=== PATIENT | female | born 1955 | race Caucasian/White ===

== ENCOUNTER → 2018-04-11 14:28 | Outpatient (CLI) | payer BC, SELFPAY ==
--- NOTE | 2018-04-11 14:35 | XR_ITS ---
XR KUB HISTORY: ITS.REASON: KIDNEY STONES ORDERING PHYSICIAN: Ish Palma MD PATIENT AGE: 63 years COMPARISON: 10/11/2017 FINDINGS: There is a 3 mm stone overlying the mid aspect of the left kidney. Multiple abdominal wall tacks in the lower abdomen. Surgical clips right upper quadrant. Degenerative change lumbar spine. IMPRESSION: Left nephrolithiasis
== END ==
PROVIDERS: PCP Family Medicine; Visit Provider Urology
DX: N20.0 Calculus of kidney (principal)
CPT/HCPCS: 74018

== ENCOUNTER → 2018-10-10 14:30 | Outpatient (CLI) | payer BC, SELFPAY ==
--- NOTE | 2018-10-10 14:32 | XR_ITS ---
XR KUB HISTORY: ITS.REASON: KIDNEY STONES ORDERING PHYSICIAN: Ish Palma MD PATIENT AGE: 63 years COMPARISON: 04/11/2018 FINDINGS: Surgical clips are present in the right upper quadrant. There are bilateral tubal ligation clips and there are multiple abdominal wall tacks present in the mid to lower abdomen. Mild lumbar scoliosis convex right. No obvious renal or ureteral calculi. There are multiple pelvic phleboliths. No abnormal calcifications are evident. No obvious renal or ureteral calculi.. No acute bony anomalies evident. IMPRESSION: Negative KUB, no acute finding
== END ==
PROVIDERS: PCP Family Medicine; Visit Provider Urology
DX: N20.0 Calculus of kidney (principal)
CPT/HCPCS: 74018

== ENCOUNTER → 2019-04-10 14:25 | Outpatient (CLI) | payer MEDICARE, SELFPAY ==
--- NOTE | 2019-04-10 14:31 | XR_ITS ---
XR KUB HISTORY: ITS.REASON: calculus of kidney ORDERING PHYSICIAN: Ish Palma MD PATIENT AGE: 64 years COMPARISON: 10/10/2018 FINDINGS: Surgical clips are present in the right upper quadrant. There are bilateral tubal ligation clips and there are multiple abdominal wall tacks present in the mid to lower abdomen. Mild lumbar scoliosis convex right. No obvious renal or ureteral calculi. There are multiple pelvic phleboliths. No abnormal calcifications are evident. No obvious renal or ureteral calculi.. No acute bony anomalies evident. Rule out vascular calcification IMPRESSION: Negative KUB, no acute finding
== END ==
PROVIDERS: PCP Family Medicine; Visit Provider Urology
DX: N20.9 Urinary calculus, unspecified (principal)
CPT/HCPCS: 74018

== ENCOUNTER → 2020-07-05 09:51 | Outpatient (CLI) | payer MEDICARE, SELFPAY ==
[2020-07-05 13:03] LABS: Coronavirus 19 IgG Antibody Negative (Negative); Coronavirus 19 IgM Antibody Negative (Negative)
== END ==
PROVIDERS: Visit Provider Internal Medicine Gastroenterology
DX: Z01.818 Encounter for other preprocedural examination (principal); Z12.11 Encounter for screening for malignant neoplasm of colon
CPT/HCPCS: 36415; 86328

== ENCOUNTER 2020-07-07 09:29 | Day surgery (SDC) | payer MEDICARE, SELFPAY ==
[2020-07-01 10:28] VITALS: BMI 29.7
[2020-07-07 09:50] VITALS: BP 154/67; PULSE 67; RESP 18; TEMP 36.5; O2SAT 98
[2020-07-07 10:03] LABS: POC Glucose,Bedside 247 (70-110)
[2020-07-07 11:00] VITALS: O2SAT 97
--- NOTE | 2020-07-07 11:07 | P.PN_ITS ---
[facility] Anesthesia Checklist - Patient Identification Patient Identification: Arm Band, Verbal (Name & ) - Structural Data Admitted From: Home Planned Operative Procedure/s: Colonoscopy Consent for Planned Operative Procedure(s) Verified: Yes Verified Documents: Surgical Consent, History and Physical - NPO Status Verified Time NPO: 00:00 - Chart Verification Results Verified: None - Additional verifications Fingerstick Blood Glucose: 247 Anesthesia Reactions: No - Airway Assessment C-Spine Mobility Assessed: Yes TMJ Mobility Assessed: Yes Dentition: Good Dentition - Neurological Assessment Level of Consciousness: Awake, Alert, Appropriate, Follows Commands Hx Seizures: No Numbness or tingling in extremities: No - Anesthesia Plan Anesthesia Risk discussed: Yes Anesthesia Plan: Verified ASA Class: III Anesthesia Type: MAC [facility] History I have reviewed the patient's past medical history: Yes Medical History: Reports:: Diabetes Mellitus Type 2, Gastroesophageal Reflux Disease(GERD), Hyperlipidemia, Hypertension, Kidney Stones Denies:: Cancer, Diabetes Mellitus Type 1, Internal Pacemaker, MRSA, Seizures *Have you ever received a pneumonia vaccine?: Yes *Have you received a flu vaccine this season?: Yes Other Medical History: Reports: Anemia Comment:: Gout, obesity Anesthesia experience/problems:: No prior complications Laterality Cases: Right: Carpal Tunnel Release, Bilateral: Arthroscopy Shoulder, Tonsillectomy Other Surgeries: Yes: Colonoscopy, , Tubal Ligation, Other. No: Pacemaker Amputation: No Fractures: No - *Social History Last grade of school completed: Some college Smoking Status: Never smoker Alcohol Intake: never Alcohol Intake Frequency:: holidays/special occasions only Substance Use Type: denies use *Occupational Status:: employed Housing: house Household Members: significant other *Travel in the last 8 weeks: None Family Hx:: Cancer, Hyperlipidemia, Hypertension
--- NOTE | 2020-07-07 11:35 | HMH.PROC ---
[facility] Procedure Note Procedure Note:: Colonoscopy Procedure Report: Colonoscopy with cold snare polypectomy Endoscopist: Anthony Herman II, MD Referring physician: Keven Cash MD Date of Procedure: July 07, 2020 Equipment: Olympus 180 variable stiffness pediatric colonoscope Sedation: MAC sedation Indication: Mrs. Edwards is a 65-year-old female who is here for follow-up screening/surveillance colonoscopy. The patient reports some intermittent lower abdominal discomfort that precedes diarrhea a couple of times monthly. Her mother had uterine cancer. The patient reports no abdominal pain, weight loss, change in her bowel habits or rectal bleeding. She reports no family history of colon cancer. The patient's last colonoscopy was normal (over 5 years ago). She has never had colon polyps. Procedure: Prior to the procedure, a history and physical exam was performed, and patient's medications and allergies were reviewed. The risks, benefits and alternatives of the sedation and procedure were discussed with the patient. All questions were answered and informed consent was obtained. The patient was brought to the procedure room. Patient identification and proposed procedure were verified by the physician and the nurse. The patient was placed in a left lateral decubitus position and the scope was passed under direct vision. Throughout the procedure, the patient's blood pressure, pulse, and oxygen saturations were monitored continuously. The colonoscopy was accomplished without difficulty. The patient tolerated the procedure well. Findings: On digital rectal examination there was normal rectal tone. There were no external hemorrhoids. The colonoscope was introduced through the anal canal to the rectum and advanced to the cecum. The ileocecal valve and appendiceal orifice were identified. The scope was advanced a short distance into the ileum which appeared grossly normal. The scope was then withdrawn into the colon. The cecum, ascending and transverse colon and mucosa were grossly normal. There was a diminutive 2 to 3 mm polyp in the descending colon removed via cold snare polypectomy. The polyp was removed but not retrieved. There were scattered diverticuli throughout the descending and sigmoid colon (LEFT colon). The rectum itself was normal. Upon retroflexion within the rectum there were grade 1-2 internal hemorrhoids. The preparation was excellent throughout with Eastham Preparation Score of 9. The cecal time was 12 minutes. Impression: 1. Diminutive descending colon polyp 2. Left-sided diverticulosis 3. Grade 1-2 internal hemorrhoids Plan: I will recommend repeat colonoscopy again in 10 years based upon hyperplastic polyp. I would encourage fiber supplementation on a long-term daily maintenance basis.
[2020-07-07 11:40] VITALS: BP 85/51; PULSE 61; RESP 12; TEMP 36.6; O2SAT 94
[2020-07-07 11:50] VITALS: BP 111/60; PULSE 62; RESP 16; O2SAT 97
[2020-07-07 12:00] VITALS: BP 132/74; PULSE 62; RESP 16; O2SAT 97
[2020-07-07 12:10] VITALS: BP 156/71; PULSE 65; RESP 16; TEMP 36.6; O2SAT 99
== END 2020-07-07 12:10 | disposition home or self-care (01) ==
LOC: OUTP 09:30
PROVIDERS: PCP Family Medicine; Visit Provider Internal Medicine Gastroenterology
PROC: 0DJD8ZZ Inspection of Lower Intestinal Tract, Via Natural or Artificial Opening Endoscopic (ICD-10-PCS; CPT 45378; principal; 2020-07-07 11:00)
DX: Z12.11 Encounter for screening for malignant neoplasm of colon (principal); K63.5 Polyp of colon; K57.30 Diverticulosis of large intestine without perforation or abscess without bleeding; K64.0 First degree hemorrhoids; Z80.49 Family history of malignant neoplasm of other genital organs; E11.9 Type 2 diabetes mellitus without complications; K21.9 Gastro-esophageal reflux disease without esophagitis; E78.5 Hyperlipidemia, unspecified; I10 Essential (primary) hypertension; Z87.442 Personal history of urinary calculi; D64.9 Anemia, unspecified; Z90.89 Acquired absence of other organs
CPT/HCPCS: 45385; 82962

== ENCOUNTER 2020-08-26 14:21 | Emergency (ER) | payer MEDICARE, SELFPAY ==
[2020-08-26] VITALS (7 sets, daily range): BP systolic 135–147; BP diastolic 60–70; PULSE 66–84; RESP 18–118; TEMP 37–37.1; O2SAT 96–99; BMI 29.9
--- NOTE | 2020-08-26 14:33 | CT_ITS ---
PROCEDURE: CT HEAD/BRAIN WO CON CLINICAL INDICATION: weakness New onset weakness with vomiting COMPARISON: No exams were available for comparison TECHNIQUE: Axial images obtained. All CT scans at the facility use one or more dose reduction, viz: automated exposure control, ma/kV adjustment per patient size (including targeted exams where dose is matched to indication, i.e. head), or iterative reconstruction technique. FINDINGS: No midline shift, mass effect, intracranial hemorrhage, hydrocephalus, or extra-axial fluid collection is evident. There is generalized atrophy with hypoattenuation of the periventricular white matter consistent with microangiopathic changes. The calvarium has an unremarkable appearance. No mastoid effusion. No sinus air-fluid level. IMPRESSION: No acute intracranial finding Dictated by: Brian Serrano MD 08/26/2020 15:35 Brian Serrano MD in [facility] 08/26/2020 15:35
--- NOTE | 2020-08-26 14:33 | ECG_ITS ---
APPROVED REPORT Exam: Resting ECG HR:88 bpm ECG Measurements Heart Rate 88 AXES NM 174 P 54 QRSd 90 QRS 0 QT 392 T 36 QTc 474 Conclusion Normal sinus rhythm Nonspecific ST abnormality, essentially unchanged from 2017 Abnormal ECG Electronically signed by : Lio Rodney, 08/29/2020 13:55:53
--- NOTE | 2020-08-26 14:33 | XR_ITS ---
PROCEDURE: XR CHEST PORTABLE CLINICAL HISTORY: cough COMPARISON: CR CXR1 CHEST-PORTABLE from 02/26/2013 FINDINGS: The cardiomediastinal silhouette and pulmonary vascularity are within normal limits. The lungs are clear without infiltrates, suspicious nodules, or pleural effusions. Lucency is noted in the right humeral head possibly due to subchondral cystic changes. IMPRESSION: No acute findings. Dictated by: Brian Serrano MD 08/26/2020 15:31 Brian Serrano MD in [facility] 08/26/2020 15:31
[2020-08-26 14:57] LABS: Basophils # 0.1 K/mm3 (0-0.2); Basophils % 0.7 % (0.1-2.0); Eosinophils # 0.4 K/mm3 (0.0-0.4); Eosinophils % 3.1 % (0.1-12.0); Hemoglobin 11.4 g/dL (12.2-16.2); Lymphocytes # 3.6 K/mm3 (0.7-4.5); Lymphocytes % 28.6 % (10-50); Mean Corpuscular HGB Conc 31.6 g/dL (31.8-35.4); Mean Corpuscular Hemoglobin 30.4 pg (27.0-31.2); Mean Corpuscular Volume 96.2 fl (81-99); Mean Platelet Volume 10.8 fl (7.4-10.4); Monocytes # 0.5 K/mm3 (0.1-1.0); Monocytes % 3.6 % (1.7-9.3); Neutrophils # 8.1 K/mm3 (1.8-7.8); Platelet Count 250 K/mm3 (142-424); Red Blood Count 3.74 M/mm3 (4.20-5.40); Red Cell Distribution Width 13.7 % (11.5-17.5); White Blood Count 12.6 K/mm3 (4.8-10.8)
[2020-08-26 15:01] LABS: Microscopic, Urine URINE MICROSCOPIC (MICROSCOPIC)
[2020-08-26 15:02] LABS: Appearance,Urine CLEAR (Clear); Bilirubin,Urine Negative (Negative); Blood, Urine Negative (Negative); Color,Urine YELLOW (Yellow); Glucose,Urine (UA) 2+ (Negative); Ketones,Urine Negative (Negative); Leukocyte Esterase,Urine Negative (Negative); Nitrate,Urine Negative (Negative); PH,Urine 6.5 (5.0-8.5); Protein,Urine Negative (Negative); Urobilinogen,Urine 0.2 EU/dl (0.2)
[2020-08-26 15:03] LABS: Alanine Aminotransferase 22 U/L (12-78); Albumin Level 3.6 g/dl (3.5-5.0); Albumin/Globulin Ratio 1.2 (1.1-1.8); Alkaline Phosphatase 106 U/L (38-126); Anion Gap 13.6 mEq/L (5-15); Aspartate Amino Transferase 27 U/L (14-36); Bilirubin,Total 0.4 mg/dl (0.2-1.3); Blood Urea Nitrogen 14 mg/dl (7-17); Carbon Dioxide 22 mmol/L (22.0-30.0); Chloride 106 mmol/L (98-107); Creatinine Clearance Estimated 61 mL/min (50-200); Estimated Glomerular Filt Rate 45 ml/min (>60); GFR (African American) 54 ML/MIN (>60); Globulin 3.1 g/dL (1.3-3.2); Glucose 251 mg/dl (74-100); Lipase 46 U/L (23-300); Potassium 3.6 mmoL/L (3.5-5.1); Sodium 138 mmol/L (136-145); Total Protein,Serum 6.7 g/dl (6.3-8.2)
--- NOTE | 2020-08-26 15:07 | PC.NURSE ---
pt gone to ct
[2020-08-26 15:13] LABS: RBC,Urine Occasional #/hpf (0-3)
[2020-08-26 15:14] LABS: Amphetamine/Metha Screen,Urine Negative ng/ml (<1000); Barbiturates Screen,Urine Negative ng/ml (<200)
[2020-08-26 15:15] LABS: Benzodiazepines Screen,Urine Negative ng/ml (<200)
--- NOTE | 2020-08-26 15:15 | HMH.EDWEAK ---
ED Disposition Clinical Impression: Near syncope Disposition: Home, Self-Care Condition on Discharge: Good Instructions: DI for Syncope in Adults (Fainting) Referrals: Provider,Referral, [Referring] - - Critical Care Critical Care Time: No Attestation: On 08/26/20, the high probability of a clinically significant, sudden or life threatening deterioration of the following system(s) required my full and direct attention, intervention and personal management. The time I documented below is in addition to time spent performing reported procedures but includes the following listed in this critical care notation. Medical Decision Making - Medical Records Medical records reviewed: Yes: I reviewed the patient's medical records. - Nemesio Inquiry Pt receiving controlled substance: No Vital Signs: 08/26/20 14:21 08/26/20 14:47 08/26/20 15:01 Temperature 98.6 F 98.7 F Temperature Source Oral Rectal Pulse Rate [Left Radial] 82 76 Respiratory Rate 19 118 H 18 Blood Pressure [Right Arm] 141/67 H 141/67 H 141/70 H Blood Pressure Mean [Right Arm] 91 91 93 Blood Pressure Source [Right Arm] Automatic Cuff Automatic Cuff Blood Pressure Position [Right Arm] Sitting Supine 02 Sat by Pulse Oximetry 96 96 Oxygen Delivery Method Room Air Room Air 08/26/20 15:31 08/26/20 16:05 Temperature Temperature Source Pulse Rate [Left Radial] 84 66 Respiratory Rate 18 18 Blood Pressure [Right Arm] 135/60 143/67 H Blood Pressure Mean [Right Arm] 85 92 Blood Pressure Source [Right Arm] Automatic Cuff Automatic Cuff Blood Pressure Position [Right Arm] Sitting Sitting 02 Sat by Pulse Oximetry 97 99 Oxygen Delivery Method Room Air Room Air - Lab Data Lab Results 08/26/20 14:35: WBC 12.6 H, RBC 3.74 L, Hgb 11.4 L, Hct 36.0 L, MCV 96.2, MCH 30.4, MCHC 31.6 L, RDW 13.7, Plt Count 250, MPV 10.8 H, Neut % (Auto) 64.0, Lymph % (Auto) 28.6, [place] % (Auto) 3.6, Eos % (Auto) 3.1, Baso % (Auto) 0.7, Neut # (Auto) 8.1 H, Lymph # (Auto) 3.6, [place] # (Auto) 0.5, Eos # (Auto) 0.4, Baso # (Auto) 0.1 08/26/20 14:35: Sodium 138, Potassium 3.6, Chloride 106, Carbon Dioxide 22, Anion Gap 13.6, BUN 14, Creatinine 1.20 H, Estimated Creat Clear 61, Estimated GFR 45 L, Est GFR ( Amer) 54 L, Glucose 251 H, Calcium 9.0, Total Bilirubin 0.4, AST 27, ALT 22, Alkaline Phosphatase 106, Troponin I < 0.01, Total Protein 6.7, Albumin 3.6, Globulin 3.1, Albumin/Globulin Ratio 1.2, TSH 0.50 08/26/20 14:35: Lipase 46 08/26/20 14:35: SARS-CoV-2 IgG Ab (Rapid) Negative, SARS-CoV-2 IgM Ab (Rapid) Negative 08/26/20 14:57: Urine Opiates Screen Negative, Urine Methadone Screen Negative, Ur Barbituates Screen Negative, Ur Phencyclidine Scrn Negative, Ur Amphetamines Screen Negative, U Benzodiazepines Scrn Negative, Urine Cocaine Screen Negative, U Marijuana (THC) Screen Positive H 08/26/20 14:57: Urine Color Yellow, Urine Appearance Clear, Urine pH 6.5, Ur Specific [place] 1.010, Urine Protein Negative, Urine Glucose (UA) 2+, Urine Ketones Negative, Urine Blood Negative, Urine Nitrate Negative, Urine Bilirubin Negative, Urine Urobilinogen 0.2, Ur Leukocyte Esterase Negative, Urine RBC Occasional, Urine WBC 3-5, Ur Squamous Epith Cells 3-5 Result diagrams: 08/26/20 14:35 08/26/20 14:35 Orders (Tests/Meds): ED MEDICATIONS Discontinued Medications Generic Name Dose Route Start Last Admin Trade Name Freq PRN Reason Stop Dose Admin Ondansetron HCl 4 mg 08/26/20 14:49 08/26/20 14:51 Ondansetron 4mg/2ml Vial IV 08/26/20 14:50 4 mg ONCE ONE Administration ORDERS Category Date Time Status Troponin I Q3H Lab 08/26/20 17:45 Ordered Troponin I Q3H Lab 08/26/20 20:45 Ordered - ECG Data Tracing #1 Normal ventricular rate 88 bpm, normal OH and QTc intervals. Sinus rhythm with no specific ST changes ECG initial impression date: 08/26/20 ECG initial impression time: 14:22 - Reevaluation(s) Time: 16:49 Reevaluation #1: On re
[2020-08-26 15:16] LABS: Cannabinoid Screen,Urine Positive ng/ml (<50); Cocaine Screen,Urine Negative ng/ml (<300)
[2020-08-26 15:17] LABS: Methadone Screen,Urine Negative ng/ml (<300); Opiate Screen,Urine Negative ng/ml (<300)
[2020-08-26 15:17] LABS: Troponin I < 0.01 ng/ml (0.00-0.034)
[2020-08-26 15:18] LABS: Phencyclidine Screen,Urine Negative ng/ml (<25)
[2020-08-26 15:28] LABS: Coronavirus 19 IgG Antibody Negative (Negative); Coronavirus 19 IgM Antibody Negative (Negative)
[2020-08-28 19:21] LABS: POC Glucose,Bedside 235 (70-110)
== END 2020-08-26 17:29 | disposition home or self-care (01) ==
PROVIDERS: Emergency Provider Emergency Medicine; PCP Family Medicine
DX: R55 Syncope and collapse (principal); E11.9 Type 2 diabetes mellitus without complications; Z79.84 Long term (current) use of oral hypoglycemic drugs; K21.9 Gastro-esophageal reflux disease without esophagitis; I10 Essential (primary) hypertension; E78.5 Hyperlipidemia, unspecified; Z87.442 Personal history of urinary calculi; Z79.899 Other long term (current) drug therapy
CPT/HCPCS: 70450; 71045; 80053; 80305; 81001; 82962; 83690; 84443; 84484; 85025; 86328; 93005; 96374; 99284; J2405

== ENCOUNTER → 2020-09-09 12:32 | Outpatient (CLI) | payer MEDICARE, SELFPAY ==
--- NOTE | 2020-09-09 | CA_ITS ---
APPROVED REPORT Sign Maker: CT Laterality: Bilateral Study Quality: Poor, Due to body habitus. Indications: syncope, Risk Factors Hypertension: Hyperlipidemia Diabetes Doppler Spectral Velocity Analysis ECA (R) 156.10/18.20 cm/s ECA (L) 96.50/19.50 cm/s dICA (R) 93.40/17.30 cm/s dICA (L) 80.80/25.40 cm/s Jonathan (R) 107.90/33.70 cm/s Jonathan (L) 74.80/21.00 cm/s pICA (R) 98.00/19.50 cm/s pICA (L) 82.30/7.50 cm/s dCCA (R) 60.40/12.20 cm/s dCCA (L) 78.80/13.70 cm/s pCCA (R) 81.50/13.50 cm/s pCCA (L) 141.40/18.00 cm/s Vert (R) 55.20/12.80 cm/s Vert (L) 36.80/10.80 cm/s ICA/CCA 1.80 ICA/CCA 1.00 Findings Duplex evaluation demonstrates stenosis of the right proximal internal carotid artery in the range of 20-49%. Duplex evaluation demonstrates stenosis of the left proximal internal carotid artery in the range of 20-49%. Duplex evaluation demonstrates antegrade flow of the bilateral Vertebral Arteries. Tortuous vessels noted, further testing suggested due to difficult exam. Conclusion plex evaluation demonstrates stenosis of the right proximal internal carotid artery in the range of 20-49%. Duplex evaluation demonstrates stenosis of the left proximal internal carotid artery in the range of 20-49%. Duplex evaluation demonstrates antegrade flow of the bilateral Vertebral Arteries. Tortuous vessels noted, further testing suggested due to difficult exam. Electronically signed by : Brian Serrano MD 09/09/2020 15:40:15
--- NOTE | 2020-09-09 13:58 | XR_ITS ---
PROCEDURE: XR DEXA AXIAL SKELETON CLINICAL HISTORY: POST-MENOPAUSAL COMPARISON: No exams were available for comparison FINDINGS: The right hip BMD is 0.718 with a T-score of -1.2. The left hip BMD is 0.733 with a T-score of -1.7. The lumbar spine BMD is 0.938 with a T-score of -1.0. IMPRESSION: This patient is considered osteopenic according to the World Health Organization criteria. Bone density is between 10 and 25 percent below young normal. Fracture risk is moderate. Treatment is advised. Based on these results a follow-up exam is recommended in 2 year. Dictated by: Brian Serrano MD 09/10/2020 05:56 Brian Serrano MD in [facility] 09/10/2020 05:56
== END ==
PROVIDERS: PCP Family Medicine; Visit Provider Family Medicine
DX: R55 Syncope and collapse (principal); Z78.0 Asymptomatic menopausal state
CPT/HCPCS: 77080; 93880

== ENCOUNTER → 2020-09-23 09:00 | Outpatient (CLI) | payer MEDICARE, SELFPAY ==
--- NOTE | 2020-09-23 09:14 | CT_ITS ---
Procedure: CT ANGIO NECK CLINICAL HISTORY: ABN CAROTID ULTRASOUND Hypertension, diabetes, hyperlipidemia, abnormal duplex of the carotid arteries COMPARISON: No exams were available for comparison TECHNIQUE: IV Contrast: 100ml Isovue 370 Axial images obtained with sagittal and coronal reformats. All CT scans at the facility use one or more dose reduction, viz: automated exposure control, ma/kV adjustment per patient size (including targeted exams where dose is matched to indication, i.e. head), or iterative reconstruction technique. FINDINGS: The aortic arch shows some mild calcific plaque. There is approximately 30 percent stenosis of the ostium the left subclavian artery. In addition, there is a mild amount calcific plaque at the ostium of the right subclavian artery causing approximately 30 percent stenosis. There is moderate to severe stenosis involving the distal aspect of the right common carotid artery at the bifurcation region. There is calcific plaque at this area causing some 50 percent stenosis of the distal right common carotid and 60 percent ostial stenosis of the right ICA. Cephalad to this is a eccentric calcific plaque causing 20 percent stenosis. Calcific plaque is present within the cavernous and clinoid portion of the right ICA with less than 50 percent stenosis Calcific plaque is present in the left carotid bifurcation with 50 percent diameter stenosis of the proximal left ICA secondary to calcific plaque. Calcific plaque is present in the cavernous portion of the left ICA with less than 50 percent stenosis. There is approximately 30 percent stenosis of the ostium of the left vertebral artery secondary to calcific plaque. The right vertebral has an unremarkable appearance. Left vertebral is dominant. Small amount of calcific plaque is also present in the distal aspect of the left vertebral just proximal to the basilar artery with approximately 30 percent stenosis. There are small nodules of the thyroid gland less than 1 cm and scattered small nodes in the neck. IMPRESSION: Abnormal CT of the carotid arteries as described above with moderate to severe stenosis of the distal right common carotid of 50 percent and 60 percent ostial stenosis of the right ICA along with 50 percent stenosis of the left carotid bifurcation and proximal ICA. Calcific plaque is also present in the cavernous portion of the carotids with less than 50 percent stenosis. 30 percent stenosis of the ostium of the left vertebral and both subclavian arteries. Dictated by: Brian Serrano MD 09/24/2020 11:00 Brian Serrano MD in [facility] 09/24/2020 11:00
[2020-09-23 09:35] LABS: Blood Urea Nitrogen 23 mg/dl (7-17); Estimated Glomerular Filt Rate 38 ml/min (>60); GFR (African American) 46 ML/MIN (>60)
== END ==
PROVIDERS: PCP Family Medicine; Visit Provider Family Medicine
DX: R93.89 Abnormal findings on diagnostic imaging of other specified body structures (principal); R55 Syncope and collapse
CPT/HCPCS: 36415; 70498; 82565; 84520; Q9967

== ENCOUNTER → 2022-02-24 13:15 | Outpatient (CLI) | payer MEDICARE, SELFPAY ==
--- NOTE | 2022-02-24 13:20 | CT_ITS ---
FINAL REPORT CLINICAL HISTORY: CALCULUS OF KIDNEY COMPARISON: July 11, 2018 FINDINGS: Axial CT images of the abdomen and pelvis were obtained without intravenous contrast. Coronal reformatted images were also obtained.This study was performed with techniques to keep radiation doses as low as reasonably achievable (ALARA). Individualized dose reduction techniques using automated exposure control or adjustment of mA and/or kV according to the patient's size were employed. Abdomen: The lung bases are clear. There are less than 3 mm bilateral nonobstructing renal stones. There are postoperative changes from cholecystectomy. There is fatty infiltration of the liver. The spleen and pancreas have an unremarkable, unenhanced appearance. No mass or adenopathy is seen. No inflammatory process is identified. Pelvis: Images of the pelvis reveal no evidence of ureteral dilation or ureteral stone. There are multiple colonic diverticula without evidence of diverticulitis. No mass or abnormal fluid collection is identified. There are postoperative changes along the anterior abdominal and pelvic wall. IMPRESSION: Less than 3 mm bilateral nonobstructing renal stones. No mass or inflammatory process. Reviewed, Interpreted and Dictated by Eris Caldera III, MD Transcribed by Eri Nazario Authenticated by Eris Caldera III, MD on 02/24/2022 03:28:[address] [facility]
== END ==
PROVIDERS: PCP Family Medicine; Visit Provider Urology
DX: N20.0 Calculus of kidney (principal)
CPT/HCPCS: 74176

== ENCOUNTER 2022-03-17 15:45 | Observation (INO) | payer MEDICARE, SELFPAY ==
--- NOTE | 2022-03-17 16:52 | PC.NURSE ---
Assessed pt at this time. Pt nauseated and not feeling well. Advised her as soon as a room became available we would get her back.
--- NOTE | 2022-03-17 17:18 | PC.NURSE ---
Warm blankets provided. Advised pt still waiting on room to become available.
--- NOTE | 2022-03-17 17:43 | PC.NURSE ---
went in and assessed patient who was laying on the floor. V/S were 122/89, 89HR, 98%. and FSBS was 296. I offered patient multiple different things and advised we would get her into a room SHERI. PT thankful and agreeable at this time. Had no new needs.
--- NOTE | 2022-03-17 17:51 | HMH.EDGENADL ---
ED Disposition Condition on Discharge: Fair - Critical Care Critical Care Time: No <Arron Mayo - Last Filed: 03/17/22 20:38> <Jonathan Soto Michael - Last Filed: 03/17/22 22:31> Clinical Impression: Bilateral flank pain, Postoperative pain, Lactic acidosis, Shakiness Vomiting Qualifiers: Vomiting type: unspecified Nausea presence: with nausea Qualified Code(s): R11.2 - Nausea with vomiting, unspecified Disposition: Admitted as Observation Referrals: Ermias Cash MD [Primary Care Provider] - Attestation: On 03/17/22, the high probability of a clinically significant, sudden or life threatening deterioration of the following system(s) required my full and direct attention, intervention and personal management. The time I documented below is in addition to time spent performing reported procedures but includes the following listed in this critical care notation. Medical Decision Making - Nemesio Inquiry Pt receiving controlled substance: Yes Nemesio was queried for this patient: Yes Risks and benefits of using a controlled substance: were discussed with pt by me - Lab Data Result diagrams: 03/17/22 19:18 - CT Data CT Scan: Abdomen, Pelvis Time Received: 19:[address] Reviewed: Yes: I have viewed the radiologist's interpretation <Arron Mayo - Last Filed: 03/17/22 20:38> - Lab Data Lab results reviewed: Yes: I reviewed the patient's lab results. Result diagrams: 03/17/22 19:18 - Physician Consults Physician Consulted: diana Reason -: Admission <Jonathan Soto Michael - Last Filed: 03/17/22 22:31> Vital Signs: 03/17/22 18:36 Temperature 98.9 F Temperature Source Oral Pulse Rate [Left Radial] 84 Respiratory Rate 17 Blood Pressure [Right Arm] 158/58 H Blood Pressure Mean [Right Arm] 91 02 Sat by Pulse Oximetry 99 Oxygen Delivery Method Room Air - Lab Data Lab Results 03/17/22 17:39: POC Glucose 297 H 03/17/22 19:18: Sodium 138, Potassium 4.0, Chloride 98, Carbon Dioxide 22, Anion Gap 22.0 H, BUN 32 H, Creatinine 1.80 H, Estimated Creat Clear 40, Estimated GFR 28 L, Est GFR ( Amer) 34 L, Glucose 361 H, Calcium 9.4, Total Bilirubin 0.6, AST 51 H, ALT 56, Alkaline Phosphatase 136 H, Total Protein 7.9, Albumin 4.5, Globulin 3.4 H, Albumin/Globulin Ratio 1.3 03/17/22 19:18: Lactate 6.4 H 03/17/22 20:53: Urine Color Brown, Urine Appearance Cloudy, Urine pH 6.0, Ur Specific [place] 1.020, Urine Protein 2+, Urine Glucose (UA) 2+, Urine Ketones Trace, Urine Blood 3+, Urine Nitrate Negative, Urine Bilirubin Negative, Urine Urobilinogen 0.2, Ur Leukocyte Esterase Negative, Urine RBC Tntc, Urine WBC 3-5, Ur Squamous Epith Cells Occasional, Urine Bacteria Trace Orders (Tests/Meds): ED MEDICATIONS Generic Name Dose Route Start Last Admin Trade Name Freq PRN Reason Stop Dose Admin Lactated Ringer's 1,000 mls @ 999 mls/hr 03/17/22 18:00 03/17/22 19:13 Lactated Ringer's 1000 Ml Bag IV 03/17/22 19:00 999 mls/hr .Q1H1M YOLIS Administration Lactated Ringer's 1,000 mls @ 999 mls/hr 03/17/22 21:30 03/17/22 21:26 Lactated Ringer's 1000 Ml Bag IV 03/17/22 22:30 999 mls/hr .Q1H1M YOLIS Administration Discontinued Medications Generic Name Dose Route Start Last Admin Trade Name Freq PRN Reason Stop Dose Admin Hydromorphone HCl 1 mg 03/17/22 17:58 03/17/22 19:12 Hydromorphone 2mg/Ml Syringe IV 03/17/22 17:59 1 mg ONCE ONE Administration Hydromorphone HCl 1 mg 03/17/22 20:39 03/17/22 20:55 Hydromorphone 2mg/Ml Syringe IV 03/17/22 20:40 1 mg ONCE ONE Administration Ondansetron HCl 4 mg 03/17/22 17:58 03/17/22 19:12 Ondansetron 4mg/2ml Vial IV 03/17/22 17:59 4 mg ONCE ONE Administration Promethazine HCl 25 mg 03/17/22 21:23 03/17/22 21:26 Promethazine Hcl 25mg/Ml 1ml Vial IV 04/27/22 21:24 25 mg ONCE ONE Administration Sodium Chloride 25 ml 03/17/22 21:23 Sodium Chloride 0.9% 25ml Bag IV 03/17/22 21:24 ONCE ONE
--- NOTE | 2022-03-17 17:59 | CT_ITS ---
PROCEDURE INFORMATION: Exam: CT Abdomen And Pelvis Without Contrast Exam date and time: 03/17/22 06:12 PM Age: 67 years old Clinical indication: Abdominal pain; Generalized; Additional info: Bilat flank pain, bilat laser eswl today TECHNIQUE: Imaging protocol: Computed tomography of the abdomen and pelvis without contrast. Radiation optimization: All CT scans at this facility use at least one of these dose optimization techniques: automated exposure control; mA and/or kV adjustment per patient size (includes targeted exams where dose is matched to clinical indication); or iterative reconstruction. COMPARISON: CT ABDOMEN PELVIS WO CON 02/24/22 01:34 PM FINDINGS: Tubes, catheters and devices: None noted. Lungs: Lung bases appear clear. Heart: Moderate coronary calcifications. No cardiomegaly. No significant pericardial effusion. Liver: Fatty liver. No mass. Gallbladder and bile ducts: Cholecystectomy. No ductal dilation. Pancreas: Normal. No ductal dilation. Spleen: Calcified granulomata. No splenomegaly. Adrenal glands: Normal. No mass. Kidneys and ureters: Contrast and air in both renal collecting systems. Punctate calcification remains in the left collecting system. UPJ configuration bilaterally. No hydronephrosis. Stomach and bowel: Colonic diverticulosis without diverticulitis. No obstruction. No mucosal thickening. Appendix: Retrocecal appendix is well visualized. No evidence of appendicitis. Intraperitoneal space: Unremarkable. No free air. No significant fluid collection. Retroperitoneal space: No significant retroperitoneal inflammatory changes are noted. Arteries: Unremarkable. No abdominal aortic aneurysm. Lymph nodes: Unremarkable. No enlarged lymph nodes. Urinary bladder: Unremarkable as visualized. Reproductive: Bilateral tubal ligation. Bones/joints: Vacuum discs L1-L2 and L2-L3. No acute fracture. Soft tissues: Anterior abdominal wall mesh. IMPRESSION: 1. Contrast and air in the renal collecting systems bilaterally. 2. Punctate calcification remains in the left collecting system. 3. Moderate coronary calcifications. 4. Fatty liver. 5. Cholecystectomy. 6. Colonic diverticulosis without diverticulitis.
[2022-03-17 18:27] VITALS: BMI 30.2
[2022-03-17 18:36] VITALS: BP 158/58; PULSE 84; RESP 17; TEMP 37.2; O2SAT 99; BMI 30.2
[2022-03-17 19:17] LABS: POC Glucose,Bedside 297 (70-110)
[2022-03-17 19:32] LABS: Chloride 98 mmol/L (98-107)
[2022-03-17 19:33] LABS: Sodium 138 mmol/L (136-145)
[2022-03-17 19:35] LABS: Alanine Aminotransferase 56 U/L (12-78); Aspartate Amino Transferase 51 U/L (14-36); Blood Urea Nitrogen 32 mg/dl (7-17); Creatinine Clearance Estimated 40 mL/min (50-200); Estimated Glomerular Filt Rate 28 ml/min (>60); GFR (African American) 34 ML/MIN (>60)
[2022-03-17 19:36] LABS: Albumin Level 4.5 g/dl (3.5-5.0); Albumin/Globulin Ratio 1.3 (1.1-1.8); Alkaline Phosphatase 136 U/L (38-126); Bilirubin,Total 0.6 mg/dl (0.2-1.3); Calcium 9.4 mg/dl (8.4-10.2); Carbon Dioxide 22 mmol/L (22.0-30.0); Globulin 3.4 g/dL (1.3-3.2); Glucose 361 mg/dl (74-100); Total Protein,Serum 7.9 g/dl (6.3-8.2)
[2022-03-17 19:40] LABS: Lactic Acid 6.4 mmol/L (0.7-2.1)
[2022-03-17 21:03] LABS: Microscopic, Urine URINE MICROSCOPIC (MICROSCOPIC)
[2022-03-17 21:08] LABS: Appearance,Urine CLOUDY (Clear); Bilirubin,Urine Negative (Negative); Blood, Urine 3+ (Negative); Color,Urine BROWN (Yellow); Glucose,Urine (UA) 2+ (Negative); Ketones,Urine TRACE (Negative); Leukocyte Esterase,Urine Negative (Negative); Nitrate,Urine Negative (Negative); Protein,Urine 2+ (Negative); Urobilinogen,Urine 0.2 EU/dl (0.2)
[2022-03-17 21:31] LABS: Bacteria,Urine Trace /lpf; RBC,Urine TNTC #/hpf (0-3); Squamous Epithelial Cell,Urine Occasional #/hpf (0-5)
[2022-03-17 22:42] VITALS: BMI 31.8
[2022-03-17 23:14] VITALS: BP 142/75; PULSE 82; RESP 16; TEMP 37.2; O2SAT 99
[2022-03-17 23:21] LABS: Coronavirus 19, PCR Not Detected (NotDetected); Influenza A, PCR Not Detected (NotDetected); Influenza B, PCR Not Detected (NotDetected)
[2022-03-17 23:25] LABS: Reflex Lactic Add Lactic Reflex
[2022-03-18] VITALS: BP 155/61; PULSE 84; RESP 18; TEMP 36.7; O2SAT 99
[2022-03-18 01:45] LABS: Reflex Lactic (2 hrs) Add Lactic Reflex
[2022-03-18 02:45] LABS: Lactic Acid Follow up (RFLX 2) 1.9 mmol/L (0.7-2.1)
[2022-03-18 03:41] LABS: Basophils % 0.1 % (0.1-2.0); Hematocrit 39.7 % (37.0-47.0); Hemoglobin 12.6 g/dL (12.2-16.2); Lymphocytes % 4.4 % (10-50); Mean Corpuscular HGB Conc 31.7 g/dL (31.8-35.4); Mean Corpuscular Hemoglobin 30.2 pg (27.0-31.2); Mean Corpuscular Volume 95.2 fl (81-99); Mean Platelet Volume 13.8 fl (7.4-10.4); Monocytes % 1.2 % (1.7-9.3); Neutrophils # 14.6 K/mm3 (1.8-7.8); Neutrophils % 93.7 % (37.0-80.0); Platelet Count 221 K/mm3 (142-424); Red Blood Count 4.17 M/mm3 (4.20-5.40)
[2022-03-18 03:42] LABS: Lymphocytes # 0.7 K/mm3 (0.7-4.5); MANUAL DIFFERENTIAL MANUAL DIFFERENTIAL (MANUAL DIFF); Monocytes # 0.2 K/mm3 (0.1-1.0); White Blood Count 15.6 K/mm3 (4.8-10.8)
[2022-03-18 04:00] VITALS: BP 130/64; PULSE 85; RESP 18; TEMP 36.8; O2SAT 97
[2022-03-18 06:43] LABS: Chloride 103 mmol/L (98-107); Sodium 136 mmol/L (136-145)
[2022-03-18 06:44] LABS: Potassium 4.2 mmoL/L (3.5-5.1)
[2022-03-18 06:47] LABS: Anion Gap 13.2 mEq/L (5-15); Blood Urea Nitrogen 32 mg/dl (7-17); Calcium 8.3 mg/dl (8.4-10.2); Carbon Dioxide 24 mmol/L (22.0-30.0); Creatinine Clearance Estimated 38 mL/min (50-200); Estimated Glomerular Filt Rate 25 ml/min (>60); GFR (African American) 30 ML/MIN (>60); Glucose 203 mg/dl (74-100)
--- NOTE | 2022-03-18 07:11 | HMH.PHAVTE ---
[facility] Pharmacy VTE Monitoring - Patient Demographics Admission date: 03/18/22 Report Date: 03/18/22 Time: 07:11 Allergies/Adverse Reactions: Patient Allergies No Known Drug Allergies [NKDA] Allergy (Unknown, Verified 10/09/19 13:23) Height: 1.68 m Weight: 89.721 kg Patient Problems: Current Active Problems Bilateral flank pain (Acute) Postoperative pain (Acute) Lactic acidosis (Acute) Shakiness (Acute) Vomiting (Acute) - VTE Risk Labs: VTE Related Lab Results Hgb 12.6 g/dL (12.2-16.2) 03/17/22 19:18 Hct 39.7 % (37.0-47.0) 03/17/22 19:18 Plt Count 221 K/mm3 (142-424) 03/17/22 19:18 BUN 32 mg/dl (7-17) H 03/18/22 05:36 Creatinine 2.00 mg/dl (0.52-1.04) H 03/18/22 05:36 Estimated Creat Clear 38 mL/min (50-200) 03/18/22 05:36 Clinical Trial Participant: No - Prophylaxis VTE Prophylaxis Ordered?: Yes Types of VTE Prophylaxis: TEDS Knee High
[2022-03-18 08:00] VITALS: BP 145/57; PULSE 86; RESP 16; TEMP 37.3; O2SAT 97
[2022-03-18 08:04] LABS: POC Glucose,Bedside 177 (70-110)
--- NOTE | 2022-03-18 08:09 | HMH.PHAINT ---
Home medication list has been verified using patient's P[employer] claim history and information provided by the patient.
[2022-03-18 11:35] LABS: Red Blood Count 3.33 M/mm3 (4.20-5.40)
[2022-03-18 11:36] LABS: Hematocrit 31.4 % (37.0-47.0); Hemoglobin 10.2 g/dL (12.2-16.2); Lymphocytes % 9.7 % (10-50); Mean Corpuscular HGB Conc 32.5 g/dL (31.8-35.4); Mean Corpuscular Hemoglobin 30.6 pg (27.0-31.2); Mean Corpuscular Volume 94.3 fl (81-99); Mean Platelet Volume 13.6 fl (7.4-10.4); Monocytes % 4.9 % (1.7-9.3); Neutrophils % 84.9 % (37.0-80.0); Platelet Count 167 K/mm3 (142-424); Red Cell Distribution Width 13.1 % (11.5-17.5)
[2022-03-18 11:37] LABS: Basophils % 0.2 % (0.1-2.0); Lymphocytes # 1.2 K/mm3 (0.7-4.5); Monocytes # 0.6 K/mm3 (0.1-1.0); Neutrophils # 10.7 K/mm3 (1.8-7.8); White Blood Count 12.6 K/mm3 (4.8-10.8)
[2022-03-18 11:49] LABS: POC Glucose,Bedside 170 (70-110)
[2022-03-18 12:55] VITALS: TEMP 36.6
--- NOTE | 2022-03-18 14:39 | HMH.CONS ---
*Admission Date: 03/18/22 *Reason for consult:: Emphysematous pyelitis, history of stones *History of present illness: Patient is a 67-year-old white female with history of nephrolithiasis status post bilateral ureteroscopy and stone extraction yesterday by dr. arcos in [place]. she presented to the emergency room last evening around 6:00 with bilateral flank pain and lactic acidosis. she was noted to be shaking on admission. her white count was 12.4 with a lactate of 6.4. creatinine was 1.8. a ct scan was performed that showed small stone in the left renal pelvis but no evidence of hydronephrosis or stones in the course of ureter. there was contrast and air in the renal collecting systems bilaterally. She is currently in the intensive care unit and her discomfort and shaking chills chills have resolved. [facility] History Medical History: Reports:: Diabetes Mellitus Type 2, Gastroesophageal Reflux Disease(GERD), Hyperlipidemia, Hypertension, Kidney Stones Denies:: Cancer, Diabetes Mellitus Type 1, Internal Pacemaker, MRSA, Seizures *Have you ever received a pneumonia vaccine?: Yes *Have you received a flu vaccine this season?: Yes Other Medical History: Reports: Anemia, Cataracts (BOTH) Laterality Cases: Right: Carpal Tunnel Release, Bilateral: Arthroscopy Shoulder, Cataract, Tonsillectomy Other Surgeries: Yes: Cardiac Catheterization, Colonoscopy, , Hernia Repair, Tubal Ligation, Other. No: Pacemaker Amputation: No Fractures: No - *Social History Last grade of school completed: Advanced degree Smoking Status: Never smoker Alcohol Intake: never Alcohol Intake Frequency:: holidays/special occasions only Substance Use Type: denies use *Occupational Status:: unemployed Housing: house Household Members: significant other *Travel in the last 8 weeks: None Family Hx:: Cancer, Hyperlipidemia, Hypertension Review of Systems - Review of Systems Review of systems:: pertinent systems reviewed and negative unless documented below Meds Home Medications Medication Instructions Recorded Confirmed Type clonidine HCl 0.1 mg tablet 0.1 mg PO BID 01/31/18 03/18/22 History omeprazole 20 mg capsule,delayed 20 mg PO DAILY 01/31/18 03/18/22 History release allopurinol 100 mg tablet 100 mg PO DAILY 04/11/18 03/18/22 History atorvastatin 40 mg tablet 40 mg PO QPM 04/10/19 03/18/22 History torsemide 10 mg tablet 10 mg PO DAILY 04/10/19 03/18/22 History Potassium Chloride [Klor-Con M20] 20 meq PO DAILY 08/26/20 03/18/22 History Amlodipine Besylate [Norvasc 5mg 5 mg PO DAILY 03/18/22 03/18/22 History tablet] Ascorbic Acid 500 mg PO DAILY 03/18/22 03/18/22 History Cholecalciferol (Vitamin D3) 2,000 unit PO BID 03/18/22 03/18/22 History [Vitamin D3] Diclofenac Sodium [Voltaren 1 applic TOPICAL QID 03/18/22 03/18/22 History Arthritis Pain] Estradiol/Norethindrone Acet 1 tab PO DAILY 03/18/22 03/18/22 History [Estradiol-Noreth 0.5-0.1 mg Tb] Glimepiride [Amaryl 2mg tablet] 2 mg PO DAILY 03/18/22 03/18/22 History Losartan/Hydrochlorothiazide 1 tab PO DAILY 03/18/22 03/18/22 History [Losartan-Hctz 100-25 mg Tab] Metformin HCl 850 mg PO BID 03/18/22 03/18/22 History Metoprolol Succinate [Metoprolol 50 mg PO HS 03/18/22 03/18/22 History Succinate 50mg Tablet*] Sulfamethoxazole/Trimethoprim 1 tab PO BID 03/18/22 03/18/22 History [Sulfamethoxazole-Tmp Ds Tablet] Tramadol HCl [Tramadol 50mg 50 mg PO TIDP PRN 03/18/22 03/18/22 History Tab] Zolpidem Tartrate [Ambien 10mg 10 mg PO HS 03/18/22 03/18/22 History tablet] Allergies Allergy/AdvReac Type Severity Reaction Status Date / Time No Known Drug Allergies Allergy Unknown Verified 10/09/19 13:23 [NKDA] Exam Vital signs and Labs for Last 24 Hours: Temp Pulse Resp BP Pulse Ox 97.9 F 86 16 145/57 H 97 03/18/22 12:55 03/18/22 08:00 03/18/22 08:00 03/18/22 08:00 03/18/22 08:00 Laboratory Results - last 24 hr 03/17/22 17
[2022-03-18 15:25] VITALS: BMI 31.8
--- NOTE | 2022-03-18 15:27 | HMH.HP ---
*Admission Date: 03/18/22 <Lyssa Terry 03/18/22 15:34> *Chief complaint: back pain <Lyssa Terry 03/18/22 15:34> *History of present illness: Patient is a 67-year-old white female with history of nephrolithiasis status post bilateral ureteroscopy and stone extraction yesterday by dr. arcos in [place]. she presented to the emergency room last evening around 6:00 with bilateral flank pain and lactic acidosis. she was noted to be shaking on admission. her white count was 12.4 with a lactate of 6.4. creatinine was 1.8. a ct scan was performed that showed small stone in the left renal pelvis but no evidence of hydronephrosis or stones in the course of ureter. there was contrast and air in the renal collecting systems bilaterally. She is currently in the intensive care unit and her discomfort and shaking chills chills have resolved. (above as per Dr. Hartman) <Lyssa Terry 03/18/22 15:34> [facility] History I have reviewed the patient's past medical history: Yes <Lyssa Terry 03/18/22 15:34> Medical History: Reports:: Diabetes Mellitus Type 2, Gastroesophageal Reflux Disease(GERD), Hyperlipidemia, Hypertension, Kidney Stones Denies:: Cancer, Diabetes Mellitus Type 1, Internal Pacemaker, MRSA, Seizures <Lyssa Terry 03/18/22 15:34> *Have you ever received a pneumonia vaccine?: Yes <Lyssa Terry 03/18/22 15:34> *Have you received a flu vaccine this season?: Yes <Lyssa Terry 03/18/22 15:34> Other Medical History: Reports: Anemia, Cataracts (BOTH), Glaucoma <Lyssa Terry 03/18/22 15:34> Laterality Cases: Right: Carpal Tunnel Release, Bilateral: Arthroscopy Shoulder, Cataract, Tonsillectomy <Lyssa Terry 03/18/22 15:34> Other Surgeries: Yes: Cardiac Catheterization, Colonoscopy, , Hernia Repair, Tubal Ligation, Other (kidney stone removal ). No: Pacemaker <Lyssa Terry 03/18/22 15:34> Amputation: No <Lyssa Terry 03/18/22 15:34> Fractures: No <TanchristieLyssa 03/18/22 15:34> - *Social History Last grade of school completed: Advanced degree <MaraLyssa 03/18/22 15:34> Smoking Status: Never smoker <Santos Terrya 03/18/22 15:34> Alcohol Intake: never <aMraLyssa 03/18/22 15:34> Alcohol Intake Frequency:: holidays/special occasions only <Santos Terrya 03/18/22 15:34> Substance Use Type: denies use <TanchristieLyssa 03/18/22 15:34> *Occupational Status:: unemployed <MaraLyssa - 03/18/22 15:34> Housing: house <TanchristieLyssa 03/18/22 15:34> Household Members: significant other <MaraLyssa 03/18/22 15:34> *Travel in the last 8 weeks: None <MaraLyssa 03/18/22 15:34> Family Hx:: Cancer, Hyperlipidemia, Hypertension <MaraLyssa 03/18/22 15:34> Review of Systems - Constitutional Reports chills, Denies fever(s) <MaraLyssa 03/18/22 15:34> - Eyes Denies blurry vision, Denies double vision <MaraLyssa 03/18/22 15:34> - ENT Denies nasal congestion, Denies sore throat [facility] 15:34[facility] - *Cardiovascular Denies chest pain, Denies shortness of breath <Santos Terrya 03/18/22 15:34> - *Respiratory Denies chest congestion, Denies cough [facility] 03/18/22 15:34> - *Gastrointestinal Reports nausea, Reports vomiting, Denies abdominal pain, Denies loose stools <MaraLyssa 03/18/22 15:34> - *Genitourinary Denies difficulty urinating, Denies painful urination <Santos Terrya 03/18/22 15:34> - *Musculoskeletal Reports back pain <Santos Terrya 03/18/22 15:34> - *Neurologic Denies headache(s), Denies dizziness, Denies weakness <Lyssa Terry - 03/18/22 15:34> Meds Home Medications Medication Instructions Recorded Confirmed Type clonidine HCl 0.1 mg tablet 0.1 mg PO BID 01/31/18 03/18/22 History omeprazole 20 mg capsule,delayed 20 mg PO DAILY 01/31/18 03/18/22 History release allopurinol 100 mg tablet 100 mg PO DAILY 04/11/18 03/18/22 History atorvastatin 40 mg tablet 40 mg PO QPM 04/10/19
[2022-03-18 16:00] VITALS: BP 147/91; PULSE 82; RESP 20; TEMP 36.8; O2SAT 96
[2022-03-18 16:26] LABS: POC Glucose,Bedside 141 (70-110)
[2022-03-18 19:51] VITALS: BP 162/78; PULSE 85; RESP 21; TEMP 37; O2SAT 96
[2022-03-19 04:40] VITALS: BP 189/70; PULSE 81; RESP 18; TEMP 36.5; O2SAT 95
--- NOTE | 2022-03-19 04:43 | PC.NURSE ---
Patient had one episode of pain throughout shift thus far. Stating the pain is sudden and sharp in her back, medicated per mar. Patient states pain medication is effective and was able to rest after.
[2022-03-19 07:45] VITALS: BP 145/78; PULSE 84; RESP 18; TEMP 36.7; O2SAT 94
[2022-03-19 08:00] VITALS: O2SAT 94
--- NOTE | 2022-03-19 08:25 | HMH.ACPN2 ---
Internal Medicine - PN: Subj *Date: 03/19/22 *Time: 08:25 Interval history: This patient was stable through the night. I reviewed the H&P (the patient was seen by Dr. Cash and examined yesterday. The H&P has not yet been signed ). I reviewed Dr. Maddox's note. The patient is alert oriented in no distress this morning. Lab work is pending. Exam Vital signs and Labs for Last 24 Hours: Temp Pulse Resp BP Pulse Ox 98.1 F 84 18 145/78 H 94 L 03/19/22 07:45 03/19/22 07:45 03/19/22 07:45 03/19/22 07:45 03/19/22 07:45 Laboratory Results - last 24 hr 03/18/22 05:36: WBC 12.6 H, RBC 3.33 L, Hgb 10.2 L D, Hct 31.4 L, MCV 94.3, MCH 30.6, MCHC 32.5, RDW 13.1, Plt Count 167, MPV 13.6 H, Neut % (Auto) 84.9 H, Lymph % (Auto) 9.7 L, Clinch % (Auto) 4.9, Eos % (Auto) 0.0 L, Baso % (Auto) 0.2, Neut # (Auto) 10.7 H, Lymph # (Auto) 1.2, Clinch # (Auto) 0.6, Eos # (Auto) 0.0, Baso # (Auto) 0.0 03/18/22 11:39: POC Glucose 170 H 03/18/22 16:16: POC Glucose 141 H I & O for Last 24 hours: Intake & Output 03/16/22 03/17/22 03/18/22 03/19/22 11:59 11:59 11:59 11:59 Intake Total 720 / 720 1160 / 1160 Balance 720 / 720 1160 / 1160 Weight 197 lb 12.8 oz 197 lb 12.815 oz - Constitutional no acute distress - *Routine HEENT Exam Head: Present: normocephalic Eye: Present: EOMI, PERRL ENT: Present: mucous membranes moist - *Routine Neck Exam Present: supple. Absent: lymphadenopathy - Routine Chest/Breast/Axilla Exam Chest wall: Absent: tenderness (No CVA tenderness) - *Routine Respiratory Exam Present: CTA bilaterally - *Routine Cardiovascular Exam Present: RRR - *Routine Abdominal Exam Present: soft, normoactive bowel sounds. Absent: tenderness - *Routine Extremities Exam Absent: cyanosis, clubbing, edema - Routine Back/Spine/Pelvis Exam Back/Spine: Absent: CVA tenderness - *Routine Skin Exam Present: warm. Absent: rash - *Routine Neurological Exam Present: alert, oriented X3 Assessment and Plan (1) Emphysematous pyelitis Status: Acute Category: Medical Code(s): N12 - Tubulo-interstitial nephritis, not specified as acute or chronic (2) Vomiting Status: Acute Qualifiers: Vomiting type: unspecified Nausea presence: with nausea Qualified Code(s): R11.2 - Nausea with vomiting, unspecified Category: Medical Code(s): R11.10 - Vomiting, unspecified (3) Lactic acidosis Status: Acute Category: Medical Code(s): E87.2 - Acidosis (4) History of kidney stones Status: Chronic Category: Medical Code(s): Z87.442 - Personal history of urinary calculi (5) Bilateral flank pain Status: Acute Category: Medical Code(s): R10.9 - Unspecified abdominal pain (6) Postoperative pain Status: Acute Category: Medical Code(s): G89.18 - Other acute postprocedural pain (7) Hypertension Status: Chronic Category: Medical Code(s): I10 - Essential (primary) hypertension (8) Hyperlipemia Status: Chronic Category: Medical Code(s): E78.5 - Hyperlipidemia, unspecified (9) Type 2 diabetes mellitus Status: Chronic Category: Medical Code(s): E11.9 - Type 2 diabetes mellitus without complications (10) Shakiness Status: Acute Category: Medical Code(s): R25.1 - Tremor, unspecified - Assessment and plan all Dx Assessment and Plan for all problems:: If Dr. Hartman approves discharge today and will be accomplished. She will go home on antibiotics p.o.
[2022-03-19 09:02] LABS: Basophils # 0.2 K/mm3 (0-0.2); Basophils % 1.2 % (0.1-2.0); Eosinophils # 0.2 K/mm3 (0.0-0.4); Eosinophils % 1.3 % (0.1-12.0); Hematocrit 33.1 % (37.0-47.0); Hemoglobin 10.7 g/dL (12.2-16.2); Lymphocytes # 2.7 K/mm3 (0.7-4.5); Lymphocytes % 22.3 % (10-50); Mean Corpuscular HGB Conc 32.4 g/dL (31.8-35.4); Mean Corpuscular Hemoglobin 30.8 pg (27.0-31.2); Mean Corpuscular Volume 95.2 fl (81-99); Monocytes # 0.5 K/mm3 (0.1-1.0); Monocytes % 4.4 % (1.7-9.3); Neutrophils # 8.6 K/mm3 (1.8-7.8); Neutrophils % 70.8 % (37.0-80.0); Platelet Count 169 K/mm3 (142-424); Red Blood Count 3.48 M/mm3 (4.20-5.40); Red Cell Distribution Width 14.3 % (11.5-17.5); White Blood Count 12.1 K/mm3 (4.8-10.8)
[2022-03-19 09:20] LABS: Chloride 104 mmol/L (98-107); Sodium 137 mmol/L (136-145)
[2022-03-19 09:21] LABS: Potassium 3.7 mmoL/L (3.5-5.1)
[2022-03-19 09:23] LABS: Blood Urea Nitrogen 27 mg/dl (7-17)
[2022-03-19 09:24] LABS: Anion Gap 8.7 mEq/L (5-15); Calcium 8.3 mg/dl (8.4-10.2); Carbon Dioxide 28 mmol/L (22.0-30.0); Creatinine Clearance Estimated 45 mL/min (50-200); Estimated Glomerular Filt Rate 30 ml/min (>60); GFR (African American) 36 ML/MIN (>60); Glucose 188 mg/dl (74-100)
--- NOTE | 2022-03-19 11:50 | HMH.CONFU ---
Internal Medicine - PN: Subj *Date: 03/19/22 *Time: 11:50 Interval history: Patient is feeling much better today however still having little bit of back pain which is chronic for her. Signs are stable afebrile. Her white count and creatinine are trending down. Exam Vital signs and Labs for Last 24 Hours: Temp Pulse Resp BP Pulse Ox 98.1 F 84 18 145/78 H 94 L 03/19/22 07:45 03/19/22 07:45 03/19/22 07:45 03/19/22 07:45 03/19/22 07:45 Laboratory Results - last 24 hr 03/18/22 16:16: POC Glucose 141 H 03/19/22 08:40: WBC 12.1 H, RBC 3.48 L, Hgb 10.7 L, Hct 33.1 L, MCV 95.2, MCH 30.8, MCHC 32.4, RDW 14.3, Plt Count 169, MPV 11.0 H, Neut % (Auto) 70.8, Lymph % (Auto) 22.3, [place] % (Auto) 4.4, Eos % (Auto) 1.3, Baso % (Auto) 1.2, Neut # (Auto) 8.6 H, Lymph # (Auto) 2.7, [place] # (Auto) 0.5, Eos # (Auto) 0.2, Baso # (Auto) 0.2 03/19/22 08:40: Sodium 137, Potassium 3.7, Chloride 104, Carbon Dioxide 28, Anion Gap 8.7, BUN 27 H, Creatinine 1.70 H, Estimated Creat Clear 45, Estimated GFR 30 L, Est GFR ( Amer) 36 L, Glucose 188 H, Calcium 8.3 L I & O for Last 24 hours: Intake & Output 03/16/22 03/17/22 03/18/22 03/19/22 23:59 23:59 23:59 23:59 Intake Total 1879 / 1880 480 / 480 Balance 1880 / 1880 480 / 480 Weight 89.721 kg 89.721 kg - Constitutional no acute distress - *Routine HEENT Exam Head: Present: normocephalic Eye: Present: EOMI, PERRL ENT: Present: mucous membranes moist - *Routine Neck Exam Present: supple. Absent: lymphadenopathy - *Routine Respiratory Exam Absent: accessory muscle use - *Routine Cardiovascular Exam Absent: JVD - *Routine Abdominal Exam Present: soft. Absent: tenderness - *Routine Extremities Exam Absent: cyanosis, clubbing, edema - *Routine Skin Exam Present: warm. Absent: rash - *Routine Neurological Exam Present: alert, oriented X3 Assessment and Plan (1) Emphysematous pyelitis Status: Acute Category: Medical Code(s): N12 - Tubulo-interstitial nephritis, not specified as acute or chronic Patient feeling much better today after recent bilateral ureteroscopy. Her labs are trending down. No intervention is necessary from a urologic standpoint. We discussed that instrumentation of the ureters can certainly cause some inflammation and spasm and discomfort. Fortunately she has improved since admission. Follow-up with Dr. Willis as scheduled (2) Vomiting Status: Acute Qualifiers: Vomiting type: unspecified Nausea presence: with nausea Qualified Code(s): R11.2 - Nausea with vomiting, unspecified Category: Medical Code(s): R11.10 - Vomiting, unspecified (3) Lactic acidosis Status: Acute Category: Medical Code(s): E87.2 - Acidosis (4) History of kidney stones Status: Chronic Category: Medical Code(s): Z87.442 - Personal history of urinary calculi (5) Bilateral flank pain Status: Acute Category: Medical Code(s): R10.9 - Unspecified abdominal pain (6) Postoperative pain Status: Acute Category: Medical Code(s): G89.18 - Other acute postprocedural pain (7) Hypertension Status: Chronic Category: Medical Code(s): I10 - Essential (primary) hypertension (8) Hyperlipemia Status: Chronic Category: Medical Code(s): E78.5 - Hyperlipidemia, unspecified (9) Type 2 diabetes mellitus Status: Chronic Category: Medical Code(s): E11.9 - Type 2 diabetes mellitus without complications (10) Shakiness Status: Acute Category: Medical Code(s): R25.1 - Tremor, unspecified
[2022-03-19 22:46] LABS: POC Glucose,Bedside 151 (70-110)
--- NOTE | 2022-03-21 22:04 | HMH.DCSUM ---
General - General Admission date:: 03/18/22 Discharge date: 03/19/22 HPI HPI: Patient is a 67-year-old white female with history of nephrolithiasis status post bilateral ureteroscopy and stone extraction yesterday by dr. palma in [place]. she presented to the emergency room last evening around 6:00 with bilateral flank pain and lactic acidosis. she was noted to be shaking on admission. her white count was 12.4 with a lactate of 6.4. creatinine was 1.8. a ct scan was performed that showed small stone in the left renal pelvis but no evidence of hydronephrosis or stones in the course of ureter. there was contrast and air in the renal collecting systems bilaterally. She is currently in the intensive care unit and her discomfort and shaking chills chills have resolved. (above as per Dr. Hartman) Hospital Course Hospital Course: The patient was admitted and started on pain control. An abdominal pelvic CT showed contrast and air in the renal collecting systems and a punctate calcification remaining in the left collecting system. Dr. Hartman was consulted and felt she should be kept overnight for continued IV hydration, antibiotics, and pain control. By 03/19/2022, the patient was feeling much better. She had been able to rest and her pain had improved. Her white blood cell count and creatinine were trending down and it was felt she was stable to be discharged home. She will follow-up with Dr. Palma as scheduled. Objective Vital signs: Temp Pulse Resp BP Pulse Ox 98.1 F 84 18 145/78 H 94 L 03/19/22 07:45 03/19/22 07:45 03/19/22 07:45 03/19/22 07:45 03/19/22 08:00 Narrative: - Constitutional no acute distress - *Routine HEENT Exam Head: Present: normocephalic Eye: Present: EOMI, PERRL ENT: Present: mucous membranes moist - *Routine Neck Exam Present: supple. Absent: lymphadenopathy - *Routine Respiratory Exam Absent: accessory muscle use - *Routine Cardiovascular Exam Absent: JVD - *Routine Abdominal Exam Present: soft. Absent: tenderness - *Routine Extremities Exam Absent: cyanosis, clubbing, edema - *Routine Skin Exam Present: warm. Absent: rash - *Routine Neurological Exam Present: alert, oriented X3 Results Labs on day of discharge: Preliminary micro results at discharge 03/17/22 19:14 Blood Culture - Preliminary Blood NO GROWTH AFTER 48 HOURS 03/17/22 19:14 Blood Culture - Preliminary Blood NO GROWTH AFTER 48 HOURS DS: Diagnosis - Discharge Diagnosis (1) Emphysematous pyelitis Status: Acute (2) Vomiting Status: Acute (3) Lactic acidosis Status: Acute (4) History of kidney stones Status: Chronic (5) Bilateral flank pain Status: Acute (6) Postoperative pain Status: Acute (7) Hypertension Status: Chronic (8) Hyperlipemia Status: Chronic (9) Type 2 diabetes mellitus Status: Chronic (10) Shakiness Status: Acute Discharge Plan - Patient Discharge Instructions ACTIVITY: Limited activity DIET: advance to your usual diet Patient Instructions: Acute Cystitis, DI for Acute Pain -- Adult, DI for Flank Pain - Follow up Plan Follow up with: Ermias Cash MD [Primary Care Provider] - 03/25/22 (Call the office tomorrow morning for appointment time.) Disposition: Home, Self-Care Condition at discharge:: Improved Home Medications: Home Medications Medication Instructions Recorded Confirmed Type clonidine HCl 0.1 mg tablet 0.1 mg PO BID 01/31/18 03/18/22 History omeprazole 20 mg capsule,delayed 20 mg PO DAILY 01/31/18 03/18/22 History release allopurinol 100 mg tablet 100 mg PO DAILY 04/11/18 03/18/22 History atorvastatin 40 mg tablet 40 mg PO QPM 04/10/19 03/18/22 History torsemide 10 mg tablet 10 mg PO DAILY 04/10/19 03/18/22 History Potassium Chloride [Klor-Con M20] 20 meq PO DAILY 08/26/20 03/18/22 History Amlodipine Besylate [Norvasc 5mg 5 mg PO DAILY 03/18/22 03/18/22
--- NOTE | 2022-03-22 15:36 | CARE MANAGER ---
Spoke with patient in post-discharge interview and patient states that she has an outpatient appointment with Dr. Cash in the am. She states that she is having some back pain but is utilizing a heating pad and has some pain meds she is taking. No further issues noted.
== END 2022-03-19 17:33 | disposition home or self-care (01) ==
LOC: ER 22:31 → ICU 03-18 00:09 → 2ND 03-18 17:52
PROVIDERS: Emergency Medicine; Admitting Provider Family Medicine; Emergency Provider Emergency Medicine; PCP Family Medicine; Visit Provider Family Medicine
DX: E87.2 Acidosis (principal); N12 Tubulo-interstitial nephritis, not specified as acute or chronic; E11.9 Type 2 diabetes mellitus without complications; Z79.4 Long term (current) use of insulin; I10 Essential (primary) hypertension; E78.5 Hyperlipidemia, unspecified; Z79.899 Other long term (current) drug therapy; N30.80 Other cystitis without hematuria; Z20.822 Contact with and (suspected) exposure to COVID-19
CPT/HCPCS: G0378; 36415; 74176; 80048; 80053; 81001; 82962; 83605; 85007; 85025; 87040; 96375; 96376; 99285; C9803; J1335; J2405; U0003; U0005

== ENCOUNTER → 2022-03-30 16:53 | Outpatient (CLI) | payer MEDICARE, SELFPAY ==
--- NOTE | 2022-03-30 16:57 | MR_ITS ---
PROCEDURE INFORMATION: Exam: MR Lumbar Spine Without Contrast Exam date and time: 03/30/2022 5:04 PM Age: 67 years old Clinical indication: Low back pain; Prior surgery; Surgery date: <1 month; Patient HX: Lower back dias x 6 weeks. Pain started on left now going stright across back. PT had 5 kidney stones removed from both kidneys on March 17; Additional info: Mechanical low back pain TECHNIQUE: Imaging protocol: Multiplanar magnetic resonance images of the lumbar spine without intravenous contrast. COMPARISON: CT ABDOMEN PELVIS WO CON 03/17/2022 6:12 PM FINDINGS: Vertebrae: No acute compression fracture is seen. Mild dextroconvex curvature of the lumbar spine is present. There is minor retrolisthesis of L1 on L2 and L2 on L3. Bone marrow signal is within normal limits. Spinal cord: The conus medullaris terminates at the L1 level. There is no evidence of arachnoiditis or cauda equina compression. L1-L2: There is moderate diffuse circumferential disc bulging. This is causing minimal left foraminal stenosis. There is no significant spinal canal or right foraminal stenosis. L2-L3: There is moderate diffuse circumferential disc bulging, moderate facet arthropathy, and thickening of the ligamentum flavum. This is causing minimal spinal canal stenosis and mild left foraminal stenosis. There is no significant right foraminal stenosis. L3-L4: There is mild facet arthropathy. No spinal canal or neural foraminal stenosis is present. L4-L5: Moderate facet arthropathy is present. This is causing minimal bilateral foraminal stenosis. There is no spinal canal stenosis. L5-S1: Moderate facet arthropathy is present. There is no spinal canal or neural foraminal stenosis. Soft tissues: Mild subcutaneous edema is present in the lower back. IMPRESSION: Degenerative changes of the lumbar spine as discussed above
== END ==
PROVIDERS: PCP Family Medicine; Visit Provider Family Medicine
DX: M54.59 Other low back pain (principal)
CPT/HCPCS: 72148; 76376

== ENCOUNTER → 2022-04-26 09:49 | Outpatient (POV) | payer MEDICARE, SELFPAY ==
[2022-04-26 10:36] VITALS: BP 154/63; PULSE 61; RESP 18; TEMP 36.9; O2SAT 98; BMI 31.1
--- NOTE | 2022-04-26 11:09 | HMH.PMCON ---
Assessment and Plan (1) Degenerative disc disease, lumbar Status: Acute Category: Medical Code(s): M51.36 - Other intervertebral disc degeneration, lumbar region (2) Sacroiliitis Status: Acute Category: Medical Code(s): M46.1 - Sacroiliitis, not elsewhere classified (3) Facet arthropathy Status: Acute Category: Medical Code(s): M47.819 - Spondylosis without myelopathy or radiculopathy, site unspecified (4) Lumbar spondylosis Status: Acute Category: Medical Code(s): M47.816 - Spondylosis without myelopathy or radiculopathy, lumbar region - Assessment and plan all Dx Assessment and Plan for all problems:: Imaging: PROCEDURE INFORMATION: Exam: MR Lumbar Spine Without Contrast Exam date and time: 03/30/2022 5:04 PM Age: 67 years old Clinical indication: Low back pain; Prior surgery; Surgery date: <1 month; Patient HX: Lower back dias x 6 weeks. Pain started on left now going stright across back. PT had 5 kidney stones removed from both kidneys on March 17; Additional info: Mechanical low back pain TECHNIQUE: Imaging protocol: Multiplanar magnetic resonance images of the lumbar spine without intravenous contrast. COMPARISON: CT ABDOMEN PELVIS WO CON 03/17/2022 6:12 PM FINDINGS: Vertebrae: No acute compression fracture is seen. Mild dextroconvex curvature of the lumbar spine is present. There is minor retrolisthesis of L1 on L2 and L2 on L3. Bone marrow signal is within normal limits. Spinal cord: The conus medullaris terminates at the L1 level. There is no evidence of arachnoiditis or cauda equina compression. L1-L2: There is moderate diffuse circumferential disc bulging. This is causing minimal left foraminal stenosis. There is no significant spinal canal or right foraminal stenosis. L2-L3: There is moderate diffuse circumferential disc bulging, moderate facet arthropathy, and thickening of the ligamentum flavum. This is causing minimal spinal canal stenosis and mild left foraminal stenosis. There is no significant right foraminal stenosis. L3-L4: There is mild facet arthropathy. No spinal canal or neural foraminal stenosis is present. L4-L5: Moderate facet arthropathy is present. This is causing minimal bilateral foraminal stenosis. There is no spinal canal stenosis. L5-S1: Moderate facet arthropathy is present. There is no spinal canal or neural foraminal stenosis. Soft tissues: Mild subcutaneous edema is present in the lower back. IMPRESSION: Degenerative changes of the lumbar spine as discussed above Plan: Patient presents today as a new patient with a chief complaint of bilateral hip pain, left is worse than the right. She has an extreme point of tenderness around the bilateral SI joints. She cannot tolerate any full activity such as sitting, standing, and walking. Patient has a positive SI exam. We will schedule the patient for bilateral SI injection. Risk and benefits have been discussed with the patient. Patient will like to proceed with this procedure. Patient also has moderate facet arthropathies at L4-L5 and L5-S1 per her MRI. If the SI injections does not provide any long-term relief, will consider scheduling the patient for diagnostic medial branch block injections in this area. Patient has been instructed to contact the clinic with any concerns before the next appointment. Dr. Merino has reviewed this note and agrees with this plan of care. This note was dictated using voice recognition software and make contain errors or omissions. HPI - Data of Consult Patient: new to practice Consult date: 04/26/22 Requesting Physician: RAÚL Motta - Consult Narrative Reason for consult: Bilateral hip pain History of present illness: Ms. Edwards is a 67 year old female who presents today as a new patient. Patient is referred by Dr. Cash. Thank you for the referral. Patient presents today with worsening bilateral hip pain,
== END ==
PROVIDERS: Visit Provider Student in an Organized Health Care Education/Training Program
DX: M51.36 Other intervertebral disc degeneration, lumbar region (principal); M47.816 Spondylosis without myelopathy or radiculopathy, lumbar region; M46.1 Sacroiliitis, not elsewhere classified
CPT/HCPCS: 99202; G0463

== ENCOUNTER 2022-04-30 09:39 | Day surgery (SDC) | payer MEDICARE, SELFPAY ==
[2022-04-30 09:43] VITALS: BP 155/55; PULSE 60; RESP 20; TEMP 36.6; O2SAT 98; BMI 31.1
[2022-04-30 09:54] VITALS: BP 132/52; PULSE 59; RESP 18; O2SAT 99
--- NOTE | 2022-04-30 09:54 | P.PCN_ITS ---
- Procedure Date: 04/30/22 Time: 09:54 Anesthesiologist:: Kevin Dawson CRNA Complications:: None Pre-procedure Diagnosis:: Bilateral sacroiliitis Post-procedure Diagnosis:: Same Indications for Procedure:: This patient is a very pleasant 67-year-old female that presents our clinic today for bilateral SI joint injections. Patient has had these injections in the past. Patient describes the pain as constant, dull, aching. She has extreme point tenderness over the bilateral SI joints. Patient states the pain started about 6 months ago. This is gradually become more intense. Difficulty walking any length. Difficulty sitting for any length of time. Procedure Details:: Procedure: Bilateral sacroiliac joint injections under fluoroscopy Informed consent was obtained and the risks and benefits of the procedure were explained to the patient.~ The patient was taken to the procedure room and noninvasive monitors were placed including a noninvasive blood pressure cuff and pulse oximeter.~ The patient was placed prone on the procedure table. Both hips were cleansed using Betadine as a cleansing solution. C-arm fluoroscopy was used to view the right sacroiliac joint.~ The skin and subcutaneous tissues were anesthetized using lidocaine 1.5% and a 25-gauge needle.~ After this, a 22-gauge spinal needle was inserted under fluoroscopic guidance into the inferior aspect of the right sacroiliac joint.~ Omnipaque dye was injected and good spread was seen throughout the joint.~ After this, approximately 5 mL of bupivacaine, 0.25% and Depo-Medrol, 40 mg was incrementally injected into the right sacroiliac joint. We then moved to the left sacroiliac joint.~ The skin and subcutaneous tissues were anesthetized using lidocaine 1.5% and a 25-gauge needle.~ After this, a 22- gauge spinal needle was inserted under fluoroscopic guidance into the inferior aspect of the left sacroiliac joint.~ Omnipaque dye was injected and good spread was seen throughout the joint. After this, approximately 5 mL of bupivacaine, 0.25% and Depo-Medrol, 40 mg was incrementally injected into the left sacroiliac joint.~ The patient tolerated the procedure well with no complications. The patient was observed in the Pain Clinic and then was discharged home neurologically intact. Plan and Disposition:: Patient was discharged without incident.
[2022-04-30 09:55] VITALS: BP 127/57; PULSE 61; RESP 18; O2SAT 99
[2022-04-30 10:08] VITALS: BP 152/57; PULSE 59; RESP 20; O2SAT 97
== END 2022-04-30 10:08 | disposition home or self-care (01) ==
LOC: SC.PAINP 09:40
PROVIDERS: PCP Family Medicine; Visit Provider Nurse Anesthetist, Certified Registered
DX: M46.1 Sacroiliitis, not elsewhere classified (principal)
CPT/HCPCS: 27096; G0260; J1040

== ENCOUNTER → 2022-05-17 10:33 | Outpatient (POV) | payer MEDICARE, SELFPAY ==
[2022-05-17 11:24] VITALS: BP 158/67; PULSE 67; RESP 18; TEMP 36.6; O2SAT 99; BMI 30.4
--- NOTE | 2022-05-17 11:47 | HMH.PAINSOAP ---
[facility] Pain Management SOAP Note Subjective:: Patient is a very pleasant 67-year-old white female who presents to our clinic today for follow-up from bilateral SI joint injections. Patient is currently being treated for bilateral sacroiliitis. Patient states that she has continued 100% relief on her right side, however, patient says her left side was about 75% relief but only lasted for 1 week. She states that she has increased activity over the last month with improvement. Patient states her pain is a 3 out of 10 today on her left upper buttocks. She describes her pain as a throbbing that is worse with activities like laundry and doing the dishes. She states she has been dealing with this pain for about 6 months. Patient denies any recent falls or trauma. She has been taking gabapentin 300 mg 3 times a day prescribed by Dr. Cash. She is also using Voltaren gel which gives minimal relief. Patient states she has physical therapy tomorrow and of this week. Her Nemesio is [id number]. It has been reviewed and is appropriate. Review of Systems: General: No recent weight changes, no fever, no sleep disturbances Respiratory: No cough, no shortness of air, no recurring pulmonary infections Cardiovascular/peripheral vascular: No chest pain, no palpitations, no edema, no shortness of breath Gastrointestinal: No new onset incontinence, normal bowel movements reported Genitourinary: No new onset incontinence Musculoskeletal: Left low back pain Psychiatric: [Normal mood/affect] Neurological: [Denies weakness in extremities], [denies balance issues] Objective:: Physical Exam: General: Alert and oriented x3, no acute distress, pleasant and cooperative Lungs: Respirations even and unlabored, symmetrical chest expansion Eyes: PERRL Musculoskeletal: Flexion and extension of left lumbar [spine] somewhat guarded secondary to pain, [antalgic gait noted] Neurological: Speech clear, no gross sensory deficit Assessment:: Bilateral sacroiliitis Plan:: Patient has had 100% relief on her right SI. Patient states her left was a 75% relief however it only lasted 1 week, therefore, we schedule her for a repeat left SI injection. Patient did have point of tenderness on the left SI. She states her pain on the left side is back to baseline. Risk and benefits of the procedure have been explained to the patient, and the patient would like to proceed with injection. She is not taking any blood thinners at this time. We will also order the compounding cream for the patient. Patient has been instructed to contact the clinic with any concerns before the next appointment. Dr. Merino has reviewed this note and agrees with this plan of care. This note was dictated using voice recognition software and make contain errors or omissions. [facility] History I have reviewed the patient's past medical history: Yes Medical History: Reports:: Diabetes Mellitus Type 2, Gastroesophageal Reflux Disease(GERD), Hyperlipidemia, Hypertension, Kidney Stones Denies:: Cancer, Diabetes Mellitus Type 1, Internal Pacemaker, MRSA, Seizures *Have you ever received a pneumonia vaccine?: Yes *Have you received a flu vaccine this season?: Yes Other Medical History: Reports: Anemia, Arthritis, Cataracts (BOTH), Glaucoma Laterality Cases: Right: Carpal Tunnel Release, Bilateral: Arthroscopy Shoulder, Tonsillectomy Other Surgeries: Yes: Cardiac Catheterization, Colonoscopy, , Hernia Repair, Tubal Ligation, Other (kidney stone removal ). No: Pacemaker Amputation: No Fractures: No - *Social History Smoking Status: Never smoker Alcohol Intake: never Alcohol Intake Frequency:: holidays/special occasions only Substance Use Type: denies use *Occupational Status:: other Housing: house Household Members: significant other *Travel in the last 8 weeks: Inside the [place] Family Hx:: Cancer, Hyperlipidemia, Hypertension
== END ==
PROVIDERS: Visit Provider Student in an Organized Health Care Education/Training Program
DX: M46.1 Sacroiliitis, not elsewhere classified (principal)
CPT/HCPCS: 99212; G0463

== ENCOUNTER 2022-05-28 10:11 | Day surgery (SDC) | payer MEDICARE, SELFPAY ==
[2022-05-28 10:22] VITALS: BP 150/53; PULSE 52; RESP 18; TEMP 36.7; O2SAT 98; BMI 30.7
[2022-05-28 10:56] VITALS: RESP 20
--- NOTE | 2022-05-28 10:59 | HMH.PMPROC ---
- Procedure Date: 05/28/22 Time: 10:59 Anesthesiologist:: Kevin Dawson CRNA Complications:: None Pre-procedure Diagnosis:: Left sacroiliitis. Post-procedure Diagnosis:: Same Indications for Procedure:: Very pleasant 67-year-old female that comes to our clinic today for left SI joint injection. She has had injection in the past with significant improvement terms of her left posterior hip pain. We will repeat the injection today left SI joint. Procedure Details:: Procedure: Left sacroiliac injection under fluoroscopy Informed consent was obtained and the risk and benefits of the procedure were explained to the patient.~ The patient was taken to the procedure room and noninvasive monitors were placed including noninvasive blood pressure cuff and pulse oximeter.~ The patient was placed prone on the procedure table.~ The~ left hip was cleansed using Betadine as a cleansing solution.~ C-arm fluorosocpy was used to view the left SI joint.~ The skin and subcutaneous tissues were anesthetized using Lidocaine 1.5% and a 25-gauge needle.~ After this, a 22-gauge spinal needle was inserted under fluoroscopic guidance into the inferior aspect of the left SI joint.~ Omnipaque dye was injected and a good spread was seen throughout the joint.~ After this, approximately 5 mL of bupivacaine 0.25% and Depo-Medrol 40 mg was incrementally injected into the sacroiliac joint.~ The patient tolerated the procedure well with no complications.~ The patient was observed in the Pain Clinic for a period of 30-45 minutes, then discharged home neurologically intact.~ Plan and Disposition:: Patient was discharged without incident.
[2022-05-28 11:09] VITALS: BP 136/58; PULSE 62; RESP 20; O2SAT 98
== END 2022-05-28 11:10 | disposition home or self-care (01) ==
LOC: SC.PAINP 10:12
PROVIDERS: PCP Family Medicine; Visit Provider Nurse Anesthetist, Certified Registered
DX: M53.3 Sacrococcygeal disorders, not elsewhere classified (principal); M46.1 Sacroiliitis, not elsewhere classified
CPT/HCPCS: 27096; G0260; J1040

== ENCOUNTER → 2022-06-17 10:20 | Outpatient (POV) | payer MEDICARE, SELFPAY ==
[2022-06-17 10:48] VITALS: BP 139/59; PULSE 64; RESP 18; TEMP 36.7; O2SAT 99; BMI 30.7
--- NOTE | 2022-06-17 11:21 | HMH.PAINSOAP ---
[facility] Pain Management SOAP Note Subjective:: Patient is a pleasant 67-year-old female who presents today for follow-up. She is currently being treated for bilateral sacroiliitis. Today she rates her pain a 8 out of 10. She states the pain is just in her low back region more so on the left side. She states that she has had significant relief from her last left sacroiliac injection that was on 05/28/2022. She states that this injection is still somewhat helping and is given her about 50% improvement. previously we have done a bilateral SI injection that she stated also gave moderate relief but it only lasted for 1 week. She is interested in having a repeat injection. Patient states that she does use the compounding cream at home that has given significant improvement. She also has been seen physical therapy twice a week and doing home exercises that give minimal relief. Patient has been managing her pain with gabapentin [address] Cash. She states she did feel like she was in a fog with this medication so she has decreased to taking it only at bedtime. She states this does help manage her pain well. She denies any side effects with this medication. She denies any new change in the location or type of pain that she experiences. Her Nemesio is [id number]. It has been reviewed and appropriate. Review of Systems: General: No recent weight changes, no fever, no sleep disturbances Respiratory: No cough, no shortness of air, no recurring pulmonary infections Cardiovascular/peripheral vascular: No chest pain, no palpitations, no edema, no shortness of breath Gastrointestinal: No new onset incontinence, normal bowel movements reported Genitourinary: No new onset incontinence Musculoskeletal: Low back pain Psychiatric: [Normal mood/affect] Neurological: [Denies weakness in extremities], [denies balance issues] Objective:: Physical Exam: General: Alert and oriented x3, no acute distress, pleasant and cooperative Lungs: Respirations even and unlabored, symmetrical chest expansion Eyes: PERRL Musculoskeletal: Flexion and extension of lumbar [spine] somewhat guarded secondary to pain, [antalgic gait noted] Neurological: Speech clear, no gross sensory deficit Assessment:: Bilateral sacroiliitis Plan:: Patient has had significant improvement with her SI injections in the past. I have discussed with her about repeat SI injections. I have also discussed with the patient regarding a more permanent lotion such as the SI stabilization procedures. Educational handouts were given on both the omnia and the corner lock. At this time the patient would like to proceed forward with a repeat left SI injection. Risk and benefits were discussed with the patient. We will proceed forward with this injection. We will schedule the patient for a left sacroiliac injection. Patient has been instructed to contact the clinic with any concerns before the next appointment. Dr. Merino has reviewed this note and agrees with this plan of care. This note was dictated using voice recognition software and make contain errors or omissions. [facility] History I have reviewed the patient's past medical history: Yes Medical History: Reports:: Gastroesophageal Reflux Disease(GERD), Hyperlipidemia, Hypertension, Kidney Stones Denies:: Cancer, Diabetes Mellitus Type 1, Diabetes Mellitus Type 2, Internal Pacemaker, MRSA, Seizures *Have you ever received a pneumonia vaccine?: Yes *Have you received a flu vaccine this season?: Yes Other Medical History: Reports: Anemia, Arthritis, Cataracts (BOTH), Glaucoma Laterality Cases: Right: Carpal Tunnel Release, Bilateral: Arthroscopy Shoulder, Tonsillectomy Other Surgeries: Yes: Cardiac Catheterization, Colonoscopy, , Hernia Repair, Tubal Ligation, Other (kidney stone removal ). No: Pacemaker Amputation: No Fractures: No - *Social History Smoking Status: Never smoker Alcohol Intake: never Alcohol Intake Frequency:: holidays/s
== END ==
PROVIDERS: Visit Provider Student in an Organized Health Care Education/Training Program
DX: M46.1 Sacroiliitis, not elsewhere classified (principal); M19.90 Unspecified osteoarthritis, unspecified site
CPT/HCPCS: 99212; G0463

== ENCOUNTER 2022-07-09 08:36 | Day surgery (SDC) | payer MEDICARE, SELFPAY ==
[2022-07-09 09:09] VITALS: BP 142/64; PULSE 64; TEMP 36.6; O2SAT 98; BMI 30.9
[2022-07-09 09:25] VITALS: BP 136/64; PULSE 58; RESP 20; O2SAT 98
--- NOTE | 2022-07-09 10:05 | HMH.PMPROC ---
- Procedure Date: 07/09/22 Time: 09:00 Anesthesiologist:: Kevin Dawson CRNA Complications:: None Pre-procedure Diagnosis:: Left sacroiliitis Post-procedure Diagnosis:: Same Indications for Procedure:: Very pleasant 67-year-old female who comes our clinic today for left SI joint injection. Patient rates her left SI joint pain 8/10. Patient has extreme point tenderness over the left SI joint area. Patient complains of left posterior hip pain with walking, sitting, standing. Procedure Details:: Procedure: Left sacroiliac injection under fluoroscopy Informed consent was obtained and the risk and benefits of the procedure were explained to the patient.~ The patient was taken to the procedure room and noninvasive monitors were placed including noninvasive blood pressure cuff and pulse oximeter.~ The patient was placed prone on the procedure table.~ The~ left hip was cleansed using Betadine as a cleansing solution.~ C-arm fluorosocpy was used to view the left SI joint.~ The skin and subcutaneous tissues were anesthetized using Lidocaine 1.5% and a 25-gauge needle.~ After this, a 22-gauge spinal needle was inserted under fluoroscopic guidance into the inferior aspect of the left SI joint.~ Omnipaque dye was injected and a good spread was seen throughout the joint.~ After this, approximately 5 mL of bupivacaine 0.25% and Depo-Medrol 40 mg was incrementally injected into the sacroiliac joint.~ The patient tolerated the procedure well with no complications.~ The patient was observed in the Pain Clinic for a period of 30-45 minutes, then discharged home neurologically intact.~ Plan and Disposition:: Patient was discharged without incident.
== END 2022-07-09 09:26 | disposition home or self-care (01) ==
LOC: SC.PAINP 08:37
PROVIDERS: PCP Family Medicine; Visit Provider Nurse Anesthetist, Certified Registered
DX: M46.1 Sacroiliitis, not elsewhere classified (principal)
CPT/HCPCS: 27096; G0260; J1040

== ENCOUNTER → 2022-07-21 10:35 | Outpatient (POV) | payer MEDICARE, SELFPAY ==
[2022-07-21 10:53] VITALS: BP 167/83; PULSE 82; RESP 18; TEMP 36.4; O2SAT 98; BMI 30.7
--- NOTE | 2022-07-21 15:46 | EXP.PAIN.SOA ---
[facility] Pain Management SOAP Note Subjective:: Patient is a pleasant 67-year-old female who presents today for follow-up of left SI injection on 07/09/2022. We are currently treating the patient for bilateral sacroiliitis. Patient states that she has had 80 to 90% of improvement following this injection. She states it is still working. Today she rates her pain a 2 out of 10. She states her pain is still in her left SI. Patient has been using her compounding cream and states it has given significant improvements. She is also seen physical therapy twice a week and doing home exercises however this continues to only give minimal relief. She is currently managed with gabapentin 300 mg 3 times a day by Dr. Cash. Patient denies any side effects from this medication. She states this medication does adequately help manage her pain. Her Nemesio is [id number]. Its been reviewed and appropriate. Review of Systems: General: No recent weight changes, no fever, no sleep disturbances Respiratory: No cough, no shortness of air, no recurring pulmonary infections Cardiovascular/peripheral vascular: No chest pain, no palpitations, no edema, no shortness of breath Gastrointestinal: No new onset incontinence, normal bowel movements reported Genitourinary: No new onset incontinence Musculoskeletal: Low back pain, left SI pain Psychiatric: [Normal mood/affect] Neurological: [Denies weakness in extremities], [denies balance issues] Objective:: Physical Exam: General: Alert and oriented x3, no acute distress, pleasant and cooperative Lungs: Respirations even and unlabored, symmetrical chest expansion Eyes: PERRL Musculoskeletal: Flexion and extension of lumbar [spine] somewhat guarded secondary to pain, [antalgic gait noted] Neurological: Speech clear, no gross sensory deficit Assessment:: Bilateral sacroiliitis Plan:: Patient has had significant improvement of her pain symptoms following this last injection. Currently the patient does not require additional injective therapy. Patient will follow-up in 1 month. Patient will return to clinic in 1 month for follow-up and reevaluation of symptoms. Patient has been instructed to contact the clinic with any concerns before the next appointment. Dr. Merino has reviewed this note and agrees with this plan of care. This note was dictated using voice recognition software and make contain errors or omissions. [facility] Social History Smoking Status: Never smoker second hand exposure: No alcohol intake: never substance use type: denies use current occupational status: retired household members: significant other housing: house current occupation: [employer] current occupational exposures/hazards: No caffeine: Yes
== END ==
PROVIDERS: PCP Family Medicine; Visit Provider Nurse Practitioner Family
DX: M46.1 Sacroiliitis, not elsewhere classified (principal)
CPT/HCPCS: 99212; G0463

== ENCOUNTER → 2022-11-02 10:01 | Outpatient (POV) | payer MEDICARE, SELFPAY ==
[2022-11-02 10:09] VITALS: BP 123/45; PULSE 55; RESP 20; BMI 30.7
--- NOTE | 2022-11-02 10:28 | EXP.PAIN.SOA ---
[facility] Pain Management SOAP Note Subjective:: Patient is a pleasant 67-year-old female who presents today for follow-up. We are currently treating the patient for bilateral sacroiliitis. Today she rates her pain a 5 out of 10. Patient denies any new trauma or injury. Patient denies any change location or type of pain she experiences. Patient does state this pain is all in her low back along the left side that radiates into her left leg. Patient does do states this is a aching, throbbing sensation that is worse with increased activity. Patient states she is unable to tolerate prolonged sitting, standing, walking due to the pain. Patient does have difficulty performing activities of daily living such as cooking and cleaning due to the pain. Patient is currently managed with gabapentin 300 mg 3 times a day from Dr. Cash's office. Patient denies any side effects from this medication. She states this medication does help her pain symptoms. Patient is also prescribed compounding cream that she uses daily to provide additional relief. Patient does states she is scheduled for a stress test and echocardiogram on the just for a regular follow-up. Patient states her sister has a cardiac history and states they do think it is hereditary so she is just having it checked out as a precaution. Her Nemesio is [id number]. It is been reviewed and appropriate. Review of Systems: General: No recent weight changes, no fever, no sleep disturbances Respiratory: No cough, no shortness of air, no recurring pulmonary infections Cardiovascular/peripheral vascular: No chest pain, no palpitations, no edema, no shortness of breath Gastrointestinal: No new onset incontinence, normal bowel movements reported Genitourinary: No new onset incontinence Musculoskeletal: Low back pain, left leg pain Psychiatric: [Normal mood/affect] Neurological: [Denies weakness in extremities], [denies balance issues] Objective:: Physical Exam: General: Alert and oriented x3, no acute distress, pleasant and cooperative Lungs: Respirations even and unlabored, symmetrical chest expansion Eyes: PERRL Musculoskeletal: Flexion and extension of lumbar [spine] somewhat guarded secondary to pain, [antalgic gait noted] extreme point tenderness along left SI and positive left Johana's, Juan Diego's, Gaenslen's, compression and distraction exam Neurological: Speech clear, no gross sensory deficit Assessment:: Bilateral sacroiliitis, low back pain Plan:: Patient is experiencing significant pain in her low back that radiates into her left leg. Patient had limited range of motion of her lumbar spine and extreme point tenderness along her left SI as well as positive left Johana's, Juan Diego's, Gaenslen's, compression and distraction exam. Patient has had SI injections in the past that provided 80 to 90% relief with her last injection lasting almost 4 months. I have recommended that the patient would benefit from repeat left SI injection. Risk and benefits were discussed with the patient. She would like to proceed forward with this plan of care. We will schedule her for a left SI injection. Patient has been instructed to contact the clinic with any concerns before the next appointment. Dr. Merino has reviewed this note and agrees with this plan of care. This note was dictated using voice recognition software and make contain errors or omissions. [facility] Disclaimer: The information contained in this section may have been updated after the patient was seen, as this information can be updated by other users. Social History (Updated 07/21/22 @ 15:50 by Yvette Blackwood APRN) Smoking Status: Never smoker second hand exposure: No alcohol intake: never substance use type: denies use current occupational status: other Travel in the last 8 weeks: None household members: significant other housing: house current occupation: [employer] current occupational exposures/hazards: No caffeine: Yes
== END ==
PROVIDERS: PCP Family Medicine; Visit Provider Nurse Practitioner Family
DX: M46.1 Sacroiliitis, not elsewhere classified (principal); M54.50 Low back pain, unspecified
CPT/HCPCS: 99212; G0463

== ENCOUNTER 2022-11-09 07:56 | Day surgery (SDC) | payer MEDICARE, SELFPAY ==
[2022-11-09 08:17] VITALS: BP 142/40; PULSE 54; RESP 18; TEMP 36.6; O2SAT 99; BMI 30.7
[2022-11-09 08:37] VITALS: BP 139/67; PULSE 62; RESP 18; O2SAT 97
[2022-11-09 08:38] VITALS: BP 139/67; PULSE 62; RESP 18; O2SAT 97
[2022-11-09 08:41] VITALS: BP 146/44; PULSE 51; RESP 18; O2SAT 99
--- NOTE | 2022-11-09 08:57 | EXP.PAIN.PRO ---
Procedure Date: 11/09/22 Time: 08:30 Anesthesiologist:: Kevin Dawson CRNA Complications:: None Pre-procedure Diagnosis:: Left sacroiliitis Post-procedure Diagnosis:: Same Indications for Procedure:: Very pleasant 67-year-old female that comes for left sacroiliac joint injection today. She has extreme point tenderness over the left sacroiliac joint. She rates her pain 7/10. Procedure Details:: Procedure: Left sacroiliac injection under fluoroscopy Informed consent was obtained and the risk and benefits of the procedure were explained to the patient.~ The patient was taken to the procedure room and noninvasive monitors were placed including noninvasive blood pressure cuff and pulse oximeter.~ The patient was placed prone on the procedure table.~ The~ left hip was cleansed using Betadine as a cleansing solution.~ C-arm fluorosocpy was used to view the left SI joint.~ The skin and subcutaneous tissues were anesthetized using Lidocaine 1.5% and a 25-gauge needle.~ After this, a 22-gauge spinal needle was inserted under fluoroscopic guidance into the inferior aspect of the left SI joint.~ Omnipaque dye was injected and a good spread was seen throughout the joint.~ After this, approximately 5 mL of bupivacaine 0.25% and Depo-Medrol 40 mg was incrementally injected into the sacroiliac joint.~ The patient tolerated the procedure well with no complications.~ The patient was observed in the Pain Clinic for a period of 30-45 minutes, then discharged home neurologically intact.~ Plan and Disposition:: Patient was discharged without incident
== END 2022-11-09 08:41 | disposition home or self-care (01) ==
PROVIDERS: PCP Family Medicine; Visit Provider Nurse Anesthetist, Certified Registered
DX: M46.1 Sacroiliitis, not elsewhere classified (principal)
CPT/HCPCS: 27096; G0260; J1040

== ENCOUNTER → 2022-11-24 13:26 | Outpatient (POV) | payer MEDICARE, SELFPAY ==
[2022-11-24 15:22] VITALS: BP 104/37; PULSE 54; RESP 18; O2SAT 96; BMI 29.8
--- NOTE | 2022-11-24 16:17 | A.OFFVIS_ITS ---
[facility] Pain Management SOAP Note Subjective:: Patient is a pleasant 67-year-old female who presents today for follow-up of left SI injection on 11/09/2022. We are currently treating the patient for bilateral sacroiliitis. Today she states that she has had approximately 98% relief and feels like it is still continuing to help. Patient states she has been able to increase her activity with decreased pain. Patient states she has even been able to do some light cooking and cleaning. Patient rates her pain a 3 out of 10 during her visit and states she has continue to use ice as needed. Patient is currently managed with gabapentin 300 mg 3 times a day from her primary care doctor's office. Patient denies any side effects from this medication. She states this medication does help her pain symptoms. She is also prescribed compounding cream that does provide additional improvement. Her Nemesio is [id number]. Its been reviewed and appropriate. Review of Systems: General: No recent weight changes, no fever, no sleep disturbances Respiratory: No cough, no shortness of air, no recurring pulmonary infections Cardiovascular/peripheral vascular: No chest pain, no palpitations, no edema, no shortness of breath Gastrointestinal: No new onset incontinence, normal bowel movements reported Genitourinary: No new onset incontinence Musculoskeletal: Low back pain Psychiatric: [Normal mood/affect] Neurological: [Denies weakness in extremities], [denies balance issues] Objective:: Physical Exam: General: Alert and oriented x3, no acute distress, pleasant and cooperative Lungs: Respirations even and unlabored, symmetrical chest expansion Eyes: PERRL Musculoskeletal: Flexion and extension of lumbar [spine] somewhat guarded secondary to pain, [antalgic gait noted] Neurological: Speech clear, no gross sensory deficit Assessment:: Chronic bilateral sacroiliitis Plan:: Patient has had significant improvement of her pain symptoms following her last SI injection and does not require any additional injective therapy at this time. We will schedule a 1 month follow-up for reevaluation of symptoms. Patient has been instructed to contact the clinic with any concerns before the next appointment. Dr. Merino has reviewed this note and agrees with this plan of care. This note was dictated using voice recognition software and make contain errors or omissions. [facility] Disclaimer: The information contained in this section may have been updated after the patient was seen, as this information can be updated by other users. Social History Smoking Status: Never smoker second hand exposure: No alcohol intake: never substance use type: denies use current occupational status: retired Travel in the last 8 weeks: None household members: significant other housing: house current occupation: [employer] current occupational exposures/hazards: No caffeine: Yes
== END ==
PROVIDERS: PCP Family Medicine; Visit Provider Nurse Practitioner Family
DX: M46.1 Sacroiliitis, not elsewhere classified (principal); Z79.899 Other long term (current) drug therapy
CPT/HCPCS: 99212; G0463

== ENCOUNTER → 2022-11-24 14:25 | Outpatient (CLI) | payer MEDICARE, SELFPAY ==
[2022-11-24 17:03] LABS: Barbiturates Screen,Urine Negative ng/ml (<200)
[2022-11-24 17:04] LABS: Amphetamine/Metha Screen,Urine Negative ng/ml (<1000)
[2022-11-24 17:05] LABS: Benzodiazepines Screen,Urine Negative ng/ml (<200); Cannabinoid Screen,Urine Negative ng/ml (<50)
[2022-11-24 17:06] LABS: Cocaine Screen,Urine Negative ng/ml (<300)
[2022-11-24 17:07] LABS: Methadone Screen,Urine Negative ng/ml (<300); Opiate Screen,Urine Negative ng/ml (<300)
[2022-11-24 17:08] LABS: Phencyclidine Screen,Urine Negative ng/ml (<25)
[2022-11-29 15:05] LABS: Opiates Negative (Cutoff=100)
== END ==
PROVIDERS: PCP Family Medicine; Visit Provider Nurse Practitioner Family
DX: Z79.891 Long term (current) use of opiate analgesic (principal)
CPT/HCPCS: 80305; 80361; 80365; 99212; G0463; G0480

== ENCOUNTER → 2023-02-02 10:11 | Outpatient (CLI) | payer MEDICARE, SELFPAY ==
[2023-02-02 10:36] LABS: Microscopic, Urine URINE MICROSCOPIC (MICROSCOPIC)
[2023-02-02 11:20] LABS: Appearance,Urine CLEAR (Clear); Bilirubin,Urine Negative (Negative); Blood, Urine Negative (Negative); Color,Urine YELLOW (Yellow); Glucose,Urine (UA) 3+ (Negative); Ketones,Urine Negative (Negative); Leukocyte Esterase,Urine TRACE (Negative); Nitrate,Urine Negative (Negative); PH,Urine 6.5 (5.0-8.5); Protein,Urine Negative (Negative); Urobilinogen,Urine 0.2 EU/dl (0.2)
[2023-02-02 11:27] LABS: Creatinine,Urine Random 18 mg/dL (Not Estab.)
[2023-02-02 11:30] LABS: Bacteria,Urine Trace /lpf; RBC,Urine Occasional #/hpf (0-3)
[2023-02-02 11:55] LABS: Alanine Aminotransferase 25 U/L (12-78); Albumin Level 4.1 g/dl (3.5-5.0); Albumin/Globulin Ratio 1.5 (1.1-1.8); Alkaline Phosphatase 167 U/L (38-126); Anion Gap 13.1 mEq/L (5-15); Aspartate Amino Transferase 29 U/L (14-36); Bilirubin,Total 0.7 mg/dl (0.2-1.3); Blood Urea Nitrogen 21 mg/dl (7-17); Calcium 9.3 mg/dl (8.4-10.2); Carbon Dioxide 27 mmol/L (22.0-30.0); Chloride 104 mmol/L (98-107); Estimated Glomerular Filt Rate 37 ml/min (>60); GFR (African American) 45 ML/MIN (>60); Globulin 2.8 g/dL (1.3-3.2); Glucose 204 mg/dl (74-100); Potassium 5.1 mmoL/L (3.5-5.1); Sodium 139 mmol/L (136-145); Total Protein,Serum 6.9 g/dl (6.3-8.2)
[2023-02-02 12:07] LABS: Intact Parathyroid Hormone 140.9 pg/mL (7.5-53.5)
[2023-02-02 12:11] LABS: 25-OH Vitamin D, Total 50.7 ng/mL (30-100)
[2023-02-02 12:23] LABS: Hemoglobin A1C 8.2 % (4.0-6.0)
[2023-02-02 12:48] LABS: Hematocrit 44.7 % (37.0-47.0); Hemoglobin 13.6 g/dL (12.2-16.2); Mean Corpuscular HGB Conc 30.5 g/dL (31.8-35.4); Mean Corpuscular Hemoglobin 28.4 pg (27.0-31.2); Mean Corpuscular Volume 93.2 fl (81-99); Platelet Count 278 K/mm3 (142-424); Red Cell Distribution Width 14.1 % (11.5-17.5)
== END ==
PROVIDERS: PCP Family Medicine; Visit Provider Internal Medicine Nephrology
DX: N18.30 Chronic kidney disease, stage 3 unspecified (principal); N17.0 Acute kidney failure with tubular necrosis; N20.0 Calculus of kidney; I10 Essential (primary) hypertension; E78.5 Hyperlipidemia, unspecified; Z79.899 Other long term (current) drug therapy
CPT/HCPCS: 36415; 80053; 81001; 82306; 82570; 83036; 83970; 84155; 84550; 85014; 85018; 85048; 85049

== ENCOUNTER → 2023-04-13 09:58 | Outpatient (POV) | payer MEDICARE, SELFPAY ==
--- NOTE | 2023-04-13 10:38 | EXP.PAIN.SOA ---
[facility] Pain Management SOAP Note Subjective:: Patient is a pleasant 68-year-old female who presents today for follow-up. We are currently treating the patient for bilateral sacroiliitis. Today she rates her pain a 5 out of 10. Patient denies any new trauma or injury. Patient denies any change location or type of pain she experiences. She states her pain is all along her low back on the left side with radiating symptoms into her left hip. Patient does describe this as an aching, throbbing sensation that is worse with increased activity. Patient states it does interfere with her ability to perform activities of daily living such as cooking and cleaning. Patient has had injections in the past that have provided upwards of 90 to 100% relief for several months. Patient is interested in scheduling an injection at today's visit. She is scheduled for an upcoming trip [place] go [place] on [place] with a couple of friends on April 27. Patient was previously prescribed gabapentin 300 mg 3 times a day from her primary care doctor however she states that she has stopped taking this medicine completely due to feeling groggy and hung over. Her Nemeiso is [id number]. Its been reviewed and appropriate. Review of Systems: General: No recent weight changes, no fever, no sleep disturbances Respiratory: No cough, no shortness of air, no recurring pulmonary infections Cardiovascular/peripheral vascular: No chest pain, no palpitations, no edema, no shortness of breath Gastrointestinal: No new onset incontinence, normal bowel movements reported Genitourinary: No new onset incontinence Musculoskeletal: Low back pain, left hip pain Psychiatric: [Normal mood/affect] Neurological: [Denies weakness in extremities], [denies balance issues] Objective:: Physical Exam: General: Alert and oriented x3, no acute distress, pleasant and cooperative Lungs: Respirations even and unlabored, symmetrical chest expansion Eyes: PERRL Musculoskeletal: Flexion and extension of lumbar [spine] somewhat guarded secondary to pain, [antalgic gait noted] extreme point tenderness along left SI with positive left Johana's, Juan Diego's, Gaenslen's, compression and distraction exam Neurological: Speech clear, no gross sensory deficit Assessment:: Low back pain, chronic sacroiliitis Plan:: Patient is experiencing worsening pain in her low back along the left side with radiating symptoms to her left hip. I have discussed with the patient that she may benefit from a left SI injection. Risk and benefits were discussed with the patient and she would like to proceed forward with this plan of care. Patient did have extreme point tenderness along the left SI with positive left Johana's, Juan Diego's, Gaenslen's, compression and distraction exam. Patient has also had multiple SI injections in the past that did provide upwards of 90 to 100% relief lasting several months. I will also send in a prescription for methocarbamol 500 mg 3 times daily and pregabalin 150 mg at bedtime and provide a 1 month supply of these medications. I will also send in a 7-day dose of Zofran 4 mg. Patient will be scheduled for a left SI injection. Patient has been instructed to contact the clinic with any concerns before the next appointment. Dr. Merino has reviewed this note and agrees with this plan of care. This note was dictated using voice recognition software and make contain errors or omissions. [facility] Disclaimer: The information contained in this section may have been updated after the patient was seen, as this information can be updated by other users. Social History Smoking Status: Never smoker second hand exposure: No alcohol intake: never substance use type: denies use current occupational status: retired Travel in the last 8 weeks: None household members: significant other housing: house current occupation: [employer] current occupational exposures/hazards: No
[2023-04-13 11:10] VITALS: BP 144/54; PULSE 53; RESP 18; O2SAT 97; BMI 29.0
== END | disposition home or self-care (01) ==
PROVIDERS: PCP Family Medicine; Visit Provider Nurse Practitioner Family
DX: M46.1 Sacroiliitis, not elsewhere classified (principal); M54.50 Low back pain, unspecified
CPT/HCPCS: 99212; G0463

== ENCOUNTER 2023-04-26 08:37 | Day surgery (SDC) | payer MEDICARE, SELFPAY ==
[2023-04-26 09:35] VITALS: BP 137/63; PULSE 56; RESP 18; TEMP 36.6; O2SAT 97; BMI 29.5
[2023-04-26 09:40] VITALS: BP 152/63; PULSE 51; RESP 18; O2SAT 97
--- NOTE | 2023-04-26 09:41 | P.PCN_ITS ---
Procedure Date: 04/26/23 Time: 09:35 Anesthesiologist:: Kevin Dawson CRNA Complications:: None Pre-procedure Diagnosis:: Left sacroiliitis Post-procedure Diagnosis:: Same Indications for Procedure:: Very pleasant 68-year-old female comes our clinic today for left sacroiliac joint injection. Patient has difficulty transitioning from sitting to standing. Difficulty ambulating for any distance due to left posterior hip pain. Patient describes the pain as constant, dull, aching. She rates pain 7/10. Procedure Details:: Procedure: Left sacroiliac injection under fluoroscopy Informed consent was obtained and the risk and benefits of the procedure were explained to the patient.~ The patient was taken to the procedure room and noninvasive monitors were placed including noninvasive blood pressure cuff and pulse oximeter.~ The patient was placed prone on the procedure table.~ The~ left hip was cleansed using Betadine as a cleansing solution.~ C-arm fluorosocpy was used to view the left SI joint.~ The skin and subcutaneous tissues were anesthetized using Lidocaine 1.5% and a 25-gauge needle.~ After this, a 22-gauge spinal needle was inserted under fluoroscopic guidance into the inferior aspect of the left SI joint.~ Omnipaque dye was injected and a good spread was seen throughout the joint.~ After this, approximately 5 mL of bupivacaine 0.25% and Depo-Medrol 40 mg was incrementally injected into the sacroiliac joint.~ The p atient tolerated the procedure well with no complications.~ The patient was observed in the Pain Clinic for a period of 30-45 minutes, then discharged home neurologically intact.~ Plan and Disposition:: Patient was discharged without incident.
[2023-04-26 09:45] VITALS: BP 132/53; PULSE 49; RESP 18; O2SAT 97
[2023-04-26 09:46] VITALS: BP 152/63; PULSE 51; RESP 18; O2SAT 97
== END 2023-04-26 09:45 | disposition home or self-care (01) ==
PROVIDERS: PCP Family Medicine; Visit Provider Nurse Anesthetist, Certified Registered
DX: M46.1 Sacroiliitis, not elsewhere classified (principal); M25.552 Pain in left hip
CPT/HCPCS: 27096; G0260; J1040

== ENCOUNTER → 2023-05-11 10:01 | Outpatient (POV) | payer MEDICARE, SELFPAY ==
--- NOTE | 2023-05-11 10:23 | A.OFFVIS_ITS ---
[facility] Pain Management SOAP Note Subjective:: Patient is a pleasant 68-year-old female who presents today for follow-up of left SI injection on 04/26/2023. We are currently treating the patient for bilateral sacroiliitis. Today she rates her pain a 0 out of 10. She has had 100% improvement following her injection as well as the combination of muscle relaxer that we prescribed at our last visit. Patient states that the methocarbamol 500 mg 3 times daily did even improve her shoulder symptoms. Today she states she has been able to increase her activity with decreased pain symptoms. She was also prescribed pregabalin 150 mg at bedtime at our last visit however she states she did not notice any additional relief with this and has discontinued the medication. Patient was previously tried on gabapentin 300 mg 3 times a day from her primary care doctor however she states that it made her feel groggy and hung over and she discontinued it. Her Nemesio is [id number]. Its been reviewed and appropriate. Review of Systems: General: No recent weight changes, no fever, no sleep disturbances Respiratory: No cough, no shortness of air, no recurring pulmonary infections Cardiovascular/peripheral vascular: No chest pain, no palpitations, no edema, no shortness of breath Gastrointestinal: No new onset incontinence, normal bowel movements reported Genitourinary: No new onset incontinence Musculoskeletal: Low back pain left-sided Psychiatric: [Normal mood/affect] Neurological: [Denies weakness in extremities], [denies balance issues] Objective:: Physical Exam: General: Alert and oriented x3, no acute distress, pleasant and cooperative Lungs: Respirations even and unlabored, symmetrical chest expansion Eyes: PERRL Musculoskeletal: Flexion and extension of lumbar [spine] somewhat guarded secondary to pain Neurological: Speech clear, no gross sensory deficit Assessment:: Bilateral sacroiliitis, low back pain Plan:: Patient has had 100% improvement following the addition of the left SI injection and methocarbamol and she does not require any additional injective therapy at this time. I will send in refills of her methocarbamol 500 mg 3 times daily and provide a 1 month supply of this medication. Patient will return to clinic in 1 month for reevaluation of symptoms and medication refill. Patient has been instructed to contact the clinic with any concerns before the next appointment. Dr. Merino has reviewed this note and agrees with this plan of care. This note was dictated using voice recognition software and make contain errors or omissions. [facility] Disclaimer: The information contained in this section may have been updated after the patient was seen, as this information can be updated by other users. Social History Smoking Status: Never smoker second hand exposure: No alcohol intake: never substance use type: denies use current occupational status: retired Travel in the last 8 weeks: None household members: significant other housing: house current occupation: [employer] current occupational exposures/hazards: No caffeine: Yes
[2023-05-11 12:36] VITALS: BP 172/64; PULSE 44; RESP 17; O2SAT 96; BMI 29.7
== END | disposition home or self-care (01) ==
PROVIDERS: PCP Family Medicine; Visit Provider Nurse Practitioner Family
DX: M46.1 Sacroiliitis, not elsewhere classified (principal)
CPT/HCPCS: 99212; G0463

== ENCOUNTER → 2023-06-08 09:16 | Outpatient (POV) | payer MEDICARE, SELFPAY ==
--- NOTE | 2023-06-08 09:34 | A.OFFVIS_ITS ---
[facility] Pain Management SOAP Note Subjective:: Patient is a pleasant 68-year-old female who presents today for 1 month follow- up. We are currently treating the patient for bilateral sacroiliitis. Today she rates her pain a 3 out of 10. Patient denies any new trauma or injury. Patient denies any change to location or type of pain she experiences. Patient previously had a left SI injection back at the beginning of April and feels like it is still continuing to provide additional relief. She does also state that the muscle relaxer methocarbamol 500 mg 3 times a day has provided additional relief. Previously she was prescribed pregabalin 150 mg at night however she did not notice any additional improvement so we discontinued this medication. She is requesting that we start this medication back due to noticing over time that it was helping her have a more restful night sleep. Her Nemesio is [id number]. Its been reviewed and appropriate. Review of Systems: General: No recent weight changes, no fever, no sleep disturbances Respiratory: No cough, no shortness of air, no recurring pulmonary infections Cardiovascular/peripheral vascular: No chest pain, no palpitations, no edema, no shortness of breath Gastrointestinal: No new onset incontinence, normal bowel movements reported Genitourinary: No new onset incontinence Musculoskeletal: Low back pain Psychiatric: [Normal mood/affect] Neurological: [Denies weakness in extremities], [denies balance issues] Objective:: Physical Exam: General: Alert and oriented x3, no acute distress, pleasant and cooperative Lungs: Respirations even and unlabored, symmetrical chest expansion Eyes: PERRL Musculoskeletal: Flexion and extension of lumbar [spine] somewhat guarded secondary to pain, [antalgic gait noted] Neurological: Speech clear, no gross sensory deficit Assessment:: Low back pain, bilateral sacroiliitis Plan:: I will refill the patient's methocarbamol 500 mg 3 times daily and pregabalin 150 mg at bedtime and provide a 2-month supply of this medication. Patient will return to clinic in 2 months for reevaluation of symptoms and medication refill. Patient has been instructed to contact the clinic with any concerns before the next appointment. Dr. Merino has reviewed this note and agrees with this plan of care. This note was dictated using voice recognition software and make contain errors or omissions. [facility] Disclaimer: The information contained in this section may have been updated after the patient was seen, as this information can be updated by other users. Social History Smoking Status: Never smoker second hand exposure: No alcohol intake: never substance use type: denies use current occupational status: retired Travel in the last 8 weeks: None household members: significant other housing: house current occupation: [employer] current occupational exposures/hazards: No caffeine: Yes
[2023-06-08 09:39] VITALS: BP 156/60; PULSE 56; RESP 18; O2SAT 97; BMI 29.5
== END | disposition home or self-care (01) ==
PROVIDERS: PCP Family Medicine; Visit Provider Nurse Practitioner Family
DX: M46.1 Sacroiliitis, not elsewhere classified (principal); M54.50 Low back pain, unspecified
CPT/HCPCS: 99212; G0463

== ENCOUNTER → 2023-06-24 08:58 | Outpatient (CLI) | payer MEDICARE, SELFPAY ==
--- NOTE | 2023-06-24 09:02 | XR_ITS ---
FINAL REPORT CLINICAL HISTORY: . post menopausal screening COMPARISON: None FINDINGS: Using L1-4, the bone mineral density of the spine is 0.915 g/cm2, corresponding to T-score of -1.2, consistent with low bone density. Using the left hip, the bone mineral density of the femoral neck is 0.633 g/cm2, corresponding to a T-score of -1.9, consistent with low bone density. Using the right hip, the bone mineral density of the femoral neck is 0.624 g/cm2, corresponding to a T-score of 9.0, consistent with low bone density. FRAX 10 year fracture risk is 4.7% for a hip fracture and 21% for a major osteoporotic fracture. NOTE: T-score: Standard deviation compared with peak bone mass of young adult mean. *Following the recommendations of the International Society of Bone densitometry, classification of hip BMD is based on the lower of two T-scores; total hip or femoral neck. IMPRESSION: Diminished bone mineral density consistent with low bone density. Reviewed, Interpreted and Dictated by Eris Caldera III, MD Transcribed by Kelli Parish Authenticated and [facility]
== END ==
PROVIDERS: PCP Family Medicine; Visit Provider Family Medicine
DX: Z78.0 Asymptomatic menopausal state (principal)
CPT/HCPCS: 77080

== ENCOUNTER → 2023-06-27 09:23 | Outpatient (CLI) | payer MEDICARE, SELFPAY ==
--- NOTE | 2023-06-27 09:29 | US_ITS ---
FINAL REPORT CLINICAL HISTORY: ELEVATED LFTS COMPARISON: None FINDINGS: Sonographic images of the right upper quadrant were obtained. The pancreas is partially obscured. There is fatty infiltration of the liver. The gallbladder is surgically absent. There is no evidence of biliary ductal dilatation.The common duct measures 3 mm. Limited images of the right kidney are unremarkable and measures 10.6 cm in length.. IMPRESSION: Prior cholecystectomy. Pancreas partially obscured. Reviewed, Interpreted and Dictated by Eris Caldera III, MD Transcribed by Lis Lowery Authenticated and [facility]
== END ==
PROVIDERS: PCP Family Medicine; Visit Provider Family Medicine
DX: R94.5 Abnormal results of liver function studies (principal); R78.89 Finding of other specified substances, not normally found in blood
CPT/HCPCS: 76705

== ENCOUNTER → 2023-08-08 08:22 | Outpatient (POV) | payer MEDICARE, SELFPAY ==
[2023-08-08 08:32] VITALS: BP 133/57; PULSE 52; RESP 18; O2SAT 100; BMI 29.7
--- NOTE | 2023-08-08 08:37 | EXP.PAIN.SOA ---
[facility] Pain Management SOAP Note Subjective:: Patient is a pleasant 68-year-old female who presents today for medication refill and follow-up. We are currently treating the patient for bilateral sacroiliitis. Today she rates her pain a 4 out of 10. Patient denies any new trauma or injury. Patient denies any change location or type of pain she experiences. Patient does state that she has started to experience more pain along her low back and into her bilateral hips. Patient does describe the pain as an aching, throbbing sensation that is worse with increased activity. Patient states that she notices it more with prolonged standing or walking as well as prolonged sitting. Patient does state the pain interferes with her ability perform activities of daily living such as cooking and cleaning. Patient is currently managed with methocarbamol 500 mg 3 times a day and pregabalin 150 mg at bedtime. Patient denies any side effects from this medication. Her Nemesio is [id number]. Its been reviewed and appropriate. Review of Systems: General: No recent weight changes, no fever, no sleep disturbances Respiratory: No cough, no shortness of air, no recurring pulmonary infections Cardiovascular/peripheral vascular: No chest pain, no palpitations, no edema, no shortness of breath Gastrointestinal: No new onset incontinence, normal bowel movements reported Genitourinary: No new onset incontinence Musculoskeletal: Low back pain, bilateral hip pain Psychiatric: [Normal mood/affect] Neurological: [Denies weakness in extremities], [denies balance issues] Objective:: Physical Exam: General: Alert and oriented x3, no acute distress, pleasant and cooperative Lungs: Respirations even and unlabored, symmetrical chest expansion Eyes: PERRL Musculoskeletal: Flexion and extension of lumbar [spine] somewhat guarded secondary to pain, [antalgic gait noted] point tenderness along bilateral SIs with positive bilateral Johana's, Juan Diego's, Gaenslen's, compression and distraction exam Neurological: Speech clear, no gross sensory deficit Assessment:: Low back pain, hip pain, bilateral sacroiliitis Plan:: Patient is experiencing worsening pain in her low back across her bilateral hips. Patient had limited range of motion of her lumbar spine along with point tenderness at her bilateral SIs with positive bilateral Johana's, Juan Diego's, Gaenslen's, compression and distraction exam. I have discussed with the patient that she may benefit from repeat bilateral SI injections. Patient previously had a left SI injection back in April that did provide at least 80% improvement and lasted up until the last couple of weeks. Risk and benefits of this injection were explained to the patient and she would like to proceed forward with this plan of care. Patient will be scheduled for bilateral SI injections. I will refill the patient's methocarbamol 500 mg 3 times a day and pregabalin 150 mg at bedtime and provide a 3-month supply of these medications. Patient has been instructed to contact the clinic with any concerns before the next appointment. Dr. Merino has reviewed this note and agrees with this plan of care. This note was dictated using voice recognition software and make contain errors or omissions. [facility] Disclaimer: The information contained in this section may have been updated after the patient was seen, as this information can be updated by other users. Social History Smoking Status: Never smoker second hand exposure: No alcohol intake: never substance use type: denies use current occupational status: retired Travel in the last 8 weeks: None household members: significant other housing: house current occupation: [employer] current occupational exposures/hazards: No caffeine: Yes
== END | disposition home or self-care (01) ==
PROVIDERS: PCP Family Medicine; Visit Provider Nurse Practitioner Family
DX: M54.50 Low back pain, unspecified (principal); M25.551 Pain in right hip; M25.552 Pain in left hip; M46.1 Sacroiliitis, not elsewhere classified
CPT/HCPCS: 99212; G0463

== ENCOUNTER → 2023-08-10 08:36 | Outpatient (CLI) | payer MEDICARE, SELFPAY ==
[2023-08-10 09:11] LABS: Microscopic, Urine URINE MICROSCOPIC (MICROSCOPIC)
[2023-08-10 10:00] LABS: Hematocrit 41.4 % (37.0-47.0); Hemoglobin 12.7 g/dL (12.2-16.2); Mean Corpuscular HGB Conc 30.7 g/dL (31.8-35.4); Mean Corpuscular Volume 87.8 fl (81-99); Platelet Count 237 K/mm3 (142-424); Red Blood Count 4.71 M/mm3 (4.20-5.40); White Blood Count 7.6 K/mm3 (4.8-10.8)
[2023-08-10 10:20] LABS: Appearance,Urine CLEAR (Clear); Bilirubin,Urine Negative (Negative); Blood, Urine Negative (Negative); Color,Urine YELLOW (Yellow); Glucose,Urine (UA) 3+ (Negative); Ketones,Urine Negative (Negative); Leukocyte Esterase,Urine TRACE (Negative); Nitrate,Urine Negative (Negative); Protein,Urine Negative (Negative); Urobilinogen,Urine 0.2 EU/dl (0.2)
[2023-08-10 10:26] LABS: Creatinine,Urine Random 10 mg/dL (Not Estab.)
[2023-08-10 10:42] LABS: Bacteria,Urine Trace /lpf; RBC,Urine Occasional #/hpf (0-3)
[2023-08-10 10:44] LABS: Hemoglobin A1C 8.1 % (4.0-6.0)
[2023-08-10 11:16] LABS: Alanine Aminotransferase 22 U/L (12-78); Albumin Level 3.9 g/dl (3.5-5.0); Albumin/Globulin Ratio 1.3 (1.1-1.8); Alkaline Phosphatase 204 U/L (38-126); Anion Gap 14.4 mEq/L (5-15); Aspartate Amino Transferase 22 U/L (14-36); Bilirubin,Total 0.4 mg/dl (0.2-1.3); Blood Urea Nitrogen 24 mg/dl (7-17); Calcium 9.4 mg/dl (8.4-10.2); Carbon Dioxide 27 mmol/L (22.0-30.0); Chloride 106 mmol/L (98-107); Estimated Glomerular Filt Rate 37 ml/min (>60); GFR (African American) 45 ML/MIN (>60); Globulin 3.1 g/dL (1.3-3.2); Glucose 170 mg/dl (74-100); Potassium 4.4 mmoL/L (3.5-5.1); Sodium 143 mmol/L (136-145); Uric Acid 4.9 mg/dl (2.5-6.2)
[2023-08-10 11:27] LABS: Intact Parathyroid Hormone 50.3 pg/mL (7.5-53.5)
[2023-08-10 11:30] LABS: 25-OH Vitamin D, Total 35.2 ng/mL (30-100)
== END ==
PROVIDERS: PCP Family Medicine; Visit Provider Internal Medicine Nephrology
DX: E78.5 Hyperlipidemia, unspecified (principal); R73.9 Hyperglycemia, unspecified; N18.30 Chronic kidney disease, stage 3 unspecified; N17.0 Acute kidney failure with tubular necrosis; N20.0 Calculus of kidney; E87.5 Hyperkalemia; I10 Essential (primary) hypertension
CPT/HCPCS: 36415; 80053; 81001; 82306; 82570; 83036; 83970; 84155; 84550; 85014; 85018; 85048; 85049

== ENCOUNTER 2023-09-09 13:26 | Day surgery (SDC) | payer MEDICARE, SELFPAY ==
[2023-09-09 13:48] VITALS: BP 133/63; PULSE 67; RESP 20; TEMP 36.3; O2SAT 100; BMI 30.7
[2023-09-09 15:12] VITALS: BP 129/38; PULSE 68; RESP 18; O2SAT 97
[2023-09-09 15:15] VITALS: BP 129/38; PULSE 68; RESP 18; O2SAT 98
[2023-09-09 15:20] VITALS: BP 143/54; PULSE 63; RESP 20
--- NOTE | 2023-09-09 16:49 | EXP.PAIN.PRO ---
Procedure Date: 09/09/23 Time: 16:49 Anesthesiologist:: Neo Merino MD Complications:: None Pre-procedure Diagnosis:: Sacroiliitis Post-procedure Diagnosis:: Same Indications for Procedure:: The patient is a pleasant 68-year-old white female who we are treating for bilateral sacroiliitis. She is tender over both SI joints. She has positive Johana's test bilaterally. She has positive Zac's bilaterally. Positive SI joint compression test bilaterally. We will plan on bilateral SI joint injections under fluoroscopy today. Procedure Details:: Informed consent was obtained risk and benefits of the procedure were explained to the patient. Patient was taken to the procedure room placed prone on the procedure table. She was prepped and draped in sterile fashion. C-arm fluoroscopy was used to view the left SI joint. The skin and subcutaneous tissues were anesthetized using lidocaine. A 22-gauge spinal needle was inserted into the inferior aspect of the joint. Needle placement was confirmed with dye. We injected 5 mL bupivacaine 0.25% and Depo-Medrol 40 mg into the left SI joint. We did the same for the right SI joint. The patient tolerated the procedure well with no complications. Plan and Disposition:: We will plan on following up with this patient in 2 weeks. Will reevaluate symptoms at that time.
== END 2023-09-09 15:20 | disposition home or self-care (01) ==
PROVIDERS: PCP Family Medicine; Visit Provider Anesthesiology
DX: M46.1 Sacroiliitis, not elsewhere classified (principal)
CPT/HCPCS: 27096; G0260; J1030

== ENCOUNTER → 2023-09-23 12:51 | Outpatient (POV) | payer MEDICARE, SELFPAY ==
[2023-09-23 13:00] VITALS: BP 148/91; PULSE 45; RESP 18; O2SAT 99; BMI 30.7
--- NOTE | 2023-09-23 13:23 | A.OFFVIS_ITS ---
[facility] Pain Management SOAP Note Subjective:: Patient is a pleasant 68-year-old female who presents today for follow-up of bilateral SI injections on 09/09/2023. We are currently treating the patient for bilateral sacroiliitis. Today she rates her pain a 2 out of 10. Patient denies any new trauma or injury or any change to location or type of pain she experiences. Patient states that she has had at least 90% improvement following this injection and feels like it is still continuing to provide additional relief. Patient has been able to increase her activity with decreased pain symptoms. She is currently managed with methocarbamol 500 mg 3 times a day and pregabalin 150 mg at bedtime. She denies any side effects from this medication. She states that she does not need any refills on her Robaxin however may need on her Lyrica. Her Nemesio has been reviewed and is appropriate. Review of Systems: General: No recent weight changes, no fever, no sleep disturbances Respiratory: No cough, no shortness of air, no recurring pulmonary infections Cardiovascular/peripheral vascular: No chest pain, no palpitations, no edema, no shortness of breath Gastrointestinal: No new onset incontinence, normal bowel movements reported Genitourinary: No new onset incontinence Musculoskeletal: Low back pain Psychiatric: [Normal mood/affect] Neurological: [Denies weakness in extremities], [denies balance issues] Objective:: Physical Exam: General: Alert and oriented x3, no acute distress, pleasant and cooperative Lungs: Respirations even and unlabored, symmetrical chest expansion Eyes: PERRL Musculoskeletal: Flexion and extension of lumbar [spine] somewhat guarded secondary to pain, [antalgic gait noted] Neurological: Speech clear, no gross sensory deficit Assessment:: Bilateral sacroiliitis Plan:: Patient has had significant improvement following her bilateral SI injections and does not require any additional injective therapy. I will send in a 1 month supply of the pregabalin 150 mg at bedtime. Patient will return to clinic in 1 month for reevaluation of symptoms and plan of care. Patient has been instructed to contact the clinic with any concerns before the next appointment. Dr. Merino has reviewed this note and agrees with this plan of care. This note was dictated using voice recognition software and make contain errors or omissions. [facility] Disclaimer: The information contained in this section may have been updated after the patient was seen, as this information can be updated by other users. Family History (Updated 09/09/23 @ 13:51 by Jenna Duron RN) Other No significant family history Social History (Updated 09/09/23 @ 13:51 by Jenna Duron RN) Smoking Status: Never smoker second hand exposure: No alcohol intake: never substance use type: denies use current occupational status: retired Travel in the last 8 weeks: None household members: significant other housing: house current occupation: [employer] current occupational exposures/hazards: No caffeine: Yes
== END ==
PROVIDERS: PCP Family Medicine; Visit Provider Nurse Practitioner Family
DX: M46.1 Sacroiliitis, not elsewhere classified (principal)
CPT/HCPCS: 99212; G0463

== ENCOUNTER → 2023-09-27 14:43 | Outpatient (CLI) | payer MEDICARE, SELFPAY | PROVIDERS: PCP Family Medicine; Visit Provider Internal Medicine | DX: R55 Syncope and collapse (principal); I10 Essential (primary) hypertension; E78.5 Hyperlipidemia, unspecified; E11.9 Type 2 diabetes mellitus without complications; R00.2 Palpitations; R06.00 Dyspnea, unspecified; Z79.84 Long term (current) use of oral hypoglycemic drugs; Z79.85 Long-term (current) use of injectable non-insulin antidiabetic drugs | CPT/HCPCS: 93225 ==

== ENCOUNTER → 2023-10-07 13:30 | Outpatient (CLI) | payer MEDICARE, SELFPAY ==
--- NOTE | 2023-10-07 13:33 | CA_ITS ---
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79 cm AoV Peak Ab. 179.00 (50-130 cm/s) AO Peak GR. 12.80 mmHg AO Mean GR. 6.30 (<5 mmHg) AO VTI 44.65 (18-25 cm) SYLVIA (VTI) 2.29 (2.5-4.5 cm2) Mitral Valve MV A Velocity 115.00 (40-130 cm/s) E/A Ratio 1.35 MV Decel. Time 283.00 (160-240 ms) MV Mean Gr. 3.00 (<2mmHg) Tricuspid Valve TR P. Velocity 244.00 cm/s RAP Estimate 10.00 mmHg RVSP 33.80 mmHg Left Ventricle The left ventricle is normal size. The left ventricular systolic function is normal. The left ventricular ejection fraction is within the normal range. There is increased LV wall thickness. There is normal LV segmental wall motion. Diastolic function is indeterminate. LVEF is 55%. Right Ventricle The right ventricle is normal size. The right ventricular systolic function is normal. Atria The left atrium is mildly dilated. The right atrium size is normal. There is no Doppler evidence of interatrial shunt. Aortic Valve Aortic valve leaflets are mildly thickened. There is no aortic valvular stenosis. No aortic regurgitation is present. Mitral Valve Moderate mitral annular calcification. The mitral valve leaflets are mildly thickened. No evidence of mitral valve stenosis. Mean MV gradient is 4 mmHg (HR 72 bpm). Trace mitral regurgitation. Tricuspid Valve The tricuspid valve leaflets are thin and pliable. Trace tricuspid regurgitation. RVSP is 20-25 mmHg. Pulmonic Valve The pulmonary valve is normal in structure. Trace pulmonic regurgitation. Great Vessels The aortic root is normal in size. The ascending aorta is normal in size. IVC is normal in size and collapses >50% with inspiration. Pericardium There is no pericardial effusion. Other Information Study Quality: Fair Conclusion Normal biventricular systolic function. Mild LA dilation. Moderate MAC. No evidence of mitral stenosis (in the setting of known history of rheumatic fever). Electronically signed by : Deborah Adames MD 10/18/2023 22:01:19
== END ==
PROVIDERS: PCP Family Medicine; Visit Provider Internal Medicine
DX: E11.9 Type 2 diabetes mellitus without complications (principal); E78.5 Hyperlipidemia, unspecified; I10 Essential (primary) hypertension; R00.2 Palpitations; R06.00 Dyspnea, unspecified; R55 Syncope and collapse; Z79.84 Long term (current) use of oral hypoglycemic drugs
CPT/HCPCS: 93306

== ENCOUNTER → 2023-10-19 09:41 | Outpatient (POV) | payer MEDICARE, SELFPAY ==
--- NOTE | 2023-10-19 10:30 | EXP.PAIN.SOA ---
[facility] Pain Management SOAP Note Subjective:: Patient is a pleasant 68-year-old female who presents today for follow-up and medication refill. We are currently treating the patient for bilateral sacroiliitis, low back pain. Today she rates her pain a 9 out of 10. Patient states she had a recent fall on Tuesday where she ended up landing on both her knees. 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 Patient does state her pain is an aching, throbbing sensation that is worse in the left compared to the right however both knees are bothering her. Patient does state the pain interferes with her ability perform activities of daily living such as cooking and cleaning. She does present today with a cane for help with ambulation. Patient denies going for evaluation following this fall and has just been applying ice to decrease the swelling. Patient does state that she has a appointment with orthopedic Dr. Gutiérrez at [facility] coming up tomorrow. Patient is currently managed with methocarbamol 500 mg 3 times a day and pregabalin 150 mg at bedtime. She denies any side effects from this medication. Her Nemesio has been reviewed and is appropriate. Review of Systems: General: No recent weight changes, no fever, no sleep disturbances Respiratory: No cough, no shortness of air, no recurring pulmonary infections Cardiovascular/peripheral vascular: No chest pain, no palpitations, no edema, no shortness of breath Gastrointestinal: No new onset incontinence, normal bowel movements reported Genitourinary: No new onset incontinence Musculoskeletal: Bilateral knee pain Psychiatric: [Normal mood/affect] Neurological: [Denies weakness in extremities], [denies balance issues] Objective:: Physical Exam: General: Alert and oriented x3, no acute distress, pleasant and cooperative Lungs: Respirations even and unlabored, symmetrical chest expansion Eyes: PERRL Musculoskeletal: Flexion and extension of bilateral knees somewhat guarded secondary to pain, [antalgic gait noted] Neurological: Speech clear, no gross sensory deficit Assessment:: Low back pain, sacroiliitis, bilateral knee pain Plan:: Patient is experiencing worsening pain in her bilateral knees related to a recent fall. I will order bilateral x-rays of her knees and put in a 5-day dose of prednisone 20 mg twice daily. I have counseled the patient that she may benefit from intra-articular knee injections. Risk and benefits were discussed with the patient and she would like to proceed forward with this plan of care. I have counseled the patient that she can call and reschedule or cancel this appointment if needed based off of the orthopedic doctors recommendations tomorrow. I will refill the patient's methocarbamol 500 mg 3 times a day and pregabalin 150 mg at bedtime and provide a 1 month supply of these medications. Patient will be scheduled for bilateral intra-articular knee injections. Patient has been instructed to contact the clinic with any concerns before the next appointment. Dr. Merino has reviewed this note and agrees with this plan of care. This note was dictated using voice recognition software and make contain errors or omissions. [facility] Disclaimer: The information contained in this section may have been updated after the patient was seen, as this information can be updated by other users. Medical History (Updated 09/27/23 @ 14:36 by vL Chavez RN) Dyspnea History of left heart catheterization Palpitations Surgical History (Updated 09/27/23 @ 14:07 by Olena Hernández) H/O hernia repair Family History Other No significant family history Social History Smoking Status: Never smoker second hand exposure: No alcohol intake: never substance use type: denies use current occupational status: retired Travel in the last 8 weeks:
[2023-10-19 10:48] VITALS: BP 135/46; PULSE 66; RESP 18; O2SAT 94; BMI 31.1
== END | disposition home or self-care (01) ==
PROVIDERS: PCP Family Medicine; Visit Provider Nurse Practitioner Family
DX: M54.50 Low back pain, unspecified (principal); M46.1 Sacroiliitis, not elsewhere classified; M25.561 Pain in right knee; M25.562 Pain in left knee; W10.9XXA Fall (on) (from) unspecified stairs and steps, initial encounter
CPT/HCPCS: 99212; G0463

== ENCOUNTER → 2023-10-19 10:44 | Outpatient (CLI) | payer MEDICARE, SELFPAY ==
--- NOTE | 2023-10-19 | XR_ITS ---
FINAL REPORT CLINICAL HISTORY: recent fall, bilat knee pain COMPARISON: None FINDINGS: LEFT KNEE 3 views of the left knee were obtained. There is no acute fracture or dislocation. There is mild indentation along the articular surface of the lateral femoral condyle that may represent an osteochondral lesion. There is hypertrophic change of the patellofemoral joint with a small joint effusion and joint space narrowing. Soft tissues are unremarkable. IMPRESSION: No acute bony abnormality, with degenerative change as described above.. Reviewed, Interpreted and Dictated by Garry Hendrickson MD Transcribed by Lis Lowery Authenticated and [facility]
--- NOTE | 2023-10-19 | XR_ITS ---
FINAL REPORT CLINICAL HISTORY: recent fall, bilat knee pain COMPARISON: None FINDINGS: RIGHT KNEE: There is no acute fracture or dislocation. There is hypertrophic change of the posterior patella with joint space narrowing of the patellofemoral joint. A small effusion is present. There is no soft tissue abnormality. IMPRESSION: No acute bony abnormality identified. Degenerative changes as described above. Reviewed, Interpreted and Dictated by Garry Hendrickson MD Transcribed by Lis Lowery Authenticated and [facility]
== END ==
PROVIDERS: PCP Family Medicine; Visit Provider Anesthesiology
DX: M25.562 Pain in left knee (principal); M25.561 Pain in right knee; W19.XXXA Unspecified fall, initial encounter
CPT/HCPCS: 73562; 99212; G0463

== ENCOUNTER → 2023-10-27 10:57 | Outpatient (CLI) | payer MEDICARE, SELFPAY ==
[2023-10-27 11:59] LABS: Chloride 104 mmol/L (98-107); Sodium 136 mmol/L (136-145)
[2023-10-27 12:00] LABS: Potassium 4.7 mmoL/L (3.5-5.1)
[2023-10-27 12:03] LABS: Anion Gap 11.7 mEq/L (5-15); Blood Urea Nitrogen 20 mg/dl (7-17); Calcium 8.6 mg/dl (8.4-10.2); Carbon Dioxide 25 mmol/L (22.0-30.0); Estimated Glomerular Filt Rate 49 ml/min (>60); GFR (African American) 60 ML/MIN (>60); Glucose 260 mg/dl (74-100)
== END ==
PROVIDERS: PCP Family Medicine; Visit Provider Internal Medicine
DX: E11.9 Type 2 diabetes mellitus without complications (principal); E78.5 Hyperlipidemia, unspecified; I10 Essential (primary) hypertension; R00.2 Palpitations; R06.00 Dyspnea, unspecified; E66.9 Obesity, unspecified; Z79.84 Long term (current) use of oral hypoglycemic drugs; Z68.32 Body mass index [BMI] 32.0-32.9, adult
CPT/HCPCS: 36415; 80048

== ENCOUNTER 2024-02-23 09:29 | Outpatient (CLI) | payer MEDICARE, SELFPAY ==
[2024-02-23 09:37] LABS: Microscopic, Urine URINE MICROSCOPIC (MICROSCOPIC)
[2024-02-23 09:53] LABS: Basophils # 0.1 K/mm3 (0-0.2); Basophils % 0.7 % (0.1-2.0); Eosinophils # 0.7 K/mm3 (0.0-0.4); Eosinophils % 7.7 % (0.1-12.0); Hematocrit 39.1 % (37.0-47.0); Hemoglobin 12.1 g/dL (12.2-16.2); Lymphocytes # 2.2 K/mm3 (0.7-4.5); Lymphocytes % 24.7 % (10-50); Mean Corpuscular HGB Conc 30.9 g/dL (31.8-35.4); Mean Corpuscular Hemoglobin 29.4 pg (27.0-31.2); Mean Platelet Volume 9.9 fl (7.4-10.4); Monocytes # 0.3 K/mm3 (0.1-1.0); Monocytes % 3.6 % (1.7-9.3); Neutrophils # 5.7 K/mm3 (1.8-7.8); Neutrophils % 63.4 % (37.0-80.0); Platelet Count 217 K/mm3 (142-424); Red Blood Count 4.12 M/mm3 (4.20-5.40); Red Cell Distribution Width 15.3 % (11.5-17.5); White Blood Count 8.9 K/mm3 (4.8-10.8)
[2024-02-23 10:14] LABS: Hemoglobin A1C 7.6 % (4.0-6.0)
[2024-02-23 10:22] LABS: 25-OH Vitamin D, Total 38.6 ng/mL (30-100)
[2024-02-23 10:53] LABS: Appearance,Urine CLEAR (Clear); Bilirubin,Urine Negative (Negative); Blood, Urine Negative (Negative); Color,Urine YELLOW (Yellow); Glucose,Urine (UA) 3+ (Negative); Ketones,Urine Negative (Negative); Leukocyte Esterase,Urine TRACE (Negative); Nitrate,Urine Negative (Negative); Protein,Urine Negative (Negative); Specific Gravity, Urine 1.015 (1.005-1.030); Urobilinogen,Urine 0.2 EU/dl (0.2)
[2024-02-23 10:59] LABS: Alanine Aminotransferase 22 U/L (12-78); Albumin Level 3.6 g/dl (3.5-5.0); Albumin/Globulin Ratio 1.4 (1.1-1.8); Alkaline Phosphatase 151 U/L (38-126); Anion Gap 10.1 mEq/L (5-15); Aspartate Amino Transferase 23 U/L (14-36); Bilirubin,Total 0.6 mg/dl (0.2-1.3); Blood Urea Nitrogen 14 mg/dl (7-17); Calcium 9.2 mg/dl (8.4-10.2); Carbon Dioxide 28 mmol/L (22.0-30.0); Chloride 108 mmol/L (98-107); Estimated Glomerular Filt Rate 49 ml/min (>60); GFR (African American) 59 ML/MIN (>60); Globulin 2.6 g/dL (1.3-3.2); Glucose 160 mg/dl (74-100); Potassium 4.1 mmoL/L (3.5-5.1); Sodium 142 mmol/L (136-145); Total Protein,Serum 6.2 g/dl (6.3-8.2); Uric Acid 4.4 mg/dl (2.5-6.2)
[2024-02-23 11:09] LABS: Intact Parathyroid Hormone 52.9 pg/mL (7.5-53.5)
[2024-02-23 11:55] LABS: Creatinine,Urine Random 140 mg/dL (Not Estab.)
[2024-02-23 12:24] LABS: Bacteria,Urine Trace /lpf; Squamous Epithelial Cell,Urine Occasional #/hpf (0-5)
== END 2024-02-23 23:59 ==
LOC: LAB 09:30
PROVIDERS: PCP Family Medicine; Visit Provider Internal Medicine Nephrology
DX: N18.30 Chronic kidney disease, stage 3 unspecified (principal); N17.0 Acute kidney failure with tubular necrosis; N20.0 Calculus of kidney; E78.5 Hyperlipidemia, unspecified; E87.5 Hyperkalemia; I10 Essential (primary) hypertension; E11.9 Type 2 diabetes mellitus without complications; Z79.84 Long term (current) use of oral hypoglycemic drugs
CPT/HCPCS: 36415; 80053; 81001; 82306; 82570; 83036; 83970; 84156; 84550; 85025

== ENCOUNTER 2024-03-21 11:15 | Outpatient (POV) | payer MEDICARE, SELFPAY ==
[2024-03-21 11:31] VITALS: BP 107/60; PULSE 58; RESP 16; O2SAT 96; BMI 31.6
--- NOTE | 2024-03-21 12:05 | EXP.PAIN.SOA ---
[facility] Pain Management SOAP Note Subjective:: Patient is a pleasant 69-year-old female who presents today for medication refill and follow-up. We are currently treating the patient for bilateral sacroiliitis. Today she rates her pain a 6 out of 10. Patient denies any new trauma or injury. She states she is starting to experience more pain back in her low back and hips. Patient did last have her bilateral SI injections back in August 2023 and states that it is worked well up until the last couple of weeks. Patient states that she has had several things occur from our last visit. Patient states that she ended up having a fall on that ultimately led to her needing knee injections by Dr. Gutiérrez. Patient does also state that she ended up having bilateral toe surgeries as well. Patient states that she was walking in a boot and feels like this might have aggravated her overall back symptoms. Patient does describe the pain as an aching, throbbing sensation that is worse with increased activity. Patient states that she notices it more with prolonged standing or walking as well as prolonged sitting. Patient does state the pain interferes with her ability perform activities of daily living such as cooking and cleaning. Patient is currently managed with methocarbamol 500 mg 3 times a day and pregabalin 150 mg at bedtime. Patient denies any side effects from this medication. She states that she does need refills on both of these medications. Her Nemesio has been reviewed and is appropriate. Review of Systems: General: No recent weight changes, no fever, no sleep disturbances Respiratory: No cough, no shortness of air, no recurring pulmonary infections Cardiovascular/peripheral vascular: No chest pain, no palpitations, no edema, no shortness of breath Gastrointestinal: No new onset incontinence, normal bowel movements reported Genitourinary: No new onset incontinence Musculoskeletal: Low back pain, bilateral hip pain Psychiatric: [Normal mood/affect] Neurological: [Denies weakness in extremities], [denies balance issues] Objective:: Physical Exam: General: Alert and oriented x3, no acute distress, pleasant and cooperative Lungs: Respirations even and unlabored, symmetrical chest expansion Eyes: PERRL Musculoskeletal: Flexion and extension of lumbar [spine] somewhat guarded secondary to pain, [antalgic gait noted] point tenderness along bilateral SIs with positive bilateral Johnaa's, Juan Diego's, Gaenslen's, compression and distraction exam Neurological: Speech clear, no gross sensory deficit Assessment:: Bilateral sacroiliitis Plan:: Patient is experiencing worsening pain in her low back and bilateral hips with point tenderness along her bilateral SIs and a positive bilateral Johana's, Juan Diego's, Gaenslen's, compression and distraction exam. I have discussed with patient that she may benefit from a repeat bilateral SI injections. Risk and benefits were discussed with patient and she would like to proceed forward with this plan of care. Patient at our last injection did provide 80% relief lasting at least 5-1/2 months. Patient has tried and failed conservative therapy and has continued to do at home exercising and stretching between her last injections and now. We will schedule the patient for bilateral SI injections under fluoroscopy. I also will refill her methocarbamol 500 mg 3 times a day and pregabalin 150 mg at bedtime and provide a 3-month supply of these medications. Patient has been instructed to contact the clinic with any concerns before the next appointment. Dr. Merino has reviewed this note and agrees with this plan of care. This note was dictated using voice recognition software and make contain errors or omissions. [facility] Disclaimer: The information contained in this section may have been updated after the patient was seen, as this information can be updated by other users. Medical History Dyspnea History of left heart catheterization Palpitations Surgical History H/O hernia repair Family History Other No significant family history Social History Smoking Status: Never smoker second hand exposure: No alcohol intake: never substance use type: denies use current occupational status: other Travel in the last 8 weeks: None household members: significant other housing: house current occupation: [employer] current occupational exposures/hazards: No caffeine: Yes
== END 2024-03-21 23:59 | disposition home or self-care (01) ==
PROVIDERS: PCP Family Medicine; Visit Provider Nurse Practitioner Family
DX: M46.1 Sacroiliitis, not elsewhere classified (principal)
CPT/HCPCS: 99212; G0463

== ENCOUNTER 2024-04-10 10:06 | Day surgery (SDC) | payer MEDICARE, SELFPAY ==
[2024-04-10 10:25] VITALS: BP 186/69; PULSE 65; RESP 18; TEMP 36.6; O2SAT 98; BMI 32.3
--- NOTE | 2024-04-10 10:42 | P.PCN_ITS ---
Procedure Date: 04/10/24 Time: 10:43 Anesthesiologist:: Kevin Dawson CRNA Complications:: None Pre-procedure Diagnosis:: Bilateral sacroiliitis Post-procedure Diagnosis:: Same. Indications for Procedure:: Patient is a pleasant 69-year-old female comes in today for repeat bilateral sacroiliac joint injections of cortisone. Patient responded very well to previous injections in the bilateral sacroiliac joints. She reports low lumbar back pain off the midline bilaterally. Bilateral posterior hip pain. Difficulty transitioning from sitting to standing. Difficulty with ambulation due to increased pain in the low lumbar back area. She rates her pain 7/10. Procedure Details:: Procedure: Bilateral sacroiliac joint injections under fluoroscopy Informed consent was obtained and the risks and benefits of the procedure were explained to the patient.~ The patient was taken to the procedure room and noninvasive monitors were placed including a noninvasive blood pressure cuff and pulse oximeter.~ The patient was placed prone on the procedure table. Both hips were cleansed using Betadine as a cleansing solution. C-arm fluoroscopy was used to view the right sacroiliac joint.~ The skin and subcutaneous tissues were anesthetized using lidocaine 1.5% and a 25-gauge needle.~ After this, a 22-gauge spinal needle was inserted under fluoroscopic guidance into the inferior aspect of the right sacroiliac joint.~ Omnipaque dye was injected and good spread was seen throughout the joint.~ After this, approximately 5 mL of bupivacaine, 0.25% and Depo-Medrol, 40 mg was incrementally injected into the right sacroiliac joint. We then moved to the left sacroiliac joint.~ The skin and subcutaneous tissues were anesthetized using lidocaine 1.5% and a 25-gauge needle.~ After this, a 22- gauge spinal needle was inserted under fluoroscopic guidance into the inferior aspect of the left sacroiliac joint.~ Omnipaque dye was injected and good spread was seen throughout the joint. After this, approximately 5 mL of bupivacaine, 0.25% and Depo-Medrol, 40 mg was incrementally injected into the left sacroiliac joint.~ The patient tolerated the procedure well with no complications. The patient was observed in the Pain Clinic and then was discharged home neurologically intact. Plan and Disposition:: Patient was discharged without incident.
[2024-04-10] MEDS: BUPIVACAINE 0.25% 10ML INJ 25 MG IJ (10:46)
[2024-04-10] MEDS: methylPREDNISolone ACETATE 80MG/ML VIAL 80 MG (10:46)
[2024-04-10] MEDS: LIDOCAINE 1% 5ML PF VIAL 5 ML (10:47)
[2024-04-10 10:49] VITALS: BP 180/69; PULSE 56; RESP 18; O2SAT 98
[2024-04-10 10:52] VITALS: BP 171/60; PULSE 53; RESP 18; O2SAT 96
[2024-04-10 10:53] VITALS: BP 171/60; PULSE 53; RESP 18; O2SAT 96
== END 2024-04-10 10:50 | disposition home or self-care (01) ==
PROVIDERS: PCP Family Medicine; Visit Provider Nurse Anesthetist, Certified Registered
DX: M46.1 Sacroiliitis, not elsewhere classified (principal)
CPT/HCPCS: 27096; G0260; J1010

== ENCOUNTER 2024-04-25 14:38 | Outpatient (POV) | payer MEDICARE, SELFPAY ==
[2024-04-25 15:10] VITALS: BP 153/72; PULSE 75; RESP 18; O2SAT 99; BMI 31.9
--- NOTE | 2024-04-25 15:23 | A.OFFVIS_ITS ---
[facility] Pain Management SOAP Note Subjective:: Patient is a pleasant 69-year-old female who presents today for follow-up of bilateral SI injections on 04/10/2024. Patient rates her pain today a 6 out of 10. Patient denies any new trauma or injury. She does state that she at least had 80% relief for more following these injections and that she was able to enjoy her entire vacation however when she got back home on Tuesday she did have a little bit more increased pain. Patient is hoping that it will go back to improving after she has been able to rest and relax a little bit more. Patient with her last SI injections got about 5-1/2 months relief. Patient is currently managed with methocarbamol 500 mg 3 times a day and pregabalin 150 mg at bedtime. She denies any side effects from this medication. Her Nemesio has been reviewed and is appropriate. Review of Systems: General: No recent weight changes, no fever, no sleep disturbances Respiratory: No cough, no shortness of air, no recurring pulmonary infections Cardiovascular/peripheral vascular: No chest pain, no palpitations, no edema, no shortness of breath Gastrointestinal: No new onset incontinence, normal bowel movements reported Genitourinary: No new onset incontinence Musculoskeletal: Low back pain Psychiatric: [Normal mood/affect] Neurological: [Denies weakness in extremities], [denies balance issues] Objective:: Physical Exam: General: Alert and oriented x3, no acute distress, pleasant and cooperative Lungs: Respirations even and unlabored, symmetrical chest expansion Eyes: PERRL Musculoskeletal: Flexion and extension of lumbar [spine] somewhat guarded secondary to pain, [antalgic gait noted] Neurological: Speech clear, no gross sensory deficit Assessment:: Low back pain, bilateral sacroiliitis Plan:: Patient did have significant relief following her SI injections however is having a little bit more pain related to overworking herself while on vacation. We will follow-up with the patient in 2 months for reevaluation of symptoms and plan of care. Patient did just have her medications refilled with her 3-month supply at her visit on March 21. Patient has been instructed to contact the clinic with any concerns before the next appointment. Dr. Merino has reviewed this note and agrees with this plan of care. This note was dictated using voice recognition software and make contain errors or omissions. [facility] Disclaimer: The information contained in this section may have been updated after the patient was seen, as this information can be updated by other users. Medical History Dyspnea History of left heart catheterization Palpitations Surgical History H/O hernia repair Family History Other No significant family history Social History Smoking Status: Never smoker second hand exposure: No alcohol intake: never substance use type: denies use current occupational status: retired Travel in the last 8 weeks: None household members: significant other housing: house current occupation: [employer] current occupational exposures/hazards: No caffeine: Yes
== END 2024-04-25 23:59 | disposition home or self-care (01) ==
PROVIDERS: PCP Family Medicine; Visit Provider Nurse Practitioner Family
DX: M54.50 Low back pain, unspecified (principal); M46.1 Sacroiliitis, not elsewhere classified
CPT/HCPCS: 99212; G0463

== ENCOUNTER 2024-06-21 11:42 | Emergency (ER) | payer MEDICARE, SELFPAY ==
[2024-06-21] VITALS (7 sets, daily range): BP systolic 148–208; BP diastolic 70–87; PULSE 50–63; RESP 10–16; TEMP 36.6–36.7; O2SAT 96–99; BMI 32.3
--- NOTE | 2024-06-21 11:48 | ECG_ITS ---
APPROVED REPORT Exam: Resting ECG HR:62 bpm ECG Measurements Heart Rate 62 AXES UT 197 P 44 QRSd 94 QRS -20 QT 410 T 39 QTc 416 Conclusion SINUS RHYTHM Electronically signed by : HANH RUIZ, 06/21/2024 15:09:17
--- NOTE | 2024-06-21 11:51 | XR_ITS ---
FINAL REPORT CLINICAL HISTORY: tachycardia COMPARISON: 08/26/2020 FINDINGS: SINGLE-VIEW CHEST The heart size is normal. The mediastinum is normal. The lungs are underinflated. There is no pneumothorax. IMPRESSION: No acute cardiopulmonary process. Reviewed, Interpreted and Dictated by Garry Hendrickson MD Transcribed by Nicole Delgadillo Authenticated and [facility]
[2024-06-21 12:04] LABS: Basophils % 0.6 % (0.1-2.0); Eosinophils # 0.3 K/mm3 (0.0-0.4); Eosinophils % 3.9 % (0.1-12.0); Hematocrit 37.3 % (37.0-47.0); Hemoglobin 11.9 g/dL (12.2-16.2); Lymphocytes # 1.8 K/mm3 (0.7-4.5); Lymphocytes % 24.2 % (10-50); Mean Corpuscular Hemoglobin 30.5 pg (27.0-31.2); Mean Corpuscular Volume 95.4 fl (81-99); Mean Platelet Volume 10.7 fl (7.4-10.4); Monocytes # 0.3 K/mm3 (0.1-1.0); Monocytes % 3.4 % (1.7-9.3); Neutrophils # 5.1 K/mm3 (1.8-7.8); Platelet Count 186 K/mm3 (142-424); Red Blood Count 3.91 M/mm3 (4.20-5.40); Red Cell Distribution Width 16.3 % (11.5-17.5); White Blood Count 7.5 K/mm3 (4.8-10.8)
--- NOTE | 2024-06-21 12:07 | CT_ITS ---
FINAL REPORT TECHNIQUE: Axial CT images were performed through the head. Coronal reformatted images were submitted. This study was performed with techniques to keep radiation doses as low as reasonably achievable (ALARA). Individualized dose reduction techniques using automated exposure control or adjustment of mA and/or kV according to the patient's size were employed. CLINICAL HISTORY: acute onset LAUREN, nausea, diaphoresis COMPARISON: 08/26/2020 FINDINGS: There is moderate atrophy with proportional ventriculomegaly. There is no evidence of hemorrhage. There is no mass or edema identified. There is no abnormal extra-axial fluid seen. The sinuses are well aerated. IMPRESSION: Moderate atrophy without acute intracranial process. Reviewed, Interpreted and Dictated by Garry Hendrickson MD Transcribed by Nicole Delgadillo Authenticated and [facility]
--- NOTE | 2024-06-21 12:15 | ED_ITS ---
Discharge Plan Disposition Patient Disposition: Home, Self-Care Prescriptions Prescriptions: New furosemide 40 mg tablet 40 mg PO DAILY Qty: 30 0RF No Action allopurinol 100 mg tablet 100 mg PO DAILY Jardiance 25 mg tablet 25 mg PO DAILY cyanocobalamin (vitamin B-12) 1,000 mcg capsule 1,000 mcg PO DAILY biotin 5,000 mcg tablet,chewable 5,000 mcg PO DIRECTED atorvastatin 80 mg tablet PO potassium chloride 20 mEq tablet extended release PO Ozempic 0.25 mg or 0.5 mg (2 mg/3 mL) pen injector 0.25 mg SQ metoprolol succinate [Toprol XL] 25 mg tablet extended release 24 hr 25 mg PO DAILY Qty: 90 3RF telmisartan 40 mg tablet 40 mg PO DAILY Qty: 90 3RF omeprazole 20 mg capsule,delayed release(DR/EC) 20 mg PO DAILY zolpidem 10 MG tablet 10 mg PO HS glimepiride 2 MG tablet 2 mg PO DAILY pregabalin 150 mg capsule 150 mg PO HS Qty: 9 0RF methocarbamol 500 mg tablet 500 mg PO TID Qty: 90 2RF oxybutynin chloride 10 mg tablet extended release 24hr 10 mg PO DAILY Referrals Follow up/Referrals: Ermias Cash MD [Primary Care Provider] - See instructions Activity Restrictions/Add. Instructions Additional Instructions/Restrictions: Call your family doctor to establish care for this visit to the emergency department and schedule follow-up within 48 hours to ensure improvement. If you have any worsening of your condition or any other concerning signs or symptoms, return to the emergency department or your primary care doctor for further evaluation. Call your maintenance helper utility engineer regarding this visit to the emergency department as well as your piece dyeing machine tender to establish care. Tell them both that you are started on Lasix today, need follow-up. Also tell cardiology that you were seen, your BNP was elevated near 1000. Clinical Impressions Clinical Impression: Heart palpitations, Elevated brain natriuretic peptide (BNP) level Print Language Print Language: Japanese Discharge ED Provider: James Markham General Adult HPI General Chief complaint: Dizziness Stated complaint: heart palp, clammy, dizziness, pain in Lower L abd Time Seen by Provider: 06/21/24 11:50 Mode of Arrival: Ambulatory Source of Information: Patient Limitations: No Limitations Description of Symptoms (Recalled from ER Triage Doc. by RN): Patient reports waking up this morning dizzy, lightheaded with increased BP this morning. States she feels clammy as well. History of Present Illness HPI narrative: Please note that above description of symptoms, in this electronic medical record under categorization of recalled from ER triage doctor by RN are reflective of an initial nursing assessment, however, is not reflective of my full history and physical exam that was personally taken and clarified. Consequentially, this preceding description of symptoms, which may include the patient's categorized chief complaint in the EMR, do not reflect my personal clinical impression, and the ultimate description of history of present illness and patient stated complaints should be deferred to this section of the note. Unless stated otherwise or congruent with this section of the note, additional signs, symptoms, or incongruence should be interpreted as inaccurate with my clinical impression. Related Data Home Medications ?Medication ?Instructions ?Recorded ?Confirmed omeprazole 20 mg capsule,delayed 20 mg PO DAILY STOMACH 01/31/18 04/30/24 release allopurinol 100 mg tablet 100 mg PO DAILY GOUT 04/11/18 04/30/24 glimepiride 2 mg tablet 2 mg PO DAILY Diabetes 03/18/22 04/30/24 zolpidem 10 mg tablet 10 mg PO HS Insomnia 03/18/22 04/30/24 oxybutynin chloride 10 mg 10 mg PO DAILY . 11/02/22 04/30/24 tablet,extended release 24 hr biotin 5,000 mcg chewable tablet 5,000 mcg PO DIRECTED SUPPLIMENT 09/27/23 04/30/24 cyanocobalamin (vitamin B-12) 1,000 mcg PO DAILY 09/27/23 04/30/24 1,000 mcg capsule empagliflozin 25 mg tablet 25 mg PO DAILY 09/27/23 04/30/24 (Jardiance) atorvastatin 80 mg tablet mg PO 04/30/24 04/30/24 potassium chloride 20 mEq meq PO 04/30/24 04/30/24 tablet,extended release semaglutide 0.25 mg or 0.5 mg (2 0.25 mg SQ 04/30/24 04/30/24 mg/3 mL) subcutaneous pen injector (Ozempic) Previous Rx's ?Medication ?Instructions ?Recorded pregabalin 150 mg capsule 150 mg PO HS #9 caps 03/12/24 methocarbamol 500 mg tablet 500 mg PO TID . #90 tabs 03/21/24 metoprolol succinate 25 mg 25 mg PO DAILY #90 tabs 04/30/24 tablet,extended release 24 hr (Toprol XL) telmisartan 40 mg tablet 40 mg PO DAILY #90 tabs 04/30/24 furosemide 40 mg tablet 40 mg PO DAILY #30 tabs 06/21/24 Allergies Allergy/AdvReac Type Severity Reaction Status Date / Time No Known Drug Allergies Allergy Unknown Verified 04/30/24 11:04 [NKDA] [facility] Disclaimer: The information contained in this section may have been updated after the patient was seen, as this information can be updated by other users. Medical History (Updated 06/21/24 @ 14:05 by James Markham MD) Edema of both lower extremities Dyspnea Palpitations History of left heart catheterization Surgical History H/O hernia repair Family History Other No significant family history Social History Smoking Status: Never smoker second hand exposure: No alcohol intake: never substance use type: denies use current occupational status: retired Travel in the last 8 weeks: None household members: significant other housing: house current occupation: [employer] current occupational exposures/hazards: No caffeine: Yes ROS Obtained: Yes All systems reviewed & no additional complaints except as documented Physical Exam General General appearance: alert Head Head exam: atraumatic and normocephalic Eye Eye exam: Present normal appearance, PERRL and EOMI Neck Neck exam: Present normal inspection, full ROM and trachea midline Respiratory Respiratory exam: Present normal lung sounds bilaterally; Absent respiratory distress, wheezes, stridor, accessory muscle use or prolonged expiratory phase Cardiovascular Cardiovascular exam: Present regular rate, normal rhythm, systolic murmur and other (Pulses equal symmetric in upper and lower extremities) Abdominal Exam Abdominal exam: Present soft and tenderness; Absent distention or pulsatile mass Abdominal tenderness: Present LLQ and mild Extremities Exam Extremities exam: Absent edema Neurological Exam Neurological exam: Present alert, oriented X3 and CN II-XII intact; Absent motor sensory deficit Skin Skin exam: Present warm and dry; Absent diaphoresis or erythema Medical Decision Making Medical Records Medical records reviewed: Yes I reviewed the patient's medical records. Nemesio Inquiry Pt receiving controlled substance: No Nemesio was queried for this patient: No Vital Signs: 06/21/24 11:43 06/21/24 12:02 06/21/24 12:31 Temperature 98.0 F Temperature Source Oral Pulse Rate 60 57 L Pulse Rate [Radial] 63 Respiratory Rate 16 13 15 Blood Pressure 196/87 H 208/77 H Blood Pressure [Right Arm] 148/82 H Blood Pressure Mean Blood Pressure Mean [Right Arm] 104 Blood Pressure Source [Right Arm] Automatic Cuff Blood Pressure Position [Right Arm] Sitting 02 Sat by Pulse Oximetry 98 97 98 Oxygen Delivery Method Room Air 06/21/24 13:01 06/21/24 13:47 06/21/24 14:01 Temperature Temperature Source Pulse Rate 60 50 L 53 L Pulse Rate [Radial] Respiratory Rate 10 L 14 15 Blood Pressure 204/78 H 207/81 H 179/70 H Blood Pressure [Right Arm] Blood Pressure Mean 123 106 Blood Pressure Mean [Right Arm] Blood Pressure Source [Right Arm] Blood Pressure Position [Right Arm] 02 Sat by Pulse Oximetry 96 98 98 Oxygen Delivery Method Lab Data Lab Results 06/21/24 11:52: WBC 7.5, RBC 3.91 L, Hgb 11.9 L, Hct 37.3, MCV 95.4, MCH 30.5, MCHC 32.0, RDW 16.3, Plt Count 186, MPV 10.7 H, Neut % (Auto) 68.0, Lymph % (Auto) 24.2, [place] % (Auto) 3.4, Eos % (Auto) 3.9, Baso % (Auto) 0.6, Neut # (Auto) 5.1, Lymph # (Auto) 1.8, [place] # (Auto) 0.3, Eos # (Auto) 0.3, Baso # (Auto) 0.0, D-Dimer 0.33, Sodium 141, Potassium 4.0, Chloride 109 H, Carbon Dioxide 26, Anion Gap 10.0, BUN 13, Creatinine 0.90, Estimated Creat Clear 75, Estimated GFR 62, Est GFR ( Amer) 75, Glucose 174 H, Calcium 9.0, M agnesium 1.5 L, Total Bilirubin 0.6, AST 40 H, ALT 35, Alkaline Phosphatase 132 H, Troponin I < 0.01, NT-Pro-B Natriuret Pep 970 H, Total Protein 6.5, Albumin 3.6, Globulin 2.9, Albumin/Globulin Ratio 1.2, TSH 0.99, Thyroxine (T4) 7.9 06/21/24 12:09: Urine Color Yellow, Urine Appearance Clear, Urine pH 7.0, Ur Specific [place] 1.010, Urine Protein Negative, Urine Glucose (UA) Negative, Urine Ketones Negative, Urine Blood Negative, Urine Nitrate Negative, Urine Bilirubin Negative, Urine Urobilinogen 0.2, Ur Leukocyte Esterase 1+ A, Urine RBC None, Urine WBC 3-5, Ur Squamous Epith Cells Occasional, Urine Bacteria Trace 06/21/24 11:52 06/21/24 11:52 Orders (Tests/Meds): ED MEDICATIONS Generic Name Dose Route Start Last Admin Trade Name Freq PRN Reason Stop Dose Admin Sodium Chloride 10 ml 06/21/24 11:58 Sodium Chloride 0.9% 10ml Flush Syringe IV 07/21/24 11:57 NEEDED PRN Maintain IV Site Discontinued Medications Generic Name Dose Route Start Last Admin Trade Name Freq PRN Reason Stop Dose Admin Furosemide 40 mg 06/21/24 12:56 06/21/24 13:05 Furosemide 40mg/4ml Vial IV 06/21/24 12:57 40 mg ONCE ONE Administration Magnesium Sulfate 2 gm in 50 mls @ 50 mls/hr 06/21/24 12:25 06/21/24 12:38 Magnesium Sulfate 2gm/50ml Premix IV 06/21/24 13:24 50 mls/hr ONCE ONE Administration Magnesium Oxide 800 mg 06/21/24 12:25 06/21/24 12:38 Magnesium Oxide 400mg Tablet PO 06/21/24 12:26 800 mg ONCE ONE Administration ORDERS Category Date Time Status CT head/brain wo con Stat Cat Scan 06/21/24 12:07 Completed XR chest portable Stat Exams 06/21/24 11:51 Completed Complete Blood Count Auto Diff Stat Lab 06/21/24 11:52 Completed Comprehensive Metabolic Panel Stat Lab 06/21/24 11:52 Completed D-Dimer Stat Lab 06/21/24 11:52 Completed Hemoglobin A1C Stat Lab 06/21/24 11:52 Received Magnesium Stat Lab 06/21/24 11:52 Completed NT Pro Brain Natriuretic Pep. Stat Lab 08/01/24 11:52 Completed T4 (Thyroxine) Stat Lab 06/21/24 11:52 Completed TSH [Thyroid Stimulating Hormone] Stat Lab 06/21/24 11:52 Completed Troponin I Q3H Lab 06/21/24 15:00 Ordered Troponin I Q3H Lab 06/21/24 18:00 Ordered Troponin I Stat Lab 06/21/24 11:52 Completed UA [Urinalysis and Microscopic] Stat Lab 06/21/24 12:09 Completed Urine Culture Stat Micro 06/21/24 12:09 Received Medical Decision Narrative: 69-year-old female history of hypertension, hyperlipidemia, CKD, type 2 diabetes, presenting with palpitations and migraine. Patient states that she has migraines on and off. Last time she had migraine was about 6 months ago. Last night 06/20, had a migraine right fortunately bed around 11:30 PM. He was maximal intensity at onset associated with diaphoresis, nausea without vomiting. She took an Excedrin Migraine, went to bed, woke up. Headache was almost entirely gone. No vision changes, neck stiffness, fevers or chills, syncope, or any other concerns. She states this felt just like her previous migraines. Patient states that today, she began having shortness of breath and palpitations. Took her blood pressure, it was nearly 200 systolic which is abnormal for her. Has been taking all her medications as prescribed. No overt chest pain, cough, sick symptoms, or any other complaints. Largely asymptomatic today. She does state that she feels like she has another kidney stone as well, having left lower quadrant pain that feels like her previous kidney stones. No urinary symptoms otherwise. History was obtained via conversation with patient. On arrival, patient hemodynamically stable, alert, oriented x4, appropriate, GCS 15, moving all extremities spontaneously, pupils equal and reactive to light. Full physical exam performed and significant for very well-appearing female no acute distress. Hypertensive, nontachycardic, very well-appearing overall. Abdomen is soft, minimally tender in left lower quadrant without overlying skin changes or signs of peritonitis. No flank tenderness. Grossly neurologically intact and ambulatory. Cardiac exam with right upper border systolic ejection murmur 2 out of 6. Pulses equal and symmetric in upper and lower extremities, no lower extremity edema. Differential includes metabolic abnormality, neurologic abnormality, dehydration, ACS, ME, pneumonia, pneumothorax, bronchitis, nephrolithiasis,. Patient placed on continuous cardiac monitoring and continuous pulse ox with initial blood pressure 140/82, heart rate 63, saturation 98% on room air. Independent interpretation of EKG shows sinus rhythm 62 beats a minute without ST or T wave changes concern for acute ischemia. No sinus arrhythmia, no electrical abnormalities. CO 197, QRS 94, QTc 416.Workup independently interpreted and significant for nonactionable CBC or chemistry. Patient's troponin negative. BNP elevated nearly 8000. Chest x-ray nonedematous, no evidence of pulmonary edema or effusions on independent rotation. See radiology read for full review of final results. Heart score 3. Patient was given 40 mg IV Lasix given elevated BNP. Because patient not requiring oxygen and nonedematous chest x-ray, feeling better after urinating multiple times with Lasix in the ED, feels appropriate going home. I feel is appropriate as well as long she keeps close primary care follow-up, close nephrology, follow-up and close cardiology follow-up. She voiced understanding and is agreeable to this as well. Because patient at baseline without signs or symptoms of clinical decompensation, deemed appropriate for discharge. Results were relayed to patient who voiced understanding and were agreeable to outpatient management and follow up. I discussed my clinical impression with patient and answered all questions. At this time, the evidence for any other entities in the differential is insufficient to warrant any further testing or ED observation. This was explained as well. Advisory was given that persistent or worsening symptoms require further evaluation. I confirmed the understanding of this discussion. Director Of Player Personnel disclaimer Much of this encounter note is an electronic cutter woodwind reeds spoken language to printed text. Electronic cutter woodwind reeds of the spoken language may permit errors. Although I have reviewed the note, some errors may still exist. Critical Care Critical Care Time Critical Care Time: No
[2024-06-21 12:18] LABS: Alanine Aminotransferase 35 U/L (12-78); Albumin Level 3.6 g/dl (3.5-5.0); Albumin/Globulin Ratio 1.2 (1.1-1.8); Alkaline Phosphatase 132 U/L (38-126); Aspartate Amino Transferase 40 U/L (14-36); Bilirubin,Total 0.6 mg/dl (0.2-1.3); Blood Urea Nitrogen 13 mg/dl (7-17); Carbon Dioxide 26 mmol/L (22.0-30.0); Chloride 109 mmol/L (98-107); Creatinine Clearance Estimated 75 mL/min (50-200); Estimated Glomerular Filt Rate 62 ml/min (>60); GFR (African American) 75 ML/MIN (>60); Globulin 2.9 g/dL (1.3-3.2); Glucose 174 mg/dl (74-100); Sodium 141 mmol/L (136-145); Total Protein,Serum 6.5 g/dl (6.3-8.2)
[2024-06-21 12:23] LABS: D-Dimer 0.33 ug/mL (0.0-0.5); Magnesium 1.5 mg/dl (1.6-2.3)
[2024-06-21 12:26] LABS: NT Pro Brain Natriuretic Pep. 970 pg/mL (0-125)
[2024-06-21] MEDS: MAGNESIUM SULFATE IN WATER 2 GM/50 ML PIGGYBACK IV (12:38)
[2024-06-21] MEDS: MAGNESIUM OXIDE 400MG TABLET 800 MG PO (12:38)
--- NOTE | 2024-06-21 12:38 | PC.NURSE ---
PT MEDICATED PER EMAR, CALL LIGHT WITHIN REACH. FAMILY AT BEDSIDE. WARM BLANKET PROVIDE
[2024-06-21 12:41] LABS: Troponin I < 0.01 ng/ml (0.00-0.034)
[2024-06-21 12:49] LABS: Thyroid Stimulating Hormone 0.99 uIU/mL (0.465-4.68)
[2024-06-21] MEDS: FUROSEMIDE 40MG/4ML VIAL 40 MG IV (13:05)
[2024-06-21 13:31] LABS: T4 (Thyroxine) 7.9 ug/dl (5.53-11.0)
[2024-06-21 14:10] LABS: Microscopic, Urine URINE MICROSCOPIC (MICROSCOPIC)
[2024-06-21 14:16] LABS: Appearance,Urine CLEAR (Clear); Bilirubin,Urine Negative (Negative); Blood, Urine Negative (Negative); Color,Urine YELLOW (Yellow); Glucose,Urine (UA) Negative (Negative); Ketones,Urine Negative (Negative); Leukocyte Esterase,Urine 1+ (Negative); Nitrate,Urine Negative (Negative); Protein,Urine Negative (Negative); Urobilinogen,Urine 0.2 EU/dl (0.2)
[2024-06-21 14:25] LABS: Bacteria,Urine Trace /lpf; Squamous Epithelial Cell,Urine Occasional #/hpf (0-5)
[2024-06-21 22:23] LABS: Hemoglobin A1C 6.6 % (4.0-6.0)
== END 2024-06-21 14:53 | disposition home or self-care (01) ==
PROVIDERS: Emergency Provider Emergency Medicine; PCP Family Medicine
DX: R00.2 Palpitations (principal); R10.814 Left lower quadrant abdominal tenderness; R42 Dizziness and giddiness; R79.89 Other specified abnormal findings of blood chemistry; E11.9 Type 2 diabetes mellitus without complications; I10 Essential (primary) hypertension; E78.5 Hyperlipidemia, unspecified; Z79.84 Long term (current) use of oral hypoglycemic drugs; Z79.85 Long-term (current) use of injectable non-insulin antidiabetic drugs
CPT/HCPCS: 70450; 71045; 80050; 80053; 81001; 83036; 83735; 83880; 84436; 84443; 84484; 85025; 85378; 87086; 93005; 96365; 96375; 99285; J1940; J3475

== ENCOUNTER 2024-06-25 09:07 | Outpatient (POV) | payer MEDICARE, SELFPAY ==
--- NOTE | 2024-06-25 10:04 | A.OFFVIS_ITS ---
[facility] Disclaimer: The information contained in this section may have been updated after the patient was seen, as this information can be updated by other users. Medical History (Updated 06/21/24 @ 14:05 by James Markham MD) Edema of both lower extremities Dyspnea Palpitations History of left heart catheterization Surgical History H/O hernia repair Family History Other No significant family history Social History Smoking Status: Never smoker second hand exposure: No alcohol intake: never substance use type: denies use current occupational status: retired Travel in the last 8 weeks: None household members: significant other housing: house current occupation: [employer] current occupational exposures/hazards: No caffeine: Yes PM Subjective & Objective Subjective Subjective:: Patient is a pleasant 69-year-old female who presents today for medication refill and follow-up. Today she rates her pain a 7 out of 10. She does state that she has been having more pain in her low back and hips as well as her bilateral knees. Patient denies any new trauma or injury. She does state the pain is more bothersome in her back today and does describe it as an aching, throbbing sensation that does interfere with her ability perform activities of daily living such as cooking and cleaning. Patient did previously have SI injections back in March that provided more than 80% relief and were providing significant relief up until about the last week. She states the pain is slowly reverting back to its regular. Patient is interested in repeat injections because she did have such significant improvement. Patient did previously even get SI injections that lasted about 5-1/2 months in the past. Patient is currently managed with methocarbamol 500 mg 3 times a day and pregabalin 150 mg at bedtime. She denies any side effects from this medication. She does state that she only needs refills on pregabalin. Patient was also getting her knee injections from a provider in [place] and that her last injections they are were April 04. She states she does need to call to get these next injection scheduled. Her Nemesio has been reviewed and is appropriate. Review of Systems: General: No recent weight changes, no fever, no sleep disturbances Respiratory: No cough, no shortness of air, no recurring pulmonary infections Cardiovascular/peripheral vascular: No chest pain, no palpitations, no edema, no shortness of breath Gastrointestinal: No new onset incontinence, normal bowel movements reported Genitourinary: No new onset incontinence Musculoskeletal: Low back pain, bilateral hip pain Psychiatric: [Normal mood/affect] Neurological: [Denies weakness in extremities], [denies balance issues] Pain at rest (0-10 scale): 7 Objective Objective:: Physical Exam: General: Alert and oriented x3, no acute distress, pleasant and cooperative Lungs: Respirations even and unlabored, symmetrical chest expansion Eyes: PERRL Musculoskeletal: Flexion and extension of lumbar [spine] somewhat guarded secondary to pain, [antalgic gait noted] point tenderness along bilateral SIs with positive bilateral Johana's, Juan Diego's, Gaenslen's, compression and distraction exam Neurological: Speech clear, no gross sensory deficit Has patient had previous pain injection?: No Conservative treatment options previously tried: Home exercise plan Length of treatment: Longer than 12 weeks and Prescription medications Length of treatment: Longer than 12 weeks Meds Home Medications and Allergies Home Medications ?Medication ?Instructions ?Recorded ?Confirmed ?Type omeprazole 20 mg capsule,delayed 20 mg PO DAILY STOMACH 01/31/18 04/30/24 History release allopurinol 100 mg tablet 100 mg PO DAILY GOUT 04/11/18 04/30/24 History glimepiride 2 mg tablet 2 mg PO DAILY Diabetes 03/18/22 04/30/24 History zolpidem 10 mg tablet 10 mg PO HS Insomnia 03/18/22 04/30/24 History oxybutynin chloride 10 mg 10 mg PO DAILY . 11/02/22 04/30/24 History tablet,extended release 24 hr biotin 5,000 mcg chewable tablet 5,000 mcg PO DIRECTED SUPPLIMENT 09/27/23 04/30/24 History cyanocobalamin (vitamin B-12) 1,000 mcg PO DAILY 09/27/23 04/30/24 History 1,000 mcg capsule empagliflozin 25 mg tablet 25 mg PO DAILY 09/27/23 04/30/24 History (Jardiance) pregabalin 150 mg capsule 150 mg PO HS #9 caps 03/12/24 04/30/24 Rx methocarbamol 500 mg tablet 500 mg PO TID . #90 tabs 03/21/24 04/30/24 Rx atorvastatin 80 mg tablet mg PO 04/30/24 04/30/24 History metoprolol succinate 25 mg 25 mg PO DAILY #90 tabs 04/30/24 04/30/24 Rx tablet,extended release 24 hr (Toprol XL) potassium chloride 20 mEq meq PO 04/30/24 04/30/24 History tablet,extended release semaglutide 0.25 mg or 0.5 mg (2 0.25 mg SQ 04/30/24 04/30/24 History mg/3 mL) subcutaneous pen injector (Ozempic) telmisartan 40 mg tablet 40 mg PO DAILY #90 tabs 04/30/24 04/30/24 Rx furosemide 40 mg tablet 40 mg PO DAILY #30 tabs 06/21/24 Rx New Prescriptions to Start Prescriptions: Allergies Allergy/AdvReac Type Severity Reaction Status Date / Time No Known Drug Allergies Allergy Unknown Verified 04/30/24 11:04 [NKDA] Assessment and Plan *Assessment and plan (1) Sacroiliitis: Status: Acute Category: Medical Code(s): M46.1 - Sacroiliitis, not elsewhere classified (2) Degenerative disc disease, lumbar: Status: Acute Category: Medical Code(s): M51.36 - Other intervertebral disc degeneration, lumbar region Plan Patient is experiencing worsening pain across her low back and bilateral hips. Patient did have limited range of motion of her lumbar spine with point tenderness along her bilateral SI's and a positive bilateral Johana's, Juan Diego's, Gaenslen's, compression and distraction exam. I did discuss with the patient that she may benefit from repeat SI injections. Risk and benefits were discussed with the patient and she would like to proceed forward with this plan of care. Patient has tried and failed conservative therapy including continued at home stretching exercise for longer than 12 weeks. We will submit to insurance for bilateral SI injections under fluoroscopy as she has gotten more than 80% relief in the past lasting on average between 3 to 5 months of relief. I will also make sure she has refills on her methocarbamol and pregabalin. Patient has been instructed to contact the clinic with any concerns before the next appointment. Dr. Merino has reviewed this note and agrees with this plan of care. This note was dictated using voice recognition software and make contain errors or omissions. All injections are used with Lidocaine or Bupivacaine and Depo Medrol.
[2024-06-25 12:07] VITALS: BP 179/60; PULSE 52; RESP 18; O2SAT 99; BMI 32.3
== END 2024-06-25 23:59 | disposition home or self-care (01) ==
PROVIDERS: PCP Family Medicine; Visit Provider Nurse Practitioner Family
DX: M46.1 Sacroiliitis, not elsewhere classified (principal); M51.36 Other intervertebral disc degeneration, lumbar region; Z73.89 Other problems related to life management difficulty; Z79.899 Other long term (current) drug therapy
CPT/HCPCS: 99212; G0463

== ENCOUNTER 2024-07-10 09:32 | Day surgery (SDC) | payer MEDICARE, SELFPAY ==
[2024-07-10 09:37] VITALS: BP 154/73; PULSE 61; RESP 16; TEMP 37.1; O2SAT 100; BMI 31.6
[2024-07-10] MEDS: BUPIVACAINE 0.25% 10ML INJ 25 MG IJ (09:51)
[2024-07-10] MEDS: methylPREDNISolone ACETATE 80MG/ML VIAL 80 MG (09:51)
[2024-07-10] MEDS: LIDOCAINE 1% 5ML PF VIAL 5 ML (09:51)
[2024-07-10 09:53] VITALS: BP 150/49; PULSE 71; RESP 18; O2SAT 96
[2024-07-10 09:55] VITALS: BP 150/49; PULSE 71; RESP 18; O2SAT 97
[2024-07-10 09:57] VITALS: BP 168/56; PULSE 54; RESP 16; O2SAT 100
--- NOTE | 2024-07-10 10:07 | P.PCN_ITS ---
Procedure Date: 07/10/24 Time: 09:50 Anesthesiologist:: Kevin Dawson CRNA Complications:: None Pre-procedure Diagnosis:: Bilateral sacroiliitis Post-procedure Diagnosis:: Same. Indications for Procedure:: Patient is a very pleasant 69-year-old female that comes our clinic today for bilateral sacroiliac joint injections of cortisone and local anesthetic. Patient describes low lumbar back pain off the midline bilaterally is constant, dull, aching. Patient reports having difficulty transitioning from sitting to standing due to low lumbar back pain. Patient also reports bilateral posterior hip pain. She rates her pain 7/10. Procedure Details:: Procedure: Bilateral sacroiliac joint injections under fluoroscopy Informed consent was obtained and the risks and benefits of the procedure were explained to the patient.~ The patient was taken to the procedure room and noninvasive monitors were placed including a noninvasive blood pressure cuff and pulse oximeter.~ The patient was placed prone on the procedure table. Both hips were cleansed using Betadine as a cleansing solution. C-arm fluoroscopy was used to view the right sacroiliac joint.~ The skin and subcutaneous tissues were anesthetized using lidocaine 1.5% and a 25-gauge needle.~ After this, a 22-gauge spinal needle was inserted under fluoroscopic guidance into the inferior aspect of the right sacroiliac joint.~ Omnipaque dye was injected and good spread was seen throughout the joint.~ After this, approximately 5 mL of bupivacaine, 0.25% and Depo-Medrol, 40 mg was incrementally injected into the right sacroiliac joint. We then moved to the left sacroiliac joint.~ The skin and subcutaneous tissues were anesthetized using lidocaine 1.5% and a 25-gauge needle.~ After this, a 22- gauge spinal needle was inserted under fluoroscopic guidance into the inferior aspect of the left sacroiliac joint.~ Omnipaque dye was injected and good spread was seen throughout the joint. After this, approximately 5 mL of bupivacaine, 0.25% and Depo-Medrol, 40 mg was incrementally injected into the left sacroiliac joint.~ The patient tolerated the procedure well with no complications. The patient was observed in the Pain Clinic and then was discharged home neurologically intact. Plan and Disposition:: Patient was discharged without incident.
== END 2024-07-10 09:57 | disposition home or self-care (01) ==
LOC: SC.PAINP 09:33
PROVIDERS: PCP Family Medicine; Visit Provider Nurse Anesthetist, Certified Registered
DX: M46.1 Sacroiliitis, not elsewhere classified (principal)
CPT/HCPCS: 27096; G0260; J1010

== ENCOUNTER 2024-08-06 13:50 | Outpatient (POV) | payer MEDICARE, SELFPAY ==
--- NOTE | 2024-08-06 14:34 | EXP.PAIN.SOA ---
[facility] Disclaimer: The information contained in this section may have been updated after the patient was seen, as this information can be updated by other users. Medical History Edema of both lower extremities Dyspnea Palpitations History of left heart catheterization Surgical History H/O hernia repair Family History Other No significant family history Social History Smoking Status: Never smoker second hand exposure: No alcohol intake: never substance use type: denies use current occupational status: retired Travel in the last 8 weeks: None household members: significant other housing: house current occupation: [employer] current occupational exposures/hazards: No caffeine: Yes PM Subjective & Objective Subjective Subjective:: Patient is a pleasant 69-year-old female who presents today for follow-up of bilateral SI injections on 07/18/2024. Today she rates her pain a 4 out of 10. Patient denies any new trauma or injury. She does state that she has had at least 80% improvement on both her low back and knees. Patient states that she has been able to walk easier with overall decreased pain. Patient does states she was very pleasantly surprised with these injections. Patient is currently managed with methocarbamol 500 mg 3 times a day and pregabalin 150 mg at bedtime. She denies any side effects from this medication and states she does not need refills. Her Nemesio has been reviewed and is appropriate. Review of Systems: General: No recent weight changes, no fever, no sleep disturbances Respiratory: No cough, no shortness of air, no recurring pulmonary infections Cardiovascular/peripheral vascular: No chest pain, no palpitations, no edema, no shortness of breath Gastrointestinal: No new onset incontinence, normal bowel movements reported Genitourinary: No new onset incontinence Musculoskeletal: Low back pain Psychiatric: [Normal mood/affect] Neurological: [Denies weakness in extremities], [denies balance issues] Pain at rest (0-10 scale): 4 Objective Objective:: Physical Exam: General: Alert and oriented x3, no acute distress, pleasant and cooperative Lungs: Respirations even and unlabored, symmetrical chest expansion Eyes: PERRL Musculoskeletal: Flexion and extension of lumbar [spine] somewhat guarded secondary to pain, [antalgic gait noted] Neurological: Speech clear, no gross sensory deficit Has patient had previous pain injection?: Yes Percent improvement in pain since last injection: 80% Conservative treatment options previously tried: Home exercise plan Length of treatment: Longer than 6 weeks Meds Home Medications and Allergies Home Medications ?Medication ?Instructions ?Recorded ?Confirmed ?Type omeprazole 20 mg capsule,delayed 20 mg PO DAILY STOMACH 01/31/18 07/10/24 History release allopurinol 100 mg tablet 100 mg PO DAILY GOUT 04/11/18 07/10/24 History glimepiride 2 mg tablet 2 mg PO DAILY Diabetes 03/18/22 07/10/24 History zolpidem 10 mg tablet 10 mg PO HS Insomnia 03/18/22 07/10/24 History oxybutynin chloride 10 mg 10 mg PO DAILY . 11/02/22 07/10/24 History tablet,extended release 24 hr biotin 5,000 mcg chewable tablet 5,000 mcg PO DIRECTED SUPPLIMENT 09/27/23 07/10/24 History cyanocobalamin (vitamin B-12) 1,000 mcg PO DAILY 09/27/23 07/10/24 History 1,000 mcg capsule empagliflozin 25 mg tablet 25 mg PO DAILY 09/27/23 07/10/24 History (Jardiance) atorvastatin 80 mg tablet 80 mg PO DIRECTED 04/30/24 07/10/24 History metoprolol succinate 25 mg 25 mg PO DAILY #90 tabs 04/30/24 07/10/24 Rx tablet,extended release 24 hr (Toprol XL) potassium chloride 20 mEq 20 meq PO DIRECTED 04/30/24 07/10/24 History tablet,extended release semaglutide 0.25 mg or 0.5 mg (2 0.25 mg SQ DIRECTED 04/30/24 07/10/24 History mg/3 mL) subcutaneous pen injector (Ozempic) telmisartan 40 mg tablet 40 mg PO DAILY #90 tabs 04/30/24 07/10/24 Rx furosemide 40 mg tablet 40 mg PO DAILY #30 tabs 06/21/24 07/10/24 Rx methocarbamol 500 mg tablet 500 mg PO TID . #90 tabs 06/25/24 07/10/24 Rx pregabalin 150 mg capsule 150 mg PO HS #30 caps 06/25/24 07/10/24 Rx New Prescriptions to Start Prescriptions: Allergies Allergy/AdvReac Type Severity Reaction Status Date / Time No Known Drug Allergies Allergy Unknown Verified 07/10/24 09:38 [NKDA] Assessment and Plan *Assessment and plan (1) Degenerative disc disease, lumbar: Status: Acute Category: Medical Code(s): M51.36 - Other intervertebral disc degeneration, lumbar region (2) Facet arthropathy: Status: Acute Category: Medical Code(s): M47.819 - Spondylosis without myelopathy or radiculopathy, site unspecified (3) Sacroiliitis: Status: Acute Category: Medical Code(s): M46.1 - Sacroiliitis, not elsewhere classified Plan Patient has had significant improvement following her bilateral SI injections and does not require any additional injection therapy. Patient will return to clinic in 6 weeks for reevaluation of symptoms and plan of care. Patient has been instructed to contact the clinic with any concerns before the next appointment. Dr. Merino has reviewed this note and agrees with this plan of care. This note was dictated using voice recognition software and make contain errors or omissions. All injections are used with Lidocaine or Bupivacaine and Depo Medrol.
[2024-08-06 16:10] VITALS: BP 173/84; PULSE 59; RESP 16; O2SAT 98; BMI 32.3
== END 2024-08-06 23:59 | disposition home or self-care (01) ==
PROVIDERS: PCP Family Medicine; Visit Provider Nurse Practitioner Family
DX: M51.36 Other intervertebral disc degeneration, lumbar region (principal); M47.819 Spondylosis without myelopathy or radiculopathy, site unspecified; M46.1 Sacroiliitis, not elsewhere classified; Z79.899 Other long term (current) drug therapy
CPT/HCPCS: 99212; G0463

== ENCOUNTER 2024-09-19 11:09 | Outpatient (POV) | payer MEDICARE, SELFPAY ==
--- NOTE | 2024-09-19 11:28 | A.OFFVIS_ITS ---
[facility] Disclaimer: The information contained in this section may have been updated after the patient was seen, as this information can be updated by other users. Medical History Edema of both lower extremities Dyspnea Palpitations History of left heart catheterization Surgical History H/O hernia repair Family History Other No significant family history Social History Smoking Status: Never smoker second hand exposure: No alcohol intake: never substance use type: denies use current occupational status: other Travel in the last 8 weeks: None household members: significant other housing: house current occupation: [employer] current occupational exposures/hazards: No caffeine: Yes PM Subjective & Objective Subjective Subjective:: Patient is a pleasant 69-year-old female who presents today for follow-up. Toda y she rates her pain a 6 out of 10. She does state that she has not had any new injuries or falls from her last visit. She is starting to experience more pain in and around her left side of her low back and hip. She does have this on her right as well but it is not as severe. She does state the pain is starting to interfere with her activities of daily living such as cooking and cleaning. Jacqueline srinivasan states that she has also noticed more difficulty while she is sleeping that she cannot lay on her side for very long due to the worsening pain. Patient did previously have bilateral SI injections back in June that did provide 80% improvement and had been doing well up until the last week or so. Patient does feel like that it is still a little bit more manageable right now and that she would like to try and get injections before the holiday starts where she will have a lot more she is trying to do around her house. Patient is currently managed with methocarbamol 500 mg 3 times a day and pregabalin 150 mg at bedtime. She denies any side effects from this medication and states she does need refills. She does state that the muscle relaxer does not seem to be working as well as what it originally was. Her Nemesio has been reviewed and is appropriate. Review of Systems: General: No recent weight changes, no fever, no sleep disturbances Respiratory: No cough, no shortness of air, no recurring pulmonary infections Cardiovascular/peripheral vascular: No chest pain, no palpitations, no edema, no shortness of breath Gastrointestinal: No new onset incontinence, normal bowel movements reported Genitourinary: No new onset incontinence Musculoskeletal: Low back pain, bilateral hip pain Psychiatric: [Normal mood/affect] Neurological: [Denies weakness in extremities], [denies balance issues] Pain at rest (0-10 scale): 6 Objective Objective:: Physical Exam: General: Alert and oriented x3, no acute distress, pleasant and cooperative Lungs: Respirations even and unlabored, symmetrical chest expansion Eyes: PERRL Musculoskeletal: Flexion and extension of lumbar [spine] somewhat guarded secondary to pain, [antalgic gait noted] point tenderness along bilateral SIs with positive bilateral Johana's, Juan Diego's, Gaenslen's, compression and distraction exam Neurological: Speech clear, no gross sensory deficit Has patient had previous pain injection?: No Conservative treatment options previously tried: Home exercise plan Length of treatment: Longer than 12 weeks Meds Home Medications and Allergies Home Medications ?Medication ?Instructions ?Recorded ?Confirmed ?Type omeprazole 20 mg capsule,delayed 20 mg PO DAILY STOMACH 01/31/18 08/06/24 History release allopurinol 100 mg tablet 100 mg PO DAILY GOUT 04/11/18 08/06/24 History glimepiride 2 mg tablet 2 mg PO DAILY Diabetes 03/18/22 08/06/24 History zolpidem 10 mg tablet 10 mg PO HS Insomnia 03/18/22 08/06/24 History oxybutynin chloride 10 mg 10 mg PO DAILY . 11/02/22 08/06/24 History tablet,extended release 24 hr biotin 5,000 mcg chewable tablet 5,000 mcg PO DIRECTED SUPPLIMENT 09/27/23 08/06/24 History cyanocobalamin (vitamin B-12) 1,000 mcg PO DAILY 09/27/23 08/06/24 History 1,000 mcg capsule empagliflozin 25 mg tablet 25 mg PO DAILY 09/27/23 08/06/24 History (Jardiance) atorvastatin 80 mg tablet 80 mg PO DIRECTED 04/30/24 08/06/24 History metoprolol succinate 25 mg 25 mg PO DAILY #90 tabs 04/30/24 08/06/24 Rx tablet,extended release 24 hr (Toprol XL) potassium chloride 20 mEq 20 meq PO DIRECTED 04/30/24 08/06/24 History tablet,extended release semaglutide 0.25 mg or 0.5 mg (2 0.25 mg SQ DIRECTED 04/30/24 08/06/24 History mg/3 mL) subcutaneous pen injector (Ozempic) furosemide 40 mg tablet 40 mg PO DAILY #30 tabs 06/21/24 08/06/24 Rx methocarbamol 500 mg tablet 500 mg PO TID . #90 tabs 06/25/24 08/06/24 Rx pregabalin 150 mg capsule 150 mg PO HS #30 caps 06/25/24 08/06/24 Rx telmisartan 40 mg tablet 80 mg PO DAILY 08/06/24 08/06/24 History New Prescriptions to Start Prescriptions: Allergies Allergy/AdvReac Type Severity Reaction Status Date / Time No Known Drug Allergies Allergy Unknown Verified 07/10/24 09:38 [NKDA] Assessment and Plan *Assessment and plan (1) Sacroiliitis: Status: Acute Category: Medical Code(s): M46.1 - Sacroiliitis, not elsewhere classified Plan Patient is experiencing worsening pain in her low back and bilateral hips with limited range of motion. Patient did have extreme point tenderness on the left SI and point tenderness on the right with positive bilateral Johana's, Juan Diego's, Gaenslen's, compression and distraction exam. I did discuss with the patient that I do believe she would benefit from repeat bilateral SI injections. Patient did previously have these in June with 80% relief and has lasted up until the last week. Patient has also continued conservative treatment such as at home exercise and stretching for longer than 12 weeks. I will refill her pregabalin and methocarbamol and changed the muscle relaxer to 750 mg 3 times a day. Patient will be given a 3-month supply of these medications. Patient will be scheduled for bilateral SI injections under fluoroscopy. Patient has been instructed to contact the clinic with any concerns before the next appointment. Dr. Merino has reviewed this note and agrees with this plan of care. This note was dictated using voice recognition software and make contain errors or omissions. All injections are used with Lidocaine or Bupivacaine and Depo Medrol.
[2024-09-19 12:35] VITALS: BP 169/49; PULSE 57; RESP 18; O2SAT 97; BMI 32.3
== END 2024-09-19 23:59 | disposition home or self-care (01) ==
PROVIDERS: PCP Family Medicine; Visit Provider Nurse Practitioner Family
DX: M46.1 Sacroiliitis, not elsewhere classified (principal); Z73.89 Other problems related to life management difficulty
CPT/HCPCS: 99212; G0463

== ENCOUNTER 2024-10-16 08:48 | Day surgery (SDC) | payer MEDICARE, SELFPAY ==
[2024-10-16 09:04] VITALS: BP 152/68; PULSE 55; RESP 16; TEMP 36.4; O2SAT 98; BMI 31.6
[2024-10-16 09:12] LABS: POC Glucose,Bedside 176 (70-110)
[2024-10-16] MEDS: LIDOCAINE 1% 5ML PF VIAL 5 ML (09:15)
[2024-10-16] MEDS: BUPIVACAINE 0.25% 10ML INJ 25 MG IJ (09:15)
[2024-10-16] MEDS: methylPREDNISolone ACETATE 80MG/ML VIAL 80 MG (09:16)
[2024-10-16 09:17] VITALS: BP 190/62; PULSE 58; RESP 18; O2SAT 96
[2024-10-16 09:18] VITALS: BP 190/62; PULSE 58; RESP 18; O2SAT 97
[2024-10-16 09:33] VITALS: BP 144/76; PULSE 53; RESP 16; O2SAT 97
--- NOTE | 2024-10-16 09:40 | P.PCN_ITS ---
Procedure Date: 10/16/24 Time: 08:30 Anesthesiologist:: Kevin Dawson CRNA Complications:: None Pre-procedure Diagnosis:: Bilateral sacroiliitis Post-procedure Diagnosis:: Same Indications for Procedure:: Patient is a very pleasant 69-year-old female who comes our clinic today for bilateral sacroiliac joint injection of cortisone and local anesthetic. She describes low lumbar back pain off the midline bilaterally. Bilateral posterior hip pain. Difficulty transitioning from sitting to standing. Difficulty with ambulation. She rates her pain 7/10. Patient reports responding very well to the same injections in the past. Procedure Details:: Procedure: Bilateral sacroiliac joint injections under fluoroscopy Informed consent was obtained and the risks and benefits of the procedure were explained to the patient.~ The patient was taken to the procedure room and noninvasive monitors were placed including a noninvasive blood pressure cuff and pulse oximeter.~ The patient was placed prone on the procedure table. Both hips were cleansed using Betadine as a cleansing solution. C-arm fluoroscopy was used to view the right sacroiliac joint.~ The skin and subcutaneous tissues were anesthetized using lidocaine 1.5% and a 25-gauge needle.~ After this, a 22-gauge spinal needle was inserted under fluoroscopic guidance into the inferior aspect of the right sacroiliac joint.~ Omnipaque dye was injected and good spread was seen throughout the joint.~ After this, approximately 5 mL of bupivacaine, 0.25% and Depo-Medrol, 40 mg was incrementally injected into the right sacroiliac joint. We then moved to the left sacroiliac joint.~ The skin and subcutaneous tissues were anesthetized using lidocaine 1.5% and a 25-gauge needle.~ After this, a 22- gauge spinal needle was inserted under fluoroscopic guidance into the inferior aspect of the left sacroiliac joint.~ Omnipaque dye was injected and good spread was seen throughout the joint. After this, approximately 5 mL of bupivacaine, 0.25% and Depo-Medrol, 40 mg was incrementally injected into the left sacroiliac joint.~ The patient tolerated the procedure well with no complications. The patient was observed in the Pain Clinic and then was discharged home neurologically intact. Plan and Disposition:: Patient was discharged without incident.
== END 2024-10-16 09:33 | disposition home or self-care (01) ==
LOC: SC.PAINP 08:48
PROVIDERS: PCP Family Medicine; Visit Provider Nurse Anesthetist, Certified Registered
DX: M46.1 Sacroiliitis, not elsewhere classified (principal)
CPT/HCPCS: 27096; 82962; G0260; J1010

== ENCOUNTER 2024-11-02 11:26 | Outpatient (POV) | payer MEDICARE, SELFPAY ==
[2024-11-02 11:54] VITALS: BP 138/51; PULSE 58; RESP 16; O2SAT 100; BMI 30.7
--- NOTE | 2024-11-02 12:05 | A.OFFVIS_ITS ---
[facility] Disclaimer: The information contained in this section may have been updated after the patient was seen, as this information can be updated by other users. Medical History Edema of both lower extremities Dyspnea Palpitations History of left heart catheterization Surgical History H/O hernia repair Family History Other No significant family history Social History Smoking Status: Never smoker second hand exposure: No alcohol intake: never substance use type: denies use current occupational status: other Travel in the last 8 weeks: None household members: significant other housing: house current occupation: [employer] current occupational exposures/hazards: No caffeine: Yes PM Subjective & Objective Subjective Subjective:: Patient is a pleasant 69-year-old female who presents today for follow-up of lalita ateral SI injections on 10/16/2024. She does rate her pain today a 4 out of 10. She states she has had at least 75 to 80% relief following these injections and feels like it still helping. She denies any new injury or trauma. Patient is currently managed with methocarbamol 500 mg 3 times a day and pregabalin 150 mg at bedtime. She denies any side effects however states that she feels like the methocarbamol is not working as it used to. Her Nemesio has been reviewed and is appropriate. Patient does state that she did recently come down with COVID on October 21 and that she is still trying to get over the respiratory issues. Review of Systems: General: No recent weight changes, no fever, no sleep disturbances Respiratory: No cough, no shortness of air, no recurring pulmonary infections Cardiovascular/peripheral vascular: No chest pain, no palpitations, no edema, no shortness of breath Gastrointestinal: No new onset incontinence, normal bowel movements reported Genitourinary: No new onset incontinence Musculoskeletal: Low back pain Psychiatric: [Normal mood/affect] Neurological: [Denies weakness in extremities], [denies balance issues] Pain at rest (0-10 scale): 4 Objective Objective:: Physical Exam: General: Alert and oriented x3, no acute distress, pleasant and cooperative Lungs: Respirations even and unlabored, symmetrical chest expansion Eyes: PERRL Musculoskeletal: Flexion and extension of lumbar [spine] somewhat guarded secondary to pain, [antalgic gait noted] Neurological: Speech clear, no gross sensory deficit Has patient had previous pain injection?: Yes Percent improvement in pain since last injection: 75 to 80% Conservative treatment options previously tried: Home exercise plan Length of treatment: Longer than 12 weeks Meds Home Medications and Allergies Home Medications ?Medication ?Instructions ?Recorded ?Confirmed ?Type omeprazole 20 mg capsule,delayed 20 mg PO DAILY STOMACH 01/31/18 11/02/24 History release allopurinol 100 mg tablet 100 mg PO DAILY GOUT 04/11/18 11/02/24 History glimepiride 2 mg tablet 2 mg PO DAILY Diabetes 03/18/22 11/02/24 History zolpidem 10 mg tablet 10 mg PO HS Insomnia 03/18/22 11/02/24 History oxybutynin chloride 10 mg 10 mg PO DAILY . 11/02/22 11/02/24 History tablet,extended release 24 hr biotin 5,000 mcg chewable tablet 5,000 mcg PO DIRECTED SUPPLIMENT 09/27/23 11/02/24 History cyanocobalamin (vitamin B-12) 1,000 mcg PO DAILY 09/27/23 11/02/24 History 1,000 mcg capsule empagliflozin 25 mg tablet 25 mg PO DAILY 09/27/23 11/02/24 History (Jardiance) atorvastatin 80 mg tablet 80 mg PO DIRECTED 04/30/24 11/02/24 History metoprolol succinate 25 mg 25 mg PO DAILY #90 tabs 04/30/24 11/02/24 Rx tablet,extended release 24 hr (Toprol XL) potassium chloride 20 mEq 20 meq PO DIRECTED 04/30/24 11/02/24 History tablet,extended release semaglutide 0.25 mg or 0.5 mg (2 0.25 mg SQ DIRECTED 04/30/24 11/02/24 History mg/3 mL) subcutaneous pen injector (Ozempic) furosemide 40 mg tablet 40 mg PO DAILY #30 tabs 06/21/24 11/02/24 Rx methocarbamol 500 mg tablet 500 mg PO TID . #90 tabs 06/25/24 11/02/24 Rx telmisartan 40 mg tablet 80 mg PO DAILY 08/06/24 11/02/24 History methocarbamol 750 mg tablet 750 mg PO TID #90 tabs 09/19/24 11/02/24 Rx pregabalin 150 mg capsule 150 mg PO HS #30 caps 09/19/24 11/02/24 Rx pregabalin 150 mg capsule 150 mg PO HS #30 caps 09/19/24 11/02/24 Rx pregabalin 150 mg capsule 150 mg PO HS #30 caps 10/25/24 11/02/24 Rx New Prescriptions to Start Prescriptions: Allergies Allergy/AdvReac Type Severity Reaction Status Date / Time No Known Drug Allergies Allergy Unknown Verified 07/10/24 09:38 (NKDA) Assessment and Plan *Assessment and plan (1) Degenerative disc disease, lumbar: Status: Acute Category: Medical Code(s): M51.369 - Other intervertebral disc degeneration, lumbar region without mention of lumbar back pain or lower extremity pain Plan Patient has had significant improvement following her SI injections and does not require any additional injection therapy at this time. Patient will return to clinic in 3 months for reevaluation of symptoms and plan of care. I will also make sure that she does have refills on her pregabalin as well as increase her methocarbamol to 750 mg 3 times daily. Patient has been instructed to contact the clinic with any concerns before the next appointment. Dr. Merino has reviewed this note and agrees with this plan of care. This note was dictated using voice recognition software and make contain errors or omissions. All injections are used with Lidocaine, Bupivacaine and Depo Medrol. Occasionally urine drug screen is needed to verify patient's compliance with our office pain contract. This is ordered based off specific treatments related to chronic pain with the potential to abuse certain medications.
== END 2024-11-02 23:59 | disposition home or self-care (01) ==
PROVIDERS: PCP Family Medicine; Visit Provider Nurse Practitioner Family
DX: M51.369 Other intervertebral disc degeneration, lumbar region without mention of lumbar back pain or lower extremity pain (principal); Z79.899 Other long term (current) drug therapy
CPT/HCPCS: 99212; G0463

== ENCOUNTER 2025-01-31 09:17 | Outpatient (POV) | payer MEDICARE, SELFPAY ==
--- NOTE | 2025-01-31 09:40 | A.OFFVIS_ITS ---
[facility] Disclaimer: The information contained in this section may have been updated after the patient was seen, as this information can be updated by other users. Medical History Edema of both lower extremities Dyspnea Palpitations History of left heart catheterization Surgical History H/O hernia repair Family History Other No significant family history Social History Smoking Status: Never smoker second hand exposure: No alcohol intake: never substance use type: denies use current occupational status: other Travel in the last 8 weeks: None household members: significant other housing: house current occupation: [employer] current occupational exposures/hazards: No caffeine: Yes Have you lived/traveled outside US in past 30 days?: No Contact w/someone who lives/traveled outside US past 30 days?: No Exposure to someone with infectious disease in past 14 days?: No Do you have a fever (greater than 100.4 F or 38 C)?: No Have you tested positive for COVID-19: No Exposed to someone with COVID-19 in past 14 days?: No Do you have a sore throat?: No Do you have a cough?: No Do you have any weakness?: No Do you have any diarrhea?: No Are you experiencing any unusual bleeding?: No Do you have any muscle aches/pain?: No Do you have any abdominal pain?: No Are you experiencing loss of taste or smell?: No PM Subjective & Objective Subjective Subjective:: Patient is a pleasant 69-year-old female who presents today for 3-month follow- up. Today she rates her pain a 4 out of 10. Patient does state that she feels like her previous SI injections are still doing well. Patient is currently managed with methocarbamol 1000mg 3 times a day and pregabalin 150 mg at bedtime. She denies any side effects from this medications. She is requesting that the methocarbamol goes to [facility] and the pregabalin to [place]. Her Nemesio has been reviewed and is appropriate. Review of Systems: General: No recent weight changes, no fever, no sleep disturbances Respiratory: No cough, no shortness of air, no recurring pulmonary infections Cardiovascular/peripheral vascular: No chest pain, no palpitations, no edema, no shortness of breath Gastrointestinal: No new onset incontinence, normal bowel movements reported Genitourinary: No new onset incontinence Musculoskeletal: Low back pain Psychiatric: [Normal mood/affect] Neurological: [Denies weakness in extremities], [denies balance issues] Pain at rest (0-10 scale): 4 Objective Objective:: Physical Exam: General: Alert and oriented x3, no acute distress, pleasant and cooperative Lungs: Respirations even and unlabored, symmetrical chest expansion Eyes: PERRL Musculoskeletal: Flexion and extension of lumbar [spine] somewhat guarded secondary to pain, [antalgic gait noted] Neurological: Speech clear, no gross sensory deficit Has patient had previous pain injection?: No Conservative treatment options previously tried: Home exercise plan Length of treatment: Longer than 12 weeks Meds Home Medications and Allergies Home Medications ?Medication ?Instructions ?Recorded ?Confirmed ?Type omeprazole 20 mg capsule,delayed 20 mg PO DAILY STOMACH 01/31/18 12/11/24 History release allopurinol 100 mg tablet 100 mg PO DAILY GOUT 04/11/18 12/11/24 History glimepiride 2 mg tablet 2 mg PO DAILY Diabetes 03/18/22 12/11/24 History oxybutynin chloride 10 mg 10 mg PO DAILY . 11/02/22 12/11/24 History tablet,extended release 24 hr biotin 5,000 mcg chewable tablet 5,000 mcg PO DIRECTED SUPPLIMENT 09/27/23 12/11/24 History cyanocobalamin (vitamin B-12) 1,000 mcg PO DAILY 09/27/23 12/11/24 History 1,000 mcg capsule atorvastatin 80 mg tablet 80 mg PO DIRECTED 04/30/24 12/11/24 History potassium chloride 20 mEq 20 meq PO DIRECTED 04/30/24 12/11/24 History tablet,extended release pregabalin 150 mg capsule 150 mg PO HS #30 caps 10/25/24 12/11/24 Rx losartan 50 mg-hydrochlorothiazide 1 tab PO DAILY #30 tabs 11/07/24 12/11/24 Rx 12.5 mg tablet metoprolol succinate 50 mg 50 mg PO ONCE 11/07/24 12/11/24 History tablet,extended release 24 hr semaglutide 1 mg/dose (4 mg/3 mL) 1 mg SQ QWEEK 11/07/24 12/11/24 History subcutaneous pen injector (Ozempic) methocarbamol 500 mg tablet 1,000 mg (2 x 500 mg) PO TID #180 11/22/24 12/11/24 Rx tabs New Prescriptions to Start Prescriptions: Allergies Allergy/AdvReac Type Severity Reaction Status Date / Time No Known Drug Allergies Allergy Unknown Verified 12/11/24 13:38 (NKDA) Assessment and Plan *Assessment and plan (1) Sacroiliitis: Status: Acute Category: Medical Code(s): M46.1 - Sacroiliitis, not elsewhere classified Plan I will refill the patient's pregabalin and methocarbamol and provide a 3-month supply of these medications. Patient does have a bus trip scheduled in March so I have counseled her that we will plan on seeing her back in 1 month and evaluate at that time if she needs additional injections. Patient agrees with this plan of care. Patient has been instructed to contact the clinic with any concerns before the next appointment. Dr. Merino has reviewed this note and agrees with this plan of care. This note was dictated using voice recognition software and make contain errors or omissions. All injections are used with Lidocaine, Bupivacaine and Depo Medrol. Occasionally urine drug screen is needed to verify patient's compliance with our office pain contract. This is ordered based off specific treatments related to chronic pain with the potential to abuse certain medications.
[2025-01-31 09:52] VITALS: BP 153/70; PULSE 60; RESP 18; O2SAT 99; BMI 30.7
== END 2025-01-31 23:59 | disposition home or self-care (01) ==
PROVIDERS: PCP Family Medicine; Visit Provider Nurse Practitioner Family
DX: M46.1 Sacroiliitis, not elsewhere classified (principal)
CPT/HCPCS: 99212; G0463

== ENCOUNTER 2025-03-04 13:55 | Outpatient (POV) | payer MEDICARE, SELFPAY ==
[2025-03-04 15:24] VITALS: BP 138/76; PULSE 96; RESP 14; O2SAT 96; BMI 30.4
--- NOTE | 2025-03-04 15:24 | EXP.PAIN.SOA ---
[facility] Disclaimer: The information contained in this section may have been updated after the patient was seen, as this information can be updated by other users. Medical History Edema of both lower extremities Dyspnea Palpitations History of left heart catheterization Surgical History H/O hernia repair Family History Other No significant family history Social History Smoking Status: Never smoker second hand exposure: No alcohol intake: never substance use type: denies use current occupational status: other Travel in the last 8 weeks: None household members: significant other housing: house current occupation: [employer] current occupational exposures/hazards: No caffeine: Yes PM Subjective & Objective Subjective Subjective:: Patient is a pleasant 70-year-old female who presents today for worsening pain. Patient is currently rating it a 6 out of 10 and states it is still across her low back and into her hips like what it was previously. Patient does state the left is worse than the right however is still present bilaterally. Patient did previously have bilateral SI injections that worked wonderful providing 80% relief up until the last week or so. Patient does state that it is starting to interfere with her ability perform activities of daily living such as cooking and cleaning and would like to see about getting in for additional injections as they did provide significant improvement. Patient does also make mention that she does have a vacation coming up and wants to make sure that she is able to walk more without having this severe pain. Patient was prescribed methocarbamol 1000 mg 3 times a day and pregabalin 150 mg at bedtime but does state that the methocarbamol just does not seem to be working as well as what it had. Patient Nemesio has been reviewed and is appropriate. Review of Systems: General: No recent weight changes, no fever, no sleep disturbances Respiratory: No cough, no shortness of air, no recurring pulmonary infections Cardiovascular/peripheral vascular: No chest pain, no palpitations, no edema, no shortness of breath Gastrointestinal: No new onset incontinence, normal bowel movements reported Genitourinary: No new onset incontinence Musculoskeletal: Low back pain, bilateral hip pain Psychiatric: [Normal mood/affect] Neurological: [Denies weakness in extremities], [denies balance issues] Pain at rest (0-10 scale): 6 Objective Objective:: Physical Exam: General: Alert and oriented x3, no acute distress, pleasant and cooperative Lungs: Respirations even and unlabored, symmetrical chest expansion Eyes: PERRL Musculoskeletal: Flexion and extension of lumbar [spine] somewhat guarded secondary to pain, [antalgic gait noted] point tenderness along bilateral SIs with positive bilateral Johana's, Juan Diego's, Gaenslen's, compression and distraction exam Neurological: Speech clear, no gross sensory deficit Has patient had previous pain injection?: No Conservative treatment options previously tried: Home exercise plan Length of treatment: Longer than 12 weeks Meds Home Medications and Allergies Home Medications ?Medication ?Instructions ?Recorded ?Confirmed ?Type omeprazole 20 mg capsule,delayed 20 mg PO DAILY STOMACH 01/31/18 01/31/25 History release allopurinol 100 mg tablet 100 mg PO DAILY GOUT 04/11/18 01/31/25 History glimepiride 2 mg tablet 2 mg PO DAILY Diabetes 03/18/22 01/31/25 History oxybutynin chloride 10 mg 10 mg PO DAILY . 11/02/22 01/31/25 History tablet,extended release 24 hr biotin 5,000 mcg chewable tablet 5,000 mcg PO DIRECTED SUPPLIMENT 09/27/23 01/31/25 History cyanocobalamin (vitamin B-12) 1,000 mcg PO DAILY 09/27/23 01/31/25 History 1,000 mcg capsule atorvastatin 80 mg tablet 80 mg PO DIRECTED 04/30/24 01/31/25 History potassium chloride 20 mEq 20 meq PO DIRECTED 04/30/24 01/31/25 History tablet,extended release metoprolol succinate 50 mg 50 mg PO ONCE 11/07/24 01/31/25 History tablet,extended release 24 hr semaglutide 1 mg/dose (4 mg/3 mL) 1 mg SQ QWEEK 11/07/24 01/31/25 History subcutaneous pen injector (Ozempic) methocarbamol 500 mg tablet 1,000 mg (2 x 500 mg) PO TID #180 01/31/25 Rx tabs pregabalin 150 mg capsule 150 mg PO HS #30 caps 01/31/25 Rx losartan 50 mg-hydrochlorothiazide 1 tab PO DAILY #90 tabs 02/15/25 Rx 12.5 mg tablet New Prescriptions to Start Prescriptions: Allergies Allergy/AdvReac Type Severity Reaction Status Date / Time No Known Drug Allergies Allergy Unknown Verified 12/11/24 13:38 (NKDA) Assessment and Plan *Assessment and plan (1) Sacroiliitis: Status: Acute Category: Medical Code(s): M46.1 - Sacroiliitis, not elsewhere classified Plan Patient is experiencing worsening pain along the low back and bilateral hips. They did have limited range of motion of the lumbar spine along with point tenderness along bilateral SI joints and a positive bilateral Johana's, Juan Diego's, Gaenslen's, compression and distraction exam. I did discuss with the patient that I do believe they would benefit from bilateral SI injections. Risk and benefits were discussed with the patient and they would like to proceed forward with this option. Patient has tried and failed conservative therapy including continued at home stretching exercise for longer than 12 weeks in between injections. Patient had her last bilateral SI injections in September 2024 that did provide 80% improvement and have lasted almost 5 months. Patient is just now experiencing worsening pain. Patient has had chronic sacroiliitis for longer than 6 months. I did discuss with the patient that I will send in lidocaine patches 5% as well as send in a new muscle relaxer of Skelaxin 800 mg 3 times daily as needed. We will follow-up with the patient next week regarding the muscle relaxer. Patient will be scheduled for bilateral SI injections under fluoroscopy. Patient has been instructed to contact the clinic with any concerns before the next appointment. Dr. Merino has reviewed this note and agrees with this plan of care. This note was dictated using voice recognition software and make contain errors or omissions. All injections are used with Lidocaine or Bupivacaine and Depo Medrol.
== END 2025-03-04 23:59 | disposition home or self-care (01) ==
PROVIDERS: PCP Family Medicine; Visit Provider Nurse Practitioner Family
DX: M46.1 Sacroiliitis, not elsewhere classified (principal); Z73.89 Other problems related to life management difficulty
CPT/HCPCS: 99212; G0463

== ENCOUNTER 2025-03-11 12:57 | Outpatient (POV) | payer MEDICARE, SELFPAY ==
--- NOTE | 2025-03-11 13:13 | A.OFFVIS_ITS ---
[facility] Disclaimer: The information contained in this section may have been updated after the patient was seen, as this information can be updated by other users. Medical History Edema of both lower extremities Dyspnea Palpitations History of left heart catheterization Surgical History H/O hernia repair Family History Other No significant family history Social History Smoking Status: Never smoker second hand exposure: No alcohol intake: never substance use type: denies use current occupational status: other Travel in the last 8 weeks: None household members: significant other housing: house current occupation: [employer] current occupational exposures/hazards: No caffeine: Yes Have you lived/traveled outside US in past 30 days?: No Contact w/someone who lives/traveled outside US past 30 days?: No Exposure to someone with infectious disease in past 14 days?: No Do you have a fever (greater than 100.4 F or 38 C)?: No Have you tested positive for COVID-19: No Exposed to someone with COVID-19 in past 14 days?: No Do you have a sore throat?: No Do you have a cough?: No Do you have any weakness?: No Do you have any diarrhea?: No Are you experiencing any unusual bleeding?: No Do you have any muscle aches/pain?: No Do you have any abdominal pain?: No Are you experiencing loss of taste or smell?: No PM Subjective & Objective Subjective Subjective:: Patient is a pleasant 70-year-old female who presents today for follow-up. She rates her pain today a 4 out of 10. At her last visit we did prescribe her lidocaine patches and Skelaxin 800 mg 3 times daily. Patient does state that both of these are helping. She states that the lidocaine 5% patches were covered by her insurance and she only had to pay $10. Patient states she has reserved these just for her at night but does state that the muscle relaxers have helped as well. Patient had previously been on methocarbamol however was not noticing as significant relief. Patient is prescribed pregabalin at 150 mg at bedtime. Patient is also scheduled for SI injections coming up. Her Nemesio has been reviewed and is appropriate. Review of Systems: General: No recent weight changes, no fever, no sleep disturbances Respiratory: No cough, no shortness of air, no recurring pulmonary infections Cardiovascular/peripheral vascular: No chest pain, no palpitations, no edema, no shortness of breath Gastrointestinal: No new onset incontinence, normal bowel movements reported Genitourinary: No new onset incontinence Musculoskeletal: Low back pain Psychiatric: [Normal mood/affect] Neurological: [Denies weakness in extremities], [denies balance issues] Pain at rest (0-10 scale): 4 Objective Objective:: Physical Exam: General: Alert and oriented x3, no acute distress, pleasant and cooperative Lungs: Respirations even and unlabored, symmetrical chest expansion Eyes: PERRL Musculoskeletal: Flexion and extension of lumbar [spine] somewhat guarded secondary to pain, [antalgic gait noted] Neurological: Speech clear, no gross sensory deficit Has patient had previous pain injection?: No Conservative treatment options previously tried: Home exercise plan Length of treatment: Longer than 12 weeks Meds Home Medications and Allergies Home Medications ?Medication ?Instructions ?Recorded ?Confirmed ?Type omeprazole 20 mg capsule,delayed 20 mg PO DAILY STOMACH 01/31/18 03/04/25 History release allopurinol 100 mg tablet 100 mg PO DAILY GOUT 04/11/18 03/04/25 History glimepiride 2 mg tablet 2 mg PO DAILY Diabetes 03/18/22 03/04/25 History oxybutynin chloride 10 mg 10 mg PO DAILY . 11/02/22 03/04/25 History tablet,extended release 24 hr biotin 5,000 mcg chewable tablet 5,000 mcg PO DIRECTED SUPPLIMENT 09/27/23 03/04/25 History cyanocobalamin (vitamin B-12) 1,000 mcg PO DAILY 09/27/23 03/04/25 History 1,000 mcg capsule atorvastatin 80 mg tablet 80 mg PO DIRECTED 04/30/24 03/04/25 History potassium chloride 20 mEq 20 meq PO DIRECTED 04/30/24 03/04/25 History tablet,extended release metoprolol succinate 50 mg 50 mg PO ONCE 11/07/24 03/04/25 History tablet,extended release 24 hr semaglutide 1 mg/dose (4 mg/3 mL) 1 mg SQ QWEEK 11/07/24 03/04/25 History subcutaneous pen injector (Ozempic) methocarbamol 500 mg tablet 1,000 mg (2 x 500 mg) PO TID #180 01/31/25 03/04/25 Rx tabs pregabalin 150 mg capsule 150 mg PO HS #30 caps 01/31/25 03/04/25 Rx losartan 50 mg-hydrochlorothiazide 1 tab PO DAILY #90 tabs 02/15/25 03/04/25 Rx 12.5 mg tablet lidocaine 5 % topical patch 1 patch topical DAILY #30 ea 03/04/25 Rx metaxalone 800 mg tablet 800 mg PO TID PRN muscle pain #42 03/04/25 Rx tabs New Prescriptions to Start Prescriptions: Allergies Allergy/AdvReac Type Severity Reaction Status Date / Time No Known Drug Allergies Allergy Unknown Verified 12/11/24 13:38 (NKDA) Assessment and Plan *Assessment and plan (1) Degenerative disc disease, lumbar: Status: Acute Category: Medical Code(s): M51.369 - Other intervertebral disc degeneration, lumbar region without mention of lumbar back pain or lower extremity pain (2) Sacroiliitis: Status: Acute Category: Medical Code(s): M46.1 - Sacroiliitis, not elsewhere classified Plan I will refill the patient's Skelaxin and provide a 1 month supply of this medication. Patient is already scheduled for SI injections and I will not give her an additional appointment today we will follow-up with her following these injections. Patient agrees with this plan of care. Patient has been instructed to contact the clinic with any concerns before the next appointment. Dr. Merino has reviewed this note and agrees with this plan of care. This note was dictated using voice recognition software and make contain errors or omissions. All injections are used with Lidocaine, Bupivacaine and Depo Medrol. Occasionally urine drug screen is needed to verify patient's compliance with our office pain contract. This is ordered based off specific treatments related to chronic pain with the potential to abuse certain medications.
[2025-03-11 13:21] VITALS: BP 135/67; PULSE 52; RESP 14; O2SAT 100; BMI 30.7
== END 2025-03-11 23:59 | disposition home or self-care (01) ==
PROVIDERS: PCP Family Medicine; Visit Provider Nurse Practitioner Family
DX: M51.369 Other intervertebral disc degeneration, lumbar region without mention of lumbar back pain or lower extremity pain (principal); M46.1 Sacroiliitis, not elsewhere classified
CPT/HCPCS: 99212; G0463

== ENCOUNTER 2025-03-29 14:42 | Day surgery (SDC) | payer MEDICARE, SELFPAY ==
[2025-03-29 14:46] VITALS: BP 166/58; PULSE 57; RESP 16; TEMP 36.8; O2SAT 100; BMI 31.6
[2025-03-29 15:02] VITALS: BP 158/65; PULSE 59; RESP 18; O2SAT 99
[2025-03-29] MEDS: BUPIVACAINE 0.25% 10ML INJ 25 MG IJ (15:03)
[2025-03-29] MEDS: DEXAMETHASONE 10MG/ML 1ML VIAL 10 MG (15:04)
[2025-03-29] MEDS: LIDOCAINE 1% 5ML PF VIAL 10 ML (15:04)
[2025-03-29 15:05] VITALS: BP 158/65; PULSE 59; RESP 16; O2SAT 99
--- NOTE | 2025-03-29 15:05 | EXP.PAIN.PRO ---
Procedure Date: 03/29/25 Time: 15:06 Anesthesiologist:: Neo Merino MD Complications:: None Pre-procedure Diagnosis:: Sacroiliitis Post-procedure Diagnosis:: Same Indications for Procedure:: This patient is a pleasant 70-year-old white female who we are treating for bilateral sacroiliitis. She is tender over both SI joints. She has a positive Johana's test bilaterally. She has positive Zac test bilaterally. She has positive SI joint compression test bilaterally. She has positive distraction test bilaterally. We will plan on bilateral SI joint injections today to give her relief of her sacroiliac joint pain. Will follow-up with her in 2 weeks. Procedure Details:: B/L SI joint injection under fluoroscopy Informed consent was obtained and the risks and benefits of the procedure was explained to the patient. The patient was taken to the procedure room and placed prone on the procedure table. The patient was prepped using ChloraPrep. The skin and subcutaneous tissues overlying the SI joints were anesthetized using lidocaine. I placed a 22-gauge needle first in the left SI joint and second in the right SI joint. Needle placement was confirmed with dye. After this we injected 5 mL bupivacaine 0.25% and Depo-Medrol 40 mg into each SI joint. Patient tolerated the procedure well with no complication. Plan and Disposition:: I will follow-up with this patient in 2 weeks. Will reevaluate symptoms at that time.
[2025-03-29] MEDS: IOPAMIDOL-200 (41%); 20ML VIAL 20 ML IV (15:10)
[2025-03-29 15:11] VITALS: BP 147/71; PULSE 58; RESP 16; O2SAT 97
== END 2025-03-29 15:11 | disposition home or self-care (01) ==
PROVIDERS: PCP Family Medicine; Visit Provider Anesthesiology
DX: M46.1 Sacroiliitis, not elsewhere classified (principal)
CPT/HCPCS: G0260; J1100; Q9966

== ENCOUNTER 2025-04-08 13:17 | Outpatient (CLI) | payer MEDICARE, SELFPAY ==
--- OUTSIDE RECORDS SUMMARY | 2025-04-08 13:20 | XMS_ITS | Data Portability ---
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 POSTOPERATIVE DIAGNOSIS: Bilateral renal calculi. PROCEDURE: Cystoscopy with bilateral retrograde pyelograms as well as right and left flexible ureteroscopy and laser of intrarenal stones. ANESTHESIA: General. SURGEON: Ish Valentine MD DRAINS: None. SPECIMEN: None. BRIEF HISTORY: The patient with long history of urolithiasis. Recently had CT scan which demonstrated multiple 3-4 mm stones in each kidney. She presents today for intervention with laser lithotripsy. OPERATIVE NOTE: After satisfactory general anesthesia, she was carefully placed in lithotomy position. Sequential compression garments were in place and functioning at the time of induction. The 22-Indonesian cystoscopy sheath was introduced. The bladder was inspected and was unremarkable. A 0.035 sensor wire was advanced up the right side. I then removed the cystoscope. I placed the flexible ureteroscope over the wire, but was unable to enter the ureteral orifice. I then used the internal sheath of 10/03 ureteral access sheath to dilate this slightly. Scope then easily traversed this transmural ureter and advanced to the level of kidney. She had somewhat of a UPJ obstruction on the right side, but I was able to get through that. Inspection revealed multiple large open neck calices. Contrast was injected through the scope for nephrogram. Three stones were seen, each about 3 or 4 mm in size. These were pulverized into tiny material. Scope was withdrawn slowly. It did not appear that stent was necessary. Upon entering the bladder, I was able to access the left ureter and pass the wire up the left side and followed it with the scope to the level of renal pelvis. On that side, I could only find 1 stone in the mid pole calyx. This looked to be about 4-5 mm size, was treated completely. All calices were inspected. Retrograde pyelogram was performed on the left side. All calices were inspected. Scope was slowly withdrawn. It appeared that there was no stent indicated on the left side either. The bladder was drained. Cystoscope removed. The patient tolerated the procedure well and was transferred to postop recovery in stable condition. [id number] Not available 03/18/2022 02:20:06 Plan of Treatment Reminders Order Date Submit Date Provider Last Modified By Organization Details Last Modified Time Details Appointments None recorded. Lab urinalysis panel, auto [address] [facility], [address], [address], [place], [address], 4 23:16:26 urinalysis panel, auto 2021 022 [address] [facility] [facility], [address], [address], [place], [address], 2 17:24:13 Referral None recorded. Procedures None recorded. Surgeries None recorded. Imaging None recorded. Medication Orders allopurinol 100 mg tablet [address] [facility] [id number], [address] [place] [address] , [place], [address], 1 21:52:06 Patient TargetsNo targets recorded. Patient InstructionsNo instructions recorded. Reason for Referral None Reported. Results Created Date Observation Date Name Description Value Unit Range Abnormal Flag Note LastModifiedBy Organization Detail LastModifiedTime 02/13/2002/12/2022 urina lysis panel , auto Unknown Analyte Clean Catch Not Available [facility] [address], [place], [address], 02/12/2022 09:15:19 02/13/20 22 02/12/2022 urina lysis panel , auto Unknown Analyte Yellow Not Available [facility] [address], [place], [address], 02/12/2022 09:15:19 02/13/20 22 02/12/2022 urina lysis panel , auto Unknown Analyte Clear Not Available [facility] [address], [place], [address], 02/12/2022 09:15:19 02/13/20 22 02/12/2022 urina lysis panel , auto Unknown Analyte 1.020 Not Available [facility] [address], [place], [address], 02/12/2022 09:15:19 02/13/20 22 02/12/2022 urina lysis panel , auto Unknown Analyte 1.003- 1.035 Not Available [facility] [address], [place], [address], 02/12/2022 09:15:19 02/13/20 22 02/12/2022 urina lysis panel , auto Unknown Analyte 6.0 Not Available [facility] [address], [place], [address], 02/12/2022 09:15:19 02/13/20 22 02/12/2022 urina lysis panel , auto Unknown Analyte 5.0-8. 0 Not Available [facility] [address], [place], [address], 02/12/2022 09:15:19 02/13/20 22 02/12/2022 urina lysis panel , auto Unknown Analyte Negati ve Not Available [facility] [address], [place], [address], 02/12/2022 09:15:19 02/13/20 22 02/12/2022 urina lysis panel , auto Unknown Analyte Negati ve Not Available [facility] [address], [place], [address], 02/12/2022 09:15:19 02/13/20 22 02/12/2022 urina lysis panel , auto Unknown Analyte Negati ve Not Available [facility] [address], [place], [address], 02/12/2022 09:15:19 02/13/20 22 02/12/2022 urina lysis panel , auto Unknown Analyte Negati ve Not Available [facility] [address], [place], [address], 02/12/2022 09:15:19 02/13/20 22 02/12/2022 urina lysis panel , auto Unknown Analyte Negati ve Not Available [facility] [address], [place], [address], 02/12/2022 09:15:19 02/13/20 22 02/12/2022 urina lysis panel , auto Unknown Analyte Negati ve Not Available [facility] [address], [place], [address], 02/12/2022 09:15:19 02/13/20 22 02/12/2022 urina lysis panel , auto Unknown Analyte Normal Not Available [facility] [address], [place], [address], 02/12/2022 09:15:19 02/13/20 22 02/12/2022 urina lysis panel , auto Unknown Analyte Normal Not Available [facility] [address], [place], [address], 02/12/2022 09:15:19 02/13/20 22 02/12/2022 urina lysis panel , auto Unknown Analyte Negati ve Not Available [facility] [address], [place], [address], 02/12/2022 09:15:19 02/13/20 22 02/12/2022 urina lysis panel , auto Unknown Analyte Negati ve Not Available [facility] [address], [place], [address], 02/12/2022 09:15:19 02/13/20 22 02/12/2022 urina lysis panel , auto Unknown Analyte Normal Not Available [facility] [address], [place], [address], 02/12/2022 09:15:19 02/13/20 22 02/12/2022 urina lysis panel , auto Unknown Analyte Normal 1 mg/dl Not Available [facility] [address], [place], [address], 02/12/2022 09:15:19 02/13/20 22 02/12/2022 urina lysis panel , auto Unknown Analyte Negati ve Not Available [facility] [address], [place], [address], 02/12/2022 09:15:19 02/13/20 22 02/12/2022 urina lysis panel , auto Unknown Analyte Negati ve Not Available [facility] [address], [place], [address], 02/12/2022 09:15:19 02/13/20 22 02/12/2022 urina lysis panel , auto Unknown Analyte 250 Annel/ul Not Available [facility] [address], [place], [address], 02/12/2022 09:15:19 02/13/20 22 02/12/2022 urina lysis panel , auto Unknown Analyte Negati ve Not Available [facility] [address], [place], [address], 02/12/2022 09:15:19 07/09/20 24 07/09/2024 urina lysis panel , auto Unknown Analyte Clean Catch Not Available [facility] [address] [place] [address] Rd [address], [place], [address], 07/09/2024 14:13:16 07/09/2007/09/2024 urina lysis panel , auto Unknown Analyte Yellow Not Available [facility] [address], [place], [address], 07/09/2024 14:13:16 07/09/20 24 07/09/2024 urina lysis panel , auto Unknown Analyte Clear Not Available [facility] [address], [place], [address], 07/09/2024 14:13:16 07/09/20 24 07/09/2024 urina lysis panel , auto Unknown Analyte 1.010 Not Available [facility] [address], [place], [address], 07/09/2024 14:13:16 07/09/20 24 07/09/2024 urina lysis panel , auto Unknown Analyte 1.003- 1.035 Not Available [facility] [address], [place], [address], 07/09/2024 14:13:16 07/09/20 24 07/09/2024 urina lysis panel , auto Unknown Analyte 5.0 Not Available [facility] [address], [place], [address], 07/09/2024 14:13:16 07/09/20 24 07/09/2024 urina lysis panel , auto Unknown Analyte 5.0-8. 0 Not Available [facility] [address], [place], [address], 07/09/2024 14:13:16 07/09/20 24 07/09/2024 urina lysis panel , auto Unknown Analyte 25 Preston/ul Trace Not Available [facility] [address], [place], [address], 07/09/2024 14:13:16 07/09/20 24 07/09/2024 urina lysis panel , auto Unknown Analyte Negati ve Not Available [facility] [address], [place], [address], 07/09/2024 14:13:16 07/09/20 24 07/09/2024 urina lysis panel , auto Unknown Analyte Negati ve Not Available [facility] [address], [place], [address], 07/09/2024 14:13:16 07/09/20 24 07/09/2024 urina lysis panel , auto Unknown Analyte Negati ve Not Available [facility] [address], [place], [address], 07/09/2024 14:13:16 07/09/20 24 07/09/2024 urina lysis panel , auto Unknown Analyte Trace Not Available [facility] [address], [place], [address], 07/09/2024 14:13:16 07/09/20 24 07/09/2024 urina lysis panel , auto Unknown Analyte Negati ve Not Available [facility] [address], [place], [address], 07/09/2024 14:13:16 07/09/20 24 07/09/2024 urina lysis panel , auto Unknown Analyte Normal Not Available [facility] [address], [place], [address], 07/09/2024 14:13:16 07/09/20 24 07/09/2024 urina lysis panel , auto Unknown Analyte Normal Not Available [facility] [address], [place], [address], 07/09/2024 14:13:16 07/09/20 24 07/09/2024 urina lysis panel , auto Unknown Analyte Negati ve Not Available [facility] [address], [place], [address], 07/09/2024 14:13:16 07/09/20 24 07/09/2024 urina lysis panel , auto Unknown Analyte Negati ve Not Available [facility] [address], [place], [address], 07/09/2024 14:13:16 07/09/20 24 07/09/2024 urina lysis panel , auto Unknown Analyte Normal Not Available [facility] [address], [place], [address], 07/09/2024 14:13:16 07/09/20 24 07/09/2024 urina lysis panel , auto Unknown Analyte Normal 1 mg/dl Not Available [facility] [address], [place], [address], 07/09/2024 14:13:16 07/09/2007/09/2024 urina lysis panel , auto Unknown Analyte Negati ve Not Available [facility] [address], [place], [address], 07/09/2024 14:13:16 07/09/20 24 07/09/2024 urina lysis panel , auto Unknown Analyte Negati ve Not Available [facility] [address] [facility] [address], [place], [address], 07/09/2024 14:13:16 07/09/20 24 07/09/2024 urina lysis panel , auto Unknown Analyte Negati ve Not Available [facility] [address] [facility] [address], [place], [address], 07/09/2024 14:13:16 07/09/20 24 07/09/2024 urina lysis panel , auto Unknown Analyte Negati ve Not Available [facility] [address] [facility] [address], [place], [address], 07/09/2024 14:13:16 02/13/20 22 02/12/2022 XR, abdom en, 1 view No observ ation record ed. [email or web address] [place] [address] ([facility]) [address], [place], [address], 03/04/2022 10:07:51 02/25/20 22 02/24/2022 CT, abdom en + pelvi s, w/o contr ast No observ ation record ed. [email or web address] [facility] [address], [place], [address], 03/03/2022 09:41:37 04/15/20 22 04/15/2022 XR, abdom en, 1 view No observ ation [facility] ed. [email or web address] ([facility] [address], [place], [address], 04/15/2022 21:14:59 06/30/20 22 03/17/2022 CT, abdom en + pelvi s, w/o contr ast No observ ation record ed. BARCODE Not Available 2021 11:03:51 07/09/20 24 07/09/2024 CT, abdom en + pelvi s, w/o contr ast [facility] [address] [facility] [place] [address] Patien t Name: ROBERT merritt : 954 Patien t Orderi ng Provid er: ANGLEA VALENTINE EXAM DATE: 2023 EXAM: CT ABD/PE LVIS WITHOU T CONTRA ST CLINIC AL INFORM ATION: Flank pain. Stones TECHNI QUE: Multip le axial CT images of the abdome n and pelvis were obtain ed withou t inject ion of IV contra st. No oral contra st or water was admini stered to the patien t. COMPAR PHANI: None. FINDIN GS ON CT ABDOME N: LOWER THORAX : Lung bases are clear. No obviou s cardia c abnorm ality. Calcif ied granul omas are presen t in the lung bases there is a puncta te 2 mm nodule in the left base. Consid er follow -up dedica laury chest screen ing UPPER ABDOMI NAL ORGANS : Liver, spleen , pancre as, and adrena l are normal . Gallbl adder is absent . Extrem jose subtle puncta te stone involv ing the inferi or left kidney . Left-s ided extrar enal pelvis BOWEL AND MESENT ANNEL: Stomac h, small bowel and colon are normal . No mesent vivek lympha denopa thy or perito toni free fluid. RETROP ERITON EUM: Aorta, IVC and their branch es are patent and normal . No retrop eriton eal lympha denopa thy. ABDOMI NAL WALL AND SKELET AL STRUCT URES: Previo us ventra l hernia repair . Mesh is intact . FINDIN GS ON CT PELVIS : PELVIC CAVITY : Urinar y bladde r and rectos igmoid are normal . No pelvic or inguin al lympha denopa thy, mass or fluid. MUSCUL OSKELE MARC STRUCT URES: Normal . COMBIN ED IMPRES MARCIA: Extrem jose subtle puncta te stone, nonobs tructi ve, left kidney Interp reted By: Bharat Black MD Electr onical ly Signed By: Bharat Black MD on 024 3:30 PM see [facility] [address] [facility], [place], [address], 07/25/2024 09:01:11 Result Notes None recorded. Procedures Surgical History Date Name Laterality Status Provider Name and Address Organization Details Recorded Time section completed [facility] 05/16/2020 12:28:24 extraction of cataract completed [facility] 05/16/2020 12:28:37 cardiac catheterization completed [facility] 05/16/2020 12:28:49 Hemorrhoidectomy completed [facility] 05/16/2020 12:28:57 Cholecystectomy completed [facility] 05/16/2020 12:29:04 Hernia Repair completed [facility] 05/16/2020 12:37:30 Carpal tunnel surgery completed [facility] 05/16/2020 12:37:46 complete repair of rotator cuff completed [facility] 05/16/2020 12:37:59 Imaging Results Imaging Date Name Status LastModified by Organiz ation Details LastModified Time 02/12/2022 XR, abdomen, 1 view completed [address] ([facility]) [address] [place], [address], 03/04/2022 10:07:51 02/24/2022 CT, abdomen + pelvis, w/o contrast completed [facility] [address], [place], [address], 03/03/2022 09:41:37 04/15/2022 XR, abdomen, 1 view completed [facility] ([facility]) [address] [place], [address], 04/15/2022 21:14:59 03/17/2022 CT, abdomen + pelvis, w/o contrast completed BAR[facility] Information not available 06/30/2022 11:03:51 07/09/2024 CT, abdomen + pelvis, w/o contrast completed [email or web address] [facility] [address] [facility], [place], [address], 07/25/2024 09:01:11 Procedure Notes None recorded. Medical Equipment None Reported. Allergies No known drug allergies Medications Name Sig Start Date Stop Date Status Note LastModified by Organization Details LastModified Time furosemide 40 mg tablet active Not Available Not Available Not Available atorvastat in 40 mg tablet active Not Available Not Available Not Available methocarba mol 500 mg tablet active Not Available Not Available Not Available metformin 500 mg tablet 02/12 completed Not Available Not Available Not Available atorvastat in 80 mg tablet active Not Available Not Available Not Available clonidine HCl 0.1 mg tablet active Not Available Not Available Not Available oxybutynin chloride ER 10 mg tablet,ext ended release 24 hr active Not Available Not Available Not Available nitroglyce rin 0.3 mg sublingual tablet active Not Available Not Available Not Available metoprolol succinate ER 50 mg tablet,ext ended release 24 hr active Not Available Not Available Not Available hydrocodon e 5 mg-acetami nophen 325 mg tablet active Not Available Not Available No t Available prednisone 20 mg tablet active Not Available Not Available Not Available Pyridium 200 mg tablet Three times a day 05/16 completed Duratio n: 10 days;Fr equency : tid;Alt Frequen cy: prn;Med ication Descrip tion: phenazo pyridin e; Dosage: 1; Route:o ral; refills :3; Quantit y:30 tablet Not Available Not Available Not Available metformin 850 mg tablet 02/12 completed Not Available Not Available Not Available torsemide 10 mg tablet active Not Available Not Available Not Available amlodipine 5 mg tablet active Not Available Not Available Not Available allopurino l 100 mg tablet TAKE ONE TABLET BY MOUTH DAILY active Not Available Not Available No t Available sulfametho xazole 800 mg-trimeth oprim 160 mg tablet Take 1 tablet every 12 hours by oral route. active Not Available Not Available No t Available tramadol 50 mg tablet active Not Available Not Available Not Available glimepirid e 2 mg tablet active Not Available Not Available Not Available losartan 100 mg-hydroch lorothiazi de 25 mg tablet active Not Available Not Available Not Available oxycodone- acetaminop hen 5 mg-325 mg tablet active Not Available Not Available Not Available clonidine HCl 0.2 mg tablet 02/12 completed Not Available Not Available Not Available amlodipine 10 mg tablet active Not Available Not Available Not Available hydrocodon e 7.5 mg-acetami nophen 325 mg tablet Take 1 tablet every 6 hours by oral route. active Not Available Not Available No t Available telmisarta n 40 mg tablet active Not Available Not Available Not Available promethazi ne 25 mg tablet active Not Available Not Available Not Available gabapentin 300 mg capsule active Not Available Not Available Not Available omeprazole 20 mg capsule,de layed release active Not Available Not Available Not Available telmisarta n 20 mg tablet active Not Available Not Available Not Available Levaquin 500 mg tablet Take 1 tablet every 24 hours by oral route as directed for 10 days. 05/16 completed Not Available Not Available Not Available metoprolol succinate ER 25 mg tablet,ext ended release 24 hr active Not Available Not Available Not Available cefuroxime axetil 500 mg tablet 02/12 completed Not Available Not Available Not Available zolpidem 10 mg tablet active Not Available Not Available Not Available methylpred nisolone 4 mg tablets in a dose pack 02/12 completed Not Available Not Available Not Available celecoxib 100 mg capsule 05/16 completed Not Available Not Available Not Available cefdinir 300 mg capsule 04/15 completed Not Available Not Available Not Available dicyclomin e 10 mg capsule 02/12 completed Not Available Not Available Not Available metformin ER 750 mg tablet,ext ended release 24 hr 05/16 completed Not Available Not Available Not Available pregabalin 150 mg capsule active Not Available Not Available Not Available chlorhexid ine gluconate 0.12 % mouthwash 05/16 completed Not Available Not Available Not Available Vitamin C active Not Available Not Krysta ilable Not Available zinc active Not Available Not Availa ble Not Available biotin active Not Available Not Availa ble Not Available Vitamin D active Not Available Not Krysta ilable Not Available estradiol- norethindr one acet 0.5 mg-0.1 mg tablet active Not Available Not Available No t Available diclofenac 1 % topical gel active Not Available Not Available Not Available Prevnar 13 (PF) 0.5 mL intramuscu lar syringe 05/16 completed Not Available Not Available Not Available potassium chloride ER 20 mEq tablet,ext ended release active Not Available Not Available Not Available Jardiance 25 mg tablet active Not Available Not Available Not Available lidocaine 4 %-methyl salicylate 4 %-menthol 5 % topical patch 02/12 completed Not Available Not Available Not Available Amabelz 1 mg-0.5 mg tablet 02/12 completed Not Available Not Available Not Available Accu-Chek Guide test strips 02/12 completed Not Available Not Available Not Available Accu-Chek Guide Glucose Meter 02/12 completed Not Available Not Available Not Available Shingrix (PF) 50 mcg/0.5 mL intramuscu lar suspension , kit 05/16 completed Not Available Not Available Not Available Accu-Chek Fastclix Lancet Drum 02/12 completed Not Available Not Available Not Available Fluzone High-Dose 2019-20 (PF) 180 mcg/0.5 mL intramuscu lar syringe 05/16 completed Not Available Not Available Not Available Alive Hair, Skin and Nails active Not Available Not Available No t Available Ozempic 0.25 mg or 0.5 mg (2 mg/3 mL) subcutaneo us pen injector active Not Available Not Available Not Available Vitals Date Recorded Body height Body mass index (BMI) Body weight Provider Name and Address Organization Details Last Updated DateTime 08/04/2021 167.64 cm 30.5 kg/m2 40427.96 g Lisa [facility] 08/04/2021 16:01:48 Date Recorded Body height Body mass index (BMI) Body weight Provider Name and Address Organization Details Last Updated DateTime 02/12/2022 167.64 cm 30.5 kg/m2 [address]5765.[address] [facility] 02/12/2022 09:10:13 Date Recorded Body height Body mass index (BMI) Body weight Provider Name and Address Organization Details Last Updated DateTime 04/15/2022 167.64 cm 30.5 kg/m2 [address]77.[address] [facility] 04/15/2022 14:59:41 Date Recorded Body height Body mass index (BMI) Body weight Provider Name and Address Organization Details Last Updated DateTime 07/09/2024 167.64 cm 31.6 kg/m2 55176.1 suresh Smith [facility] 07/09/2024 14:13:56 Social History Question Answer Notes LastModified by Organizat ion Details LastModified Time Tobacco Smoking Status [facility] 12:27:53 How Much Tobacco Do You Chew? None Information not available 05/16/2020 Marital Status Informatio n not available 05/16/2020 What Was The Date Of Your Most Recent Tobacco Screening? 07/09/2024 [email or web address] Information not available 07/09/2024 Sex: Unknown Functional Status Question Answer Note LastModified by Organizat ion Details LastModified Time What is your level of alcohol consumption? Occasional Information not available 05/16/2020 What is your occupation? retired Information not available 05/16/2020 Mental Status None recorded. Family History Relationship Description Onset Age of this Age Resolved Age Notes LastModified by Organization Details LastModified Time Sister Family history of malignant neoplasm Not available 2019 12:27:47 Mother Family history of malignant neoplasm Not available 2019 12:27:47 Medical History Condition Response Allergies/Hayfever Y Arthritis Y Kidney Stones Y Hypertension Y Depression Y Gynecological HistoryNo gynecological history recorded. Obstetrics History GPAL:G 0 P 0 0 0 0 Past Encounters Encounter ID Performer Location Encounter Start Date Encounter Closed Date Diagnosis/Indication Diagnosis SNOMED-CT Code Diagnosis ICD10 Code Diagnosis Note [id number] MD MAICOL ALVARADO [facility] [address] [place] [phone] 05/16/2020 10:46:26 05/16/2020 12:27:15 Uric acid urolithiasis 651829768 N20.9 follow-up 1 year [id number] MD MAICOL ALVARADO [facility] [address] [place] [address] 08/04/2021 15:15:00 08/04/2021 16:22:49 History of urinary stone 333646352 Z87.442 Follow-up one year with KUB [id number] ISH VALENTINE MD [facility] [address] [facility] [address] [address] [place] [id number] 02/12/2022 08:29:24 02/12/2022 09:28:58 Urolithiasis 63205339 N20.9 We will contact her with her CT scan results. Left flank pain 73143988 9 R10.9 [id number] ISH VALENTINE MD SURGERY SCHEDULE [address] [place] [address] 03/17/2022 08:57:39 03/17/2022 08:59:45 [id number] FAUSTO PRINGLE MD [facility] [address] [facility] [address] [place] [id number] 04/15/2022 14:06:49 04/15/2022 15:27:27 Kidney stone 17145851 N20.0 [id number] ISH VALENTINE MD [facility] [address] [facility] [address] [place] [phone] 07/09/2024 12:25:51 07/11/2024 04:19:40 Urolithiasis 61169466 N20.9 We will contact her with her CT scan results. Health Concerns Section Related Observation LastModified by Organization Detai ls LastModified Time None Recorded Concern Status LastModified by Organization Details LastModified Time None Recorded Advance Directives Directive None Recorded Payers Insurance Date Sequence Insurance Name Policy Number Policy Haynes Covered Member ID Haynes Member ID Guarantor Name 08/08/2022 PAYMENT PLAN Robert Edwards 07/09/2024 1 [employer] (MEDICARE REPLACEMENT/A DVANTAGE - PPO) Robert Edwards [id number] Robert Edwards Notes Date Note Type Note Provider Name and Address Organization Details Recorded Time 08/04/2021 text/html Patient is here with long history of chronic left-sided back pain. She also has intermittent urolithiasis. She is in no urinary infections or stone episodes in several months. She was last seen by me in April 2020. KUB at that time showed a small stone shadow within the left kidney about 3 mm. 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 ISH VALENTINE MD [address] [place] [address], [phone], [facility] 08/04/2021 21:52:45 02/12/2022 text/html Patient is here with previous history of remote chronic pyelonephritis as well as urolithiasis. For the last several days she's had increased discomfort in her left flank area. She's had no radiographic studies. She has had no gross hematuria but does have significant amount of microscopic hematuria today. We discussed obtaining a noncontrast CT scan stone protocol for further evaluation. ISH VALENTINE MD [address] [place] [address], [phone], [facility] 02/14/2022 17:24:52 04/15/2022 text/html she continues to have some pain in the left side of her back. CT scan shows tiny stones in the left kidney. I cannot see them on KUB today. There is no hematuria or dysuria. She is scheduled to see a back surgeon for evaluation. I do not think or back pain is coming from a urologic source at this time FAUSTO PRINGLE MD [address] [place] [address], [phone], [facility] 04/15/2022 15:31:00 07/09/2024 text/html Patient is here in follow-up last seen 2 years ago. She has long history of urolithiasis and for the last 2 weeks has been having left-sided flank pain. She has had no recent imaging. I suggest we arrange for CT scan without contrast renal stone protocol. ISH VALENTINE MD [address] [place] [address] [place], [phone], [facility] 07/10/2024 23:17:15 OBGyn Episode No OBEpisode recorded.
[2025-04-08 14:12] LABS: Chloride 112 mmol/L (98-107); Potassium 4.3 mmoL/L (3.5-5.1); Sodium 142 mmol/L (136-145)
[2025-04-08 14:15] LABS: Anion Gap 9.3 mEq/L (5-15); Blood Urea Nitrogen 19 mg/dl (7-17); Carbon Dioxide 25 mmol/L (22.0-30.0); Estimated Glomerular Filt Rate 55 ml/min (>60); GFR (African American) 66 ML/MIN (>60)
[2025-04-08 14:16] LABS: Glucose 173 mg/dl (74-100)
== END 2025-04-08 23:59 | disposition home or self-care (01) ==
PROVIDERS: PCP Family Medicine; Visit Provider Internal Medicine
DX: R60.0 Localized edema (principal); I10 Essential (primary) hypertension; E78.5 Hyperlipidemia, unspecified
CPT/HCPCS: 36415; 80048

== ENCOUNTER 2025-04-10 10:45 | Outpatient (POV) | payer MEDICARE, SELFPAY ==
--- OUTSIDE RECORDS SUMMARY | 2025-04-10 10:48 | XMS_ITS | Data Portability ---
Author Organization RAFAEL KIKE Lopez PALATINE CLOSED Address [address] [place] [address] Care Team Providers Care Silk Screen Layout Drafter Name Role Phone JENNY NATH Primary Care Provider [phone] Assessment Encounter Date Assessment Date Assessment LastModified [...] functioning at the time of induction. The 22-Swedish cystoscopy sheath was introduced. The bladder was [...] recorded. Lab urinalysis panel, auto [address] [facility], [address], [address], [place], [address], 4 23:16:26 urinalysis panel, auto 2021 022 [address] [facility], [address], [address], [place], [address], 2 17:24:13 Referral None recorded. Procedures None recorded. Surgeries None recorded. Imaging None recorded. Medication Orders allopurinol 100 [address] [facility] [id number], [address] [place] [address] , [place], [address], 1 21:52:06 Patient TargetsNo targets recorded. Patient InstructionsNo instructions recorded. Reason for Referral None Reported. Results Created Date Observation Date Name Description Value Unit Range Abnormal Flag Note LastModifiedBy Organization Detail LastModifiedTime 02/13/2002/12/2022 urina lysis panel , auto Unknown Analyte Clean Catch Not Available [facility] [address], [place], [address], 02/12/2022 09:15:19 02/13/20 22 02/12/2022 urina lysis panel , auto Unknown Analyte Yellow Not Available [facility] [address], [place], [address], 02/12/2022 09:15:19 02/13/20 22 02/12/2022 urina lysis panel , auto Unknown Analyte Clear Not Available [facility] [address], [place], [address], 02/12/2022 09:15:19 02/13/20 22 02/12/2022 urina lysis panel , auto Unknown Analyte 1.020 Not Available [facility] [address], [place], [address], 02/12/2022 09:15:19 02/13/20 22 02/12/2022 urina lysis panel , auto Unknown Analyte 1.003- 1.035 Not Available [facility] [address], [place], [address], 02/12/2022 09:15:19 02/13/20 22 02/12/2022 urina lysis panel , auto Unknown Analyte 6.0 Not Available [facility] [address], [place], [address], 02/12/2022 09:15:19 02/13/20 22 02/12/2022 urina lysis panel , auto Unknown Analyte 5.0-8. [address] [facility] [address], [place], [address], 02/12/2022 09:15:19 02/13/20 22 02/12/2022 urina lysis panel , auto Unknown Analyte Negati ve Not Available [facility] [address], [place], [address], 02/12/2022 09:15:19 02/13/20 22 02/12/2022 urina lysis panel , auto Unknown Analyte Negati ve Not Available [facility] [address], [place], [address], 02/12/2022 09:15:19 02/13/20 22 02/12/2022 urina lysis panel , auto Unknown Analyte Negati ve Not Available [facility] [address], [place], [address], 02/12/2022 09:15:19 02/13/20 22 02/12/2022 urina lysis panel , auto Unknown Analyte Negati ve Not Available [facility] [address], [place], [address], 02/12/2022 09:15:19 02/13/20 22 02/12/2022 urina lysis panel , auto Unknown Analyte Negati ve Not Available [facility] [address], [place], [address], 02/12/2022 09:15:19 02/13/20 22 02/12/2022 urina lysis panel , auto Unknown Analyte Negati ve Not Available [facility] [address], [place], [address], 02/12/2022 09:15:19 02/13/20 22 02/12/2022 urina lysis panel , auto Unknown Analyte Normal Not Available [facility] [address], [place], [address], 02/12/2022 09:15:19 02/13/20 22 02/12/2022 urina lysis panel , auto Unknown Analyte Normal Not Available [facility] [address], [place], [address], 02/12/2022 09:15:19 02/13/20 22 02/12/2022 urina lysis panel , auto Unknown Analyte Negati ve Not Available [facility] [address], [place], [address], 02/12/2022 09:15:19 02/13/20 22 02/12/2022 urina lysis panel , auto Unknown Analyte Negati ve Not Available [facility] [address], [place], [address], 02/12/2022 09:15:19 02/13/20 22 02/12/2022 urina lysis panel , auto Unknown Analyte Normal Not Available [facility] [address], [place], [address], 02/12/2022 09:15:19 02/13/20 22 02/12/2022 urina lysis panel , auto Unknown Analyte Normal 1 mg/dl Not Available [facility] [address], [place], [address], 02/12/2022 09:15:19 02/13/20 22 02/12/2022 urina lysis panel , auto Unknown Analyte Negati ve Not Available [facility] [address], [place], [address], 02/12/2022 09:15:19 02/13/20 22 02/12/2022 urina lysis panel , auto Unknown Analyte Negati ve Not Available [facility] [address], [place], [address], 02/12/2022 09:15:19 02/13/20 22 02/12/2022 urina lysis panel , auto Unknown Analyte 250 Annel/ul Not Available [facility] [address], [place], [address], 02/12/2022 09:15:19 02/13/20 22 02/12/2022 urina lysis panel , auto Unknown Analyte Negati ve Not Available [facility] [address], [place], [address], 02/12/2022 09:15:19 07/09/20 24 07/09/2024 urina lysis panel , auto Unknown Analyte Clean Catch Not Available [facility] [address] [place] [address] [address], [place], [address], 07/09/2024 14:13:16 07/09/2007/09/2024 urina lysis panel , auto Unknown Analyte Yellow Not Available [facility] [address], [place], [address], 07/09/2024 14:13:16 07/09/20 24 07/09/2024 urina lysis panel , auto Unknown Analyte Clear Not Available [facility] [address], [place], [address], 07/09/2024 14:13:16 07/09/20 24 07/09/2024 urina lysis panel , auto Unknown Analyte 1.010 Not Available [facility] [address], [place], [address], 07/09/2024 14:13:16 07/09/20 24 07/09/2024 urina lysis panel , auto Unknown Analyte 1.003- 1.[address] [facility] [address], [place], [address], 07/09/2024 14:13:16 07/09/20 24 07/09/2024 urina lysis panel , auto Unknown Analyte 5.0 Not Available [facility] [address], [place], [address], 07/09/2024 14:13:16 07/09/20 24 07/09/2024 urina lysis panel , auto Unknown Analyte 5.0-8. [address] [facility] [address], [place], [address], 07/09/2024 14:13:16 07/09/20 24 07/09/2024 urina lysis panel , auto Unknown Analyte 25 Preston/ul Trace Not Available [facility] [address], [place], [address], 07/09/2024 14:13:16 07/09/20 24 07/09/2024 urina lysis panel , auto Unknown Analyte Negati ve Not Available [facility] [address], [place], [address], 07/09/2024 14:13:16 07/09/20 24 07/09/2024 urina lysis panel , auto Unknown Analyte Negati ve Not Available [facility] [address], [place], [address], 07/09/2024 14:13:16 07/09/20 24 07/09/2024 urina lysis panel , auto Unknown Analyte Negati ve Not Available [facility] [address], [place], [address], 07/09/2024 14:13:16 07/09/20 24 07/09/2024 urina lysis panel , auto Unknown Analyte Trace Not Available [facility] [address], [place], [address], 07/09/2024 14:13:16 07/09/20 24 07/09/2024 urina lysis panel , auto Unknown Analyte Negati ve Not Available [facility] [address], [place], [address], 07/09/2024 14:13:16 07/09/20 24 07/09/2024 urina lysis panel , auto Unknown Analyte Normal Not Available [facility] [address], [place], [address], 07/09/2024 14:13:16 07/09/20 24 07/09/2024 urina lysis panel , auto Unknown Analyte Normal Not Available [facility] [address], [place], [address], 07/09/2024 14:13:16 07/09/20 24 07/09/2024 urina lysis panel , auto Unknown Analyte Negati ve Not Available [facility] [address], [place], [address], 07/09/2024 14:13:16 07/09/20 24 07/09/2024 urina lysis panel , auto Unknown Analyte Negati ve Not Available [facility] [address], [place], [address], 07/09/2024 14:13:16 07/09/20 24 07/09/2024 urina lysis panel , auto Unknown Analyte Normal Not Available [facility] [address], [place], [address], 07/09/2024 14:13:16 07/09/20 24 07/09/2024 urina lysis panel , auto Unknown Analyte Normal 1 mg/dl Not Available [facility] [address], [place], [address], 07/09/2024 14:13:16 07/09/2007/09/2024 urina lysis panel , auto Unknown Analyte Negati ve Not Available [facility] [address], [place], [address], 07/09/2024 14:13:16 07/09/20 24 07/09/2024 urina lysis panel , auto Unknown Analyte Negati ve Not Available [facility] [address], [place], [address], 07/09/2024 14:13:16 07/09/20 24 07/09/2024 urina lysis panel , auto Unknown Analyte Negati ve Not Available [facility] [address], [place], [address], 07/09/2024 14:13:16 07/09/20 24 07/09/2024 urina lysis panel , auto Unknown Analyte Negati ve Not Available [facility] [address], [place], [address], 07/09/2024 14:13:16 02/13/20 22 02/12/2022 XR, abdom en, 1 view No observ ation record ed. [email or web address] [place] [address] ([facility]) [address], [place], [address], 03/04/2022 10:07:51 02/25/20 22 02/24/2022 CT, abdom en + pelvi s, w/o contr ast No observ ation record ed. [email or web address] [facility] [address], [place], [address], 03/03/2022 09:41:37 04/15/20 22 04/15/2022 XR, abdom en, 1 view [email or web address] [address], [place], [address], 04/15/2022 21:14:59 06/30/20 22 03/17/2022 CT, abdom en + pelvi s, w/o contr ast No observ ation record ed. BARCODE Not Available 2021 11:03:51 07/09/20 24 07/09/2024 CT, abdom en + pelvi s, w/o contr ast [facility] [address] [facility] [place] [address] Patien t Name: ROBERT merritt : 954 Patien t Orderi ng Provid er: ANGELA VALENTINE EXAM DATE: 2023 EXAM: CT ABD/PE [...] Black MD on 024 3:30 PM see [facility] [address] [facility], [place], [address], 07/25/2024 09:01:11 Result Notes None recorded. Procedures Surgical History Date Name Laterality Status Provider Name and Address Organization Details Recorded Time section completed [facility] 05/16/2020 12:28:24 extraction of cataract completed [facility] 05/16/2020 12:28:37 cardiac catheterization completed [facility] 05/16/2020 12:28:49 Hemorrhoidectomy completed [facility] 05/16/2020 12:28:57 Cholecystectomy completed [facility] 05/16/2020 12:29:04 Hernia Repair completed [facility] 05/16/2020 12:37:30 Carpal tunnel surgery completed [facility] 05/16/2020 12:37:46 complete repair of rotator cuff completed [facility] 05/16/2020 12:37:59 Imaging Results Imaging Date Name Status LastModified by Organiz ation Details LastModified Time 02/12/2022 XR, abdomen, 1 view completed [address] ([facility]) [address] [place], [address], 03/04/2022 10:07:51 02/24/2022 CT, abdomen + pelvis, w/o contrast completed alice [facility] [address], [place], [address], 03/03/2022 09:41:37 04/15/2022 XR, abdomen, 1 view completed [facility] ([facility]) [address] [place], [address], 04/15/2022 21:14:59 03/17/2022 CT, abdomen + pelvis, w/o contrast completed [facility] Information not available 06/30/2022 11:03:51 07/09/2024 CT, abdomen + pelvis, w/o contrast completed [email or web address] [facility] [address] [facility] [address], [place], [address], 07/25/2024 09:01:11 Procedure Notes None recorded. Medical [...] Updated DateTime 08/04/2021 167.64 cm 30.5 kg/m2 96220.[address] [facility] 08/04/2021 16:01:48 Date Recorded Body height Body mass index (BMI) Body weight Provider Name and Address Organization Details Last Updated DateTime 02/12/2022 167.64 cm 30.5 kg/m2 21819.96 g [facility] 02/12/2022 09:10:13 Date Recorded Body height Body mass index (BMI) Body weight Provider Name and Address Organization Details Last Updated DateTime 04/15/2022 167.64 cm 30.5 kg/m2 49771.96 g [facility] 04/15/2022 14:59:41 Date Recorded Body height Body mass index (BMI) Body weight Provider Name and Address Organization Details Last Updated DateTime 07/09/2024 167.64 cm 31.6 kg/m2 37993.1 suresh Smith [facility] 07/09/2024 14:13:56 Social History Question Answer Notes LastModified by Organizat ion Details LastModified Time Tobacco Smoking Status [facility]oker [facility] 05/16/2020 12:27:53 How Much Tobacco Do You Chew? None Information not available 05/16/2020 Marital Status Informatio n not available 05/16/2020 What Was The Date Of Your Most Recent Tobacco Screening? 07/09/2024 [email or web address] Information not available 07/09/2024 Sex: Unknown Functional [...] SNOMED-CT Code Diagnosis ICD10 Code Diagnosis Note [id number] MD MAICOL AL[facility]ADO [facility] [address] [place] [address] 05/16/2020 10:46:26 05/16/2020 12:27:15 Uric acid urolithiasis 834479318 N20.9 follow-up 1 year [id number] MD MAICOL ALVARADO [facility] [address] [place] [address] 08/04/2021 15:15:00 08/04/2021 16:22:49 History of urinary stone 869020044 Z87.442 Follow-up one year with KUB [id number] ISH VALENTINE MD [facility] [address] [place] [address] 02/12/2022 08:29:24 02/12/2022 09:28:58 Urolithiasis [id number] N20.9 We will contact her with her CT scan results. Left flank pain [id number] 9 R10.9 [id number] ISH VALENTINE MD SURGERY SCHEDULE [address] [place] [address] 03/17/2022 08:57:39 03/17/2022 08:59:45 [id number] FAUSTO PRINGLE MD [facility] [address] [place] [address] 04/15/2022 14:06:49 04/15/2022 15:27:27 Kidney stone [id number] N20.0 [id number] ISH VALENTINE MD [facility] [address] [place] [address] 07/09/2024 12:25:51 07/11/2024 04:19:40 Urolithiasis [id number] N20.9 We will contact her with her [...] (MEDICARE REPLACEMENT/A DVANTAGE - PPO) Robert Edwards [id number] Robert Edwards Notes Date Note Type Note [...] she continue with it. ISH VALENTINE MD [address] [place] [address], [address], [facility] 08/04/2021 21:52:45 02/12/2022 text/html Patient is [...] protocol for further evaluation. ISH VALENTINE MD [address] [place] [address], [address], [facility] 02/14/2022 17:24:52 04/15/2022 text/html she continues [...] source at this time FAUSTO PRINGLE MD [address] [place] [address], [address], [facility] 04/15/2022 15:31:00 07/09/2024 text/html Patient is here in follow-up last seen 2 years ago. She has long history of urolithiasis and for the last 2 weeks has been having left-sided flank pain. She has had no recent imaging. I suggest we arrange for CT scan without contrast renal stone protocol. ISH VALENTINE MD [address] [place] [address] [place], [address], [facility] 07/10/2024 23:17:15 OBGyn Episode No OBEpisode recorded.
[2025-04-10 10:56] VITALS: BP 134/66; PULSE 53; RESP 14; O2SAT 100; BMI 31.3
--- NOTE | 2025-04-10 11:15 | A.OFFVIS_ITS ---
[facility] Disclaimer: The information contained in this section may have been updated after the patient was seen, as this information can be updated by other users. Medical History Edema of both lower extremities Dyspnea Palpitations History of left heart catheterization Surgical History H/O hernia repair Family History Other No significant family history Social History Smoking Status: Never smoker second hand exposure: No alcohol intake: never substance use type: denies use current occupational status: other Travel in the last 8 weeks?: None household members: significant other housing: house current occupation: [employer] current occupational exposures/hazards: No caffeine: Yes PM Subjective & Objective Subjective Subjective:: Patient is a pleasant 70-year-old female who presents today for follow-up of her bilateral SI injections on 03/29/2025. Today she rates her pain a 6 out of 10. Patient does state that these injections were actually very painful and she did not notice significant improvement with them. Patient was trying to get improvement before she left on a bus trip however felt like it just really aggravated her symptoms. Patient has gotten significant improvement in the past from these injections and this has been the first injection that she has not noticed relief. Patient does still state that she still has pain in and around her low back and hips. Patient is currently managed with pregabalin 150 mg at bedtime and Skelaxin 800 mg 3 times daily as needed from our office. She does state that she recently had a financial services intern appointment and they did take her off several medicines including ours to see how she did and that they did want her to follow-up with our office and as long as these were beneficial that we could get her back on the medications. Patient is asking for refills of both of t hese. Patient is also using the compounded cream and lidocaine patches. Her Nemesio has been reviewed and is appropriate. Review of Systems: General: No recent weight changes, no fever, no sleep disturbances Respiratory: No cough, no shortness of air, no recurring pulmonary infections Cardiovascular/peripheral vascular: No chest pain, no palpitations, no edema, no shortness of breath Gastrointestinal: No new onset incontinence, normal bowel movements reported Genitourinary: No new onset incontinence Musculoskeletal: Low back pain, hip Psychiatric: [Normal mood/affect] Neurological: [Denies weakness in extremities], [denies balance issues] Pain at rest (0-10 scale): 6 Objective Objective:: Physical Exam: General: Alert and oriented x3, no acute distress, pleasant and cooperative Lungs: Respirations even and unlabored, symmetrical chest expansion Eyes: PERRL Musculoskeletal: Flexion and extension of lumbar [spine] somewhat guarded secondary to pain, [antalgic gait noted] point tenderness along bilateral SI's Neurological: Speech clear, no gross sensory deficit Has patient had previous pain injection?: Yes Percent improvement in pain since last injection: Minimal Conservative treatment options previously tried: Home exercise plan Length of treatment: Longer than 12 weeks Meds Home Medications and Allergies Home Medications ?Medication ?Instructions ?Recorded ?Confirmed ?Type allopurinol 100 mg tablet 100 mg PO DAILY GOUT 04/11/18 04/10/25 History glimepiride 2 mg tablet 2 mg PO DAILY Diabetes 03/18/22 04/10/25 History oxybutynin chloride 10 mg 10 mg PO DAILY . 11/02/22 04/10/25 History tablet,extended release 24 hr biotin 5,000 mcg chewable tablet 5,000 mcg PO DIRECTED SUPPLIMENT 09/27/23 04/10/25 History cyanocobalamin (vitamin B-12) 1,000 mcg PO DAILY 09/27/23 04/10/25 History 1,000 mcg capsule potassium chloride 20 mEq 20 meq PO DIRECTED 04/30/24 04/10/25 History tablet,extended release lidocaine 5 % topical patch 1 patch topical DAILY #30 ea 03/04/25 04/10/25 Rx albuterol sulfate 90 mcg/actuation 90 mcg inhalation . 03/11/25 04/10/25 History aerosol inhaler diclofenac sodium 1 % topical gel 1 ea topical . 03/11/25 04/10/25 History losartan 100 1 tab PO DAILY #90 tabs 03/11/25 04/10/25 Rx mg-hydrochlorothiazide 12.5 mg tablet baclofen 10 mg tablet 10 mg PO TID #42 tabs 03/26/25 04/10/25 Rx magnesium oxide 400 mg (241.3 mg 400 mg PO DAILY 04/08/25 04/10/25 History magnesium) tablet semaglutide 1 mg/dose (4 mg/3 mL) 2 mg SQ QWEEK 04/08/25 04/10/25 History subcutaneous pen injector (Ozempic) New Prescriptions to Start Prescriptions: Allergies Allergy/AdvReac Type Severity Reaction Status Date / Time No Known Drug Allergies Allergy Unknown Verified 04/08/25 13:55 (NKDA) Assessment and Plan *Assessment and plan (1) Degenerative disc disease, lumbar: Status: Acute Category: Medical Code(s): M51.369 - Other intervertebral disc degeneration, lumbar region without mention of lumbar back pain or lower extremity pain (2) Sacroiliitis: Status: Acute Category: Medical Code(s): M46.1 - Sacroiliitis, not elsewhere classified Plan I will refill her pregabalin and Skelaxin and provide a 1 month supply of this medication. I did discuss with the patient that occasionally we can have a flu given injection and that just does not work as well as previous ones patient has typically gotten significant relief of 80% or more from these injections in the past. I did veterans rehabilitation counselor her that we can always repeat this injection in future. We will continue to monitor this. Patient will return to clinic in 1 month. Patient has been instructed to contact the clinic with any concerns before the next appointment. Dr. Merino has reviewed this note and agrees with this plan of care. This note was dictated using voice recognition software and make contain errors or omissions. All injections are used with Lidocaine, Bupivacaine and dexamethasone. Occasionally urine drug screen is needed to verify patient's compliance with our office pain contract. This is ordered based off specific treatments related to chronic pain with the potential to abuse certain medications.
== END 2025-04-10 23:59 | disposition home or self-care (01) ==
PROVIDERS: PCP Family Medicine; Visit Provider Nurse Practitioner Family
DX: M51.369 Other intervertebral disc degeneration, lumbar region without mention of lumbar back pain or lower extremity pain (principal); M46.1 Sacroiliitis, not elsewhere classified
CPT/HCPCS: 99212; G0463

== ENCOUNTER 2025-05-08 14:04 | Outpatient (POV) | payer MEDICARE, SELFPAY ==
--- OUTSIDE RECORDS SUMMARY | 2025-02-26 10:45 | XMS_ITS ---
[facility] [address] [id number] Care Team Providers Care Mate [employer] Name Role Phone Vernon Cash Primary Care Provider [phone] Allergies Allergen (clinical drug ingredient) Drug/Non Drug Allergy documented on EMR Reaction Allergy Type Onset Date Status Non-steroidal anti-inflammatory agent (FN) NSAIDs raises blood pressure Drug Allergy Active Results Component Value Reference Range Notes CBC Fingerstick (in house) Reviewed date:02/27/2025 10:36:52 PM Interpretation: Performing Lab: Notes/Report: wbc 7.9 3.5 - 10 lym 37.4 15 - 50 mid 6.7 2 - 15 gran 55.9 35 - 80 rbc 4.28 3.5 - 5.5 hgb 13.0 11.5 - 16.5 hct 40.1 35 - 55 mcv 93.6 75 - 100 mch 30.3 25 - 35 mchc 32.4 31 - 38 plat 160 100 - 400 REASON FOR VISIT poss sinus infection Medications Medication SIG (Take, Route, Frequency, Duration) Notes Start Date End Date Status Magnesium Oxide 500 MG 1 tab(s) orally o nce a day Active Metoprolol Succinate ER 50 MG 1 tablet At Bed Time Active Potassium Chloride ER 20 MEQ 1 tab(s) or ally once a day Active Losartan Potassium-HCTZ 50-12.5 MG 1 tablet Orally Once a day Active Atorvastatin Calcium 80 MG 1 tab(s) Oral ly At Bed Time Active Benzonatate 200 MG 1 capsule as needed Orally Three times a day 02/26/2025 Active Glimepiride 2 MG 1 tab(s) orally once a day Active Allopurinol 100 MG TAKE 1 TABLET BY DAILY for 90 Active Ozempic (1 MG/DOSE) 4 MG/3ML dial and in ject under the skin 1 mg weekly Active Doxycycline Hyclate 100 MG 1 capsule Ora lly Two times a day for 10 day(s) 02/26/2025 Active Accu-Chek FastClix Lancets - ONCE A DAY 11/03/2022 Active Vitamin D3 25 MCG (1000 UT) 1 tab(s) Orally bid Active Diclofenac Sodium 1 % 1 charles applied topi selena 4 times a day Active Accu-Chek Guide w/Device as directed 07/10/2024 Active Accu-Chek Guide - USE TO TEST BLOOD DEMPSEY GAR ONCE DAILY. Active Magnesium Oxide 400 MG 1 tab(s) Orally O nce a day 12/13/2024 Active Pregabalin 150 MG 1 capsule Orally Onc e a day Active Methocarbamol 500 MG 1/ tablet Orally th ree times a day as needed Active oxyBUTYnin Chloride ER 10 MG 1 tablet Or ally Once a day for 90 days Active Potassium Chloride ER 20 MEQ 1 tab(s) or ally once a day for 90 days Active Omeprazole 20 MG 1 cap(s) Orally once daily Active Vital Signs Blood pressure systolic 130 mm Hg 02/27/20 25 Blood pressure diastolic 70 mm Hg 025 Heart Rate 74 /min 02/26/2025 Height 63.50 in 02/26/2025 Weight 189.4 lbs 02/26/2025 BMI 33.02 kg/m2 02/26/2025 Encounters Encounter Location Date Provider Diagnosis [facility] [address] [facility] [address], [place] [id number] 02/26/2025 Vernon Cash Acute bronchitis J20 .9 and Type 2 diabetes mellitus without complication, without long-term current use of insulin E11.9 Assessments Encounter Date Diagnosis (ICD Code) Assessment Notes Treatment Notes Treatment Clinical Notes Section Notes 02/26/2025 Acute bronchitis (ICD-10 - J20.9) 02/26/2025 Type 2 diabetes mellitus without complication, without long-term current use of insulin (ICD-10 - E11.9) Plan Of Treatment Medication Medication Name Sig Start Date Stop Date Notes Benzonatate 200 MG 1 capsule as needed Orally Three times a day 02/26/2025 Glimepiride 2 MG 1 tab(s) orally once a day Ozempic (1 MG/DOSE) 4 MG/3ML dial and in ject under the skin 1 mg weekly Doxycycline Hyclate 100 MG 1 capsule Ora lly Two times a day for 10 day(s) 02/26/2025 Next Appt Details Follow Up: prn, Reason: Medications Administered Medication Instructions Date of Administration Dosage Notes Dexamethasone 02/26/2025 1 mL Progress Notes * ROBRET DUMONT WDOB:1955 ( 70 yo F)Acc No.[id number]:02/26/2025 Progress Notes Patient: ROBERT KIMBALL Provider: Vernon Cash M.D. :1955 A ge:70 Y S ex:Female Date:02/26/2025 Address:[id number] Subjective: * Chief Complaints: * 1 . Poss sinus infection. * HPI: E NT/respiratory: She started with head congestion and drainage 5 or 6 days ago but now feels the congestion is settling in her chest with increase congested but nonproductive cough. No fever or increased shortness of breath. * ROS: D ERMATOLOGY: no R karey. n o H vimal. G ASTROENTEROLOGY: no N ausea. n o V omiting. D iarrhea y es.? O PTHALMOLOGY: Negative for d enies vision issues. U ROLOGY: Positive for v oiding QS. n o D ifficulty urinating. n o B lood in urine. n o V oiding dysfunction. * Medical History: H ypertension, Allergies, Glaucoma, OA, Headaches, Kidney stones, Type 2 DM, Hyperuricemia, HLP, Chronic renal insufficiency - Dr. Porter. * Surgical History: C -section , carpal tunnel , cholecystectomy , double hernia repair , tonsillectomy , torn rotator cuff, left 12/2007, stress test/blood work/chest x-ray [facility]/Dr. Slade Nunez 09/28, kidney stones removed 04/10/09, kidney stones removed 09-11-09, kidney stones removed 07/29/11, cataract surgery on right eye 06/01, heart cath/normal/Dr. Nunez 02/2013, lithotripsy 05/2013, hemmohroid surgery , rotator cuff tear repair and tendon repair - Dr. Back 03/29/14, laser lithotrypsi- Dr Palma 07/05, kidney stone removed Dr Palma .16, C-scope/ Macran/ normal 2017, C- scope/ Herman 06/2020, bilateral foot surgery to correct hammer toes/ Dr. Burkett 11/2023. * Hospitalization/Major Diagno stic Procedure: c hestpain , [facility], pneumonia 04/28/2008, [facility] ER-back pain 07/11/11, [facility] ER-chest pain 12/26/16, [facility]-kidney stones, diverticulitis 02/24 to 02/27/17, [facility] ER- UTI 07/08, [facility]-sore throat 10/08, Right Foot Toe Surgery 11/18/2023, Left Foot Toe Surgery 01/13/2024, [facility] ER - Dizziness, Heart Palpitations, Pain in LLQ 06/21/2024. * Family History: F ather: , CHF. M other: . 2 sister(s) . 1 daughter(s) . . * Social History: C URRENT TOBACCO USE S moking Status: Patient does NOT smoke. M arital Status: . Past smoking status: no. Alcohol: No. * Medications: T aking Magnesium Oxide 500 MG Tablet 1 tab(s) orally once a day , Taking Metoprolol Succinate ER 50 MG Tablet Extended Release 24 Hour 1 tablet At Bed Time , Taking Potassium Chloride ER 20 MEQ Tablet Extended Release 1 tab(s) orally once a day , Taking Losartan Potassium-HCTZ 50-12.5 MG Tablet 1 tablet Orally Once a day , Taking Atorvastatin Calcium 80 MG Tablet 1 tab(s) Orally At Bed Time , Taking Glimepiride 2 MG Tablet 1 tab(s) orally once a day , Taking Omeprazole 20 MG Capsule Delayed Release 1 cap(s) Orally once daily , Taking oxyBUTYnin Chloride ER 10 MG Tablet Extended Release 24 Hour 1 tablet Orally Once a day , Taking Potassium Chloride ER 20 MEQ Tablet Extended Release 1 tab(s) orally once a day , Taking Magnesium Oxide 400 MG Tablet 1 tab(s) Orally Once a day , Taking Pregabalin 150 MG Capsule 1 capsule Orally Once a day , Taking Methocarbamol 500 MG Tablet 1/ tablet Orally three times a day as needed , Taking Accu-Chek FastClix Lancets - ONCE A DAY , Taking Vitamin D3 25 MCG (1000 UT) Capsule 1 tab(s) Orally bid , Taking Diclofenac Sodium 1 % Gel 1 charles applied topically 4 times a day , Taking Accu-Chek Guide w/Device Kit as directed , Taking Accu-Chek Guide - Strip USE TO TEST BLOOD SUGAR ONCE DAILY. , Taking Allopurinol 100 MG Tablet TAKE 1 TABLET BY MOUTH DAILY , Taking Ozempic (1 MG/DOSE) 4 MG/3ML Solution Pen-injector DIAL AND INJECT UNDER THE SKIN 1 MG WEEKLY , Medication List reviewed and reconciled with the patient * Allergies: N SAIDs: raises blood pressure. Objective: * Vitals: W t: 189.4, Temp: 97.8, BP: 130/70, HR: 74, O2 Sat: 95% on RA, Nurse: colleen, Ht: 63.50, BMI:33.02. * Examination: E NT/Respiratory: General Appearance: N AD. Ears: a uditory canals normal bilaterally, TM's WNL. Nose : c ongested. Sinuses : n on tender bilaterally. Oral cavity : n o erythema or exudate seen on pharynx. Heart : R RR, normal S1 S2, no murmurs. Lungs: C oarse upper airway rhonchi, no wheezes. Assessment: * Assessment: 1. A cute bronchitis - J20.9 (Primary) 2 . T ype 2 diabetes mellitus without complication, without long-term current use of insulin - E11.9 Plan: * Treatment: 2. T ype 2 diabetes mellitus without complication, without long-term current use of insulin Refill Glimepiride Tablet, 2 MG, 1 tab(s), orally, once a day, 90, Refills 1; R efill Ozempic (1 MG/DOSE) Solution Pen-injector, 4 MG/3ML, dial and inject under the skin 1 mg weekly, 3 ml, Refills 3. L AB: CBC Fingerstick (in house) (Collection Date & Time - 02/26/2025) Value Reference Range w bc 7.9 3.5 - 10 * l ym 37.4 15 - 50 * m id 6.7 2 - 15 * g ran 55.9 35 - 80 * r bc 4.28 3.5 - 5.5 * h gb 13.0 11.5 - 16.5 * h ct 40.1 35 - 55 * m cv 93.6 75 - 100 * m ch 30.3 25 - 35 * m chc 32.4 31 - 38 * p lat 160 100 - 400 * Barbie Hatfield 02/26/2025 03:15 :50 PM > Provider reviewed results while patient in office. * Therapeutic Injections: Dexamethasone : 1 mL (Route: Intramuscular) given by Barbie Hatfield [facility] on right gluteus (Acute bronchitis) * Procedure Codes: G 2211 Complex e/m visit add on, J1100 Dexamethasone, 59991 ADMINISTRATION OF INJECTION, 82266 CAPILLARY BLOOD DRAW, 22591 CBC WITH AUTO DIFF, 3044F HG A1C LEVEL LT 7.0%, G8752 MOST RECENT SYSTOLIC BP < 140MM HG, G8754 MOST RECENT DIASTOLIC BP < 90MM HG * Follow Up: p rn * Billing Information: * Visit Code: 09139 Office Visit, Est Pt., Level 4. Modifiers: 25 * Procedure Codes: G2211 Complex e/m visit add on. J1100 Dexamethasone. 59508 ADMINISTRATION OF INJECTION. 62409 CAPILLARY BLOOD DRAW. 79809 CBC WITH AUTO DIFF. 3044F HG A1C LEVEL LT 7.0%. G8752 MOST RECENT SYSTOLIC BP < 140MM HG. G8754 MOST RECENT DIASTOLIC BP < 90MM HG. * Electronic signature of Vernon Cash MD on 05/08/2025 at 02:07 PM EDT Sign off status: Pending * Provider: Vernon Cash M.D. Date: 02/26/2025 Generated for Lei cardenas/Samy/eTmaximinosmitting on: 0 05/08/2025 02:07 PM EDT History and Physical Notes * HPI (History of Present Illness) Category Sub-Category Detail Notes Category Not es ENT/respiratory She started with head congestion and drainage 5 or 6 days ago but now feels the congestion is settling in her chest with increase congested but nonproductive cough. No fever or increased shortness of breath. Examination Category Sub-Category Detail Notes Category Not es ENT/Respiratory Oral cavity : no erythema or exudate s een on pharynx Sinuses : non tender bilateral ly Ears: auditory canals norm al bilaterally, TM's WNL Heart : RRR, normal S1 S2, n o murmurs Lungs: Coarse upper airway rhonchi, no wheezes General Appearance: NAD Nose : congested
--- OUTSIDE RECORDS SUMMARY | 2025-03-04 09:15 | XMS_ITS ---
Author Organization [facility] Address [address] [place] [phone] Care Team Providers Care Java Front End Web Developer Name Role Phone Vernon Cash Primary Care Provider Jennifer Marsh Unavailable [phone] Allergies Allergen (clinical drug ingredient) Drug/Non Drug [...] then 1 qd x 4 d Orally qd for 5 days 03/04/2025 Active Cefuroxime Axetil 500 MG 1 tablet Orally every 12 hrs for 7 day(s) 03/04/2025 Active Glimepiride 2 MG 1 tab(s) orally once a day Active Accu-Chek Guide - USE TO TEST BLOOD DEMPSEY GAR ONCE DAILY. Active Accu-Chek Guide w/Device as directed 07/10/2024 Active Diclofenac Sodium 1 % 1 charles applied topi selena 4 times a day Active Allopurinol 100 MG TAKE 1 TABLET BY CHRISTEL TH DAILY for 90 Active Magnesium Oxide 400 MG 1 [...] once a day for 90 days Active oxyBUTYnin Chloride ER 10 MG 1 tablet Or ally Once a day for 90 days Active Omeprazole 20 MG 1 cap(s) Orally once daily Active Vital Signs Blood pressure systolic 126 mm Hg 03/04/20 25 Blood pressure diastolic 68 mm Hg 025 Heart Rate 93 /min 03/04/2025 Height 63.50 in 03/04/2025 Weight 189.9 lbs 03/04/2025 BMI 33.11 kg/m2 03/04/2025 Encounters Encounter Location Date Provider Diagnosis [facility] [address] [place], [place] [phone] 03/04/2025 Jennifer Marsh Bronchitis J40 and BMI [...] then 1 qd x 4 d Orally qd for 5 days 03/04/2025 Cefuroxime Axetil 500 MG 1 tablet Orally every 12 hrs for 7 day(s) 03/04/2025 Treatment Notes Assessment Notes Bronchitis fluids, rest, suppor tive measures for fever/symptom relief Next Appt Details Follow Up: prn, Reason: Progress Notes * ALDAIR ROBERT WDOB:1955 ( 70 yo F)Acc No.[id number]:03/04/2025 Progress Notes Patient: ROBERT KIMBALL Provider: BIANCA Bruce :1955 A ge:70 Y S ex:Female Date:03/04/2025 Address:[address] Pcp:Vernon Cash Subjective: * Chief Complaints: * [...] [facility] [place] [facility]/Dr. Slade Nunez 09/28, kidney stones removed 04/10/09, kidney stones removed 09-11-09, kidney stones removed 07/29/11, cataract surgery on right eye 06/01, heart cath/normal/Dr. Nunez 02/2013, lithotripsy 05/2013, hemmohroid surgery , rotator cuff tear repair and tendon repair - Dr. Back 03/29/14, laser lithotrypsi- Dr Palma 07/05, kidney stone removed Dr Palma .16, C-scope/ Allran/ normal 2017, C- scope/ Herman 06/2020, bilateral foot surgery to correct hammer toes/ Dr. Burkett 11/2023. * Hospitalization/Major Diagno stic Procedure: c hestpain , [facility] ER, pneumonia 04/28/2008, [facility] ER-back pain 07/11/11, [facility] ER-chest pain 12/26/16, [facility]-kidney stones, diverticulitis 02/24 to 02/27/17, [facility] ER- UTI 07/08, [facility]-sore throat 10/08, Right Foot Toe Surgery 11/18/2023, Left Foot Toe Surgery 01/13/2024, [facility] ER - Dizziness, Heart Palpitations, Pain in [...] Appearance: well nourished and hydrated, NAD, alert. Eyes: sclera and conjunctiva clear. Ears: auditory canals normal bilaterally, tympanic membranes normal bilaterally. Oral cavity : moist mucosa. Heart : RRR. Lungs: decreased breath sounds posteriorly; rare cough.? Assessment: * Assessment: 1. B kaveh - J40 (Primary) 2 . B FL 33.0-33.9,adult - Z68.33 Plan: * Treatment: * [...] G 2211 Complex e/[place], [address] [place], [address] CAPILLARY BLOOD DRAW, 25618 CBC WITH AUTO DIFF, G8752 MOST RECENT SYSTOLIC BP < 140MM HG, G8754 MOST RECENT DIASTOLIC BP < 90MM HG * Follow Up: p rn * Billing Information: * Visit Code: 89824 Office Visit, Est Pt., Level 3. * Procedure Codes: G2211 Complex e/[place]. [address] [place]. [address] CAPILLARY BLOOD DRAW. 57701 CBC WITH AUTO DIFF. G8752 MOST RECENT SYSTOLIC BP < 140MM HG. G8754 MOST RECENT DIASTOLIC BP < 90MM HG. * Electronic signature of Paulina Marsh APRN on 05/08/2025 at 02:07 PM EDT Sign off status: Pending * Provider: BIANCA Bruce Date: 0 03/04/2025 Generated for Lei cardenas/Samy/Kendraitting on: 0 05/08/2025 02:07 PM EDT History [...]
--- OUTSIDE RECORDS SUMMARY | 2025-03-20 05:15 | XMS_ITS | Continuity of Care Document ---
Author Organization [facility] Address [address] [place] [address] Phone Care Team Providers Care Hyperion Developer Name Role Phone Bharat Gutiérrez MD Unavailable Allergies, Adverse Reactions, Alerts Substance Reaction Status Criticality No Known Allergies Active No Inform ation Medications Medication Instructions Dosage Effective Dates (start - stop) Status Comments tramadol 50 mg tablet take 1 tablet by mouth qhs prn - Active methocarbamol 500 mg tablet - Active pregabalin 150 mg capsule - Active amlodipine 10 mg tablet - Ac tive glimepiride 2 mg tablet - Ac tive metoprolol succinate ER 50 mg tablet,extended release 24 hr - Active oxybutynin chloride ER 10 mg tablet,extended release 24 hr - Active potassium chloride ER 20 mEq tablet,extended release - Active omeprazole 20 mg capsule,delayed release - Active diclofenac 1 % topical gel - Active ondansetron 4 mg disintegrating tablet - Active atorvastatin 40 mg tablet - Active Procedures Procedure Date Office/outpatient visit,est, mod 2024 Drain Or inject major jointor bursa Betamethasone acet 3mg & sod phosp 3mg A Dexamethasone sodium phos Drain Or inject major jointor bursa Office/outpatient visit,est, mod 2023 Drain/inject intermed joint/bursa Drain Or inject major jointor bursa Betamethasone acet 3mg & sod phosp 3mg N Triamcinolone acetonide inj Office/outpatient visit,est, mod 2023 Drain Or inject major jointor bursa X-ray exam of knee, 3 views Dexamethasone sodium phos Triamcinolone acetonide inj Office/outpatient visit,est, mod 2022 Betamethasone acet 3mg & sod phosp 3mg D Dexamethasone sodium phos Drain Or inject major jointor bursa Office/outpatient visit,new, mod 2022 Drain Or inject major jointor bursa X-ray exam of knee, 3 views Betamethasone acet 3mg & sod phosp 3mg N Dexamethasone sodium phos Advance Directives Directive Yes / No Effective Date File Name No Information Encounters Encounter Description Practice Location Reason(s) For Visit Diagnoses Date Provider Providers Copied on Encounter Office/outpa tient visit,est, [facility], [facility] [place], [address], tel:[phone] right shoulder (chief complaint)b ilateral knee (chief complaint) Bilateral primary osteoarthritis of kneePain in right shoulder Feb-3 0 5 Brock Nicholson. [address] [place] [address], [address], [place]. tel:[phone] Referring Provider: Ermias Baca, [address] [place] [address] [facility] [address], [address] . tel:[phone] Office/outpa tient visit,est, [facility], [address] [place], [address], [place] tel:[phone] bilateral knee pain (chief complaint) Bilateral primary osteoarthritis of kneePain in right shoulder 4 Brock Nicholson. [address] [place], [address], [place]. tel:[phone] Referring Provider: Ermias Baca, [address] [place] [address] [address], [place], [address] . tel:[phone] Office/outpa tient visit,est, mod [facility], [facility] [place], [address], [place] tel:[phone] follow up (chief complaint) Bilateral primary osteoarthritis of knee 4 Brock Nicholson. [address] [place], [address], [place]. tel:[phone] Referring Provider: Ermias Baca, [address] [place] [address] [address], [place], [address] . tel:[phone] Office/outpa tient visit,est, mod [facility], [facility] [place], [address], [place] tel:[phone] General orthopedic (chief complaint) Bilateral primary osteoarthritis of knee 3 Brock Nicholson. [address] [place], [address], [place]. tel:[phone] Referring Provider: Ermias Baca, [address] [place] [address] [address], [place], [address] . tel:[phone] [facility], [facility] [place], [address], [place] tel:[phone] No Information 3 Brock Nicholson. [address] [place] [address], [address], [place]. tel:[phone] Referring Provider: Ermias Baca, [address] [place] [address] [address], [place], [address] . tel:[phone] Office/outpa tient visit,[facility], [facility], [address] [place], [address], tel:[phone] knee (chief complaint)G eneral orthopedic (chief complaint) Bilateral primary osteoarthritis of knee 3 Brock Nicholson. [address] [employer] [place], [place], [facility], . tel:[phone] Referring Provider: Ermias Baca, [address] [place] [address], [address] . tel:[phone] [facility], [address] [place], [address], tel:[phone] No Information 3 Brock Nicholson. [address] [place], [address], . tel:[phone] Family History Family Member Type Diagnosis Age At Onset Sister Problem (finding) Congenital heart diseas e Father Problem (finding) Thyroid disorder Sister Problem (finding) Family history of Glauc rafia Father Problem (finding) Hypertension Mother Problem (finding) Cancer Sister Problem (finding) Cancer Mother Problem (finding) Family history of Glauc rafia Sister Problem (finding) Hypertension Father Problem (finding) Family history of Strok e Father Problem (finding) Congenital heart diseas e Payers Payer name Insurance type Covered republican ID Authoriza tikatie(s) [employer] Medicare - [id number] Social History Type Description Quantity Date Captured Comments Alcohol Use Details Unknown Caffeine Use Details Unknown Tobacco Use Status No Information Smoking Status No Information Sex Female Chief Complaint And Reason For Visit From encounter dated '03/20/2025 09:15'. right shoulder (chief complaint). Description: Patient states that the pain in the right shoulder is back- pain is in the back of the shoulder. bilateral knee (chief complaint). Description: Patient states that the pain in both knees are painful. Pain while walking and sitting with stiffness. Reason For Referral Reason For Referral No Information History Of Present Illness Encounter Date Complaint History Of Prese nt Illness bilateral knee Patient states t hat the pain in both knees are painful. Pain while walking and sitting with stiffness. right shoulder Patient states t hat the pain in the right shoulder is back- pain is in the back of the shoulder. bilateral knee pain Location: bi lateral knee. Additional information: Bilateral knee pain that started a month ago. Wants repeat injections today. 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
--- OUTSIDE RECORDS SUMMARY | 2025-04-30 07:30 | XMS_ITS ---
Author Organization [facility] Address [address] [place], [place] [id number] Care Team Providers Care Dynamometer Tester Name Role Phone Vernon Cash Primary Care Provider Allergies Allergen (clinical drug ingredient) Drug/Non Drug Allergy documented on EMR Reaction Allergy Type Onset Date Status Non-steroidal anti-inflammatory agent (FN) NSAIDs raises blood pressure Drug Allergy Active Results Component Value Reference Range Notes Glycohemoglobin A1c (in hous e) Reviewed date:05/05/2025 10:33:08 PM Interpretation:6.1% Performing Lab: Notes/Report: 6.1% glycohemoglobin 6.1% 5 - 6.5 % P-Comprehensive Metabolic Pa jung (CMP) Reviewed date:05/05/2025 10:33:07 PM Interpretation:GFR 51 Performing Lab: Notes/Report: Test performed by [facility], [facility] , [address], [place] [address] Jefry Patel MD, Flatwork Finisher CLIA: [id number] Sodium 141 135-145 mmol/L Potassium 4.0 3.5-5.3 mmol/L Chloride 106 97-108 mmol/L CO2 26 22-32 mmol/L Glucose 102 65-99 mg/dL BUN 16 8-23 mg/dL Creatinine 1.15 0.50-1.00 mg/dL Calcium 9.4 8.6-10.4 mg/dL eGFR by Creatinine 51 >59 mL/min/1.73m2 Protein 5.9 6.0-8.3 g/dL Albumin 3.8 3.5-5.3 g/dL Alkaline Phosphatase 115 35-121 IU/L ALT (SGPT) 16 <5-47 IU/L AST (SGOT) 16 <5-40 IU/L Bilirubin, Total 0.3 <0.2-1.2 mg/dL A/G Ratio 1.8 1.1-2.5 P-Lipid Panel Reviewed date:05/05/2025 10:33:07 PM Interpretation:LDL 101 Performing Lab: Notes/Report: Test performed by [facility], [address] , [address], [place] [address] Jefry Patel MD, Flatwork Finisher CLIA: [id number] Cholesterol 189 <200 mg/dL Triglycerides 174 <150 mg/dL HDL Cholesterol 53 >39 mg/dL Cholesterol / HDL Ratio 3.57 0.00-4.44 Ratio Non-HDL Cholesterol 136 <130 mg/dL LDL Cholesterol (Calculation) 101 <130 mg/dL LDL Cholesterol Levels* Less than 100 mg/dL Optimal 100 to 129 mg/dL Near Optimal/ Above Optimal 130 to 159 mg/dL Borderline High 160 to 189 mg/dL High 190 mg/dL and above Very High * Categories as recommended by the 2004 ATPIII guidelines LDL/HDL Ratio 1.9 <3.3 Ratio LDL Cholesterol Patient History Test Date: 12/11/2024 LDL Results: 34 Units: mg/dL % Change: - Test Date: 04/30/2025 LDL Results: 101 Units: mg/dL % Change: +197% P-Magnesium Reviewed date:05/05/2025 10:33:07 PM Interpretation:1.6 Performing Lab: Notes/Report: Test performed by [facility] [address] [facility] , [address], [place] [address] Jefry Patel MD, Flatwork Finisher CLIA: [id number] Magnesium 1.6 1.6-2.4 mg/dL REASON FOR VISIT needs check up before cardiology appt, Needs mammogram Medications Medication SIG (Take, Route, Frequency, Duration) Notes Start Date End Date Status Accu-Chek Guide w/Device as directed 07/10/2024 Active Accu-Chek Guide - USE TO TEST BLOOD DEMPSEY GAR ONCE DAILY. Active Cefuroxime Axetil 500 MG 1 tablet Orally every 12 hrs for 7 day(s) 03/04/2025 Not-Taking Zithromax Z-Otis 250 MG 2 today and then 1 qd x 4 d Orally qd for 5 days 03/04/2025 Not-Taking Albuterol Sulfate HFA 108 (90 Base) MCG/ACT 2 puff Inhalation qid and q2h prn 03/04/2025 Not-Taking Methocarbamol 500 MG 1/ tablet Orally th ree times a day as needed Not-Taking Accu-Chek FastClix Lancets - ONCE A DAY 11/03/2022 Active Omeprazole 20 MG 1 cap(s) Orally once daily Not-Taking Potassium Chloride ER 20 MEQ 1 tab(s) orally once a day for 90 days Not-Taking Magnesium Oxide 400 MG 1 tab(s) Orally O nce a day 12/13/2024 Not-Taking Allopurinol 100 MG TAKE 1 TABLET BY CHRISTEL TH DAILY for 90 Active Ozempic (2 MG/DOSE) 8 MG/3ML 2 mg Subcutaneous once a week 03/26/2025 Active Magnesium Oxide 500 MG 1 tab(s) orally o nce a day Not-Taking Potassium Chloride ER 20 MEQ 1 tab(s) orally once a day Not-Taking Atorvastatin Calcium 80 MG 1 tab(s) Orally At Bed Time Not-Taking Vitamin D3 25 MCG (1000 UT) 1 tab(s) Orally bid Active Diclofenac Sodium 1 % 1 charles applied topi selena 4 times a day Active Losartan Potassium-HCTZ 50-12.5 MG 1 tablet Orally Once a day Active oxyBUTYnin Chloride ER 10 MG 1 tablet Orally Once a day for 90 days Active Pregabalin 150 MG 1 capsule Orally Onc e a day Active Baclofen 10 MG/20ML as directed Intrathecal Active Glimepiride 2 MG 1 tab(s) orally once a day Active Metoprolol Succinate ER 50 MG 1 tablet At Bed Time Active Vital Signs Blood pressure systolic 124 mm Hg 04/30/20 25 Blood pressure diastolic 60 mm Hg 025 Heart Rate 63 /min 04/30/2025 Height 63.50 in 04/30/2025 Weight 190.4 lbs 04/30/2025 BMI 33.2 kg/m2 04/30/2025 Encounters Encounter [facility] Date [facility] [address] [place] [id number] 04/30/2025 Vernon Cash Essential hypertensi on I10 ; Dyslipidemia E78.5 ; Type 2 diabetes mellitus without complication, without long-term current use of insulin E11.9 ; Hypomagnesemia E83.42 and GERD (gastroesophageal reflux disease) K21.9 Assessments Encounter Date Diagnosis (ICD Code) Assessment Notes Treatment Notes Treatment Clinical Notes Section Notes 04/30/2025 Essential hypertension (ICD-10 - I10) 04/30/2025 Dyslipidemia (ICD-10 - E78.5) 04/30/2025 Type 2 diabetes mellitus without complication, without long-term current use of insulin (ICD-10 - E11.9) 04/30/2025 Hypomagnesemia (ICD-10 - E83.42) 04/30/2025 GERD (gastroesophageal reflux disease) (ICD-10 - K21.9) Plan Of Treatment Next Appt Details Follow Up: 6 Months, Reason: Progress Notes * ROBERT DUMONT WDOB:1955 ( 70 yo F)Acc No.[id number]:04/30/2025 Progress Notes Patient: ROBERT KIMBALL Provider: Vernon Cash M.D. :1955 A ge:70 Y S ex:Female Date:04/30/2025 Address:[place] [id number] Subjective: * Chief Complaints: * 1 . Needs check up before cardiology appt. 2. Needs mammogram. * HPI: C ardiology: She comes in for scheduled checkup and routine blood work. She saw her boat crew deck hand recently and he discontinued several of her medications including potassium, magnesium, omeprazole, atorvastatin, and OTC supplements. She is not sure why he stopped all the medication other than saying that she was on too many medications . Since stopping the omeprazole, she has been having epigastric burning every night. * ROS: D ERMATOLOGY: no R karey. [...] cuff, left 12/2007, stress test/blood work/chest x-ray [facility]/Dr. Slade Nunez 09/28, kidney stones removed 04/10/09, kidney stones removed 09-11-09, kidney stones removed 07/29/11, cataract surgery on right eye 06/01, heart cath/normal/Dr. Nunez 02/2013, lithotripsy 05/2013, hemmohroid surgery , rotator cuff tear repair and tendon repair - Dr. Back 03/29/14, laser lithotrypsi- Dr Palma 07/05, kidney stone removed Dr Palma 11.16, C-scope/ Macran/ normal 2017, C- scope/ Virgil 06/2020, bilateral foot surgery to correct hammer toes/ Dr. Burkett 11/2023. * Hospitalization/Major Diagno stic Procedure: c hestpain , [facility] ER, pneumonia 04/28/2008, [facility] ER-back pain 07/11/11, [facility] ER-chest pain 12/26/16, [facility]-kidney stones, diverticulitis 02/24 to 02/27/17, [facility] ER- UTI 07/08, [facility]-sore throat 10/08, Right Foot Toe Surgery 11/18/2023, Left Foot Toe Surgery 01/13/2024, [facility] ER - Dizziness, Heart Palpitations, Pain in LLQ 06/21/2024. * Family History: F ather: , CHF. M other: . 2 sister(s) . 1 daughter(s) . . * Social History: C URRENT TOBACCO USE S moking Status: Patient does NOT smoke. M arital Status: . Past smoking status: no. Alcohol: No. * Medications: T aking Baclofen 10 MG/20ML Solution as directed Intrathecal , Taking Glimepiride 2 MG Tablet 1 tab(s) orally once a day , Taking Metoprolol Succinate ER 50 MG Tablet Extended Release 24 Hour 1 tablet At Bed Time , Taking Losartan Potassium-HCTZ 50-12.5 MG Tablet 1 tablet Orally Once a day , Taking oxyBUTYnin Chloride ER 10 MG Tablet Extended Release 24 Hour 1 tablet Orally Once a day , Taking Pregabalin 150 MG Capsule 1 capsule Orally Once a day , Taking Vitamin D3 25 MCG (1000 UT) Capsule 1 tab(s) Orally bid , Taking Diclofenac Sodium 1 % Gel 1 charles applied topically 4 times a day , Taking Allopurinol 100 MG Tablet TAKE 1 TABLET BY MOUTH DAILY , Taking Ozempic (2 MG/DOSE) 8 MG/3ML Solution Pen-injector 2 mg Subcutaneous once a week , Taking Accu-Chek FastClix Lancets - ONCE A DAY , Taking Accu-Chek Guide w/Device Kit as directed , Taking Accu-Chek Guide - Strip USE TO TEST BLOOD SUGAR ONCE DAILY. , Not-Taking Magnesium Oxide 500 MG Tablet 1 tab(s) orally once a day , Not-Taking Potassium Chloride ER 20 MEQ Tablet Extended Release 1 tab(s) orally once a day , Not-Taking Atorvastatin Calcium 80 MG Tablet 1 tab(s) Orally At Bed Time , Not- Taking Omeprazole 20 MG Capsule Delayed Release 1 cap(s) Orally once daily , Not-Taking Potassium Chloride ER 20 MEQ Tablet Extended Release 1 tab(s) orally once a day , Not-Taking Magnesium Oxide 400 MG Tablet 1 tab(s) Orally Once a day , Not-Taking Methocarbamol 500 MG Tablet 1/ tablet Orally three times a day as needed , Not- Taking Cefuroxime Axetil 500 MG Tablet 1 tablet Orally every 12 hrs , Not-Taking Zithromax Z-Otis 250 MG Tablet 2 today and then 1 qd x 4 d Orally qd , Not-Taking Albuterol Sulfate HFA 108 (90 Base) MCG/ACT Aerosol Solution 2 puff Inhalation qid and q2h prn , Medication List reviewed and reconciled with the patient * Allergies: N SAIDs: raises blood pressure. Objective: * Vitals: W t: 190.4, Temp: 97.7, BP: 124/60, HR: 63, Nurse: [facility], Ht: 63.50, BMI:33.2. * Examination: C ardiology: General Appearance: p leasant, NAD. HEENT: T hroat is unremarkable. No obvious cervical adenopathy.. Carotid upstroke: n ormal, no bruits. Heart sounds: R RR, normal S1, S2. Murmur, click , gallop: n one. Lungs: c lear, no rales or wheezes. Extremities: n o leg edema. Assessment: * Assessment: 1. E ssential hypertension - I10 (Primary) 2 . D yslipidemia - E78.5 ? 3 . T ype 2 diabetes mellitus without complication, without long-term current use of insulin - E11.9 4 . H ypomagnesemia - E83.42 5 . G ERD (gastroesophageal reflux disease) - K21.9 Plan: * Treatment: Value Reference Range A /G Ratio 1.8 1.1-2.5 - * A lbumin 3.8 3.5-5.3 - g/dL * A lkaline Phosphatase 115 35-121 - IU/L * A LT (SGPT) 16 <5-47 - IU/L * A ST (SGOT) 16 <5-40 - IU/L * B ilirubin, Total 0.3 <0.2-1.2 - mg/dL * B UN 16 8-23 - mg/dL * C alcium 9.4 8.6-10.4 - mg/dL * C hloride 106 97-108 - mmol/L * C O2 26 22-32 - mmol/L * C reatinine 1.15 H 0.50-1.00 - mg/dL * G lucose 102 H 65-99 - mg/dL * P otassium 4.0 3.5-5.3 - mmol/L * S odium 141 135-145 - mmol/L * P rotein 5.9 L 6.0-8.3 - g/dL * e GFR by Creatinine 51 L >59 - mL/min/1.73m2 * Vernon Cash 05/05/2025 10:32:56 PM EDT > See phone encounter ?LAB: P-Magnesium (Collection Date & Time - 04/30/2025 11:16 AM)?1.6* Value Reference Range M agnesium 1.6 1.6-2.4 - mg/dL * Vernon Cash 05/05/2025 10:32:56 PM EDT > See phone encounter 2.?Dyslipidemia?LAB: P-Lipid Panel (Collection Date & Time - 04/30/2025 11:16 AM)?LDL 101* Value Reference Range C holesterol / HDL Ratio 3.57 0.00-4.44 - Ratio * C holesterol 189 <200 - mg/dL * H DL Cholesterol 53 >39 - mg/dL * L DL Cholesterol (Calculation) 101 <130 - mg/d L * L DL/HDL Ratio 1.9 <3.3 - Ratio * N on-HDL Cholesterol 136 H <130 - mg/dL * T riglycerides 174 H <150 - mg/dL * Vernon Cash 05/05/2025 10:32:56 PM EDT > See phone encounter 3.?Type 2 diabetes mellitus without complication, without long-term current use of insulin?LAB: Glycohemoglobin A1c (in house) (Collection Date & Time - 04/30/2025)? 6.1%* Value Reference Range g lycohemoglobin 6.1% 5 - 6.5 % * Barbie Hatfield 04/30/2025 12:5 5:12 PM EDT > Vernon Cash 05/05/2025 10:32:56 PM EDT > See phone encounter * Procedure Codes: G 2211 Complex e/[place], [address] CAPILLARY BLOOD DRAW, 06293 GLYCATED HEMOGLOBIN TEST, Modifiers: QW , 3044F HG A1C LEVEL LT 7.0%, G8950 PREHTN/HTN BP DOC INDCD F/U DOC, G8752 MOST RECENT SYSTOLIC BP < 140MM HG, G8754 MOST RECENT DIASTOLIC BP < 90MM HG, 1036F TOBACCO NON-USER * Follow Up: 6 Months * Billing Information: * Visit Code: 89195 Office Visit, Est Pt., Level 4. * Procedure Codes: G2211 Complex e/[place]. [address] CAPILLARY BLOOD DRAW. 78412 GLYCATED HEMOGLOBIN TEST. Modifiers: QW 3044F HG A1C LEVEL LT 7.0%. G8950 PREHTN/HTN BP DOC INDCD F/U DOC. G8752 MOST RECENT SYSTOLIC BP < 140MM HG. G8754 MOST RECENT DIASTOLIC BP < 90MM HG. 1036F TOBACCO NON-USER. * Electronic signature of Vernon Cash MD on 05/08/2025 at 02:07 PM EDT Sign off status: Pending * Provider: Vernon Cash M.D. Date: 04/30/2025 Generated for Lei cardenas/Samy/Kendraitting on: 0 05/08/2025 02:07 PM EDT History and Physical Notes * HPI (History of Present Illness) Category Sub-Category Detail Notes Category Not es Cardiology She comes in [facility] scheduled checkup and routine blood work. She saw her boat crew deck hand recently and he discontinued several of her medications including potassium, magnesium, omeprazole, atorvastatin, and OTC supplements. She is not sure why he stopped all the medication other than saying that she was on too many medications . Since stopping the omeprazole, she has been having epigastric burning every night. Examination Category Sub-Category Detail Notes Category Not es Cardiology Lungs: clear, no rales or wheezes HEENT: Throat is unremarkab le. No obvious cervical adenopathy. Heart sounds: RRR, normal S1, S2 Carotid upstroke: normal, no bruits Extremities: no leg edema Murmur, click , gallop: none General Appearance: pleasant, NAD
--- OUTSIDE RECORDS SUMMARY | 2025-05-08 14:07 | XMS_ITS | Referral Summary ---
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 Active pravastatin (PRAVACHOL) 80 MG TABS Take 80 mg by mouth daily. Active zolpidem (AMBIEN CR) 12.5 MG TBCR Take 12.5 mg by mouth at bedtime as needed. Active amlodipine (NORVASC) 5 MG TABS Take 5 mg by mouth daily. Active ibuprofen (ADVIL,MOTRIN) 800 MG TABS Take 800 mg by mouth 3 (three) times daily as needed. Active potassium citrate (UROCIT-K) 10 MEQ (1080 MG) TBCR Take 10 mEq by mouth daily. Active topiramate (TOPAMAX) 50 MG TABS Take 50 mg by mouth 2 (two) times daily. Active trandolapril-ve rapamil 4-240 MG TBCR Take 1 tablet by mouth daily. Active hydrochlorothia zide (HYDRODIURIL) 25 MG TABS Take 40 mg by mouth daily. Active omeprazole (PRILOSEC) 20 MG CPDR Take 20 mg by mouth daily. Active aspirin 81 MG TBEC Take 81 mg by mouth daily. Active ascorbic acid (VITAMIN C) 500 MG TABS Take 500 mg by mouth 2 (two) times daily. Active diclofenac (VOLTAREN GEL) 1 % GEL Apply 4 g topically 4 (four) times daily. Back , knees and shoulders Active albuterol 108 (90 BASE) MCG/ACT AERS Use 2 puffs every 6 (six) hours as needed. Active nitroGLYCERIN (NITROSTAT) 0.4 MG SUBL 0.4 mg by Sublingual route every 5 (five) minutes as needed. Has never used NTG Active vitamin (TRINATAL RX 1) 60-1 MG TABS Take 1 tablet by mouth daily. Active oxycodone-aceta minophen (PERCOCET) 5-325 MG TABS Take 2 tablets by mouth every 4 (four) hours as needed (1-2 tabs PO q 4-6hrs PRN). 50 tablet 0 4 Active Social History Tobacco Use Types Packs/Day Years Used Date Smoking Tobacco: Never Alcohol Use Standard Drinks/Week Comments No 0 (1 standard drink = 0.6 oz pur e alcohol) Comments No Sex and Gender Information Value Date Recorded Sex Assigned at Not on file Legal Sex Female 7:09 AM EDT Gender Identity Not on file Sexual Orientation Not on file Last Filed Vital Signs Vital Sign Reading Time Taken Comments Blood Pressure 116/54 03/29/2014 5:48 PM EDT Pulse 55 03/29/2014 5:48 PM EDT Temperature 36.6 C (97.9 F) 03/29/2014 5:48 PM EDT Respiratory Rate 16 03/29/2014 5:48 PM EDT Oxygen Saturation 93% 03/29/2014 5:48 PM EDT Inhaled Oxygen Concentration - - Weight 98.9 kg (218 lb) 03/29/2014 11:20 AM EDT Height 165.1 cm (5' 5 ) 03/29/2014 11:20 AM EDT Body Mass Index 36.28 03/29/2014 11:20 AM EDT Functional Status * Are you deaf or do you have serious difficulty hearing? Answer Date of Assessment Author No 03/29/2014 11:36 AM EDT Chris Francis, Registered Nurse * Are you blind or do you have serious difficulty seeing, even when wearing glasses? Answer Date of Assessment Author No 03/29/2014 11:36 AM EDT Chris Francis, Registered Nurse * Do you have serious difficulty walking or climbing stairs? (5 years old or older) Answer Date of Assessment Author No 03/29/2014 11:36 AM EDT Chris Francis, Registered Nurse * Do you have difficulty dressing or bathing? (5 years old or older) Answer Date of Assessment Author No 03/29/2014 11:36 AM Chris Wyman, Registered Nurse * Because of a physical, mental, or emotional condition, do you have difficulty doing errands alone such as visiting a doctor???s office or shopping? (15 years old or older) Answer Date of Assessment Author No 03/29/2014 11:36 AM Chris Wyman, Registered Nurse Mental Status * Because of a physical, mental, or emotional condition, do you have serious difficulty concentrating, remembering, or making decisions? (5 years old or older) Answer Entry Date Author No 03/29/2014 11:36 AM Chris Wyman, Registered Nurse Plan of Treatment Not on file Medical Devices Implanted Type Area Panel Instrument Repairer Device Identifier Shelf Expiration Date Model / Serial / Lot Corkscrew Biocomposite 5.5mm - [id number] Implanted:Qty: 1 on 03/29/2014 by Arlene Back MD at [facility] Right: Shoulder ARTHREX ARTHROSCOPY INST 07/22/2015 AR-1927BC F / / [id number] Pushlock Biocomposite 4.5mm - [id number] Implanted:Qty: 2 on 03/29/2014 by Arlene Back MD at [facility] Right: Shoulder ARTHROTEK 05/21/2015 AR-1922BC / / [id number] [place] [employer] 4.75x19.1 - [id number] Implanted:Qty: 1 on 03/29/2014 by Arlene Back MD at [facility] Right: Shoulder [employer]X ARTHROS[employer] INST 05/21/2015 AR-2324BC C / / [id number] Biocomposite Corkscrew [employer]ented Implanted:Qty: 2 on 03/29/2014 by Arlene Back MD at [facility] Right: Shoulder [employer] ARTHROSCOPIC INST. 05/21/2015 AR-1927BC FT / / [id number] Care Teams Elementary Art Teacher Relationship Specialty Start Date End Date Other, Physician MD Talib PCP - General Internal Medicine 03/27/14
--- OUTSIDE RECORDS SUMMARY | 2025-05-08 14:07 | XMS_ITS | Data Portability ---
Author Organization RAFAEL KIKE Lopez LAFAYETTE CLOSED Address [address] [place] [address] Care Team Providers Care Software Configuration Manager Name Role Phone JENNY NATH Primary Care Provider [phone] Assessment Encounter Date Assessment Date Assessment LastModified [...] functioning at the time of induction. The 22-Slovak cystoscopy sheath was introduced. The bladder was [...] Organization Details Last Modified Time Details Appointments RECHECK 2024 11:30A M ISH VALENTINE MD Not available Not available Not available Lab urinalysi s panel, auto [address] [facility], [address], [place], [address], 07/10/2024 23:16:26 urinalysi s panel, auto 2021 022 [address] [facility], [address], [place], [address], 02/14/2022 17:24:13 Referral None recorded. Procedures None recorded. Surgeries None recorded. Imaging None recorded. Medication Orders allopurin ol 100 mg tablet 2020 021 [facility] [id number], [address] [place] [address] , [place], [address], 08/04/2021 21:52:06 Patient TargetsNo targets recorded. Patient InstructionsNo instructions recorded. Reason for Referral None Reported. Results Created Date Observation Date Name Description Value Unit Range Abnormal Flag Note LastModifiedBy Organization Detail LastModifiedTime 02/13/20 22 02/12/2022 urina lysis panel , auto Unknown Analyte Clean Catch Not Available Critical access hospital [facility] [address], [place], [address], 02/12/2022 09:15:19 02/13/20 22 02/12/2022 urina lysis panel , auto Unknown Analyte Yellow Not Available [facility] [address], [place], [address], 02/12/2022 09:15:19 02/13/20 22 02/12/2022 urina lysis panel , auto Unknown Analyte Clear Not Available [facility] [address], [place], [address], 02/12/2022 09:15:19 02/13/20 22 02/12/2022 urina lysis panel , auto Unknown Analyte 1.020 Not Available [facility] [address], [place], [address], 02/12/2022 09:15:19 02/13/20 22 02/12/2022 urina lysis panel , auto Unknown Analyte 1.003- 1.035 Not Available [facility] [address], [place], [address], 02/12/2022 09:15:19 02/13/20 22 02/12/2022 urina lysis panel , auto Unknown Analyte 6.0 Not Available [facility] [address], [place], [address], 02/12/2022 09:15:19 02/13/20 22 02/12/2022 urina lysis panel , auto Unknown Analyte 5.0-8. 0 Not Available [facility] [address], [place], [address], 02/12/2022 09:15:19 02/13/20 22 02/12/2022 urina lysis panel , auto Unknown Analyte Negati ve Not Available [facility] [address], [place], [address], 02/12/2022 09:15:19 02/13/20 22 02/12/2022 urina lysis panel , auto Unknown Analyte Negati ve Not Available [facility] [address], [place], [address], 02/12/2022 09:15:19 02/13/20 22 02/12/2022 urina lysis panel , auto Unknown Analyte Negati ve Not Available [facility] [address], [place], [address], 02/12/2022 09:15:19 02/13/20 22 02/12/2022 urina lysis panel , auto Unknown Analyte Negati ve Not Available [facility] [address], [place], [address], 02/12/2022 09:15:19 02/13/20 22 02/12/2022 urina lysis panel , auto Unknown Analyte Negati ve Not Available [facility] [address], [place], [address], 02/12/2022 09:15:19 02/13/20 22 02/12/2022 urina lysis panel , auto Unknown Analyte Negati ve Not Available [facility] [address], [place], [address], 02/12/2022 09:15:19 02/13/20 22 02/12/2022 urina lysis panel , auto Unknown Analyte Normal Not Available [facility] [address], [place], [address], 02/12/2022 09:15:19 02/13/20 22 02/12/2022 urina lysis panel , auto Unknown Analyte Normal Not Available [facility] [address], [place], [address], 02/12/2022 09:15:19 02/13/20 22 02/12/2022 urina lysis panel , auto Unknown Analyte Negati ve Not Available [facility] [address], [place], [address], 02/12/2022 09:15:19 02/13/20 22 02/12/2022 urina lysis panel , auto Unknown Analyte Negati ve Not Available [facility] [address], [place], [address], 02/12/2022 09:15:19 02/13/20 22 02/12/2022 urina lysis panel , auto Unknown Analyte Normal Not Available [facility] [address], [place], [address], 02/12/2022 09:15:19 02/13/20 22 02/12/2022 urina lysis panel , auto Unknown Analyte Normal 1 mg/dl Not Available [facility] [address], [place], [address], 02/12/2022 09:15:19 02/13/20 22 02/12/2022 urina lysis panel , auto Unknown Analyte Negati ve Not Available [facility] [address], [place], [address], 02/12/2022 09:15:19 02/13/20 22 02/12/2022 urina lysis panel , auto Unknown Analyte Negati ve Not Available [facility] [address], [place], [address], 02/12/2022 09:15:19 02/13/20 22 02/12/2022 urina lysis panel , auto Unknown Analyte 250 Ann[address]/ul Not Available [facility] [address], [place], [address], 02/12/2022 09:15:19 02/13/20 22 02/12/2022 urina lysis panel , auto Unknown Analyte Negati ve Not Available [facility] [address], [place], [address], 02/12/2022 09:15:19 07/09/20 24 07/09/2024 urina lysis panel , auto Unknown Analyte Clean Catch Not Available [facility] [address], [place], [address], 07/09/2024 14:13:16 07/09/20 24 07/09/2024 urina lysis panel , auto Unknown Analyte Yellow Not Available [facility] [address], [place], [address], 07/09/2024 14:13:16 07/09/20 24 07/09/2024 urina lysis panel , auto Unknown Analyte Clear Not Available [facility] [address], [place], [address], 07/09/2024 14:13:16 07/09/20 24 07/09/2024 urina lysis panel , auto Unknown Analyte 1.010 Not Available [facility] [address], [place], [address], 07/09/2024 14:13:16 07/09/20 24 07/09/2024 urina lysis panel , auto Unknown Analyte 1.003- 1.035 Not Available [facility] [address], [place], [address], 07/09/2024 14:13:16 07/09/20 24 07/09/2024 urina lysis panel , auto Unknown Analyte 5.0 Not Available [facility] [address], [place], [address], 07/09/2024 14:13:16 07/09/20 24 07/09/2024 urina lysis panel , auto Unknown Analyte 5.0-8. 0 Not Available [facility] [address], [place], [address], 07/09/2024 14:13:16 07/09/20 24 07/09/2024 urina lysis panel , auto Unknown Analyte 25 Preston/ul Trace Not Available [facility] [address], [place], [address], 07/09/2024 14:13:16 07/09/20 24 07/09/2024 urina lysis panel , auto Unknown Analyte Negati ve Not Available [facility] [address], [place], [address], 07/09/2024 14:13:16 07/09/20 24 07/09/2024 urina lysis panel , auto Unknown Analyte Negati ve Not Available [facility] [address], [place], [address], 07/09/2024 14:13:16 07/09/20 24 07/09/2024 urina lysis panel , auto Unknown Analyte Negati ve Not Available [facility] [address], [place], [address], 07/09/2024 14:13:16 07/09/20 24 07/09/2024 urina lysis panel , auto Unknown Analyte Trace Not Available [facility] [address], [place], [address], 07/09/2024 14:13:16 07/09/20 24 07/09/2024 urina lysis panel , auto Unknown Analyte Negati ve Not Available [facility] [address], [place], [address], 07/09/2024 14:13:16 07/09/20 24 07/09/2024 urina lysis panel , auto Unknown Analyte Normal Not Available [facility] [address], [place], [address], 07/09/2024 14:13:16 07/09/20 24 07/09/2024 urina lysis panel , auto Unknown Analyte Normal Not Available [facility] [address], [place], [address], 07/09/2024 14:13:16 07/09/20 24 07/09/2024 urina lysis panel , auto Unknown Analyte Negati ve Not Available [facility] [address], [place], [address], 07/09/2024 14:13:16 07/09/20 24 07/09/2024 urina lysis panel , auto Unknown Analyte Negati ve Not Available [facility] [address], [place], [address], 07/09/2024 14:13:16 07/09/20 24 07/09/2024 urina lysis panel , auto Unknown Analyte Normal Not Available [facility] [address], [place], [address], 07/09/2024 14:13:16 07/09/20 24 07/09/2024 urina lysis panel , auto Unknown Analyte Normal 1 mg/dl Not Available [facility] [address], [place], [address], 07/09/2024 14:13:16 07/09/20 24 07/09/2024 urina lysis panel , auto Unknown Analyte Negati ve Not Available [facility] [address], [place], [address], 07/09/2024 14:13:16 07/09/20 24 07/09/2024 urina lysis panel , auto Unknown Analyte Negati ve Not Available Critical access hospital [facility] [address], [place], [address], 07/09/2024 14:13:16 07/09/20 24 07/09/2024 urina lysis panel , auto Unknown Analyte Negati ve Not Available [facility] [address] [facility] [address], [place], [address], 07/09/2024 14:13:16 07/09/20 24 07/09/2024 urina lysis panel , auto Unknown Analyte Negati ve Not Available [facility] [address], [place], [address], 07/09/2024 14:13:16 02/13/20 22 02/12/2022 XR, abdom en, 1 view No observ ation record ed. [email or web address] ([facility]) [address], [place], [address], 03/04/2022 10:07:51 02/25/20 22 02/24/2022 CT, abdom en + pelvi s, w/o contr ast No observ ation record ed. [email or web address] [place] [address], [place], [address], 03/03/2022 09:41:37 04/15/20 22 04/15/2022 XR, abdom en, 1 view No observ ation record ed. [facility]) [address], [place], [address], 04/15/2022 21:14:59 06/30/20 22 03/17/2022 CT, abdom en + pelvi s, w/o contr ast No observ ation record ed. BARCODE Not Available 2021 11:03:51 07/09/20 24 07/09/2024 CT, abdom en + pelvi s, w/o contr ast [facility] [address] [place] [address] Patien t Name: ROBERT DUMONT Patien t : 954 Patien t Orderi ng Provid [...] ly Signed By: Bharat Black MD on 3:30 PM [email or web address] [facility] Radiology [facility] [address] [place] [address], [address], 07/25/2024 09:01:11 Result Notes Documentation Provider Name and Address Organization Details Recorded Time Ct, Abdomen + Pelvis, W/o Contrast : [facility] [address] [place] [address] Patient Name: ROBERT DUMONT Patient : 1955 Patient Ordering Provider: ISH VALENTINE EXAM DATE: 07/09/2024 EXAM: CT ABD/PELVIS WITHOUT CONTRAST CLINICAL INFORMATION: Flank pain. Stones TECHNIQUE: Multiple axial CT images of the abdomen and pelvis were obtained without injection of IV contrast. No oral contrast or water was administered to the patient. COMPARISON: None. FINDINGS ON CT ABDOMEN: LOWER THORAX: Lung bases are clear. No obvious cardiac abnormality. Calcified granulomas are present in the lung bases there is a punctate 2 mm nodule in the left base. Consider follow-up dedicated chest screening UPPER ABDOMINAL ORGANS: Liver, spleen, pancreas, and adrenal are normal. Gallbladder is absent. Extremely subtle punctate stone involving the inferior left kidney. Left-sided extrarenal pelvis BOWEL AND MESENTERY: Stomach, small bowel and colon are normal. No mesenteric lymphadenopathy or peritoneal free fluid. RETROPERITONEUM: Aorta, IVC and their branches are patent and normal. No retroperitoneal lymphadenopathy. ABDOMINAL WALL AND SKELETAL STRUCTURES: Previous ventral hernia repair. Mesh is intact. FINDINGS ON CT PELVIS: PELVIC CAVITY: Urinary bladder and rectosigmoid are normal. No pelvic or inguinal lymphadenopathy, mass or fluid. MUSCULOSKELETAL STRUCTURES: Normal. COMBINED IMPRESSION: Extremely subtle punctate stone, nonobstructive, left kidney Interpreted By: Bharat Black MD [facility] 07/25/2024 09:01:11 Procedures Surgical History Date Name Laterality Status Provider Name and Address Organization Details Recorded Time section completed [facility] 05/16/2020 12:28:24 extraction of cataract completed [facility] 05/16/2020 12:28:37 cardiac catheterization completed [facility] 05/16/2020 12:28:49 Hemorrhoidectomy completed [facility] 05/16/2020 12:28:57 Cholecystectomy completed [facility] 05/16/2020 12:29:04 Hernia Repair completed [facility] 05/16/2020 12:37:30 Carpal tunnel surgery completed [facility] 05/16/2020 12:37:46 complete repair of rotator cuff completed [facility] 05/16/2020 12:37:59 Imaging Results None recorded. Procedure Notes None recorded. Medical Equipment None [...] Updated DateTime 02/12/2022 167.64 cm 30.5 kg/m2 34366.96 g [facility] 02/12/2022 09:10:13 Date Recorded Body height Body mass index (BMI) Body weight Provider Name and Address Organization Details Last Updated DateTime 04/15/2022 167.64 cm 30.5 kg/m2 51045.96 g [facility] 04/15/2022 14:59:41 Date Recorded Body height Body mass index (BMI) Body weight Provider Name and Address Organization Details Last Updated DateTime 07/09/2024 167.64 cm 31.6 kg/m2 06596.1 g Catia Smith [facility] 07/09/2024 14:13:56 Date Recorded Body height Body mass index (BMI) Body weight Provider Name and Address Organization Details Last Updated DateTime 08/04/2021 167.64 cm 30.5 kg/m2 46647.96 g Isaiaseriee Gladstone [facility] 08/04/2021 16:01:48 Social History Question Answer Notes LastModified by Organizat ion Details LastModified Time Tobacco Smoking Status Never Smoker [facility] 05/16/2020 12:27:53 How Much Tobacco Do You Chew? None Information not available 05/16/2020 Marital Status Informatio n not available 05/16/2020 What Was The Date Of Your Most Recent Tobacco Screening? 07/09/2024 [email or web address] Information not available 07/09/2024 Sex: Unknown Functional [...] SNOMED-CT Code Diagnosis ICD10 Code Diagnosis Note [id number] ISH VALENTINE MD [facility] [address] [place] [address] 05/16/2020 10:46:26 05/16/2020 12:27:15 Uric acid urolithiasis 400831470 N20.9 follow-up 1 year [id number] ISH VALENTINE MD C[facility] [address] [place] [address] 08/04/2021 15:15:00 08/04/2021 16:22:49 History of urinary stone 154479698 Z87.442 Follow-up one year with KUB [id number] ISH VALENTINE MD [facility] [address] [place], [place] [address] 02/12/2022 08:29:24 02/12/2022 09:28:58 Urolithiasis [id number] N20.9 We will contact her with her CT scan results. Left flank pain [id number] 9 R10.9 [id number] ISH VALENTINE MD SURGERY SCHEDULE [address] [address] 03/17/2022 08:57:39 03/17/2022 08:59:45 [id number] FAUSTO PRINGLE MD [facility] [address] [facility] [address] [place], [place] [address] 04/15/2022 14:06:49 04/15/2022 15:27:27 Kidney stone [id number] N20.0 [id number] ISH VALENTINE MD [facility] [address] [facility] [address] [address] [place] [address] 07/09/2024 12:25:51 07/11/2024 04:19:40 Urolithiasis [id number] N20.9 We will contact her with her CT scan results. Health Concerns Section Related Observation LastModified by Organization Detai ls LastModified Time None Recorded Concern Status LastModified by Organization Details LastModified Time None Recorded Advance Directives Directive None Recorded Payers Insurance Date Sequence Insurance Name Policy Number Policy Haynes Covered Member ID Haynes Member ID Guarantor Name 08/08/2022 PAYMENT PLAN Robert Dumont 05/06/2025 1 [employer] (MEDICARE REPLACEMENT/A DVANTAGE - PPO) Robert Dumotn [id number] Robert Dumont Notes Date Note Type Note Provider Name [...] and I suggest she continue with it[place], [address], [facility] 08/04/2021 21:52:45 02/12/2022 text/html Patient is [...] protocol for further evaluation. ISH VALENTINE MD [facility] [place], [address], [facility] 02/14/2022 17:24:52 04/15/2022 text/html she continues [...] from a urologic source at this time MD Cassandra [place], [address], [facility] 04/15/2022 15:31:00 07/09/2024 text/html Patient is here in follow-up last seen 2 years ago. She has long history of urolithiasis and for the last 2 weeks has been having left-sided flank pain. She has had no recent imaging. I suggest we arrange for CT scan without contrast renal stone protocol. [place], [address], [facility] 07/10/2024 23:17:15 OBGyn Episode No OBEpisode recorded.
--- OUTSIDE RECORDS SUMMARY | 2025-05-08 14:07 | XMS_ITS ---
Author Organization Unknown Medications Date Medication Dosage DosageUnit StartDate StopDate StopReason Active DoseQuantity DoseUnit Dispense DispenseUnit Refills NdcCode DrugCode PharmacyId IsPrescription MappedMedication Srcstatus 03/04 00:00 :00 Accu-Chek FastClix Lancets 11/03/2022 00:00:00 1 100 5 P Taking 02/26 00:00 :00 Accu-Chek FastClix Lancets 11/03/2022 00:00:00 1 100 5 P Taking 12/11 00:00 :00 Accu-Chek FastClix Lancets 11/03/2022 00:00:00 1 100 5 P Taking 08/23 00:00 :00 Accu-Chek FastClix Lancets 11/03/2022 00:00:00 1 100 5 P Taking 07/26 00:00 :00 Accu-Chek FastClix Lancets 11/03/2022 00:00:00 1 100 5 P Taking 06/28 00:00 :00 Accu-Chek FastClix Lancets 11/03/2022 00:00:00 1 100 5 P Taking 04/30 00:00 :00 Accu-Chek FastClix Lancets 11/03/2022 00:00:00 1 100 5 P Taking 03/04 00:00 :00 Accu-Chek Guide w/Devic e Kit 07/10/2024 00:00:00 1 1 0 4959206 9 10 P Taking 03/04 00:00 :00 Accu-Chek Guide - Strip 1 100 Strip 5 6570 2070 210 Taking 02/26 00:00 :00 Accu-Chek Guide w/Devic e Kit 07/10/2024 00:00:00 1 1 0 1017485 9 10 P Taking 02/26 00:00 :00 Accu-Chek Guide - Strip 1 100 Strip 5 6570 2070 210 Taking 12/11 00:00 :00 Accu-Chek Guide w/Devic e Kit 07/10/2024 00:00:00 1 1 0 9444905 9 10 P Taking 12/11 00:00 :00 Accu-Chek Guide - Strip 1 100 Strip 5 6570 2070 210 Taking 08/23 00:00 :00 Accu-Chek Guide w/Devic e Kit 07/10/2024 00:00:00 1 1 0 [id number] 9 10 P Taking 08/23 00:00 :00 Accu-Chek Guide - Strip 1 100 Strip 5 6570 2070 210 Taking 07/26 00:00 :00 Accu-Chek Guide w/Devic e Kit 07/10/2024 00:00:00 1 1 0 1814648 9 10 P Taking 07/26 00:00 :00 Accu-Chek Guide - Strip 1 100 Strip 5 6570 2070 210 Taking 07/11 00:00 :00 Accu-Chek Guide - Strip 1 100 Strip 5 6570 2070 210 Start 07/11 00:00 :00 Accu-Chek Guide 0 100 5 Stop 07/10 00:00 :00 Accu-Chek Guide 11/03/2022 00:00:00 1 100 5 P Unknow n Status 07/10 00:00 :00 Accu-Chek Guide w/Devic e Kit 07/10/2024 00:00:00 1 1 0 2516057 9 10 P Start 06/28 00:00 :00 Accu-Chek Guide 11/03/2022 00:00:00 1 100 5 P Taking 04/30 00:00 :00 Accu-Chek Guide 11/03/2022 00:00:00 1 100 5 P Taking 03/04 00:00 :00 Albuterol Sulfate HFA 108 (90 Base) MCG/ACT Aerosol Solution 03/04/2025 00:00:00 1 1 1 8022636 4 287 P Start 03/21 00:00 :00 Allopurinol 100 MG Tablet 1 90 Tablet 0 43152149 205 Start 03/21 00:00 :00 Allopurinol 100 MG Tablet 0 90 Tablet 0 35061764 205 Stop 03/04 00:00 :00 Allopurinol 100 MG Tablet 1 90 Tablet 0 78899548 205 Taking 02/26 00:00 :00 Allopurinol 100 MG Tablet 1 90 Tablet 0 76565852 205 Taking 01/07 00:00 :00 Allopurinol 100 MG Tablet 1 90 Tablet 0 99980545 205 Start 01/07 00:00 :00 Allopurinol 100 MG Tablet 0 0037 8013 701 Stop 12/11 00:00 :00 Allopurinol 100 MG Tablet 1 0037 8013 701 P Continue 12/11 00:00 :00 Allopurinol 100 MG Tablet 1 0037 8013 701 P Taking 08/23 00:00 :00 Allopurinol 100 MG Tablet 1 0037 8013 701 P Taking 07/26 00:00 :00 Allopurinol 100 MG Tablet 1 0037 8013 701 P Continue 07/26 00:00 :00 Allopurinol 100 MG Tablet 1 90 1 0037 8013 701 P Taking 06/28 00:00 :00 Allopurinol 100 MG Tablet 1 90 1 0037 8013 701 P Unknown Status 06/28 00:00 :00 Allopurinol 100 MG Tablet 1 0037 8013 701 P Taking 04/30 00:00 :00 Allopurinol 100 MG Tablet 1 0037 8013 701 P Taking 12/11 00:00 :00 Amabelz 0.5-0.1 MG Tablet 0 85470390 971 P Discontinu ed 08/23 00:00 :00 Amabelz 0.5-0.1 MG Tablet 0 72654769 971 P Not Taking 07/26 00:00 :00 Amabelz 0.5-0.1 MG Tablet 0 49339609 971 P Not Taking 06/28 00:00 :00 Amabelz 0.5-0.1 MG Tablet 0 64657712 971 P Not Taking 04/30 00:00 :00 Amabelz 0.5-0.1 MG Tablet 0 40714615 971 P Not Taking 04/30 00:00 :00 amLODIPine Besylate 10 MG Tablet 0 0048 0716 810 P Discontinu ed 03/04 00:00 :00 Atorvastati n Calcium 80 MG Tablet 1 90 1 722 28488 599 P Taking 02/26 00:00 :00 Atorvastati n Calcium 80 MG Tablet 1 90 1 722 90671 599 P Taking 12/11 00:00 :00 Atorvastati n Calcium 80 MG Tablet 1 90 1 722 95664 599 P Unknown Status 12/11 00:00 :00 Atorvastati n Calcium 80 MG Tablet 1 90 Tablet 0 87133385 599 Taking 08/23 00:00 :00 Atorvastati n Calcium 80 MG Tablet 1 90 Tablet 0 61506628 599 Taking 07/26 00:00 :00 Atorvastati n Calcium 80 MG Tablet 1 90 Tablet 0 97830587 599 Taking 07/05 00:00 :00 Atorvastati n Calcium 80 MG Tablet 1 90 Tablet 0 76908228 599 Start 07/05 00:00 :00 Atorvastati n Calcium 80 MG Tablet 0 90 1 703 09700 013 Stop 06/28 00:00 :00 Atorvastati n Calcium 80 MG Tablet 1 90 1 703 55556 013 P Unknown Status 06/28 00:00 :00 Atorvastati n Calcium 80 MG Tablet 1 90 Tablet 0 38281046 013 Taking 04/30 00:00 :00 Atorvastati n Calcium 80 MG Tablet 1 90 Tablet 0 31011164 013 Taking 03/04 00:00 :00 Benzonatate 200 MG Capsule 02/26/2025 00:00:00 0 24 0134081 3 205 P Discontinu ed 02/26 00:00 :00 Benzonatate 200 MG Capsule 02/26/2025 00:00:00 1 24 1913376 3 205 P Start 12/11 00:00 :00 Calcium Magnesium Zinc 333-133 -5 MG Tablet 1 90 26401951 54 Taking 08/23 00:00 :00 Calcium Magnesium Zinc 333-133 -5 MG Tablet 1 90 38700161 54 Taking 07/26 00:00 :00 Calcium Magnesium Zinc 333-133 -5 MG Tablet 1 90 40957190 54 Taking 06/28 00:00 :00 Calcium Magnesium Zinc 333-133 -5 MG Tablet 1 90 19055108 54 Taking 04/30 00:00 :00 Calcium Magnesium Zinc 333-133 -5 MG Tablet 1 90 48719621 54 Taking 03/04 00:00 :00 Cefuroxime Axetil 500 MG Tablet 03/04/2025 00:00:00 1 14 Tablet 73270 040 101 P Start 12/11 00:00 :00 cloNIDine HCl 0.1 MG Tablet 0 180 1 907322 12 710 Discontinu ed 08/23 00:00 :00 cloNIDine HCl 0.1 MG Tablet 0 180 1 400107 12 710 Not Taking 07/26 00:00 :00 cloNIDine HCl 0.1 MG Tablet 0 180 1 778457 12 710 Not Taking 06/28 00:00 :00 cloNIDine HCl 0.1 MG Tablet 0 180 1 821771 12 710 Not Taking 04/30 00:00 :00 cloNIDine HCl 0.1 MG Tablet 0 180 1 136534 12 710 Not Taking 03/04 00:00 :00 Diclofenac Sodium 1 % Gel 1 400 gm 1 869451 06 510 P Taking 02/26 00:00 :00 Diclofenac Sodium 1 % Gel 1 400 gm 1 928673 06 510 P Taking 12/11 00:00 :00 Diclofenac Sodium 1 % Gel 1 400 gm 1 240100 06 510 P Taking 08/23 00:00 :00 Diclofenac Sodium 1 % Gel 1 400 gm 1 269720 06 510 P Taking 07/26 00:00 :00 Diclofenac Sodium 1 % Gel 1 400 gm 1 706365 06 510 P Taking 06/28 00:00 :00 Diclofenac Sodium 1 % Gel 1 400 gm 1 278275 06 510 P Taking 06/11 00:00 :00 Diclofenac Sodium 1 % Gel 1 400 gm 1 672413 06 510 P Unknown Status 04/30 00:00 :00 Diclofenac Sodium 1 % Gel 1 400 gm 3 517919 06 510 P Taking 03/04 00:00 :00 Doxycycline Hyclate 100 MG Capsule 02/26/2025 00:00:00 0 20 Capsule 66172595 305 P Discontinu ed 02/26 00:00 :00 Doxycycline Hyclate 100 MG Capsule 02/26/2025 00:00:00 1 20 Capsule 68682231 305 P Start 12/11 00:00 :00 Furosemide 40 MG Tablet 1 631833 29 925 P Continue 12/11 00:00 :00 Furosemide 40 MG Tablet 1 117477 29 925 P Taking 08/23 00:00 :00 Furosemide 40 MG Tablet 1 235729 29 925 P Continue 08/23 00:00 :00 Furosemide 40 MG Tablet 1 071066 29 925 P Taking 07/26 00:00 :00 Furosemide 40 MG Tablet 1 217439 29 925 P Continue 07/26 00:00 :00 Furosemide 40 MG Tablet 1 824413 29 925 Taking 06/28 00:00 :00 Furosemide 40 MG Tablet 1 820869 29 925 Continue 06/28 00:00 :00 Furosemide 40 MG Tablet 1 30 628212 29 925 Taking 12/11 00:00 :00 Gabapentin 300 MG Capsule 09/16/2022 00:00:00 0 0486461 6 661 P Discontinu ed 08/23 00:00 :00 Gabapentin 300 MG Capsule 09/16/2022 00:00:00 0 8839592 6 661 P Not Taking 07/26 00:00 :00 Gabapentin 300 MG Capsule 09/16/2022 00:00:00 0 8939684 6 661 P Not Taking 06/28 00:00 :00 Gabapentin 300 MG Capsule 09/16/2022 00:00:00 0 5346713 6 661 P Not Taking 04/30 00:00 :00 Gabapentin 300 MG Capsule 09/16/2022 00:00:00 0 7911651 6 661 P Not Taking 03/04 00:00 :00 Glimepiride 2 MG Tablet 1 90 1 872175 77 401 P Taking 02/26 00:00 :00 Glimepiride 2 MG Tablet 1 90 1 730601 77 401 P Unknown Status 02/26 00:00 :00 Glimepiride 2 MG Tablet 1 90 1 179612 77 401 P Taking 12/11 00:00 :00 Glimepiride 2 MG Tablet 1 90 1 426246 77 401 P Unknown Status 12/11 00:00 :00 Glimepiride 2 MG Tablet 1 90 1 626695 77 401 Taking 08/23 00:00 :00 Glimepiride 2 MG Tablet 1 90 1 318907 77 401 Taking 07/26 00:00 :00 Glimepiride 2 MG Tablet 1 90 1 757561 77 401 Taking 07/24 00:00 :00 Glimepiride 2 MG Tablet 1 90 1 401869 77 401 Start 07/24 00:00 :00 Glimepiride 2 MG Tablet 0 90 1 764747 77 401 Stop 06/28 00:00 :00 Glimepiride 2 MG Tablet 1 90 1 732951 77 401 P Taking 06/28 00:00 :00 Glimepiride 2 MG Tablet 1 90 1 769263 77 401 Taking 04/30 00:00 :00 Glimepiride 2 MG Tablet 1 90 1 835142 77 401 P Taking 04/30 00:00 :00 Glimepiride 2 MG Tablet 1 90 1 047630 77 401 Taking 12/13 00:00 :00 Hyoscyamine Sulfate 0.125 MG Tablet 12/13/2024 00:00:00 1 20 4315092 5 010 P Start 12/11 00:00 :00 Jardiance 25 MG Tablet 0 9739741 5 307 P Discontinu ed 08/23 00:00 :00 Jardiance 25 MG Tablet 0 9525470 5 307 P Not Taking 07/26 00:00 :00 Jardiance 25 MG Tablet 0 0297206 5 307 P Not Taking 06/28 00:00 :00 Jardiance 25 MG Tablet 0 7007952 5 307 P Not Taking 04/30 00:00 :00 Jardiance 25 MG Tablet 1 8795982 5 307 P Taking 03/04 00:00 :00 Losartan Potassium-H CTZ 50-12.5 MG Tablet 1 16208229 710 P Taking 02/26 00:00 :00 Losartan Potassium-H CTZ 50-12.5 MG Tablet 1 43369780 710 P Taking 12/11 00:00 :00 Losartan Potassium-H CTZ 50-12.5 MG Tablet 1 44958467 710 P Continue 12/11 00:00 :00 Losartan Potassium-H CTZ 50-12.5 MG Tablet 1 30 59271139 710 P Taking 12/11 00:00 :00 Losartan Potassium-H CTZ 100-25 MG Tablet 0 34291556 810 P Discontinu ed 08/23 00:00 :00 Losartan Potassium-H CTZ 100-25 MG Tablet 0 03761277 810 P Not Taking 07/26 00:00 :00 Losartan Potassium-H CTZ 100-25 MG Tablet 0 69302270 810 P Not Taking 06/28 00:00 :00 Losartan Potassium-H CTZ 100-25 MG Tablet 0 69685386 810 P Not Taking 04/30 00:00 :00 Losartan Potassium-H CTZ 100-25 MG Tablet 0 35034165 810 P Not Taking 03/04 00:00 :00 Magnesium Oxide 500 MG Tablet 1 517243 23 960 P Taking 03/04 00:00 :00 Magnesium Oxide 400 MG Tablet 12/13/2024 00:00:00 1 90 1 8141214 0 922 P Taking 02/26 00:00 :00 Magnesium Oxide 500 MG Tablet 1 407381 23 960 P Taking 02/26 00:00 :00 Magnesium Oxide 400 MG Tablet 12/13/2024 00:00:00 1 90 1 5921981 0 922 P Taking 12/13 00:00 :00 Magnesium Oxide 400 MG Tablet 12/13/2024 00:00:00 1 90 1 5821212 0 922 P Start 12/11 00:00 :00 Magnesium Oxide 500 MG Tablet 1 250301 23 960 P Continue 12/11 00:00 :00 Magnesium Oxide 500 MG Tablet 0 828462 23 960 P Not Taking 08/23 00:00 :00 Magnesium Oxide 500 MG Tablet 1 480283 23 960 P Taking 07/26 00:00 :00 Magnesium Oxide 500 MG Tablet 1 975585 23 960 P Continue 07/26 00:00 :00 Magnesium Oxide 500 MG Tablet 1 554829 23 960 Taking 06/28 00:00 :00 Magnesium Oxide 500 MG Tablet 1 426138 23 960 Continue 06/28 00:00 :00 Magnesium Oxide 500 MG Tablet 1 051622 23 960 Taking 04/30 00:00 :00 Magnesium Oxide 500 MG Tablet 1 277611 23 960 Taking 12/11 00:00 :00 metFORMIN HCl 850 MG Tablet 0 180 1 457844 18 605 P Discontinu ed 08/23 00:00 :00 metFORMIN HCl 850 MG Tablet 0 180 1 142168 18 605 P Not Taking 07/26 00:00 :00 metFORMIN HCl 850 MG Tablet 0 180 1 652950 18 605 P Not Taking 06/28 00:00 :00 metFORMIN HCl 850 MG Tablet 0 180 1 165886 18 605 P Not Taking 04/30 00:00 :00 metFORMIN HCl 850 MG Tablet 0 180 1 419061 18 605 P Not Taking 03/04 00:00 :00 Methocarbam ol 500 MG Tablet 1 513378 74 040 P Taking 02/26 00:00 :00 Methocarbam ol 500 MG Tablet 1 032828 74 040 P Taking 12/11 00:00 :00 Methocarbam ol 500 MG Tablet 1 274124 74 040 P Taking 08/23 00:00 :00 Methocarbam ol 500 MG Tablet 1 720658 74 040 P Taking 07/26 00:00 :00 Methocarbam ol 500 MG Tablet 1 274719 74 040 P Taking 06/28 00:00 :00 Methocarbam ol 500 MG Tablet 1 616298 74 040 P Taking 04/30 00:00 :00 Methocarbam ol 500 MG Tablet 1 748536 74 040 P Taking 03/04 00:00 :00 Metoprolol Succinate ER 50 MG Tablet Extended Release 24 Hour 1 06928753 610 P Taking 02/26 00:00 :00 Metoprolol Succinate ER 50 MG Tablet Extended Release 24 Hour 1 85028259 610 P Taking 12/11 00:00 :00 Metoprolol Succinate ER 50 MG Tablet Extended Release 24 Hour 1 23283957 610 P Continue 12/11 00:00 :00 Metoprolol Succinate ER 50 MG Tablet Extended Release 24 Hour 1 90 Tablet 0 3358187 6 510 Taking 10/27 00:00 :00 Metoprolol Succinate ER 50 MG Tablet Extended Release 24 Hour 1 90 Tablet 0 0017249 6 510 Start 10/27 00:00 :00 Metoprolol Succinate ER 50 MG Tablet Extended Release 24 Hour 0 54431360 610 Stop 08/23 00:00 :00 Metoprolol Succinate ER 50 MG Tablet Extended Release 24 Hour 1 31927618 610 P Continue 08/23 00:00 :00 Metoprolol Succinate ER 50 MG Tablet Extended Release 24 Hour 1 90 Tablet 1 7151978 6 705 Taking 08/23 00:00 :00 Metoprolol Succinate ER 50 MG Tablet Extended Release 24 Hour 1 05750492 610 P Taking 07/26 00:00 :00 Metoprolol Succinate ER 50 MG Tablet Extended Release 24 Hour 1 08941907 610 P Continue 07/26 00:00 :00 Metoprolol Succinate ER 50 MG Tablet Extended Release 24 Hour 1 90 Tablet 1 8461300 6 705 Taking 07/24 00:00 :00 Metoprolol Succinate ER 50 MG Tablet Extended Release 24 Hour 1 90 Tablet 1 8159001 6 705 Start 07/24 00:00 :00 Metoprolol Succinate ER 50 MG Tablet Extended Release 24 Hour 0 90 Tablet 0 9865409 6 705 Stop 07/20 00:00 :00 Metoprolol Succinate ER 50 MG Tablet Extended Release 24 Hour 1 90 Tablet 0 8807627 6 705 Start 07/20 00:00 :00 Metoprolol Succinate ER 50 MG Tablet Extended Release 24 Hour 0 11398250 610 Stop 06/28 00:00 :00 Metoprolol Succinate ER 50 MG Tablet Extended Release 24 Hour 1 61114735 610 P Continue 06/28 00:00 :00 Metoprolol Succinate ER 50 MG Tablet Extended Release 24 Hour 1 90 1 97394314 610 P Taking 06/28 00:00 :00 Metoprolol Succinate ER 50 MG Tablet Extended Release 24 Hour 0 90 Tablet 1 2166654 6 705 Discontinu ed 04/30 00:00 :00 Metoprolol Succinate ER 50 MG Tablet Extended Release 24 Hour 1 90 1 95965957 610 P Taking 04/30 00:00 :00 Metoprolol Succinate ER 50 MG Tablet Extended Release 24 Hour 1 90 Tablet 1 3395884 6 705 Taking 03/04 00:00 :00 Omeprazole 20 MG Capsule Delayed Release 1 90 1 78571843 810 P Taking 02/26 00:00 :00 Omeprazole 20 MG Capsule Delayed Release 1 90 1 41512557 810 P Taking 12/11 00:00 :00 Omeprazole 20 MG Capsule Delayed Release 1 90 1 99970984 810 P Unknown Status 12/11 00:00 :00 Omeprazole 20 MG Capsule Delayed Release 1 90 Capsule 0 87497686 810 Taking 11/16 00:00 :00 Omeprazole 20 MG Capsule Delayed Release 1 90 Capsule 0 76602138 810 Start 11/16 00:00 :00 Omeprazole 20 MG Capsule Delayed Release 0 90 1 22365365 801 Stop 08/23 00:00 :00 Omeprazole 20 MG Capsule Delayed Release 1 90 1 14488220 801 Taking 07/26 00:00 :00 Omeprazole 20 MG Capsule Delayed Release 1 90 1 49450780 801 Taking 06/28 00:00 :00 Omeprazole 20 MG Capsule Delayed Release 1 90 1 32262910 801 Taking 05/23 00:00 :00 Omeprazole 20 MG Capsule Delayed Release 1 90 1 72494626 801 Start 05/23 00:00 :00 Omeprazole 20 MG Capsule Delayed Release 0 90 1 80895268 801 Stop 04/30 00:00 :00 Omeprazole 20 MG Capsule Delayed Release 1 90 1 77836897 801 Taking 03/04 00:00 :00 oxyBUTYnin Chloride ER 10 MG Tablet Extended Release 24 Hour 1 90 Tablet 1 9821966 1 001 P Taking 02/26 00:00 :00 oxyBUTYnin Chloride ER 10 MG Tablet Extended Release 24 Hour 1 90 Tablet 1 9691013 1 001 P Taking 12/11 00:00 :00 oxyBUTYnin Chloride ER 10 MG Tablet Extended Release 24 Hour 1 90 Tablet 1 5682176 1 001 P Unknown Status 12/11 00:00 :00 oxyBUTYnin Chloride ER 10 MG Tablet Extended Release 24 Hour 1 90 Tablet 1 9444060 1 001 Taking 08/23 00:00 :00 oxyBUTYnin Chloride ER 10 MG Tablet Extended Release 24 Hour 1 90 Tablet 1 7748307 1 001 Taking 07/26 00:00 :00 oxyBUTYnin Chloride ER 10 MG Tablet Extended Release 24 Hour 1 90 Tablet 1 6052518 1 001 Taking 07/04 00:00 :00 oxyBUTYnin Chloride ER 10 MG Tablet Extended Release 24 Hour 1 90 Tablet 1 7666268 1 001 Start 07/04 00:00 :00 oxyBUTYnin Chloride ER 10 MG Tablet Extended Release 24 Hour 0 90 Tablet 0 1513848 1 001 Stop 06/28 00:00 :00 oxyBUTYnin Chloride ER 10 MG Tablet Extended Release 24 Hour 1 90 Tablet 0 6760769 1 001 Taking 04/30 00:00 :00 oxyBUTYnin Chloride ER 10 MG Tablet Extended Release 24 Hour 1 90 Tablet 0 4419885 1 001 Taking 08/23 00:00 :00 Ozempic (0.25 or 0.5 MG/DOSE) 2 MG/3ML Solution Pen-injecto r 0 15081698 113 P Stop 08/23 00:00 :00 Ozempic (0.25 or 0.5 MG/DOSE) 2 MG/3ML Solution Pen-injecto r 1 3 Millilite r 0 33642419 113 Taking 08/16 00:00 :00 Ozempic (0.25 or 0.5 MG/DOSE) 2 MG/3ML Solution Pen-injecto r 1 3 Millilite r 0 67043981 113 Start 08/16 00:00 :00 Ozempic (0.25 or 0.5 MG/DOSE) 2 MG/3ML Solution Pen-injecto r 0 3 Millilite r 0 14433167 113 Stop 07/26 00:00 :00 Ozempic (0.25 or 0.5 MG/DOSE) 2 MG/3ML Solution Pen-injecto r 1 3 Millilite r 0 44409799 113 Taking 07/20 00:00 :00 Ozempic (0.25 or 0.5 MG/DOSE) 2 MG/3ML Solution Pen-injecto r 1 3 Millilite r 0 43192295 113 Start 07/20 00:00 :00 Ozempic (0.25 or 0.5 MG/DOSE) 2 MG/3ML Solution Pen-injecto r 0 1 20210912 113 Stop 06/28 00:00 :00 Ozempic (0.25 or 0.5 MG/DOSE) 2 MG/3ML Solution Pen-injecto r 03/14/2024 00:00:00 1 1 8490359 8 113 P Taking 06/06 00:00 :00 Ozempic (0.25 or 0.5 MG/DOSE) 2 MG/3ML Solution Pen-injecto r 03/14/2024 00:00:00 1 1 4299052 8 113 P Unknown Status 04/30 00:00 :00 Ozempic (0.25 or 0.5 MG/DOSE) 2 MG/3ML Solution Pen-injecto r 03/14/2024 00:00:00 1 1 6233876 8 113 P Taking 03/26 00:00 :00 Ozempic (1 MG/DOSE) 4 MG/3ML Solution Pen-injecto r 0 89068224 013 P Stop 03/04 00:00 :00 Ozempic (1 MG/DOSE) 4 MG/3ML Solution Pen-injecto r 1 3 ml 3 04533745 013 P Taking 02/26 00:00 :00 Ozempic (1 MG/DOSE) 4 MG/3ML Solution Pen-injecto r 1 3 ml 3 30851968 013 P Unknown Status 02/26 00:00 :00 Ozempic (1 MG/DOSE) 4 MG/3ML Solution Pen-injecto r 1 3 Millilite r 0 87630647 013 Taking 02/02 00:00 :00 Ozempic (1 MG/DOSE) 4 MG/3ML Solution Pen-injecto r 1 3 Millilite r 0 53649737 013 Start 02/02 00:00 :00 Ozempic (1 MG/DOSE) 4 MG/3ML Solution Pen-injecto r 0 3 Millilite r 0 52735348 013 Stop 01/01 00:00 :00 Ozempic (1 MG/DOSE) 4 MG/3ML Solution Pen-injecto r 1 3 Millilite r 0 33842986 013 P Unknown Status 12/11 00:00 :00 Ozempic (1 MG/DOSE) 4 MG/3ML Solution Pen-injecto r 1 3 Millilite r 0 27649434 013 Taking 11/30 00:00 :00 Ozempic (1 MG/DOSE) 4 MG/3ML Solution Pen-injecto r 1 3 Millilite r 0 04051651 013 Start 11/30 00:00 :00 Ozempic (1 MG/DOSE) 4 MG/3ML Solution Pen-injecto r 0 3 Millilite r 0 50138808 013 Stop 10/27 00:00 :00 Ozempic (1 MG/DOSE) 4 MG/3ML Solution Pen-injecto r 1 3 Millilite r 0 83144430 013 Start 10/27 00:00 :00 Ozempic (1 MG/DOSE) 4 MG/3ML Solution Pen-injecto r 0 3 Millilite r 0 98463269 013 Stop 10/26 00:00 :00 Ozempic (1 MG/DOSE) 4 MG/3ML Solution Pen-injecto r 1 3 Millilite r 0 06924139 013 Start 10/26 00:00 :00 Ozempic (1 MG/DOSE) 4 MG/3ML Solution Pen-injecto r 0 3 ml 1 23375309 001 Stop 08/23 00:00 :00 Ozempic (1 MG/DOSE) 4 MG/3ML Solution Pen-injecto r 08/23/2024 00:00:00 1 3 ml 1 8571072 3 001 P Start 03/26 00:00 :00 Ozempic (2 MG/DOSE) 8 MG/3ML Solution Pen-injecto r 03/26/2025 00:00:00 1 3 ml 2 1428952 7 211 P Start 12/11 00:00 :00 Paxlovid (300/100) 20 x 150 MG & 10 x 100MG Tablet Therapy Pack 10/22/2024 00:00:00 0 30 9166145 2 103 P Discontinu ed 10/22 00:00 :00 Paxlovid (300/100) 20 x 150 MG & 10 x 100MG Tablet Therapy Pack 10/22/2024 00:00:00 1 30 [id number] 2 103 P Start 03/04 00:00 :00 Potassium Chloride ER 20 MEQ Tablet Extended Release 1 09415752 201 P Taking 03/04 00:00 :00 Potassium Chloride ER 20 MEQ Tablet Extended Release 1 90 Tablet 1 790073 23 201 P Taking 02/26 00:00 :00 Potassium Chloride ER 20 MEQ Tablet Extended Release 1 [id number] 201 P Taking 02/26 00:00 :00 Potassium Chloride ER 20 MEQ Tablet Extended Release 1 90 Tablet 1 843391 23 201 P Taking 12/11 00:00 :00 Potassium Chloride ER 20 MEQ Tablet Extended Release 1 90 Tablet 1 [id number] 23 201 P Unknown Status 12/11 00:00 :00 Potassium Chloride ER 20 MEQ Tablet Extended Release 1 [id number] 201 P Continue 12/11 00:00 :00 Potassium Chloride ER 20 MEQ Tablet Extended Release 1 90 Tablet 1 227152 23 201 Taking 12/11 00:00 :00 Potassium Chloride ER 20 MEQ Tablet Extended Release 1 45204945 201 P Taking 08/23 00:00 :00 Potassium Chloride ER 20 MEQ Tablet Extended Release 1 71609734 201 P Continue 08/23 00:00 :00 Potassium Chloride ER 20 MEQ Tablet Extended Release 1 90 Tablet 1 612178 23 201 Taking 08/23 00:00 :00 Potassium Chloride ER 20 MEQ Tablet Extended Release 1 [id number] 201 P Taking 07/26 00:00 :00 Potassium Chloride ER 20 MEQ Tablet Extended Release 1 33583770 201 P Continue 07/26 00:00 :00 Potassium Chloride ER 20 MEQ Tablet Extended Release 1 90 Tablet 1 [id number] 23 201 Taking 07/04 00:00 :00 Potassium Chloride ER 20 MEQ Tablet Extended Release 1 90 Tablet 1 [id number] 23 201 Start 07/04 00:00 :00 Potassium Chloride ER 20 MEQ Tablet Extended Release 0 69464405 201 Stop 06/28 00:00 :00 Potassium Chloride ER 20 MEQ Tablet Extended Release 1 [id number] 201 P Continue 06/28 00:00 :00 Potassium Chloride ER 20 MEQ Tablet Extended Release 1 90 1 [id number] 201 P Taking 04/30 00:00 :00 Potassium Chloride ER 20 MEQ Tablet Extended Release 1 90 1 [id number] 201 P Taking 03/04 00:00 :00 Pregabalin 150 MG Capsule 1 0022 8286 009 P Taking 02/26 00:00 :00 Pregabalin 150 MG Capsule 1 0022 8286 009 P Taking 12/11 00:00 :00 Pregabalin 150 MG Capsule 1 0022 8286 009 P Taking 08/23 00:00 :00 Pregabalin 150 MG Capsule 1 0022 8286 009 P Taking 07/26 00:00 :00 Pregabalin 150 MG Capsule 1 0022 8286 009 P Taking 06/28 00:00 :00 Pregabalin 150 MG Capsule 1 0022 8286 009 P Taking 04/30 00:00 :00 Pregabalin 150 MG Capsule 1 0022 8286 009 P Taking 12/11 00:00 :00 Qulipta 60 MG Tablet 06/29/2024 00:00:00 1 8704046 9 430 P Taking 08/23 00:00 :00 Qulipta 60 MG Tablet 06/29/2024 00:00:00 1 [id number] 9 430 P Taking 07/26 00:00 :00 Qulipta 60 MG Tablet 06/29/2024 00:00:00 1 0520055 9 430 P Taking 06/28 00:00 :00 Qulipta 60 MG Tablet 06/29/2024 00:00:00 1 [id number] 9 430 P Start 12/11 00:00 :00 Telmisartan 80 MG Tablet 0 30755 292 277 P Discontinu ed 08/23 00:00 :00 Telmisartan 80 MG Tablet 1 63751 292 277 P Continue 08/23 00:00 :00 Telmisartan 80 MG Tablet 1 90 1 28585 292 277 P Taking 07/26 00:00 :00 Telmisartan 80 MG Tablet 1 90 1 76298 292 277 P Increase 07/26 00:00 :00 Telmisartan 40 MG Tablet 1 77531 292 177 Taking 06/28 00:00 :00 Telmisartan 40 MG Tablet 1 54519 292 177 Continue 06/28 00:00 :00 Telmisartan 40 MG Tablet 1 69319 292 177 Taking 04/30 00:00 :00 Telmisartan 40 MG Tablet 1 61550 292 177 Taking 12/11 00:00 :00 Torsemide 10 MG Tablet 0 90 2 [id number] 3 001 Discontinu ed 08/23 00:00 :00 Torsemide 10 MG Tablet 0 90 2 [id number] 3 001 Not Taking 07/26 00:00 :00 Torsemide 10 MG Tablet 0 90 2 [id number] 3 001 Not Taking 06/28 00:00 :00 Torsemide 10 MG Tablet 0 90 2 [id number] 3 001 Not Taking 04/30 00:00 :00 Torsemide 10 MG Tablet 0 90 2 [id number] 3 001 Not Taking 12/11 00:00 :00 traMADol HCl 50 MG Tablet 0 [id number] 5 801 P Discontinu ed 08/23 00:00 :00 traMADol HCl 50 MG Tablet 0 [id number] 5 801 P Not Taking 07/26 00:00 :00 traMADol HCl 50 MG Tablet 0 [id number] 5 801 P Not Taking 06/28 00:00 :00 traMADol HCl 50 MG Tablet 0 [id number] 5 801 P Not Taking 04/30 00:00 :00 traMADol HCl 50 MG Tablet 0 4898033 5 801 P Not Taking 12/11 00:00 :00 Vitamin C 500 MG Tablet 0 30 425476 52 360 Discontinu ed 08/23 00:00 :00 Vitamin C 500 MG Tablet 0 30 [id number] 52 360 Not Taking 07/26 00:00 :00 Vitamin C 500 MG Tablet 0 30 [id number] 52 360 Not Taking 06/28 00:00 :00 Vitamin C 500 MG Tablet 0 30 [id number] 52 360 Not Taking 04/30 00:00 :00 Vitamin C 500 MG Tablet 0 30 237553 52 360 Not Taking 03/04 00:00 :00 Vitamin D3 25 MCG (1000 UT) Capsule 1 83581560 36 Taking 02/26 00:00 :00 Vitamin D3 25 MCG (1000 UT) Capsule 1 87488932 36 Taking 12/11 00:00 :00 Vitamin D3 25 MCG (1000 UT) Capsule 1 78645538 36 Taking 08/23 00:00 :00 Vitamin D3 25 MCG (1000 UT) Capsule 1 [id number] 36 Taking 07/26 00:00 :00 Vitamin D3 25 MCG (1000 UT) Capsule 1 [id number] 36 Taking 06/28 00:00 :00 Vitamin D3 25 MCG (1000 UT) Capsule 1 [id number] 36 Taking 04/30 00:00 :00 Vitamin D3 25 MCG (1000 UT) Capsule 1 [id number] 36 Taking 03/04 00:00 :00 Zithromax Z-Otis 250 MG Tablet 03/04/2025 00:00:00 1 6 [id number] 6 075 P Start 12/11 00:00 :00 Zolpidem Tartrate 10 MG Tablet 10/25/2022 00:00:00 0 30 3 [id number] 7 401 P Discontinu ed 08/23 00:00 :00 Zolpidem Tartrate 10 MG Tablet 10/25/2022 00:00:00 0 30 3 [id number] 7 401 P Not Taking 07/26 00:00 :00 Zolpidem Tartrate 10 MG Tablet 10/25/2022 00:00:00 0 30 3 [id number] 401 P Not Taking 06/28 00:00 :00 Zolpidem Tartrate 10 MG Tablet 10/25/2022 00:00:00 0 30 3 [id number] 7 401 P Not Taking 04/30 00:00 :00 Zolpidem Tartrate 10 MG Tablet 10/25/2022 00:00:00 0 30 3 [id number] 7 401 P Not Taking
--- OUTSIDE RECORDS SUMMARY | 2025-05-08 14:07 | XMS_ITS | Patient Health Record ---
Author Organization [facility] Address [address] [facility] [address] [place] [id number] Care Team Providers Care Tung Nut Grower Name Role Phone Vernon Cash Primary Care Provider Jennifer Marsh Unavailable [phone] Allergies Allergen (clinical drug ingredient) Drug/Non Drug [...] - 38 plat 171 100 - 400 CBC Fingerstick (in house) Reviewed date:02/27/2025 10:36:52 [...] - 38 plat 160 100 - 400 Glycohemoglobin A1c (in hous e) Reviewed date:05/05/2025 10:33:08 PM Interpretation:6.1% Performing Lab: Notes/Report: 6.1% glycohemoglobin 6.1% 5 - 6.5 % P-Comprehensive Metabolic Pa jung (CMP) Reviewed date:05/05/2025 10:33:07 PM Interpretation:GFR 51 Performing Lab: Notes/Report: Test performed by [facility] [address] [place] [address] , [address], [place] [address] Jefry Patel MD, Sensitometrist CLIA: [id number] Sodium 141 135-145 mmol/L Potassium 4.0 3.5-5.3 [...] 101 Performing Lab: Notes/Report: Test performed by [facility] [address] [place] [address] [address], [place] [address] Jefry Patel MD, Sensitometrist CLIA: [id number] Cholesterol 189 <200 mg/dL Triglycerides 174 <150 [...] Interpretation:1.6 Performing Lab: Notes/Report: Test performed by [facility] [address] [place], [place] [address] [address], [place] [address] Jefry Patel MD, Sensitometrist CLIA: [id number] Magnesium 1.6 1.6-2.4 mg/dL P-Basic Metabolic Panel (BMP ) Reviewed date:07/31/2024 08:17:54 AM Interpretation: Performing Lab: Notes/Report: Test performed by [facility] [address] [place] [address] [address], [place] [address] Jefry Patel MD, Sensitometrist CLIA: [id number] Sodium 143 135-145 mmol/L Potassium 4.5 3.5-5.3 mmol/L Chloride 107 97-108 mmol/L CO2 27 22-32 mmol/L Glucose 120 65-99 mg/dL BUN 16 8-23 mg/dL Creatinine 1.06 0.50-1.00 mg/dL Calcium 9.2 8.6-10.4 mg/dL eGFR by Creatinine 56 >59 mL/min/1.73m2 P-Magnesium Reviewed date:07/31/2024 08:17:54 AM Interpretation: Performing Lab: Notes/Report: Test performed by [facility] [address] [place] [address] , [place] [address] Jefry Patel MD, Sensitometrist CLIA: [id number] Magnesium 1.9 1.6-2.4 mg/dL P-Uric Acid Reviewed date:07/31/2024 08:17:54 AM Interpretation: Performing Lab: Notes/Report: Test performed by [facility] [address] [place] [address] , [address], [place] [id number] Jefry Patel MD, Sensitometrist CLIA: [id number] Uric Acid 4.1 2.4-7.0 mg/dL CBC Venipuncture (in house) Reviewed date:12/13/2024 08:39:43 AM Interpretation:Normal Performing Lab: Notes/Report: Normal wbc 7.8 3.5 - 10 lymph 18.0 15 - 50 mid 4.7 2 - 15 gran 77.3 35 - 80 rbc 4.58 3.5 - 5.5 hgb 14.3 11.5 - 16.5 hct 43.0 35 - 55 mcv 93.8 75 - 100 mch 31.1 25 - 35 mchc 33.2 31 - 38 platlet 150 100 - 400 Glycohemoglobin A1c (in hous e) Reviewed date:12/13/2024 08:39:43 AM Interpretation:6.4% Performing Lab: Notes/Report: 6.4% glycohemoglobin 6.4% 5 - 6.5 % P-Comprehensive Metabolic Pa jung (CMP) Reviewed date:12/13/2024 08:39:43 AM Interpretation:gluc 171, bun 24, Cr 1.17, gfr 50, alk phos 137 Performing Lab: Notes/Report: Test performed by [facility] [address] [place] [address] , [address], [place] [address] Jefry Patel MD, Sensitometrist CLIA: [id number] Sodium 145 135-145 mmol/L Potassium 5.2 3.5-5.3 mmol/L Chloride 108 97-108 mmol/L CO2 28 22-32 mmol/L Glucose 171 65-99 mg/dL BUN 24 8-23 mg/dL Creatinine 1.17 0.50-1.00 mg/dL Calcium 9.6 8.6-10.4 mg/dL eGFR by Creatinine 50 >59 mL/min/1.73m2 Protein 6.7 6.0-8.3 g/dL Albumin 4.0 3.5-5.3 g/dL Alkaline Phosphatase 137 35-121 IU/L ALT (SGPT) 19 <5-47 IU/L AST (SGOT) 16 <5-40 IU/L Bilirubin, Total 0.6 <0.2-1.2 mg/dL A/G Ratio 1.5 1.1-2.5 P-Lipid Panel Reviewed date:12/13/2024 08:39:43 AM Interpretation:Normal Performing Lab: Notes/Report: Test performed by [facility] [address] [place] [address] , [address], [place] [address] Jefry Patel MD, Sensitometrist CLIA: [id number] Cholesterol 113 <200 mg/dL Triglycerides 135 <150 mg/dL HDL Cholesterol 52 >39 mg/dL Cholesterol / HDL Ratio 2.17 0.00-4.44 Ratio Non-HDL Cholesterol 61 <130 mg/dL LDL Cholesterol (Calculation) 34 <130 mg/dL LDL Cholesterol Levels* Less than 100 mg/dL Optimal 100 to 129 mg/dL Near Optimal/ Above Optimal 130 to 159 mg/dL Borderline High 160 to 189 mg/dL High 190 mg/dL and above Very High * Categories as recommended by the 2004 ATPIII guidelines LDL/HDL Ratio 0.7 <3.3 Ratio LDL Cholesterol Patient History Test Date: 12/11/2024 LDL Results: 34 Units: mg/dL % Change: - P-Magnesium Reviewed date:12/13/2024 08:39:43 AM Interpretation:1.5 Performing Lab: Notes/Report: Test performed by [facility] [facility], [place] [address] Jefry Patel MD, Sensitometrist CLIA: [id number] Magnesium 1.5 1.6-2.4 mg/dL P-Microalbumin/Creatinine, R andom Urine Sample Reviewed date:12/13/2024 08:39:43 AM Interpretation:a/c 76 Performing Lab: Notes/Report: Test performed by [facility] [address] [place] [address] Jefry Patel MD, Sensitometrist CLIA: [id number] Albumin/Creatinine Ratio, Urine 76 0-30 ug/m g Microalbumin, Urine, Random 24.3 Creatinine, Urine 321.2 P-Uric Acid Reviewed date:12/13/2024 08:39:43 AM Interpretation:Normal Performing Lab: Notes/Report: Test performed by [facility] [address] , [place] [address] Jefry Patel MD, Sensitometrist CLIA: [id number] Uric Acid 6.6 2.4-7.0 mg/dL Medications Medication SIG (Take, Route, Frequency, Duration) Notes Start Date End Date Status Methocarbamol 500 MG 1/ tablet Orally th ree times a day as needed Not-Taking Vitamin D3 25 MCG (1000 UT) 1 tab(s) Orally bid Active Accu-Chek FastClix Lancets - ONCE A DAY 11/03/2022 Active Diclofenac Sodium 1 % 1 charles applied topi selena 4 times a day Active Accu-Chek Guide w/Device as directed 07/10/2024 Active Allopurinol 100 MG TAKE 1 TABLET BY CHRISTEL TH DAILY for 90 Active Accu-Chek Guide - USE TO TEST BLOOD DEMPSEY GAR ONCE DAILY. Active Ozempic (2 MG/DOSE) 8 MG/3ML 2 mg Subcutaneous once a week 03/26/2025 Active Cefuroxime Axetil 500 MG 1 tablet Orally every 12 hrs for 7 day(s) 03/04/2025 Not-Taking Magnesium Oxide 500 MG 1 tab(s) orally o nce a day Not-Taking Zithromax Z-Otis 250 MG 2 today and then 1 qd x 4 d Orally qd for 5 days 03/04/2025 Not-Taking Baclofen 10 MG/20ML as directed Intrathecal Active Potassium Chloride ER 20 MEQ 1 tab(s) orally once a day Not-Taking Albuterol Sulfate HFA 108 (90 Base) MCG/ACT 2 puff Inhalation qid and q2h prn 03/04/2025 Not-Taking Glimepiride 2 MG 1 tab(s) orally once a day Active Atorvastatin Calcium 80 MG 1 tab(s) Orally At Bed Time Not-Taking Metoprolol Succinate ER 50 MG 1 tablet At Bed Time Active Omeprazole 20 MG 1 cap(s) Orally once daily Not-Taking Losartan Potassium-HCTZ 50-12.5 MG 1 tablet Orally Once a day Active Potassium Chloride ER 20 MEQ 1 tab(s) orally once a day for 90 days Not-Taking oxyBUTYnin Chloride ER 10 MG 1 tablet Orally Once a day for 90 days Active Magnesium Oxide 400 MG 1 tab(s) Orally O nce a day 12/13/2024 Not-Taking Pregabalin 150 MG 1 capsule Orally Onc e a day Active Immunizations Vaccine Route Administration Date Status Comme nts xFluzone (6mos and older)-trivalent IM Intramuscular 11/29/2011 Administered xFlu shot-36 months and older Unknown 08/19/2017 Administered Tetanus Tdap-Adacel (over 7yrs) Unknown 06/24/2023 Administered Shingrix IM Intramuscular 05/16/2019 Administered Prevnar (PCV20) IM Intramuscular 02/23/2024 Administered PNEUMOVAX 23 VACCINE Unknown 09/15/2022 Administered Fluzone Quad-Medicare (6months&older) Unknown 09/15/2022 Administered Fluzone Quad (6months&older) Unknown 08/11/2018 Administered Fluzone PF Quad (6-35 months) Unknown 09/24/2016 Administered Fluzone PF Quad (6-35 months) Unknown 08/19/2017 Administered Fluzone High Dose (65yr and older) Unknown 08/11/2020 Administered Fluzone High Dose (65yr and older) Unknown 09/11/2023 Administered COVID 19 Moderna Unknown 02/10/2021 Administered COVID 19 Moderna Unknown 03/10/2021 Administered Tetanus Tdap-Adacel (over 7yrs) Unknown 09/10/2013 Administered Tetanus Tdap-Adacel (over 7yrs) IM Intramuscular 03/03/2009 Administered DT, 7 YEARS OR OLDER Unknown 01/26/1997 Administered Fluzone High Dose (65yr and older) IM Intramuscular 07/31/2021 Administered Hepatitis B (20 and more) Unknown 04/12/2001 Administer ed Hepatitis B (20 and more) Unknown 11/10/2000 Administer ed Hepatitis B (20 and more) Unknown 10/07/2000 Administer ed Prevnar (PCV13) Unknown 08/24/2019 Administered Fluzone High Dose (65yr and older) IM Intramuscular 08/23/2024 Administered PNEUMOVAX 23 VACCINE Unknown 09/24/2016 Administered Morphine 10mg/ml IM Intramuscular 11/24/2007 Administered Problems Problem Type SNOMED Code ICD Code Onset Dates Problem Status W/U Status Risk Notes Problem Gastroesophageal reflux disease (334009524) GERD (gastroesophageal reflux disease) (K21.9) Active confirmed Problem 69451222 Essential (primary) hypertension (I10) Active confirmed Problem 854666912 Insomnia (G47.00) Active confirmed Problem 95875614 Essential hypertension (I10) Active confirmed Problem Osteopenia (862846015) Osteopenia (M85.80) Active confirmed Problem Degeneration of lumbar intervertebral disc (82855066) Degenerative disc disease, lumbar (M51.36) Active confirmed Problem 643988181 Depression with anxiety (F41.8) Active confirmed Problem BMI 30+ - obesity (938500265) BMI 32.0-32.9,adult (Z68.32) Active confirmed Problem Obese class I (842059054900646) BMI 33.0-33.9,adult (Z68.33) Active confirmed Problem Overactive urinary bladder (disorder) (894464951) OAB (overactive bladder) (N32.81) Active confirmed Problem Hypomagnesemia (850945695) Hypomagnesemia (E83.42) Active confirmed Problem 7665757 Diverticulitis o f large intestine without perforation or abscess without bleeding (K57.32) Active confirmed Problem 838344306 Generalized osteoarthritis (M15.9) Active confirmed Problem Obese class II (550127182941190) BMI 35.0-35.9,adult (Z68.35) Active confirmed Problem 38570532 Hyperlipidemia, unspecified hyperlipidemia type (E78.5) Active confirmed Problem Migraine variant with headache (disorder) (413257260) Migraine headache (G43.909) Active confirmed Problem Body mass index 30.00 to 34.99 (187639852551038) BMI 31.0-31.9,adult (Z68.31) Active confirmed Problem 84747544 Renal stone (N20.0) Active confirmed Problem 900631301 Dyslipidemia (E78.5) Active confirmed Problem Chronic kidney disease (284352674) CKD (chronic kidney disease) (N18.9) Active confirmed Problem Glaucoma (89482460) Glaucoma (H40.9) Active con firmed Problem 508068241 Type 2 diabetes mellitus without complication, without long-term current use of insulin (E11.9) Active confirmed Problem 094103324 Chronic pain disorder (G89.4) Active confirmed Problem 99134938 Irritable bowel syndrome with both constipation and diarrhea (K58.2) Active confirmed Problem 177109552 Type 2 diabetes mellitus without complication, unspecified whether 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 intermodal 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 driver insulin use (E11.9) Active confirmed Problem Abnormal carotid ultrasound (R93.89) Active confirmed Vital Signs Heart Rate 63 /min 04/30/2025 Blood pressure diastolic 60 mm Hg 04/30/2025 Height 63.50 in 04/30/2025 Blood pressure systolic 124 mm Hg 04/30/2025 Weight 190.4 lbs 04/30/2025 BMI 33.2 kg/m2 04/30/2025 Encounters Encounter Location Date Provider Diagnosis [address] [place] [id number] 06/28/2024 R Keven Shailesh Essential hypertensi on I10 ; Hypomagnesemia E83.42 ; Migraine headache G43.909 and Hyperuricemia E79.0 [facility] [address] [place] [id number] 07/26/2024 R Keven Shailesh Essential hypertensi on I10 ; Hypomagnesemia E83.42 and Hyperuricemia E79.0 [address] [facility] [address] [place] [id number] 08/23/2024 R Keven Shailesh Essential hypertensi on I10 and Type 2 diabetes mellitus without complication, without long-term current use of insulin E11.9 [facility] [address] [facility] [address] [place] [id number] 12/11/2024 R Keven Shailesh Adult general medica l examination Z00.00 ; Essential hypertension I10 ; Hypomagnesemia E83.42 ; Hyperuricemia E79.0 ; Type 2 diabetes mellitus without complication, without long-term current use of insulin E11.9 ; Dyslipidemia E78.5 ; OAB (overactive bladder) N32.81 ; GERD (gastroesophageal reflux disease) K21.9 and BMI 33.0-33.9,adult Z68.33 [facility] [address] [place] [id number] 02/26/2025 R Keven Shailesh Acute bronchitis J20 .9 and Type 2 diabetes mellitus without complication, without long-term current use of insulin E11.9 [facility] [address] [place] [id number] 03/04/2025 Jennifer Marsh Bronchitis J40 and B MA 33.0-33.9,adult Z68.33 [facility] [address] [place] [id number] 04/30/2025 R Keven Shailesh Essential hypertensi on I10 ; Dyslipidemia E78.5 ; Type 2 diabetes mellitus without complication, without long-term current use of insulin E11.9 ; Hypomagnesemia E83.42 and GERD (gastroesophageal reflux disease) K21.9 [facility] [address] [place], [place] [id number] 05/22/2024 R Keven Shailesh Breast pain N64.4 an d Family history of breast cancer Z80.3 [facility] [address] [place], [place] [id number] 06/06/2024 R Keven Shailesh Type 2 diabetes mellitus without complication, without long-term current use of insulin E11.9 [facility] [address] [place], [place] [id number] 06/11/2024 R Keven Shailesh Generalized osteoarthritis M15.9 [facility] [address] [place], [place] [id number] 07/10/2024 R Keven Shailesh [facility] [address] [place], [place] [id number] 07/11/2024 R Keven Shailesh [facility] [address] [place], [place] [id number] 07/31/2024 R Keven Shailesh [facility] [address] [place], [place] [id number] 10/22/2024 R Keven Shailesh [facility] [address] [place], [place] [id number] 12/12/2024 R Keven Shailesh [facility] [address] [place], [place] [id number] 12/13/2024 R Keven Shailesh [facility] [address] [place], [place] [id number] 12/14/2024 R Keven Shailesh [facility] [address] [place], [place] [id number] 01/01/2025 R Keven Shailesh [facility] [address] [place], [place] [id number] 03/26/2025 Vernon Cash Type 2 diabetes mellitus without complication, without long-term current use of insulin E11.9 [facility] [address] [place] [id number] 05/05/2025 Vernon Branchfleet Assessments Encounter Date Diagnosis (ICD Code) Assessment Notes Treatment Notes Treatment Clinical Notes Section Notes 05/22/2024 Breast pain (ICD-10 - N64.4) 05/22/2024 Family history of breast cancer (ICD-10 - Z80.3) 06/06/2024 Type 2 diabetes mellitus without complication, without long-term current use of insulin (ICD-10 - E11.9) 06/11/2024 Generalized osteoarthritis (ICD-10 - M15.9) 06/28/2024 Essential hypertension (ICD-10 - I10) Continue to monitor and record blood pressure readings at home and bring diary to next office visit. 06/28/2024 Hypomagnesemia (ICD-10 - E83.42) 07/26/2024 Hypomagnesemia (ICD-10 - E83.42) 08/23/2024 Essential hypertension (ICD-10 - I10) Continue to monitor and record blood pressure readings at home and bring diary to next office visit. 08/23/2024 Type 2 diabetes mellitus without complication, without long-term current use of insulin (ICD-10 - E11.9) 07/26/2024 Essential hypertension (ICD-10 - I10) Continue to monitor and record blood pressure readings at home and bring diary to next office visit. 12/11/2024 Essential hypertension (ICD-10 - I10) Continue to monitor and record blood pressure readings at home and bring diary to next office visit. 03/04/2025 BMI 33.0-33.9,adult (ICD-10 - Z68.33) 03/04/2025 Bronchitis (ICD-10 - J40) fluids, rest, supportive measures for fever/symptom relief 03/26/2025 Type 2 diabetes mellitus without complication, without long-term current use of insulin (ICD-10 - E11.9) 12/11/2024 Adult general medical examination (ICD-10 - Z00.00) Patient instructed to return to office Annually for Annual Wellness Visits to include annual screenings of Pain assessment, Functional Ability assessment, Cognitive Ability assessment, Fall Risk assessment, Depression screening and Bladder control screening. 04/30/2025 Essential hypertension (ICD-10 - I10) 04/30/2025 Dyslipidemia (ICD-10 - E78.5) 02/26/2025 Acute bronchitis (ICD-10 - J20.9) 02/26/2025 Type 2 diabetes mellitus without complication, without long-term current use of insulin (ICD-10 - E11.9) 04/30/2025 Type 2 diabetes mellitus without complication, without long-term current use of insulin (ICD-10 - E11.9) 07/26/2024 Hyperuricemia (ICD-10 - E79.0) 12/11/2024 Hypomagnesemia (ICD-10 - E83.42) 06/28/2024 Migraine headache (ICD-10 - G43.909) Samples x 3 provided 06/28/2024 Hyperuricemia (ICD-10 - E79.0) 12/11/2024 Hyperuricemia (ICD-10 - E79.0) 04/30/2025 Hypomagnesemia (ICD-10 - E83.42) 12/11/2024 Type 2 diabetes mellitus without complication, without long-term current use of insulin (ICD-10 - E11.9) 04/30/2025 GERD (gastroesophageal reflux disease) (ICD-10 - K21.9) 12/11/2024 Dyslipidemia (ICD-10 - E78.5) 12/11/2024 OAB (overactive bladder) (ICD-10 - N32.81) 12/11/2024 GERD (gastroesophageal reflux disease) (ICD-10 - K21.9) 12/11/2024 BMI 33.0-33.9,adult (ICD-10 - Z68.33) Plan Of Treatment Pending Test Test Name Order Date Ultrasound : Breasts, bilateral 05/22/20 24 Mammogram, Bilateral Diagnostic 05/22/20 24 Insurance Providers Payer Name Payer Address Payer Phone Subscriber Number Group Number Insured Name Patient Relationship to Insured Coverage Start Date Coverage End Date MARYJO MORGAN [id number] KARLI Newman [place] [phone] [id number] ROBERT DUMONT Self - patient is the insured Medications Administered Medication Instructions Date of Administration Dosage Notes B-12 11/29/2011 Dexamethasone 04/18/2008 1 mL Dexamethasone 12/29/2010 1 mL Dexamethasone 03/18/2016 1 mL Dexamethasone 04/25/2018 1 mL phenergan 25 mg/ml 11/24/2007 50 mg Dexamethasone 12/24/2010 1 mL Dexamethasone 05/06/2009 1 mL Dexamethasone 03/03/2009 1 mL Depo- Medrol 40 mg/ml 09/16/2017 1.5 mL Depo- Medrol 40 mg/ml 04/12/2017 1.5 mL Depo- Medrol 40 mg/ml 08/22/2007 1.5 mL B-12 03/13/2012 1 mL Dexamethasone 02/26/2025 1 mL Dexamethasone 06/14/2018 1 mL Dexamethasone 03/29/2016 1 mL Medical (General) History Medical History History ICD Code Hypertension allergies glaucoma OA Headaches Kidney stones Type 2 DM Hyperuricemia HLP Chronic renal insufficiency - Dr. Porter Surgical History Surgery Date(Month/Year) carpal tunnel cholecystectomy double hernia repair tonsillectomy torn rotator cuff, left 12/2007 stress test/blood work/chest x-ray [facility]/Dr. Slade Nunez 09/28 kidney stones removed 04/10/09 kidney stones removed 09-11-09 kidney stones removed 07/29/11 cataract surgery on right eye 06/01 heart cath/normal/Dr. Nunez 02/2013 lithotripsy 05/2013 hemmohroid surgery rotator cuff tear repair and tendon repa ir - Dr. Back 03/29/14 laser lithotrypsi- Dr Palma 07/[address] Palma .16 C-scope/ Allran/ normal 2017 C- scope/ Herman 06/2020 bilateral foot surgery to correct hammer toes/ Dr. Burkett 11/2023 Hospitalization History Reason Date(Month/Year) [facility] ER - Dizziness, Heart Palpitations, Pain in LLQ 06/21/2024 Left Foot Toe Surgery 01/13/2024 Right Foot Toe Surgery 11/18/2023 [facility]-sore throat 10/08 [facility] ER-UTI 07/08 [facility]-kidney stones, diverticulitis 02/24 to 02/27/17 [facility] ER-chest pain 12/26/16 [facility] ER-back pain 07/11/11 [facility] ER, pneumonia 04/28/2008 chestpain
--- OUTSIDE RECORDS SUMMARY | 2025-05-08 14:07 | XMS_ITS | Clinical Summary ---
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 Name Role Phone Other, Physician Talib PETIT [...] Mass Index 36.28 03/29/2014 11:20 AM EDT Plan of Treatment Health Maintenance Due Date Last Done Comments Hepatitis C Screening 1954 DTap,Tdap,and Td (1 - Tdap) 1965 Mammogram Screening 1994 Colonoscopy 1999 Pneumococcal 50+ (1 of 1 - PCV) 02/10/2004 Shingrix (#1) 02/10/2004 DEXA Scan 2019 Influenza Vaccine (Season Ended) 2025 RSV Vaccine (60+ or ) (1 - 1-dose 75+ series) 2029 HPV Aged Out No longer eligi ble based on patient's age to complete this topic Meningococcal conjugate mishel nt 4 (MCV4) Aged Out No longer eligible b ased on patient's age to complete this topic RSV Immunization (<20 months) Aged Out No longer eligible based on patient's age to complete this topic Medical Devices Implanted Type Area Forest Fire Control Officer Device Identifier Shelf Expiration Date Model / Serial / Lot Corkscrew Biocomposite 5.5mm - [id number] Implanted:Qty: 1 on 03/29/2014 by Arlene Back MD at [facility] Right: Shoulder ARTHREX ARTHROSCOPY INST 07/22/2015 AR-1927BC F / / [id number] Pushlock Biocomposite 4.5mm - [id number] Implanted:Qty: 2 on 03/29/2014 by Arlene Back MD at [facility] Right: Shoulder ARTHROTEK 05/21/2015 AR-1922BC / / [id number] [place] Bioswivelock 4.75x19.1 - [id number] Implanted:Qty: 1 on 03/29/2014 by Arlene Back MD at [facility] Right: Shoulder ARTHREX ARTHROSCOPY INST 05/21/2015 AR-2324BC C / / [id number] Biocomposite Corkscrew Ft Vented Implanted:Qty: 2 on 03/29/2014 by Arlene Back MD at [facility] Right: Shoulder ARTHREX ARTHROSCOPIC INST. 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
--- OUTSIDE RECORDS SUMMARY | 2025-05-08 14:07 | XMS_ITS | Clinical Summary ---
Author Organization [facility] Address [address] [place] [address] Phone Care Team Providers Care Etl Analyst Developer Name Role Phone Vernon Cash Primary Care Provider [phone] Allergies Active Allergy Reactions Criticality Noted Date Comments Metformin Diarrhea 11/07/2020 Medications zolpidem (AMBIEN) 10 mg Oral Tablet Take by mouth nightly as needed. Active metoprolol succinate (TOPROL-XL) 50 mg Oral Tablet Sustained Release 24 hr Take 50 mg by mouth daily. Active allopurinoL (ZYLOPRIM) 100 mg Oral Tablet Take 100 mg by mouth daily. Active diclofenac (VOLTAREN) 1 % Top Gel Apply 2 g topically 2 times daily. Active glimepiride (AMARYL) 2 mg Oral Tablet glimepiride 2 mg tablet Active oxybutynin (DITROPAN-XL) 10 mg Oral Tablet Extended Rel 24 hrIndications:M enopausal symptoms TAKE 1 TABLET BY MOUTH DAILY. 30 Tablet 3 Active omeprazole (PRILOSEC) 20 mg Oral Capsule, Delayed Release(E.C.) 3 Active methocarbamoL (ROBAXIN) 500 mg Oral Tablet 3 Active pregabalin (LYRICA) 150 mg Oral Capsule 3 Active potassium chloride 20 mEq Oral Tablet Sustained Release 3 Active atorvastatin (LIPITOR) 80 mg Oral Tablet 3 Active BIOTIN ORAL Take by mouth. Act george cyanocobalamin 100 mcg Oral Tablet Take 100 mcg by mouth daily. Active OZEMPIC 0.25 mg or 0.5 mg (2 mg/3 mL) SubQ Pen Injector Active Active Problems Problem Noted Date Diagnosed Date Ingrowing nail 01/23/2024 Hammertoe of left foot 01/06/2024 Hammer toe of right foot 11/08/2023 Hallux malleus of right foot 11/08/2023 Diverticulitis of large inte klaudia without perforation or abscess without bleeding 02/25/2017 UTI (urinary tract infection) 02/24/2017 Bradycardia 02/24/2017 Renal failure 02/24/2017 Diverticulitis 02/24/2017 Gastroesophageal reflux disease 02/24/2017 Acute cystitis without hematuria Immunizations Immunization Administration Dates Next Due Influenza Patient Reported 07/22/2016 Surgical History Surgery Date Site/Laterality Comments CHOLECYSTECTOMY 11/21/1994 - 11/20/1995 HERNIA REPAIR 11/21/2003 - 11/20/2004 TUBAL LIGATION 11/21/1985 - 11/20/1986 SHOULDER SURGERY Lt shoulder 2008, RIGHT 2014 EYE SURGERY 11/21/2011 - 11/20/2012 cataract and lens implant LITHOTRIPSY MULTIPLE STONES REMOVED, 2008, 2012, 2010, 2014, 2015, 2020 SECTION 11/21/1984 - 11/20/1985 HEMORRHOID SURGERY 1984, 2012 CARPAL TUNNEL RELEASE 11/21/1982 - 11/20/1983 Right CARDIAC CATHETERIZATION 2013 TONSILLECTOMY 3 YEARS OLD TOE FUSION 11/18/2023 Foot/Ankle/Right right foot hallux interphalangeal joint fusion. right second hammertoe repair.; Surgeon: Buster Burkett DPM; Location: [facility]; Service: Podiatry Medical devices from this surgery are in the Medical Devices section. HAMMER TOE SURGERY 11/18/2023 Foot/Ankle/Right .; Surgeon: Buster Burkett DPM; Location: [facility]; Service: Podiatry Medical devices from this surgery are in the Medical Devices section. CYSTOSCOPY HAMMER TOE SURGERY 01/13/2024 Foot/Ankle/Left left second hammertoe repair and removal of toenail, left big toe; Surgeon: Buster uBrkett DPM; [facility]; Service: Podiatry Medical devices from this surgery are in the Medical Devices section. TOENAIL EXCISION 01/13/2024 Foot/Ankle Surgeon: Buster Burkett DPM; Location: [facility]; Service: Podiatry Medical devices from this surgery are in the Medical Devices section. Medical History Medical History Date Comments Sciatica Hypertension GERD (gastroesophageal reflux disease) Kidney stones Type 2 diabetes mellitus without complications ( HCC) Pneumonia Arthritis Headache Anemia Encounter for blood transfusion Family History Medical History Relation Name Comments Colon Polyps Father Heart Failure Father Cancer Mother stomach Stomach Cancer Mother Breast Cancer Sister 1 Breast Breast Cancer Sister 2 Breast Relation Name Status Comments Father Mother Sister 1 Sister 2 Social History Tobacco Use Types Packs/Day Years Used Date Smoking Tobacco: Former Cigarettes Smokeless Tobacco: Never Tobacco Cessation:Counseling Given: No Alcohol Use Standard Drinks/Week Comments No 0 (1 standard drink = 0.6 oz pur e alcohol) occas Sexually Active Control Partners Comments Yes Comments No Sex and Gender Information Value Date Recorded Sex Assigned at Not on file Legal Sex Female 5:17 AM EDT Gender Identity Not on file Sexual Orientation Not on file Obstetrics History Para Term AB IAB SAB Ectopic Multiple Livin g Live Births 1 1 1 Date Outcome GA Total Labor Labor/2nd/3rd Weight Sex Type Anes PTL Rylee A1 A5 Name Clin Para CS-Unsp ec Last Filed Vital Signs Vital Sign Reading Time Taken Comments Blood Pressure 122/74 08/16/2024 11:15 AM EDT Pulse 58 05/29/2024 1:43 PM EDT Temperature 37 C (98.6 F) 05/29/2024 1:43 PM EDT Respiratory Rate 14 01/13/2024 12:11 PM EST Oxygen Saturation 98% 01/13/2024 12:11 PM EST Inhaled Oxygen Concentration - - Weight 91.2 kg (201 lb) 08/16/2024 11:15 AM EDT Height 170.7 cm (5' 7.2 ) 05/29/2024 1:43 PM EDT Body Mass Index 31.29 05/29/2024 1:43 PM EDT Plan of Treatment Health Maintenance Due Date Last Done Comments Wellness Exam Medicare 1958 Hepatitis C Screening 02/10/1972 Cologuard 1999 Colon Cancer Screening 1999 Colonoscopy 1999 FIT 1999 Sigmoidoscopy 1999 Virtual Colonography 1999 Zoster (1 of 2) 02/10/2004 Bone Density Screening 2019 COVID-19 Vaccine (3 - season) 2024 03/10/2021, 02/10/2021 Influenza Vaccine (Season Ended) 2025 09/11/2023, 09/15/2022, 07/31/2021, Additional history exists Breast Cancer Screening 05/29/2026 05/29/20 24, 05/12/2023, 04/23/2022, Additional history exists DTaP/TDaP/Td (3 - Td or Tdap) 06/24/2033 06/24/2023, 09/10/2013, 01/26/1997 Hepatitis B Vaccine Completed 04/12/2001, 11/10/2000, 10/07/2000 Pneumococcal Vaccine 50+ Completed 024, 09/15/2022, 08/24/2019, Additional history exists Meningococcal B Vaccine Aged Out No l onger eligible based on patient's age to complete this topic Medical Devices Implanted Type Area Marble Finisher Device Identifier Shelf Expiration Date Model / Serial / Lot Guidewire .045 Double Ended - [id number] Implanted:Qty: 1 on 11/18/2023 by Buster Burkett DPM at [facility] Right: Foot ARTHREX AR-[id number] D / / Compr Ft Scrw,3.5 Mini, 40mm - [id number] Implanted:Qty: 1 on 11/18/2023 by Buster Burkett DPM at [facility] Right: Foot ARTHREX AR-[id number] / / Pin Drill [id number] Tip Trim-It F/Shldr Impl Dlv Sys - [id number] Implanted:Qty: 1 on 11/18/2023 by Buster Burkett DPM at [facility] Right: Foot ARTHREX 07/21/2025 AR-[id number] / / [id number] Pin Drill [id number] Tip Trim-It F/Shldr Impl Dlv Sys - [id number] Implanted:Qty: 1 on 01/13/2024 by Buster Burkett DPM at [facility] Left: Toe ARTHREX 09/20/2025 AR-[id number] / / [id number] Procedures Procedure Name Priority Date/Time Associated Diagnosis Comments MM MAMMO DIGITAL SHAWNA DIAGN BILAT Routine 05/29/2024 12:50 PM EDT Breast pain from Last 3 Months or Most Recently Relevant to Health Maintenance Results * MM MAMMO DIGITAL SHAWNA DIAGN BILAT (05/29/2024 12:50 PM EDT) Anatomical Region Laterality Modality Breast Bilateral Mammography 05/29/2024 1:14 PM EDT Impressions 05/29/2024 1:14 PM EDT Incomplete-need additional imaging evaluation (JYJ-Uzogzsuh-2) ~ RECOMMENDATION: Ultrasound of both breasts. Bilateral ultrasound was performed following the diagnostic mammogram and will be reported separately. ~ DISCLAIMER * Any patient with a palpable abnormality, unexplained by breast imaging, should be managed on clinical basis by the attending physician. * Breast imaging has a false negative rate of 15%. * The patient was notified by mail of the results of this examination. *The patient's information was entered into a reminder system with a target due date for the next mammogram, in accordance with the [employer] and the Society of Breast Imaging recommendations. Narrative 05/29/2024 1:14 PM EDT Procedure:MM MAMMO DIGITAL SHAWNA DIAGN BILAT ~ Reason for exam: clinical finding. Indicated problem(s): right breast pain for 1 months. N64.9-Hqionlalbp-MXW-10-CM; 69-year-old with intermittent focal RIGHT lateral breast pain for about one month. Family history of breast cancer (sister at age 52 and sister at age 66). Evaluate. N64.9-Gsxaxuepdv-NSN-10-CM; 69-year-old with intermittent focal bilateral breast pain for about one month, RIGHT 9:00 and LEFT 3:00. Family history of breast cancer (sister at age 52 and sister at age 66). Evaluate. ~ MM MAMMO DIGITAL SHAWNA DIAGN BILAT Bilateral CC and MLO view(s) were taken. Technologist: RT Lizeth The breast tissue is heterogeneously dense. This may lower the sensitivity of mammography. Prior study comparison: Compared with 05/12/23, 04/23/22 and dating back to 02/28/19. No significant interval change. ~ Procedure Note Jeanie Monroe MD - 05/29/2024 Procedure:MM MAMMO DIGITAL SHAWNA DIAGN BILAT ~ Reason for exam: clinical finding. Indicated problem(s): right breast pain for 1 months. N64.6-Scnqxyifpo-LOH-10-CM; 69-year-old with intermittent focal RIGHT lateral breast pain for about one month. Family history of breast cancer (sister at age 52 and sister at age 66). Evaluate. N64.0-Txpstjykyx-GZA-10-CM; 69-year-old with intermittent focalbilateral breast pain for about one month, RIGHT 9:00 and LEFT 3:00. Familyhistory of breast cancer (sister at age 52 and sister at age 66). Evaluate. ~ MM MAMMO DIGITAL SHAWNA DIAGN BILAT Bilateral CC and MLO view(s) were taken. Technologist: RT Lizeth The breast tissue is heterogeneously dense. This may lower thesensitivity of mammography. Prior study comparison: Compared with 05/12/23, 04/23/22 and dating backto 02/28/19. No significant interval change. ~ IMPRESSION: Incomplete-need additional imaging evaluation (LDF-[id number]-7) ~ RECOMMENDATION: Ultrasound of both breasts. Bilateral ultrasound was performed following the diagnostic mammogramand will be reported separately. ~ DISCLAIMER * Any patient with a palpable abnormality, unexplained by breast imaging, should be managed on clinical basis by the attending physician. * Breast imaging has a false negative rate of 15%. * The patient was notified by mail of the results of this examination. *The patient's information was entered into a reminder system with atarget due date for the next mammogram, in accordance with the [employer] and the Society of Breast Imaging recommendations. Farzad Connelly NP IM MAMMOGRAPHY ORDERABLES Stella l Result from Last 3 Months or Most Recently Relevant to Health Maintenance Insurance MEDICARE PPO MR MEDICARE PPO MR MEDICARE PPO MR Advance Directives For more information, please contact: [phone] Documents on File Type Date Recorded Patient Medical Records Custodian Expl anation Advance Directives/DNR 03/04/2017 5:00 AM 02/24/2017 * Full Code (Latest Code Status on File) Date Activated Date Inactivated Comments 02/24/2017 2:32 PM 02/27/2017 9:12 PM Care Teams Etl Analyst Developer Relationship Specialty Start Date End Date Vernon Cash [address] [place] [id number] [place]FA[place] BROUSSARD [id number] PCP - General Family Medicine 03/11/14
--- OUTSIDE RECORDS SUMMARY | 2025-05-08 14:08 | XMS_ITS | Clinical Summary ---
Author Organization [facility] Address [address] [place] [address] Care Team Providers Care Supervisor Heading Name Role Phone Ermias Cash MD Primary Care Provider [phone] Allergies No known active allergies Medications cloNIDine (CATAPRES) 0.1 MG tablet 02/13/2014 Active VOLTAREN 1 % GEL 01/17/2014 Ac tive furosemide (LASIX) 40 MG tablet 03/11/2014 Active HYDROcodone-acet aminophen (NORCO) 5-325 MG per tablet 03/11/2014 Active ibuprofen (ADVIL;MOTRIN) 800 MG tablet 03/05/2014 Activ e LIDODERM 5 % 01/17/2014 Active omeprazole (PRILOSEC) 20 MG capsule 03/05/2014 Active trimethoprim-josé ymyxin b (POLYTRIM) ophthalmic solution 12/29/2013 Active potassium citrate (UROCIT-K) 10 MEQ (1080 MG) SR tablet 02/27/2014 Active pravastatin (PRAVACHOL) 80 MG tablet 03/09/2014 Active TARKA 4-240 MG per tablet 01/09/2014 Active TOPAMAX 50 MG tablet 100 mg. 03/09/2014 Active AMBIEN CR 12.5 MG CR tablet 03/11/2014 Active ZOSTAVAX 04484 UNT/0.65ML injection 02/14/2014 Active LORazepam (ATIVAN) 0.5 MG tablet Take 0.5 mg by mouth every 6 hours as needed for Anxiety. Active ascorbic acid (VITAMIN C) 500 MG tablet Take 500 mg by mouth daily. Active meloxicam (MOBIC) 15 MG tabletIndication s:S/P complete repair of rotator cuff,Right shoulder pain 1 po qd 30 tablet 3 06/27/2014 Active traMADol (ULTRAM) 50 MG tabletIndication s:S/P complete repair of rotator cuff Take 1 tablet by mouth every 6 hours as needed for Pain. 40 tablet 3 09/10/2014 Active Active Problems No known active problems Family History Relation Name Status Comments Father Mother Social History Tobacco Use Types Packs/Day Years Used Date Smoking Tobacco: Never Alcohol Use Standard Drinks/Week Comments Not Asked 0 (1 standard drink = 0.6 oz pur e alcohol) Comments Unknown Sex and Gender Information Value Date Recorded Sex Assigned at Not on file Legal Sex Female 11:47 AM EDT Gender Identity Not on file Sexual Orientation Not on file Last Filed Vital Signs Vital Sign Reading Time Taken Comments Blood Pressure 131/70 11/28/2014 3:15 PM EST Pulse 58 11/28/2014 3:15 PM EST Temperature - - Respiratory Rate - - Oxygen Saturation - - Inhaled Oxygen Concentration - - Weight 88.9 kg (196 lb) 11/28/2014 3:15 PM EST Height 167.6 cm (5' 6 ) 11/28/2014 3:15 PM EST Body Mass Index 31.64 11/28/2014 3:15 PM EST Plan of Treatment Not on file Insurance [place] BCBS Care Teams Supervisor Heading Relationship Specialty Start Date End Date Ermias Cash MD [address] [facility] [address] [place] [address] PCP - General 03/26/14
--- OUTSIDE RECORDS SUMMARY | 2025-05-08 14:08 | XMS_ITS | Clinical Summary ---
Author Organization Healthcare Address [facility] [place] [address] Care Team Providers Care Finish Cleaner Name Role Phone Unavailable Primary Care Provider Unavailabl e Social History Tobacco Use Types Packs/Day Years Used Date Smoking Tobacco: Never Assessed Comments Unknown Sex and Gender Information Value Date Recorded Sex Assigned at Not on file Legal Sex Female 8:33 PM EDT Gender Identity Not on file Sexual Orientation Not on file Plan of Treatment Health Maintenance Due Date Last Done Comments [facility]-Bone Density Scan 1954 [facility]-Depression Screening 1955 [facility]-Infant/Child/Adol SDOH Screenings 1955 [facility]- SDOH Screenings 02/10/1972 [facility]-Adult SDOH Screenings 02/10/1972 CT Colonography 1999 Colonoscopy 1999 FIT-DNA 1999 FIT 1999 FOBT 1999 Sigmoidoscopy 1999 [facility]-Colorectal Cancer Screening 1999 [facility]-Zoster Vaccines (1 of 2) 02/10/2004 [facility]-Pneumococcal Vaccine: 50+ Years (2 of 2 - PCV) 09/24/2017 09/24/2016 [facility]-DTaP,Tdap,and Td Vaccines (2 - Td or Tdap) 09/10/2023 09/10/2013, 01/26/1997 [id number] Vaccine ( - season) 2024 03/10/2021, 02/10/2021 [facility]-Influenza Vaccine (Season Ended) 2025 08/11/2020, 08/11/2018, 08/19/2017, Additional history exists [facility]-RSV Vaccine: 60+ Years or (1 - 1-dose 75+ series) 2029 [facility]-Breast Cancer Screening Discontinued 04/22/2021 HPV Vaccines Aged Out No longer eligi ble based on patient's age to complete this topic [facility]-HIB Vaccines Aged Out No longer e ligible based on patient's age to complete this topic [facility]-Hepatitis A Vaccines Aged Out No longer eligible based on patient's age to complete this topic [facility]-IPV Vaccines Aged Out No longer e ligible based on patient's age to complete this topic [facility]-Rotavirus Vaccines Aged Out No lo nger eligible based on patient's age to complete this topic
--- NOTE | 2025-05-08 14:26 | EXP.PAIN.SOA ---
[facility] Disclaimer: The information contained in this section may have been updated after the patient was seen, as this information can be updated by other users. Medical History Edema of both lower extremities Dyspnea Palpitations History of left heart catheterization Surgical History H/O hernia repair Family History Other No significant family history Social History Smoking Status: Never smoker second hand exposure: No alcohol intake: never substance use type: denies use current occupational status: other Travel in the last 8 weeks?: None household members: significant other housing: house current occupation: [employer] current occupational exposures/hazards: No caffeine: Yes PM Subjective & Objective Subjective Subjective:: Patient is a pleasant 70-year-old female who presents today for 1 month follow-up. She rates her pain today a 3 out of 10. She denies any new trauma or injury. Patient is currently managed with pregabalin 150 mg at bedtime, Skelaxin 800 mg 3 times a day, compounded cream and lidocaine patches. She denies any side effects. Patient does state that she thinks that we had just sent in refills. She denies any new falls or injuries. Patient does state that she has had a little bit of issues with kidney stones and that she did make a follow-up appointment with her urologist Dr. Palma however she is not able to get into see him until middle of June. Her Nemesio has been reviewed and is appropriate. Review of Systems: General: No recent weight changes, no fever, no sleep disturbances Respiratory: No cough, no shortness of air, no recurring pulmonary infections Cardiovascular/peripheral vascular: No chest pain, no palpitations, no edema, no shortness of breath Gastrointestinal: No new onset incontinence, normal bowel movements reported Genitourinary: No new onset incontinence Musculoskeletal: Chronic low back pain Psychiatric: [Normal mood/affect] Neurological: [Denies weakness in extremities], [denies balance issues] Pain at rest (0-10 scale): 3 Objective Objective:: Physical Exam: General: Alert and oriented x3, no acute distress, pleasant and cooperative Lungs: Respirations even and unlabored, symmetrical chest expansion Eyes: PERRL Musculoskeletal: Flexion and extension of lumbar [spine] somewhat guarded secondary to pain, [antalgic gait noted] Neurological: Speech clear, no gross sensory deficit Has patient had previous pain injection?: No Conservative treatment options previously tried: Home exercise plan Length of treatment: Longer than 12 weeks Meds Home Medications and Allergies Home Medications ?Medication ?Instructions ?Recorded ?Confirmed ?Type allopurinol 100 mg tablet 100 mg PO DAILY GOUT 04/11/18 04/10/25 History glimepiride 2 mg tablet 2 mg PO DAILY Diabetes 03/18/22 04/10/25 History oxybutynin chloride 10 mg 10 mg PO DAILY . 11/02/22 04/10/25 History tablet,extended release 24 hr biotin 5,000 mcg chewable tablet 5,000 mcg PO DIRECTED SUPPLIMENT 09/27/23 04/10/25 History cyanocobalamin (vitamin B-12) 1,000 mcg PO DAILY 09/27/23 04/10/25 History 1,000 mcg capsule potassium chloride 20 mEq 20 meq PO DIRECTED 04/30/24 04/10/25 History tablet,extended release lidocaine 5 % topical patch 1 patch topical DAILY #30 ea 03/04/25 04/10/25 Rx albuterol sulfate 90 mcg/actuation 90 mcg inhalation . 03/11/25 04/10/25 History aerosol inhaler diclofenac sodium 1 % topical gel 1 ea topical . 03/11/25 04/10/25 History losartan 100 1 tab PO DAILY #90 tabs 03/11/25 04/10/25 Rx mg-hydrochlorothiazide 12.5 mg tablet magnesium oxide 400 mg (241.3 mg 400 mg PO DAILY 04/08/25 04/10/25 History magnesium) tablet semaglutide 1 mg/dose (4 mg/3 mL) 2 mg SQ QWEEK 04/08/25 04/10/25 History subcutaneous pen injector (Ozempic) metaxalone 800 mg tablet 800 mg PO TID PRN muscle pain #90 04/10/25 Rx tabs pregabalin 150 mg capsule 150 mg PO HS #30 caps 04/10/25 Rx baclofen 10 mg tablet See Rx Instructions .Route 05/08/25 Rx .COMPLEX #90 tabs New Prescriptions to Start Prescriptions: Allergies Allergy/AdvReac Type Severity Reaction Status Date / Time No Known Drug Allergies Allergy Unknown Verified 04/08/25 13:55 (NKDA) Assessment and Plan *Assessment and plan (1) Lumbar spondylosis: Status: Acute Category: Medical Code(s): M47.816 - Spondylosis without myelopathy or radiculopathy, lumbar region (2) Facet arthropathy: Status: Acute Category: Medical Code(s): M47.819 - Spondylosis without myelopathy or radiculopathy, site unspecified (3) Degenerative disc disease, lumbar: Status: Acute Category: Medical Code(s): M51.369 - Other intervertebral disc degeneration, lumbar region without mention of lumbar back pain or lower extremity pain (4) Sacroiliitis: Status: Acute Category: Medical Code(s): M46.1 - Sacroiliitis, not elsewhere classified Plan I will make sure that she does have refills to get to her next appointment on her pregabalin and Skelaxin. We will plan on seeing her back in 3 months. She was counseled if anything new comes up or starts experiencing worsening pain to please call us and we will move her appointment up. Patient agrees with this plan of care. Patient has been instructed to contact the clinic with any concerns before the next appointment. Dr. Merino has reviewed this note and agrees with this plan of care. This note was dictated using voice recognition software and make contain errors or omissions. All injections are used with Lidocaine, Bupivacaine and dexamethasone. Occasionally urine drug screen is needed to verify patient's compliance with our office pain contract. This is ordered based off specific treatments related to chronic pain with the potential to abuse certain medications.
[2025-05-08 14:53] VITALS: BP 109/51; PULSE 61; RESP 18; O2SAT 97; BMI 29.8
== END 2025-05-08 23:59 | disposition home or self-care (01) ==
PROVIDERS: PCP Family Medicine; Visit Provider Nurse Practitioner Family
DX: M47.816 Spondylosis without myelopathy or radiculopathy, lumbar region (principal); M51.360 Other intervertebral disc degeneration, lumbar region with discogenic back pain only; M46.1 Sacroiliitis, not elsewhere classified; Z79.899 Other long term (current) drug therapy
CPT/HCPCS: 99212; G0463

== ENCOUNTER 2025-06-17 09:09 | Emergency (ER) | payer MEDICARE, SELFPAY ==
--- OUTSIDE RECORDS SUMMARY | 2025-02-26 10:45 | XMS_ITS ---
Author Organization [facility] Address [address] [phone] Care Team Providers Care Software Tester Name Role Phone Vernon Cash Primary Care Provider [phone] Allergies Allergen (clinical drug ingredient) Drug/Non Drug [...] Allopurinol 100 MG TAKE 1 TABLET BY DAILY; Duration: 90 Active Ozempic (1 MG/DOSE) 4 MG/3ML dial and in ject under the skin 1 mg weekly Active Doxycycline Hyclate 100 MG 1 capsule Ora lly Two times a day; Duration: 10 day(s) 02/26/2025 Active Accu-Chek FastClix Lancets [...] MG 1 tablet Or ally Once a day; Duration: 90 days Active Potassium Chloride ER 20 MEQ 1 tab(s) or ally once a day; Duration: 90 days Active Omeprazole 20 MG 1 cap(s) Orally once daily Active Vital Signs Blood pressure systolic 130 mm Hg 02/27/20 25 Blood pressure diastolic 70 mm Hg 025 Heart Rate 74 /min 02/26/2025 Height 63.50 in 02/26/2025 Weight 189.4 lbs 02/26/2025 BMI 33.02 kg/m2 02/26/2025 Encounters Encounter Location Date Provider Diagnosis [facility] [address] [facility] [address] [place] [phone] 02/26/2025 Vernon Cash Acute bronchitis J20 .9 [...] 1 capsule Ora lly Two times a day; Duration: 10 day(s) 02/26/2025 Next Appt Details Follow Up: prn, Reason: Medications Administered Medication Instructions Date of Administration Dosage Notes Dexamethasone 02/26/2025 1 mL Progress Notes * ROBERT DUMONT WDOB:1955 ( 70 yo F)Acc No.[id number]:02/26/2025 Progress Notes Patient: ROBERT KIMBALL Provider: Vernon Cash M.D. :1955 A ge:70 Y S ex:Female Date:02/26/2025 Address:[address], [id number] Subjective: * Chief Complaints: * 1 . [...] cuff, left 12/2007, stress test/blood work/chest x-ray [facility]/Dr. Slade Nunez 09/28, kidney stones removed 04/10/09, kidney stones removed 09-11-09, kidney stones removed 07/29/11, cataract surgery on right eye 06/01, heart cath/normal/Dr. Nunez 02/2013, lithotripsy 05/2013, hemmohroid surgery , rotator cuff tear repair and tendon repair - Dr. Back 03/29/14, laser lithotrypsi- Dr Palma 07/05, kidney stone removed Dr Palma .16, C-scope/ Macran/ normal 2017, C- scope/ Virgil 06/2020, bilateral foot surgery to correct hammer toes/ Dr. Burkett 11/2023. * Hospitalization/Major Diagno stic Procedure: c hestpain , [facility] ER, pneumonia 04/28/2008, [facility] ER-back pain 07/11/11, [facility] ER-chest pain 12/26/16, [facility]-kidney stones, diverticulitis 02/24 to 02/27/17, [facility]- UTI 07/08, [facility]-sore throat 10/08, Right Foot Toe Surgery 11/18/2023, Left Foot Toe Surgery 01/13/2024, [facility] ER - Dizziness, Heart Palpitations, Pain in [...] 74, O2 Sat: 95% on RA, Nurse: wayne, Ht: 63.50, BMI:33.02. * Examination: E NT/Respiratory: General Appearance: N AD. E ars: a uditory canals normal bilaterally, TM's WNL. N ose : c ongested. S inuses : n on tender bilaterally.?Oral cavity : n o erythema or exudate seen on pharynx. H eart : R RR, normal S1 S2, no murmurs. L ungs: C oarse upper airway rhonchi, no wheezes. [...] mL (Route: Intramuscular) given by Barbie Hatfield [facility] on right gluteus (Acute bronchitis) * Procedure Codes: G 2211 Complex e/m visit add on, J1100 Dexamethasone, 91960 ADMINISTRATION OF INJECTION, 55741 CAPILLARY BLOOD DRAW, 71627 CBC WITH AUTO DIFF, 3044F HG A1C LEVEL LT 7.0%, G8752 MOST RECENT SYSTOLIC BP < 140MM HG, G8754 MOST RECENT DIASTOLIC BP < 90MM HG * Follow Up: p rn * Images: Billing Information: * Visit Code: 11810 Office Visit, Est Pt., Level 4. Modifiers: 25 * Procedure Codes: G2211 Complex e/m visit add on. J1100 Dexamethasone. 74579 ADMINISTRATION OF INJECTION. 49184 CAPILLARY BLOOD DRAW. 25206 CBC WITH AUTO DIFF. 3044F HG A1C LEVEL LT 7.0%. G8752 MOST RECENT SYSTOLIC BP < 140MM HG. G8754 MOST RECENT DIASTOLIC BP < 90MM HG. * Electronic signature of Vernon Cash MD on 06/17/2025 at 09:47 AM EDT Sign off status: Pending * Provider: Vernon Cash M.D. Date: 0 02/26/2025 Generated for Lei cardenas/Samy/Joseph on: 0 06/17/2025 09:47 AM EDT History and Physical Notes * HPI [...]
--- OUTSIDE RECORDS SUMMARY | 2025-03-04 09:15 | XMS_ITS ---
Author Organization [facility] Address [address] [place] [phone] Care Team Providers Care Track Layer Head Name Role Phone Vernon Cash Primary Care Provider [phone] Jennifer Marsh Unavailable [phone] Allergies Allergen (clinical drug ingredient) Drug/Non Drug [...] TEST BLOOD DEMPSEY GAR ONCE DAILY. Active Accu-Chek Guide w/Device [...] 03/04/2025 Encounters Encounter Location Date Provider Diagnosis [facility] [address] [place], [place] [phone] 03/04/2025 Jennifer Marsh Bronchitis J40 and BMI [...] ROBERT DUMONT WDOB:1955 ( 70 yo F)Acc No.[id number]:03/04/2025 Progress Notes Patient: ROBERT KIMBALL Provider: BIANCA Bruce :1955 A ge:70 Y S ex:Female Date:03/04/2025 Address:[address] [id number] Pcp:Vernon Cash Subjective: * Chief Complaints: * [...] cuff, left 12/2007, stress test/blood work/chest x-ray [facility] [facility]/Dr. Slade Nunez 09/28, kidney stones removed [...] Hospitalization/Major Diagno stic Procedure: c hestpain , [facility] ER, pneumonia 04/28/2008, [facility] ER-back pain 07/11/11, [facility] ER-chest pain 12/26/16, [facility]-kidney stones, diverticulitis 02/24 to 02/27/17, [facility] ER- UTI 07/08, [facility] [place]-sore throat 10/08, Right Foot Toe Surgery 11/18/2023, Left Foot Toe Surgery 01/13/2024, [facility] ER - Dizziness, Heart Palpitations, Pain in [...] ronchitis - J40 (Primary) 2 . B NM 33.0-33.9,adult - Z68.33 Plan: * Treatment: * [...] G 2211 Complex e/[place], [address] [place], [address] CAPILLARY BLOOD DRAW, 48180 CBC WITH AUTO DIFF, G8752 MOST RECENT SYSTOLIC BP < 140MM HG, G8754 MOST RECENT DIASTOLIC BP < 90MM HG * Follow Up: p rn * Images: Billing Information: * Visit Code: 54898 Office Visit, Est Pt., Level 3. * Procedure Codes: G2211 Complex e/[place]. [address] [place]. [address] CAPILLARY BLOOD DRAW. 57469 CBC WITH AUTO DIFF. G8752 MOST RECENT SYSTOLIC BP < 140MM HG. G8754 MOST RECENT DIASTOLIC BP < 90MM HG. * Electronic signature of Paulina Marsh APRN on 06/17/2025 at 09:48 AM EDT Sign off status: Pending * Provider: BIANCA Bruce Date: 0 03/04/2025 Generated for Lei cardenas/Samy/eTkrunalitting on: 0 06/17/2025 09:48 AM EDT History and Physical Notes * [...]
--- OUTSIDE RECORDS SUMMARY | 2025-04-30 07:30 | XMS_ITS ---
Author Organization [facility] Address [address] [place], [place] [id number] Care Team Providers Care Hair Or Beauty Salon Manager Name Role Phone Vernon Cash Primary Care Provider [phone] Allergies Allergen (clinical drug ingredient) Drug/Non Drug [...] 51 Performing Lab: Notes/Report: Test performed by [facility], [facility] , [address], [place] [address] Jefry Patel MD, Medical Resident CLIA: [id number] Sodium 141 135-145 mmol/L Potassium 4.0 3.5-5.3 [...] 101 Performing Lab: Notes/Report: Test performed by [email or web address], [address] , [address], [place] [address] Jefry Patel MD, Medical Resident CLIA: [id number] Cholesterol 189 <200 mg/dL Triglycerides 174 <150 [...] Interpretation:1.6 Performing Lab: Notes/Report: Test performed by [facility] [address] [facility] , [address], [place] [address] Jefry Patel MD, Medical Resident CLIA: [id number] Magnesium 1.6 1.6-2.4 mg/dL REASON FOR VISIT needs check up before cardiology appt, Needs mammogram Medications Medication SIG (Take, Route, Frequency, Duration) Notes Start Date End Date Status Accu-Chek Guide w/Device as directed 07/10/2024 Active Accu-Chek Guide - USE TO TEST BLOOD DEMPSEY GAR ONCE DAILY. Active Cefuroxime Axetil 500 MG 1 tablet Orally every 12 hrs; Duration: 7 day(s) 03/04/2025 Not-Taking Zithromax Z-Otis 250 MG 2 today and then 1 qd x 4 d Orally qd; Duration: 5 days 03/04/2025 Not-Taking Albuterol Sulfate HFA 108 (90 Base) MCG/ACT 2 puff Inhalation qid and q2h prn 03/04/2025 Not-Taking Methocarbamol 500 MG 1/ tablet Orally th ree times a day as needed Not-Taking Accu-Chek FastClix Lancets - ONCE A DAY 11/03/2022 Active Omeprazole 20 MG 1 cap(s) Orally once daily Not-Taking Potassium Chloride ER 20 MEQ 1 tab(s) orally once a day; Duration: 90 days Not-Takin g Magnesium Oxide 400 MG 1 tab(s) Orally O nce a day 12/13/2024 Not-Taking Allopurinol 100 MG TAKE 1 TABLET BY CHRISTEL TH DAILY; Duration: 90 Active Ozempic (2 MG/DOSE) 8 MG/3ML [...] 10 MG 1 tablet Orally Once a day; Duration: 90 days Active Pregabalin 150 MG 1 [...] 04/30/2025 Encounters Encounter Location Date Provider Diagnosis [facility] [address] [facility] [address] [place] [address], [place] [id number] 04/30/2025 Vernon Cash Essential hypertensi on I10 [...] ROBERT DUMONT WDOB:1955 ( 70 yo F)Acc No.[id number]:04/30/2025 Progress Notes Patient: ROBERT KIMBALL Provider: Vernon Cash M.D. :1955 A ge:70 Y S ex:Female Date:04/30/2025 Address:[address], [id number] Subjective: * Chief Complaints: * 1 . Needs check up before cardiology appt. 2. Needs mammogram. * HPI: C ardiology: She comes in for scheduled checkup and routine blood work. She saw her pipe bending machine operator recently and he discontinued several of her [...] cuff, left 12/2007, stress test/blood work/chest x-ray [facility]/Dr. Slade Nunez 09/28, kidney stones removed 04/10/09, kidney stones removed 09-11-09, kidney stones removed 07/29/11, cataract surgery on right eye 06/01, heart cath/normal/Dr. Nunez 02/2013, lithotripsy 05/2013, hemmohroid surgery , rotator cuff tear repair and tendon repair - Dr. Back 03/29/14, laser lithotrypsi- Dr Palma 07/05, kidney stone removed Dr Palma 10.06, C-scope/ Macran/ normal 2017, C- scope/ Herman 06/2020, bilateral foot surgery to correct hammer toes/ Dr. Burkett 11/2023. * Hospitalization/Major Diagno stic Procedure: c laith , [facility] ER, pneumonia 04/28/2008, [facility] ER-back pain 07/11/11, [facility] ER-chest pain 12/26/16, [facility]-kidney stones, diverticulitis 02/24 to 02/27/17, [facility] ER- UTI 07/08, [facility], Right Foot Toe Surgery 11/18/2023, Left Foot Toe Surgery 01/13/2024, [facility] ER - Dizziness, Heart Palpitations, [...] Temp: 97.7, BP: 124/60, HR: 63, Nurse: [facility], Ht: 63.50, BMI:33.2. * Examination: C ardiology: General Appearance: p leasant, NAD. H EENT: T hroat is unremarkable. No obvious cervical adenopathy.. C arotid upstroke: n ormal, no bruits. H eart sounds: R RR, normal S1, S2. M urmur, click , gallop: n one. L ungs: clear, no rales or wheezes. E xtremities: n o leg edema. Assessment: * Assessment: [...] G 2211 Complex e/[place], [address] CAPILLARY BLOOD DRAW, 42600 GLYCATED HEMOGLOBIN TEST, Modifiers: QW , 3044F HG A1C LEVEL LT 7.0%, G8950 PREHTN/HTN BP DOC INDCD F/U DOC, G8752 MOST RECENT SYSTOLIC BP < 140MM HG, G8754 MOST RECENT DIASTOLIC BP < 90MM HG, 1036F TOBACCO NON-USER * Follow Up: 6 Months * Images: Billing Information: * Visit Code: 80669 Office Visit, Est Pt., Level 4. * Procedure Codes: G2211 Complex e/[place]. [address] CAPILLARY BLOOD DRAW. 77235 GLYCATED HEMOGLOBIN TEST. Modifiers: QW 3044F HG A1C LEVEL LT 7.0%. G8950 PREHTN/HTN BP DOC INDCD F/U DOC. G8752 MOST RECENT SYSTOLIC BP < 140MM HG. G8754 MOST RECENT DIASTOLIC BP < 90MM HG. 1036F TOBACCO NON-USER. * Electronic signature of Vernon Cash MD on 06/17/2025 at 09:48 AM EDT Sign off status: Pending * Provider: Vernon Cash M.D. Date: 04/30/2025 Generated for Lei cardenas/Samy/Kendraitting on: 06/17/2025 09:48 AM EDT History and Physical Notes * HPI (History of Present Illness) Category Sub-Category Detail Notes Category Not es Cardiology She comes in fo r scheduled checkup and routine blood work. She saw her pipe bending machine operator recently and he discontinued several of her [...]
[2025-06-17] VITALS (10 sets, daily range): BP systolic 133–176; BP diastolic 54–74; PULSE 55–70; RESP 10–18; TEMP 36.7–36.9; O2SAT 97–99; BMI 29.7
--- NOTE | 2025-06-17 09:10 | ECG_ITS ---
APPROVED REPORT Exam: Resting ECG HR:58 bpm ECG Measurements Heart Rate 58 AXES IN 199 P 53 QRSd 109 QRS -15 QT 387 T 30 QTc 383 Conclusion SINUS BRADYCARDIA LOW QRS VOLTAGE IN PRECORDIAL LEADS [QRS DEFLECTION < 1.0 mV IN CHEST LEADS] No significant interval change from prior EKG Electronically signed by : BEN BALLARD, 06/17/2025 14:41:32
--- NOTE | 2025-06-17 09:22 | PC.NURSE ---
PT TO XR
--- NOTE | 2025-06-17 09:24 | PC.NURSE ---
DR BALLARD AT BEDSIDE
--- NOTE | 2025-06-17 09:26 | XR_ITS ---
FINAL REPORT CLINICAL HISTORY: chest pain, L sided rad to back COMPARISON: 06/21/2024 FINDINGS: PA and lateral views of the chest were obtained. The cardiac and mediastinal silhouettes are within normal limits. The lungs are clear. There is no pleural effusion or pneumothorax. No acute osseous abnormality is identified. IMPRESSION: No radiographic evidence of acute cardiac or pulmonary disease. Reviewed, Interpreted and Dictated by Shonda Rich MD Transcribed by Kelli Parish Authenticated and . [facility]
--- NOTE | 2025-06-17 09:27 | [facility].EDCP ---
Discharge Plan Disposition Patient Disposition: Home, Self-Care Condition: Good Prescriptions Prescriptions: No Action allopurinol 100 mg tablet 100 mg PO DAILY cyanocobalamin (vitamin B-12) 1,000 mcg capsule 1,000 mcg PO DAILY diclofenac sodium 1 % gel 1 ea topical . losartan-hydrochlorothiazide 100-12.5 mg tablet 1 tab PO DAILY Qty: 90 3RF baclofen 10 mg tablet See Rx Instructions .ROUTE .COMPLEX Qty: 90 2RF Dose Instruction: TAKE 1 TABLET BY MOUTH 3 TIMES DAILY. Rx Instructions: TAKE 1 TABLET BY MOUTH 3 TIMES DAILY. glimepiride 2 MG tablet 2 mg PO DAILY oxybutynin chloride 10 mg tablet extended release 24hr 10 mg PO DAILY pregabalin 150 mg capsule 150 mg PO HS Qty: 30 2RF metoprolol succinate 50 mg tablet extended release 24 hr 50 mg PO DAILY Ozempic 2 mg/dose (8 mg/3 mL) pen injector 8 mg SQ DIRECTED ascorbic acid (vitamin C) [Vitamin C] 1,000 mg Tablet 1,000 mg PO DAILY omeprazole 20 mg Tablet,Delayed Release (Dr/Ec) 20 mg PO DAILY cholecalciferol (vitamin D3) [Vitamin D3] 50 mcg (2,000 unit) Tablet 50 mcg PO DAILY Referrals Follow up/Referrals: Ermias Cash MD [Primary Care Provider, Medical] - See instructions Activity Restrictions/Add. Instructions Additional Instructions/Restrictions: You were evaluated in the emergency department today. At this time, workup and scans are reassuring. Please follow-up very closely with cardiology. I recommend calling them today to schedule an appointment. Follow-up also with your primary care provider. Return to the emergency department right away for new or worsening symptoms. Clinical Impressions Clinical Impression: Chest pain, Hypomagnesemia Instructions Patient Instructions: DI for Atypical Chest Pain, DI for Headache, DI for Chest Pain Print Language Print Language: Brazilian Discharge ED Provider: Yvette Mcqueen HPI General Chief Complaint: Chest Pain Stated Complaint: Chest Pain Time Seen by Provider: 06/17/25 09:12 Mode of Arrival: Ambulatory Source of Information: Patient Description of Symptoms (Recalled from ER Triage Doc. by RN): REPORTS INTERMITTENT LEFT SIDED CHEST PAIN X 3 DAYS. REPORTS PAIN WORSE LAST NIGHT, RADIATES TO BACK AND SHOULDER BLADE. REPORTS SHORTNESS OF BREATH History of Present Illness HPI narrative: This patient is a 70-year-old female with a history of obesity, hypertension, hyperlipidemia, type 2 diabetes presenting to the emergency department for evaluation with concern for left-sided chest pain radiating to her back. She notes has been intermittent for 3 days. She states that she cannot identify any factors that are triggering it, and nothing seems to make it better or worse except last night when she was massaging it it seemed to go away. Right now the pain is not severe, it was way worse last night when she was trying to go to bed. She notes associated shortness of breath, especially with exertion. She states that usually she does get winded when she gets up and gets moving around, but this is a little bit worse than normal. No other concerns or complaints such as fevers, cough, congestion, abdominal pain, nausea, vomiting, or other concerns. Related Data Home Medications ?Medication ?Instructions ?Recorded ?Confirmed allopurinol 100 mg tablet 100 mg PO DAILY GOUT 04/11/18 06/17/25 glimepiride 2 mg tablet 2 mg PO DAILY Diabetes 03/18/22 06/17/25 oxybutynin chloride 10 mg 10 mg PO DAILY . 11/02/22 06/17/25 tablet,extended release 24 hr cyanocobalamin (vitamin B-12) 1,000 mcg PO DAILY 09/27/23 06/17/25 1,000 mcg capsule diclofenac sodium 1 % topical gel 1 ea topical . 03/11/25 06/17/25 metoprolol succinate 50 mg 50 mg PO DAILY BLOOD PRESSURE 05/08/25 06/17/25 tablet,extended release 24 hr semaglutide 2 mg/dose (8 mg/3 mL) 8 mg SQ DIRECTED Diabetes 05/08/25 06/17/25 subcutaneous pen injector (Ozempic) ascorbic acid (vitamin C) 1,000 mg 1,000 mg PO DAILY 06/17/25 06/17/25 tablet (Vitamin C) cholecalciferol (vitamin D3) 50 50 mcg PO DAILY 06/17/25 06/17/25 mcg (2,000 unit) tablet (Vitamin D3) omeprazole 20 mg tablet,delayed 20 mg PO DAILY 06/17/25 06/17/25 release Previous Rx's ?Medication ?Instructions ?Recorded losartan 100 1 tab PO DAILY #90 tabs 03/11/25 mg-hydrochlorothiazide 12.5 mg tablet pregabalin 150 mg capsule 150 mg PO HS #30 caps 05/08/25 baclofen 10 mg tablet See Rx Instructions .Route 06/10/25 .COMPLEX #90 tabs Allergies Allergy/AdvReac Type Severity Reaction Status Date / Time No Known Drug Allergies Allergy Unknown Verified 05/08/25 14:44 (NKDA) [facility] Disclaimer: The information contained in this section may have been updated after the patient was seen, as this information can be updated by other users. Medical History Edema of both lower extremities Dyspnea Palpitations History of left heart catheterization Surgical History H/O hernia repair Family History (Reviewed 06/17/25 @ 09: by Yvette Mcqueen DO) Other No significant family history Social History Smoking Status: Never smoker second hand exposure: No alcohol intake: never substance use type: denies use current occupational status: other Travel in the last 8 weeks?: None household members: significant other housing: house current occupation: [employer] current occupational exposures/hazards: No caffeine: Yes Have you lived/traveled outside [place] in past 30 days?: No Contact w/someone who lives/traveled outside US past 30 days?: No Exposure to someone with infectious disease in past 14 days?: No Do you have a fever (greater than 100.4 F or 38 C)?: No Have you tested positive for COVID-19?: No Exposed to someone with COVID-19 in past 14 days?: No Do you have a sore throat?: No Do you have a cough?: No Do you have any weakness?: No Do you have any diarrhea?: No Are you experiencing any unusual bleeding?: No Do you have any muscle aches/pain?: No Do you have any abdominal pain?: No Are you experiencing loss of taste or smell?: No Other Medical History Have you received the Flu Vaccine for this season: Yes Have you received the Pneumonia Vaccine: Yes ROS Obtained: Yes All systems reviewed & no additional complaints except as documented Physical Exam General General appearance: alert and in no apparent distress Head Head exam: atraumatic and normocephalic Eye Eye exam: Present normal appearance, PERRL and EOMI ENT ENT exam: Present normal exam, normal oropharynx, mucous membranes moist and normal external ear exam Neck Neck exam: Present normal inspection, full ROM and trachea midline; Absent tenderness Chest Chest inspection: Present normal inspection and symmetric chest wall rise; Absent tenderness Respiratory Respiratory exam: Present normal lung sounds bilaterally; Absent respiratory distress, wheezes, stridor or accessory muscle use Cardiovascular Cardiovascular exam: Present regular rate and normal rhythm Abdominal Exam Abdominal exam: Present soft; Absent distention, tenderness or guarding Extremities Exam Extremities exam: Present normal inspection, full ROM and normal capillary refill; Absent tenderness or edema Back Exam Back exam: Present normal inspection and full ROM; Absent tenderness Neurological Exam Neurological exam: Present alert, oriented X3, CN II-XII intact and normal gait; Absent motor sensory deficit Psychiatric Psychiatric exam: Present normal affect and normal mood Skin Skin exam: Present warm and dry HEART Score HEART Score HEART Score assessment performed?: Yes History (anamnesis): Slightly suspicious ECG: Normal Age: >65 years Risk factors: 3 or more risk factors Troponin: </= normal limit HEART Score: 4 Critical Care Critical Care Time Critical Care Time: Yes Attestation: On 06/17/25, the high probability of a clinically significant, sudden or life threatening deterioration of the following system(s) required my full and direct attention, intervention and personal management. The time I documented below is in addition to time spent performing reported procedures but includes the following listed in this critical care notation. Total Time Total Critical Care Time: 35 Medical Decision Making [place] Inquiry Pt receiving controlled substance: No Vital Signs Vital Signs: 06/17/25 09:09 06/17/25 09:31 06/17/25 10:00 Temperature 98.5 F Temperature Source Oral Pulse Rate 55 L 57 L Pulse Rate [Apical] 60 Respiratory Rate 18 13 Blood Pressure 161/58 H 173/74 H Blood Pressure [Right Arm] 176/69 H Blood Pressure Mean Blood Pressure Mean [Right Arm] 104 Blood Pressure Source Blood Pressure Source [Right Arm] Automatic Cuff Blood Pressure Position Blood Pressure Position [Right Arm] Sitting 02 Sat by Pulse Oximetry 97 97 98 Oxygen Delivery Method Room Air 06/17/25 10:31 06/17/25 11:00 06/17/25 11:31 Temperature Temperature Source Pulse Rate 69 70 69 Pulse Rate [Apical] Respiratory Rate 11 L 11 L Blood Pressure 149/54 H 147/62 H 133/59 L Blood Pressure [Right Arm] Blood Pressure Mean 84 Blood Pressure Mean [Right Arm] Blood Pressure Source Blood Pressure Source [Right Arm] Blood Pressure Position Blood Pressure Position [Right Arm] 02 Sat by Pulse Oximetry 97 97 97 Oxygen Delivery Method 06/17/25 12:01 06/17/25 12:30 06/17/25 12:31 Temperature Temperature Source Pulse Rate 64 65 64 Pulse Rate [Apical] Respiratory Rate 11 L 10 L 11 L Blood Pressure 147/65 H 165/74 H 165/74 H Blood Pressure [Right Arm] Blood Pressure Mean Blood Pressure Mean [Right Arm] Blood Pressure Source Blood Pressure Source [Right Arm] Blood Pressure Position Blood Pressure Position [Right Arm] 02 Sat by Pulse Oximetry 99 99 99 Oxygen Delivery Method 06/17/25 12:38 Temperature 98.0 F Temperature Source Oral Pulse Rate 62 Pulse Rate [Apical] Respiratory Rate 18 Blood Pressure 165/74 H Blood Pressure [Right Arm] Blood Pressure Mean Blood Pressure Mean [Right Arm] Blood Pressure Source Automatic Cuff Blood Pressure Source [Right Arm] Blood Pressure Position Sitting Blood Pressure Position [Right Arm] 02 Sat by Pulse Oximetry Oxygen Delivery Method Room Air Lab Data Labs: Lab Results 06/17/25 09:13: WBC 6.4, RBC 3.83 L, Hgb 12.0 L, Hct 36.9 L, MCV 96.3, MCH 31.3 H, MCHC 32.5, RDW 13.4, Plt Count 147, MPV 12.6 H, Neut % (Auto) 60.3, Lymph % (Auto) 27.0, [place] % (Auto) 7.2, Eos % (Auto) 4.4, Baso % (Auto) 0.6, Neut # (Auto) 3.9, Lymph # (Auto) 1.7, [place] # (Auto) 0.5, Eos # (Auto) 0.3, Baso # (Auto) 0.0, D-Dimer 0.88 H, Sodium 141, Potassium 3.8, Chloride 107, Carbon Dioxide 27, Anion Gap 10.8, BUN 14, Creatinine 1.10 H, Estimated Creat Clear 62, Estimated GFR 49 L, Est GFR ( Amer) 59, Glucose 104 H, Calcium 9.7, Magnesium 1.3 L, Total Bilirubin 0.7, AST 31, ALT 19, Alkaline Phosphatase 101, Troponin I < 0.01, NT-Pro-B Natriuret Pep 643 H, Total Protein 6.5, Albumin 4.0, Globulin 2.5, Albumin/Globulin Ratio 1.6, Lipase 61, HCV Ab CONCHITA w/Rflx PCR Qn Negative, HIV Ag/Ab Combo Qual Negative 06/17/25 11:35: Troponin I < 0.01 06/17/25 09:13 06/17/25 09:13 Response Orders (Tests/Meds): ED MEDICATIONS Discontinued Medications Generic Name Dose Route Start Last Admin Trade Name Stephani PRN Reason Stop Dose Admin Acetaminophen 1,000 mg 06/17/25 09:26 06/17/25 09:41 Acetaminophen 500mg Tab PO 06/17/25 09:27 1,000 mg ONCE ONE Administration Acetaminophen 1,000 mg 06/17/25 10:10 06/17/25 10:23 Acetaminophen 500mg Tab PO 06/17/25 10:11 Not Given ONCE ONE Aspirin 324 mg 06/17/25 09:26 06/17/25 09:40 Aspirin 81mg Chewable Tablet PO 06/17/25 09:27 324 mg ONCE ONE Administration Belladonna Alkaloids 60 ml 06/17/25 09:26 06/17/25 09:41 Belladonna Alkaloids 60 Ml Ml PO 06/17/25 09:27 60 ml ONCE ONE Administration Magnesium Sulfate 2 gm in 50 mls @ 50 mls/hr 06/17/25 10:01 06/17/25 10:30 Magnesium Sulfate 2gm/50ml Premix IV 06/17/25 11:00 50 mls/hr ONCE ONE Administration Iopamidol 85 ml 06/17/25 10:14 06/17/25 10:16 Iopamidol-370 (76%);100ml Bottle IV 06/17/25 10:15 85 ml ONCE ONE Administration Ketorolac Tromethamine 15 mg 06/17/25 10:10 06/17/25 10:30 Ketorolac 30mg/Ml Vial IV 06/17/25 10:11 15 mg ONCE ONE Administration Metoclopramide HCl 5 mg 06/17/25 10:10 06/17/25 10:30 Metoclopramide Hcl 10mg/2ml Vial IVP 06/17/25 10:11 5 mg ONCE ONE Administration Sodium Chloride 50 ml 06/17/25 10:14 06/17/25 10:15 0.9 % Sodium Chloride 50 Ml Vial IV 06/17/25 10:15 50 ml ONCE ONE Administration Sodium Chloride 10 ml 06/17/25 10:14 06/17/25 10:16 Sodium Chloride 0.9% 10ml Syr (Rad Only) IV 06/17/25 10:15 10 ml ONCE ONE Administration ORDERS Category Date Time Status CT head/brain wo con Stat Cat Scan 06/17/25 10:10 Completed CTA Chest [CT angio chest PE protocol] Stat Cat Scan 06/17/25 10:02 Completed CXR 2 view (NOT portable) [XR chest 2V] Stat Exams 06/17/25 09:26 Completed BNP [NT Pro Brain Natriuretic Pep.] Stat Lab 06/17/25 09:13 Completed Complete Blood Count Auto Diff Stat Lab 06/17/25 09:13 Completed Comprehensive Metabolic Panel Stat Lab 06/17/25 09:13 Completed D-Dimer Stat Lab 06/17/25 09:13 Completed HIV Combo Stat Lab 06/17/25 09:13 Completed Hepatitis C Ab Qual. W/ RFX Stat Lab 06/17/25 09:13 Completed Lipase Stat Lab 06/17/25 09:13 Completed MAG [Magnesium] Stat Lab 06/17/25 09:13 Completed Trop I [Troponin I] Stat Lab 06/17/25 09:13 Completed Troponin I Q3H Lab 06/17/25 11:35 Completed ECG Data Tracing #1: Attestation: I reviewed this ECG and interpreted as documented below: ECG Narrative: Sinus bradycardia with ventricular rate of [address] changes concerning for STEMI. No significant interval change from prior EKG ECG initial impression date: 06/17/25 ECG initial impression time: 09:12 MDM Narrative Medical Decision Narrative: In summary, this patient is a 70-year-old female presenting to the Emergency Department for evaluation of chest pain that is been intermittent for 3 days. Differential diagnoses considered include but are not limited to ACS, dysrhythmia, PE, aortic dissection, unstable angina, costochondritis, GERD. Ruling out the most morbid conditions drove assessment. It should be noted patient's history includes hypertension, hyperlipidemia, diabetes which may or may not be at goal therapy. This complicates all aspects of care by increasing patient's risk for morbidity. I reviewed patient's past medical records and noted evaluations by cardiology for maintenance of health in the setting of hypertension and prior issues with chest pain and shortness of breath. On exam, the patient is lying in bed in no acute distress. The pain is not currently severe. She has equal pulses and normal vitals on cardiac telemetry with exception of mild hypertension. Blood pressure systolics 170s upon arrival. I do not feel that she likely has PE or aortic dissection given lack of significant hypertension and tachycardia as well as the intermittent nature of the symptoms. she does have left-sided chest wall tenderness to palpation on exam, so is possibly musculoskeletal. Workup included CBC, CMP, troponin, BNP, D-dimer, lipase, magnesium, chest x-ray, EKG. She is given oral aspirin and Tylenol for symptomatic improvement as well as a GI cocktail. I independently interpreted chest x-ray prior to the radiologist read and noted focal consolidation, no pneumothorax. Please see their read for final interpretation. Labs were obtained that demonstrated reassuring CBC with mild stable chronic anemia. Chemistry demonstrates mildly elevated D-dimer, for which CTA chest was added onto workup to rule out PE or aortic dissection. Patient also has hypomagnesemia with a magnesium of 1.3, for which I ordered IV magnesium repletion. Patient was monitored on cardiac telemetry while receiving IV magnesium repletion with no cardiac dysrhythmia noted. BNP is lower than prior. Kidney function is around her baseline On reassessment, patient was not complaining of significant chest pain but did have a headache. Given this, I also added on a CT head without contrast for her to get at the same time of the CTA chest. I also ordered IV Toradol and Reglan as well as a bolus of IV fluids to assess for improvement. On reassessment, the patient is resting comfortably. She states she feels a lot better and symptoms have resolved. Vitals are normal on cardiac telemetry. Labs obtained are reassuring with troponins negative x 2. She had hypomagnesemia for which IV repletion was ordered. Symptoms have resolved, troponins x 2 are negative, CTA of the chest independently interpreted by myself demonstrates no aortic dissection or PE. I feel workup is been reassuring and she is appropriate for discharge home with close follow-up with cardiology. Strict return precautions given
[2025-06-17 09:36] LABS: Hematocrit 36.9 % (37.0-47.0); Hemoglobin 12.0 g/dL (12.2-16.2); Immature Granulocytes % 0.5 %; Mean Corpuscular HGB Conc 32.5 g/dL (31.8-35.4); Mean Corpuscular Hemoglobin 31.3 pg (27.0-31.2); Mean Corpuscular Volume 96.3 fl (81-99); Nucleated Red Blood Cells % 0 %; Platelet Count 147 K/mm3 (142-424); Red Blood Count 3.83 M/mm3 (4.20-5.40); Red Cell Distribution Width-SD 47.3 fL; White Blood Count 6.4 K/mm3 (4.8-10.8)
--- NOTE | 2025-06-17 09:39 | PC.NURSE ---
PT RETURNED FROM XR
[2025-06-17] MEDS: ASPIRIN 81MG CHEWABLE TABLET 324 MG PO (09:40)
[2025-06-17 09:41] LABS: Lipase 61 U/L (23-300); Magnesium 1.3 mg/dl (1.6-2.3)
[2025-06-17] MEDS: BELLADONNA ALKALOIDS 60 ML ML PO (09:41)
[2025-06-17] MEDS: ACETAMINOPHEN 500MG TAB 1000 MG PO (09:41)
[2025-06-17 09:43] LABS: Alanine Aminotransferase 19 U/L (12-78); Albumin Level 4.0 g/dl (3.5-5.0); Albumin/Globulin Ratio 1.6 (1.1-1.8); Alkaline Phosphatase 101 U/L (38-126); Anion Gap 10.8 mEq/L (5-15); Aspartate Amino Transferase 31 U/L (14-36); Bilirubin,Total 0.7 mg/dl (0.2-1.3); Blood Urea Nitrogen 14 mg/dl (7-17); Calcium 9.7 mg/dl (8.4-10.2); Carbon Dioxide 27 mmol/L (22.0-30.0); Chloride 107 mmol/L (98-107); Creatinine Clearance Estimated 62 mL/min (50-200); Creatinine,Serum 1.10 mg/dl (0.52-1.04); Estimated Glomerular Filt Rate 49 ml/min (>60); GFR (African American) 59 ML/MIN (>60); Globulin 2.5 g/dL (1.3-3.2); Glucose 104 mg/dl (74-100); Potassium 3.8 mmoL/L (3.5-5.1); Sodium 141 mmol/L (136-145); Total Protein,Serum 6.5 g/dl (6.3-8.2)
[2025-06-17 09:46] LABS: D-Dimer 0.88 ug/mL (0.0-0.5)
--- OUTSIDE RECORDS SUMMARY | 2025-06-17 09:47 | XMS_ITS | Referral Summary ---
Author Organization [facility] Address [address] [place] [id number] Care Team Providers Care Textile Artist Name Role Phone Other, Physician Talib PETIT [...] on file Medical Devices Implanted Type Area Ticket Collector Or Usher Device Identifier Shelf Expiration Date Model / Serial / Lot Corkscrew Biocomposite 5.5mm - [id number] Implanted:Qty: 1 on 03/29/2014 by Arlene Back MD at [facility] Right: Shoulder [employer]THREX ARTHROSCOPY INST 07/22/2015 AR-[id number] F / / [id number] Pushlock Biocomposite 4.5mm - [id number] Implanted:Qty: 2 on 03/29/2014 by Arlene Back MD at [facility] Right: Shoulder ARTHROTEK 05/21/2015 AR-[id number] / / [id number] [employer]ock 4.75x19.1 - [id number] Implanted:Qty: 1 on 03/29/2014 by Arlene Back MD at [facility] Right: Shoulder [employer]ROS[employer] INST 05/21/2015 [id number] C / / [id number] Biocomposite Corkscrew [employer] Implanted:Qty: 2 on 03/29/2014 by Arlene Back MD at [facility] Right: Shoulder [employer]. 05/21/2015 AR-[id number] FT / / [id number] Care Teams Textile Artist Relationship Specialty Start Date End Date Other, Physician MD Talib PCP - General Internal Medicine 03/27/14
--- OUTSIDE RECORDS SUMMARY | 2025-06-17 09:47 | XMS_ITS | Clinical Summary ---
Author Organization [facility] Address [address] [place] [address] Care Team Providers Care Chain Sales Consultant Name Role Phone Ermias Cash MD Primary Care Provider Allergies Active Allergy Reactions Criticality Noted Date Comments Metformin Diarrhea 11/07/2020 Trandolapril-Verapamil Hcl Er Other (See Comments) 07/12/2018 Lip swelling Medications Cholecalciferol (VITAMIN D3) 5000 UNITS capsule capsule Take 5,000 Units by mouth Daily. 2 tabs in the morning Active Simethicone (GAS RELIEF PO) Take by mouth As Needed. Active diclofenac (VOLTAREN) 1 % gel gel Apply 4 g topically 4 (Four) Times a Day. 1 tube 5 01/10/20 18 Active potassium chloride ER (K-TAB) 20 MEQ tablet controlled-release ER tablet Take 1 tablet by mouth Daily. 90 tablet 4 01/20/20 18 Active allopurinol (ZYLOPRIM) 100 MG tablet Take 1 tablet by mouth Daily. Active metoprolol succinate XL (TOPROL-XL) 50 MG 24 hr tablet Take 1 tablet by mouth Daily. Active amLODIPine (NORVASC) 5 MG tablet Take 1 tablet by mouth Daily. Active omeprazole (priLOSEC) 20 MG capsule TAKE ONE CAPSULE BY MOUTH DAILY 90 capsule 3 03/12/20 19 Active atorvastatin (LIPITOR) 40 MG tablet Take 1 tablet by mouth Daily. Active torsemide (DEMADEX) 10 MG tablet Take 1 tablet by mouth Daily. 30 tablet 11 03/14/20 19 Active vitamin C (ASCORBIC ACID) 500 MG tablet Take 500 mg by mouth Daily. Active nitroglycerin (NITROSTAT) 0.3 MG SL tablet 1 under the tongue as needed for angina, may repeat q5mins for up three doses 25 tablet 11 07/30/20 Active cloNIDine (CATAPRES) 0.1 MG tablet Take 1 tablet by mouth 2 (Two) Times a Day. 180 tablet 3 07/30/20 Active Additional Information Patient not taking.Reported on 04/22/2023 Multiple Vitamins-Minerals (ZINC PO) Take 1 tablet by mouth Daily. Active glimepiride (AMARYL) 2 MG tablet Daily. Active gabapentin (NEURONTIN) 300 MG capsule Every Night. 09/16/20 Active oxybutynin XL (DITROPAN-XL) 10 MG 24 hr tablet Daily. 09/25/20 22 Active Magnesium 500 MG tablet Take by mouth. Activ e losartan-hydrochlo rothiazide (HYZAAR) 100-25 MG per tablet TAKE ONE TABLET BY MOUTH DAILY 90 tablet 3 03/21/20 23 Active Additional Information Patient not taking.Reported on 04/22/2023 Jardiance 10 MG tablet tablet 03/22/20 23 Active methocarbamol (ROBAXIN) 500 MG tablet 04/13/20 23 Active ondansetron ODT (ZOFRAN-ODT) 4 MG disintegrating tablet 04/13/20 23 Active pregabalin (LYRICA) 150 MG capsule 04/13/20 23 Active Active Problems Problem Noted Date Diagnosed Date Dyslipidemia 01/23/2020 Hyperlipidemia LDL goal <70 03/14/2019 At risk for sleep apnea 01/26/2017 Precordial pain 12/31/2016 Essential hypertension 12/31/2016 Snoring 12/31/2016 Ischemic heart disease/mild nonobstructive coronary artery disease 05/18/2016 Overview (05/18/2016): a. Remote chest pain syndrome/intermittent syncope with labile hypertension, 5311-6670. b. Acceptable combination Doppler echocardiogram, September 2004. c. Acceptable chest x-ray with borderline EKG. d. Residual CCS class I-II chest pain syndrome/NYHA class II exertional dyspnea and fatigue syndrome with acceptable thoracic CT scan and abnormal acceptable Cardiolite GXT with reduced exercise tolerance and acceptable perfusion/LCEF (0.80); continued medical therapy felt warranted, September 2008. e. Residual class I symptoms. f. Recurrent CCS class III-IV chest pain syndrome with NYHA class II-III exertional dyspnea and abnormal EKG demonstrated marked sinus bradycardia with negative serial troponin and no ischemic ST-T changes with essentially normal diagnostic coronary angiography with 30% to 40% stenosis of mid LAD and acceptable LV function, LVEF (0.60) on 02/26/2013. g. Residual class I symptoms. Labile hypertension 05/18/2016 Overview (05/18/2016): with recent progressive hypertensive blood pressure readings. Moderate obesity 05/18/2016 Overview (05/18/2016): BMI 34. Elevated serum glucose 05/18/2016 Overview (05/18/2016): possible early type II diabetes mellitus. Sacroiliac pain 05/18/2016 Overview (05/18/2016): 1. with recent injections. Family History Medical History Relation Name Comments No Known Problems Brother Heart failure Father Cancer Mother Breast cancer Sister 1 Breast cancer Sister 2 Relation Name Status Comments Brother only lived at 6 months old Father Mother Sister 1 Alive Sister 2 Alive Social History Tobacco Use Types Packs/Day Years Used Date Smoking Tobacco: Former Cigarettes Smokeless Tobacco: Never Tobacco Cessation:Counseling Given: Not Answered Comments:back in college Alcohol Use Standard Drinks/Week Comments Yes 1 (1 standard drink = 0.6 oz pur e alcohol) rarely Abuse Screen Answer Date Recorded Unsafe at Home or Work/School Not on file Feels Threatened by Someone? Not on file 07/2023 Does Anyone Keep You from Co ntacting Others or Doint Things Outside the Home? Not on file 08/29/2023 Physical Sign of Abuse Present Not on file 1 Housing Stability Answer Date Recorded Current Living Arrangements Not on file 07/2023 Potentially Unsafe Housing Conditions Not on nicko e 08/29/2023 Family and Community Support Answer Andreas e Recorded Help with Day-to-Day Activities Not on file 08/29/2023 Lonely or Isolated Not on file 08/29/2023 Employment Answer Date Recorded Do you want help finding or keeping work or a justin b? Not on file 08/29/2023 Disabilities Answer Date Recorded Concentrating, Remembering, or Making Decisions Difficulty Not on file 08/29/2023 Doing Errands Independently Difficulty Not on fi le 08/29/2023 Education Answer Date Recorded Help with school or training? Not on file Preferred Language Not on file 08/29/2023 Comments No Sex and Gender Information Value Date Recorded Sex Assigned at Not on file Legal Sex Female 12:52 PM EDT Gender Identity Not on file Sexual Orientation Not on file Last Filed Vital Signs Vital Sign Reading Time Taken Comments Blood Pressure 142/78 04/22/2023 11:33 AM EDT Pulse 52 04/22/2023 11:21 AM EDT Temperature 36.2 C (97.2 F) 12/31/2016 9:48 AM EST Respiratory Rate 20 12/31/2016 9:48 AM EST Oxygen Saturation 99% 04/22/2023 11:21 AM EDT Inhaled Oxygen Concentration - - Weight 83 kg (183 lb) 04/22/2023 11:21 AM EDT Height 167.6 cm (5' 6 ) 04/22/2023 11:21 AM EDT Body Mass Index 29.54 04/22/2023 11:21 AM EDT Plan of Treatment Health Maintenance Due Date Last Done Comments DXA SCAN 1954 COLOGUARD 1999 COLON CANCER SCREENING 5 YEA R SIGMOIDOSCOPY 1999 COLONOSCOPY 1999 COLORECTAL CANCER SCREENING 1999 CT COLONOGRAPHY 1999 FECAL OCCULT BLOOD TEST 1999 FIT Testing (1 year) 1999 ZOSTER VACCINE (1 of 2) 02/10/2004 ANNUAL WELLNESS VISIT 05/18/2017 HEPATITIS C SCREENING 05/18/2017 TDAP/TD VACCINES (3 - Td or Tdap) 09/10/2023 013, 01/26/1997 LIPID PANEL 10/20/2023 10/20/2022, 01/20, 01/23/2020, Additional history exists MAMMOGRAM 04/23/2024 04/23/2022, 0612/2020, 04/22/2021, Additional history exists COVID-19 Vaccine (3 - 2023-2 5 season) 2024 03/10/2021, 02/10/2021 INFLUENZA VACCINE 08/21/2025 09/15/2022, , 08/11/2020, Additional history exists Pneumococcal Vaccine 50+ Completed 022, 08/24/2019, 09/24/2016 HEMOGLOBIN A1C Discontinued 10/20/2022, 01/20, 11/05/2015 Procedures Procedure Name Priority Date/Time Associated Diagnosis Comments HEMOGLOBIN A1C Routine 10/20/2022 1:49 PM EST Type 2 diabetes mellitus without complication, unspecified whether oysterman insulin use LIPID PANEL Routine 10/20/2022 1:49 PM EST Ischemic heart disease/mild nonobstructive coronary artery disease Essential hypertension Dyslipidemia VALLEJO (dyspnea on exertion) from Last 3 Months or Most Recently Relevant to Health Maintenance Results * (ABNORMAL) Hemoglobin A1c (10/20/2022 1:49 PM EST) Hemoglobin A1C 8.5(H) 4.8 - 5.6 % [facility] Comment: Prediabetes: 5.7 - 6.4 Diabetes: >6.4 Glycemic control for adults with diabetes: <7.0 Blood 10/20/2022 1:49 PM EST 10/21/2022 Comment:Blood Release to merged with [facility] my Agarwal [facility] (AMBULATORY) - 10/21/2022 6:08 PM EST Performed at: - [address] [id number] Punch Molder: Anatoly Linder PhD, Phone: [phone] us Medina Taylor APRN LAB BLOOD ORDERABLES Final Result [facility] ([facility]) [address] [place] [address], [facility] [address] [place] [address], * (ABNORMAL) Lipid Panel (10/20/2022 1:49 PM EST) Total Cholesterol 130 100 - 199 mg/dL [facility] Triglycerides 175(H) 0 - 149 mg/dL [facility] HDL Cholesterol 48 >39 mg/dL [facility] VLDL Cholesterol Antwan 29 5 - 40 mg/dL [facility] LDL Chol Calc (NIH) 53 0 - 99 mg/dL [facility] Blood 10/20/2022 1:49 PM EST 10/21/2022 Comment:Blood Release to allison Agarwal [facility] (AMBULATORY) - 10/21/2022 6:08 PM EST Performed at: - [facility] [address] [place], [place] [id number] Punch Molder: Anatoly Linder PhD, Phone: [phone] Medina Taylor APRN LAB BLOOD ORDERABLES Final Result [facility] (AMBULATORY) [address] [place] [address], [facility] [address] [place] [address], from Last 3 Months or Most Recently Relevant to Health Maintenance Insurance Advance Directives Documents on File Type Date Recorded Patient Hooker Inspector Expl anation LIVING WILL - SCAN 11/23/2022 12:32 PM NATHAN NG WILL DIRECTIVE Care Teams Chain Sales Consultant Relationship Specialty Start Date End Date Ermias Cash MD [address] [place] [address] PCP - General Family Medicine 12/26/16
--- OUTSIDE RECORDS SUMMARY | 2025-06-17 09:47 | XMS_ITS | Clinical Summary ---
Author Organization Healthcare Address [facility] [place] [address] Care Team Providers Care Digital Publishing Specialist Name Role Phone Unavailable Primary Care Provider [...] - Td or Tdap) 09/10/2023 09/10/2013, 01/26/1997 [id number] Vaccine (3 - season) 2024 03/10/2021, 02/10/2021 UKY-Influenza Vaccine (#1) 07/22/202508/11, 08/11/2018, 08/19/2017, Additional history exists UKY-RSV Vaccine: [...]
--- OUTSIDE RECORDS SUMMARY | 2025-06-17 09:47 | XMS_ITS | Clinical Summary ---
Author Organization [facility] Address [address], [address] [place] [address] Care Team Providers Care Rivet Thrower Name Role Phone Ermias Cash MD Primary Care Provider [phone] Allergies No known active allergies Medications cloNIDine [...] 12.5 MG CR tablet 03/11/2014 Active ZOSTAVAX 86496 UNT/0.65ML injection 02/14/2014 Active LORazepam (ATIVAN) 0.5 [...] on file Insurance [place] BCBS Care Teams Rivet Thrower Relationship Specialty Start Date End Date Ermias Cash MD [address] [place] [address] PCP - General 03/26/14
--- OUTSIDE RECORDS SUMMARY | 2025-06-17 09:47 | XMS_ITS | Clinical Summary ---
Author Organization [facility] Address [address] [place] [id number] Care Team Providers Care Foundation Drill Operator Helper Name Role Phone Other, Physician Talib PETIT [...] (#1) 02/10/2004 DEXA Scan 2019 Influenza Vaccine (#1) 2025 RSV Vaccine (60+ or ) (1 [...] this topic Medical Devices Implanted Type Area Head Waitress Device Identifier Shelf Expiration Date Model / Serial / Lot Corkscrew Biocomposite 5.5mm - [id number] Implanted:Qty: 1 on 03/29/2014 by Arlene Back MD at [facility] Right: Shoulder ARTHREX ARTHROSCOPY INST 07/22/2015 AR-1927BC F / / [id number] Pushlock Biocomposite 4.5mm - [id number] Implanted:Qty: 2 on 03/29/2014 by Arlene Back MD at [facility] Right: Shoulder ARTHROTEK 05/21/2015 AR-1922BC / / [id number] [place] Bioswivelock 4.75x19.1 - [id number] Implanted:Qty: 1 on 03/29/2014 by Arlene Back MD at [facility] Right: Shoulder ARTHREX ARTHROSCOPY INST 05/21/2015 AR-[id number] C / / [id number] Biocomposite Corkscrew Ft [employer]ented Implanted:Qty: 2 on 03/29/2014 by Arlene Back MD at [facility] Right: Shoulder ARTHREX ARTHROSCOPIC INST. 05/21/2015 AR-[id number] FT / / [id number] Advance Directives Documents on File Type Date Recorded Patient Kerfer Machine Operator Expl anation Advance Directives(Health[employer] e Power of Manager Supply Chain Planning)/Living Will/MOLST 03/29/2014 10:44 AM Care Teams Foundation Drill Operator Helper Relationship Specialty Start Date End Date Other, Physician MD Talib PCP - General Internal Medicine 03/27/14
--- OUTSIDE RECORDS SUMMARY | 2025-06-17 09:48 | XMS_ITS | Data Portability ---
Author Organization RAFAEL KIKE Lopez [place] CLOSED Address [address] [facility] [address] [place] [address] Care Team Providers Care Sash Assembler Name Role Phone PORTILLO, JENNY Primary Care Provider [phone] Assessment Encounter Date Assessment Date Assessment LastModified [...] functioning at the time of induction. The 22-Lebanese cystoscopy sheath was introduced. The bladder was [...] Lab urinalysi s panel, auto 2023 024 [address] [facility], [address], [address], [place], [address], 07/10/2024 23:16:26 urinalysi s panel, auto 2021 022 [email or web address] [facility], [address], [address], [place], [address], 02/14/2022 17:24:13 Referral None recorded. Procedures None recorded. Surgeries None recorded. Imaging None recorded. Medication Orders None recorded. Patient TargetsNo targets recorded. Patient InstructionsNo instructions recorded. Reason for Referral None Reported. Results Created Date Observation Date Name Description Value Unit Range Abnormal Flag Note LastModifiedBy Organization Detail LastModifiedTime 02/13/2002/12/2022 urina lysis panel , auto Unknown Analyte Clean Catch Not Available [facility] [address], [place], [address], 02/12/2022 09:15:19 02/13/20 22 02/12/2022 urina lysis panel , auto Unknown Analyte Yellow Not Available [facility] [address], [place], [address], 02/12/2022 09:15:19 02/13/20 22 02/12/2022 urina lysis panel , auto Unknown Analyte Clear Not Available [facility] [address], [place], [address], 02/12/2022 09:15:19 02/13/20 22 02/12/2022 urina lysis panel , auto Unknown Analyte 1.020 Not Available [facility] [address], [place], [address], 02/12/2022 09:15:19 02/13/20 22 02/12/2022 urina lysis panel , auto Unknown Analyte 1.003- 1.035 Not Available [facility] [address], [place], [address], 02/12/2022 09:15:19 02/13/20 22 02/12/2022 urina lysis panel , auto Unknown Analyte 6.0 Not Available [facility] [address], [place], [address], 02/12/2022 09:15:19 02/13/20 22 02/12/2022 urina lysis panel , auto Unknown Analyte 5.0-8. 0 Not Available [facility] [address], [place], [address], 02/12/2022 09:15:19 02/13/20 22 02/12/2022 urina lysis panel , auto Unknown Analyte Negati ve Not Available [facility] [address], [place], [address], 02/12/2022 09:15:19 02/13/20 22 02/12/2022 urina lysis panel , auto Unknown Analyte Negati ve Not Available [facility] [address], [place], [address], 02/12/2022 09:15:19 02/13/20 22 02/12/2022 urina lysis panel , auto Unknown Analyte Negati ve Not Available [facility] [address], [place], [address], 02/12/2022 09:15:19 02/13/20 22 02/12/2022 urina lysis panel , auto Unknown Analyte Negati ve Not Available [facility] [address], [place], [address], 02/12/2022 09:15:19 02/13/20 22 02/12/2022 urina lysis panel , auto Unknown Analyte Negati ve Not Available [facility] [address], [place], [address], 02/12/2022 09:15:19 02/13/20 22 02/12/2022 urina lysis panel , auto Unknown Analyte Negati ve Not Available [facility] [address], [place], [address], 02/12/2022 09:15:19 02/13/20 22 02/12/2022 urina lysis panel , auto Unknown Analyte Normal Not Available [facility] [address], [place], [address], 02/12/2022 09:15:19 02/13/20 22 02/12/2022 urina lysis panel , auto Unknown Analyte Normal Not Available [facility] [address], [place], [address], 02/12/2022 09:15:19 02/13/20 22 02/12/2022 urina lysis panel , auto Unknown Analyte Negati ve Not Available [facility] [address], [place], [address], 02/12/2022 09:15:19 02/13/20 22 02/12/2022 urina lysis panel , auto Unknown Analyte Negati ve Not Available [facility] [address], [place], [address], 02/12/2022 09:15:19 02/13/20 22 02/12/2022 urina lysis panel , auto Unknown Analyte Normal Not Available [facility] [address], [place], [address], 02/12/2022 09:15:19 02/13/20 22 02/12/2022 urina lysis panel , auto Unknown Analyte Normal 1 mg/dl Not Available [facility] [address], [place], [address], 02/12/2022 09:15:19 02/13/20 22 02/12/2022 urina lysis panel , auto Unknown Analyte Negati ve Not Available [facility] [address], [place], [address], 02/12/2022 09:15:19 02/13/20 22 02/12/2022 urina lysis panel , auto Unknown Analyte Negati ve Not Available [facility] [address], [place], [address], 02/12/2022 09:15:19 02/13/2002/12/2022 urina lysis panel , auto Unknown Analyte 250 Annel/ul Not Available [facility] [address], [place], [address], 02/12/2022 09:15:19 02/13/20 22 02/12/2022 urina lysis panel , auto Unknown Analyte Negati ve Not Available [facility] [address], [place], [address], 02/12/2022 09:15:19 07/09/20 24 07/09/2024 urina lysis panel , auto Unknown Analyte Clean Catch Not Available [facility] [address], [place], [address], 07/09/2024 14:13:16 07/09/2007/09/2024 urina lysis panel , auto Unknown Analyte Yellow Not Available [facility] [address], [place], [address], 07/09/2024 14:13:16 07/09/20 07/09/2024 urina lysis panel , auto Unknown Analyte Clear Not Available [facility] [address], [place], [address], 07/09/2024 14:13:16 07/09/20 24 07/09/2024 urina lysis panel , auto Unknown Analyte 1.010 Not Available [facility] [address], [place], [address], 07/09/2024 14:13:16 07/09/2007/09/2024 urina lysis panel , auto Unknown Analyte 1.003- 1.035 Not Available [facility] [address], [place], [address], 07/09/2024 14:13:16 07/09/20 24 07/09/2024 urina lysis panel , auto Unknown Analyte 5.0 Not Available [facility] [address], [place], [address], 07/09/2024 14:13:16 07/09/20 24 07/09/2024 urina lysis panel , auto Unknown Analyte 5.0-8. 0 Not Available [facility] [address] [place] [address] [address], [place], [address], 07/09/2024 14:13:16 07/09/2007/09/2024 urina lysis panel , auto Unknown Analyte 25 Preston/ul Trace Not Available [facility] [address], [place], [address], 07/09/2024 14:13:16 07/09/20 24 07/09/2024 urina lysis panel , auto Unknown Analyte Negati ve Not Available [facility] [address], [place], [address], 07/09/2024 14:13:16 07/09/20 24 07/09/2024 urina lysis panel , auto Unknown Analyte Negati ve Not Available [facility] [address], [place], [address], 07/09/2024 14:13:16 07/09/20 24 07/09/2024 urina lysis panel , auto Unknown Analyte Negati ve Not Available [facility] [address], [place], [address], 07/09/2024 14:13:16 07/09/20 24 07/09/2024 urina lysis panel , auto Unknown Analyte Trace Not Available [facility] [address], [place], [address], 07/09/2024 14:13:16 07/09/20 24 07/09/2024 urina lysis panel , auto Unknown Analyte Negati ve Not Available [facility] [address], [place], [address], 07/09/2024 14:13:16 07/09/20 24 07/09/2024 urina lysis panel , auto Unknown Analyte Normal Not Available [facility] [address], [place], [address], 07/09/2024 14:13:16 07/09/20 24 07/09/2024 urina lysis panel , auto Unknown Analyte Normal Not Available [facility] [address], [place], [address], 07/09/2024 14:13:16 07/09/20 24 07/09/2024 urina lysis panel , auto Unknown Analyte Negati ve Not Available [facility] [address], [place], [address], 07/09/2024 14:13:16 07/09/20 24 07/09/2024 urina lysis panel , auto Unknown Analyte Negati ve Not Available [facility] [address], [place], [address], 07/09/2024 14:13:16 07/09/20 24 07/09/2024 urina lysis panel , auto Unknown Analyte Normal Not Available [facility] [address], [place], [address], 07/09/2024 14:13:16 07/09/20 24 07/09/2024 urina lysis panel , auto Unknown Analyte Normal 1 mg/dl Not Available [facility] [address], [place], [address], 07/09/2024 14:13:16 07/09/20 24 07/09/2024 urina lysis panel , auto Unknown Analyte Negati ve Not Available [facility] [address], [place], [address], 07/09/2024 14:13:16 07/09/20 24 07/09/2024 urina lysis panel , auto Unknown Analyte Negati ve Not Available Pending sale to [facility] [address], [place], [address], 07/09/2024 14:13:16 07/09/20 24 07/09/2024 urina lysis panel , auto Unknown Analyte Negati ve Not Available [facility] [address], [place], [address], 07/09/2024 14:13:16 07/09/20 24 07/09/2024 urina lysis panel , auto Unknown Analyte Negati ve Not Available [facility] [address], [place], [address], 07/09/2024 14:13:16 06/14/2006/14/2025 urina lysis panel , auto Unknown Analyte Clean Catch Not Available [facility] [address], [place], [address], 06/14/2025 11:39:37 06/14/20 25 06/14/2025 urina lysis panel , auto Unknown Analyte Yellow Not Available [facility] [address], [place], [address], 06/14/2025 11:39:37 06/14/2006/14/2025 urina lysis panel , auto Unknown Analyte Clear Not Available [facility] [address], [place], [address], 06/14/2025 11:39:37 06/14/20 25 06/14/2025 urina lysis panel , auto Unknown Analyte 1.020 Not Available [facility] [address], [place], [address], 06/14/2025 11:39:37 06/14/2006/14/2025 urina lysis panel , auto Unknown Analyte 1.003 - 1.030 Not Available [facility] [address], [place], [address], 06/14/2025 11:39:37 06/14/2006/14/2025 urina lysis panel , auto Unknown Analyte 6.0 Not Available [facility] [address], [place], [address], 06/14/2025 11:39:37 06/14/2006/14/2025 urina lysis panel , auto Unknown Analyte 5.0 - 8.0 Not Available [facility] [address], [place], [address], 06/14/2025 11:39:37 06/14/2006/14/2025 urina lysis panel , auto Unknown Analyte 500 Preston/uL Not Available [facility] [address] [place] [address] [address], [place], [address], 06/14/2025 11:39:37 06/14/2006/14/2025 urina lysis panel , auto Unknown Analyte Negati ve Not Available [facility] [address], [place], [address], 06/14/2025 11:39:37 06/14/20 25 06/14/2025 urina lysis panel , auto Unknown Analyte Negati ve Not Available [facility] [place] [address], [place], [address], 06/14/2025 11:39:37 06/14/2006/14/2025 urina lysis panel , auto Unknown Analyte Negati ve Not Available [facility] [address], [place], [address], 06/14/2025 11:39:37 06/14/2006/14/2025 urina lysis panel , auto Unknown Analyte Negati ve Not Available [facility] [address], [place], [address], 06/14/2025 11:39:37 06/14/2006/14/2025 urina lysis panel , auto Unknown Analyte Negati ve Not Available [facility] [address], [place], [address], 06/14/2025 11:39:37 06/14/2006/14/2025 urina lysis panel , auto Unknown Analyte Normal Not Available [facility] [address], [place], [address], 06/14/2025 11:39:37 06/14/2006/14/2025 urina lysis panel , auto Unknown Analyte Normal Not Available [facility] [address], [place], [address], 06/14/2025 11:39:37 06/14/2006/14/2025 urina lysis panel , auto Unknown Analyte Negati ve Not Available [facility] [address], [place], [address], 06/14/2025 11:39:37 06/14/2006/14/2025 urina lysis panel , auto Unknown Analyte Negati ve Not Available [facility] [address], [place], [address], 06/14/2025 11:39:37 06/14/2006/14/2025 urina lysis panel , auto Unknown Analyte 1 mg/dL Not Available [facility] [address], [place], [address], 06/14/2025 11:39:37 06/14/2006/14/2025 urina lysis panel , auto Unknown Analyte Normal Not Available [facility] [address], [place], [address], 06/14/2025 11:39:37 06/14/2006/14/2025 urina lysis panel , auto Unknown Analyte Negati ve Not Available [facility] [address], [place], [address], 06/14/2025 11:39:37 06/14/2006/14/2025 urina lysis panel , auto Unknown Analyte Negati ve Not Available [facility] [address], [place], [address], 06/14/2025 11:39:37 06/14/2006/14/2025 urina lysis panel , auto Unknown Analyte Negati ve Not Available [facility] [address], [place], [address], 06/14/2025 11:39:37 06/14/20 25 06/14/2025 urina lysis panel , auto Unknown Analyte Negati ve Not Available [facility] [address], [place], [address], 06/14/2025 11:39:37 02/13/20 22 02/12/2022 XR, abdom en, 1 view No observ ation record ed. [email or web address] [facility] ([facility] [address], [place], [address], 03/04/2022 10:07:51 02/25/20 22 02/24/2022 CT, abdom en + pelvi s, w/o contr ast No observ ation record ed. [email or web address] [place] [address], [place], [address], 03/03/2022 09:41:37 04/15/20 22 04/15/2022 XR, abdom en, 1 view No observ ation record ed. [email or web address] [facility] ([facility] [address], [place], [address], 04/15/2022 21:14:59 06/30/20 22 03/17/2022 CT, abdom en + pelvi s, w/o contr ast No observ ation record ed. BARCODE Not Available 2021 11:03:51 07/09/20 24 07/09/2024 CT, abdom en + pelvi s, w/o contr ast [facility] [address] [facility] [place] [address] Patien t Name: ROBERT merritt : [address] Orderi ng Provid er: ANGELA VALENTINE EXAM [...] Bharat Black MD on 024 3:30 PM [email or web address] [facility] [address], [address], 07/25/2024 09:01:11 Result Notes Documentation Provider Name and Address Organization Details Recorded Time Ct, Abdomen + Pelvis, W/o Contrast : [address] [address] Patient Name: ROBERT DUMONT Patient : 1955 [...] kidney Interpreted By: Bharat Black MD Catia Smith [facility] 07/25/2024 09:01:11 Problems No Known Problems Procedures Surgical History Date Name Laterality Status Provider Name and Address Organization Details Recorded Time section completed [facility] 05/16/2020 12:28:24 extraction of cataract completed [facility] 05/16/2020 12:28:37 cardiac catheterization completed [facility] 05/16/2020 12:28:49 Hemorrhoidectomy completed [facility] 05/16/2020 12:28:57 Cholecystectomy completed [facility] 05/16/2020 12:29:04 Hernia Repair completed [facility] 05/16/2020 12:37:30 Carpal tunnel surgery completed [facility] 05/16/2020 12:37:46 complete repair of rotator cuff completed [facility] 05/16/2020 12:37:59 Imaging Results None recorded. Procedure [...] Not Available cefuroxime axetil 500 mg tablet 06/11 completed Not Available Not Available Not Available [...] Not Availa ble Not Available Vitamin D 06/14 completed Not Available Not Available Not Available estradiol- norethindr one acet 0.5 [...] Available Not Available Accu-Chek Guide test strips active Not Available Not Available Not Available Accu-Chek Guide Glucose Meter active Not Available Not Available Not Available Shingrix [...] Updated DateTime 02/12/2022 167.64 cm 30.5 kg/m2 81318.96 g Renita Galicia [facility] 02/12/2022 09:10:13 Date Recorded Body height Body mass index (BMI) Body weight Provider Name and Address Organization Details Last Updated DateTime 04/15/2022 167.64 cm 30.5 kg/m2 05298.96 g Renitazahira Galicia [facility] 04/15/2022 14:59:41 Date Recorded Body height Body mass index (BMI) Body weight Provider Name and Address Organization Details Last Updated DateTime 06/14/2025 167.64 cm 29.4 kg/m2 36096.81 g Elma Mejia [facility] 06/14/2025 11:48:05 Date Recorded Body height Body mass index (BMI) Body weight Provider Name and Address Organization Details Last Updated DateTime 07/09/2024 167.64 cm 31.6 kg/m2 77589.1 g Catia Smith [facility] 07/09/2024 14:13:56 Social History Question Answer Notes LastModified by Organizat ion Details LastModified Time Tobacco Smoking Status Never Smoker Renita morales [facility] 05/16/2020 12:27:53 How Much Tobacco Do You Chew? None Information not available 05/16/2020 Marital Status Informatio n not available 05/16/2020 What Was The Date Of Your Most Recent Tobacco Screening? 07/09/2024 [email or web address] Information not available 07/09/2024 Sex: Unknown Functional [...] available 2019 12:27:47 Medical History Condition Response Kidney Stones Y Depression Y Arthritis Y Allergies/Hayfever Y Hypertension Y Gynecological HistoryNo gynecological history recorded. Obstetrics History GPAL:G 0 P 0 0 0 0 Immunizations Vaccine Type Date Status Note Provider Nam e and Address Organization Details Recorded Time Td (adult), 2 Lf tetanus toxoid, preservative free, adsorbed 7 completed Not Available [facility] 06/14/2025 10:30:16 Hep B, adult 0 completed Not Available [facility] 06/14/2025 10:30:16 Hep B, adult 0 completed Not Available [facility] 06/14/2025 10:30:16 Hep B, adult 1 completed Not Available [facility] 06/14/2025 10:30:16 Tdap 3 completed Not Available [facility] 06/14/2025 10:30:16 influenza, unspecified formulation 6 completed Not Available [facility] 06/14/2025 10:30:16 Influenza, split virus, quadrivalent, PF 6 completed Not Available [facility] 06/14/2025 10:30:16 pneumococcal polysaccharide PPV23 6 completed Not Available [facility] 06/14/2025 10:30:16 Influenza, split virus, quadrivalent, PF 7 completed Not Available [facility] 06/14/2025 10:30:16 Influenza, split virus, quadrivalent, preservative 8 completed Not Available [facility] 06/14/2025 10:30:16 Pneumococcal conjugate PCV 13 9 completed Not Available [facility] 06/14/2025 10:30:16 Influenza, high-dose, quadrivalent, PF 0 completed Not Available [facility] 06/14/2025 10:30:16 COVID-19, mRNA, LNP-S, PF, 100 mcg/0.5mL dose or 50 mcg/0.25mL dose 1 completed Not Available [facility] 06/14/2025 10:30:16 COVID-19, mRNA, LNP-S, PF, 100 mcg/0.5mL dose or 50 mcg/0.25mL dose 1 completed Not Available [facility] 06/14/2025 10:30:16 Influenza, high-dose, quadrivalent, PF 1 completed Not Available [facility] 06/14/2025 10:30:16 Influenza, adjuvanted, quadrivalent, PF 2 completed Not Available [facility] 06/14/2025 10:30:16 pneumococcal polysaccharide PPV23 2 completed Not Available [facility] 06/14/2025 10:30:16 Tdap 3 completed Not Available [facility] 06/14/2025 10:30:16 RSV, bivalent, protein subunit RSVpreF, diluent reconstituted, 0.5 mL, PF 3 completed Not Available [facility] 06/14/2025 10:30:16 Influenza, high-dose, quadrivalent, PF 3 completed Not Available [facility] 06/14/2025 10:30:16 Pneumococcal conjugate PCV20, polysaccharide AJH305 conjugate, adjuvant, PF 4 completed Not Available [facility] 06/14/2025 10:30:16 Influenza, high-dose, quadrivalent, PF 4 completed Not Available [facility] 06/14/2025 10:30:16 Past Encounters Encounter ID Performer Location Encounter Start Date Encounter Closed Date Diagnosis/Indication Diagnosis SNOMED-CT Code Diagnosis ICD10 Code Diagnosis Note [id number] MD MAICOL ALVARAD[facility] [address],[place] [address] 0 05/16/2020 10:46:26 05/16/2020 12:27:15 Uric acid urolithiasis 859571164 N20.9 follow-up 1 year [id number] ISH VALENTINE MD [facility] [address] [place] [address] 08/04/2021 15:15:00 08/04/2021 16:22:49 History of urinary stone [id number] Z87.442 Follow-up one year with KUB [id number] ISH VALENTINE MD CUA [facility] [address],[place] [address] 0 02/12/2022 08:29:24 02/12/2022 09:28:58 Urolithiasis 64365223 N20.9 We will contact her with her CT scan results. Left flank pain [id number] R10.9 [id number] ISH VALENTINE MD SURGERY SCHEDULE [address] [place] [address] 03/17/2022 08:57:39 03/17/2022 08:59:45 [id number] MD MAICOL ARENAS [facility] [address],[place] [address] 0 04/15/2022 14:06:49 04/15/2022 15:27:27 Kidney stone [id number] N20.0 [id number] MD MAICOL ALVARADO [facility] [address],[place] [address] 0 07/09/2024 12:25:51 07/11/2024 04:19:40 Urolithiasis [id number] N20.9 We will contact her with her CT scan results. [id number] MD MAICOL ALVARADO [facility] [address] [place] [address] 06/14/2025 10:29:14 06/14/2025 12:03:52 Health Concerns Section Related Observation LastModified by Organization Detai ls LastModified Time None Recorded Concern Status LastModified by Organization Details LastModified Time None Recorded Advance Directives Directive None Recorded Payers Insurance Date Sequence Insurance Name Policy Number Policy Haynes Covered Member ID Haynes Member ID Guarantor Name 08/08/2022 PAYMENT PLAN Robert Dumont 06/11/2025 1 [employer] (MEDICARE REPLACEMENT/A DVANTAGE - PPO) Robert Dumont [id number] Robert Dumont OBGyn Episode No OBEpisode recorded.
--- OUTSIDE RECORDS SUMMARY | 2025-06-17 09:49 | XMS_ITS | Clinical Summary ---
Author Organization [facility] Address [address] [place] [address] Phone Care Team Providers Care Ledge Man Name Role Phone Vernon Cash Primary Care Provider [phone] Allergies Active Allergy Reactions Criticality Noted Date [...] hammertoe repair.; Surgeon: Buster Burkett DPM; Location: [facility]; Service: Podiatry Medical devices from this surgery are in the Medical Devices section. HAMMER TOE SURGERY 11/18/2023 Foot/Ankle/Right .; Surgeon: Buster Burkett DPM; Location: [facility]; Service: Podiatry Medical devices from this surgery are in the Medical Devices section. CYSTOSCOPY HAMMER TOE SURGERY 01/13/2024 Foot/Ankle/Left left second hammertoe repair and removal of toenail, left big toe; Surgeon: Buster Burkett DPM; Location: [facility]; Service: Podiatry Medical devices from this surgery are in the Medical Devices section. TOENAIL EXCISION 01/13/2024 Foot/Ankle Surgeon: Buster Burkett DPM; Location: [facility]; Service: Podiatry Medical devices from this surgery [...] - season) 2024 03/10/2021, 02/10/2021 Influenza Vaccine (#1) 2025 3, 09/15/2022, 07/31/2021, Additional history exists Breast Cancer [...] this topic Medical Devices Implanted Type Area Weaver Apprentice Device Identifier Shelf Expiration Date Model / Serial / Lot Guidewire .045 Double Ended - [id number] Implanted:Qty: 1 on 11/18/2023 by Buster Burkett DPM at [facility] Right: Foot [employer] AR-8737-41K D / / Compr Ft Scrw,3.5 Mini, 40mm - [id number] Implanted:Qty: 1 on 11/18/2023 by Buster Burkett DPM at [facility] Right: Foot [employer] AR-8730-40H / / Pin Drill 1.0l264ii Tip Trim-It F/Shldr Impl Dlv Sys - [id number] Implanted:Qty: 1 on 11/18/2023 by Buster Burkett DPM at [facility] Right: Foot [employer] 07/21/2025 AR-4151DS / / [id number] Pin Drill 1.0l434yl Tip Trim-It F/Shldr Impl Dlv Sys - [id number] Implanted:Qty: 1 on 01/13/2024 by Buster Burkett DPM at [facility] Left: Toe [employer] 09/20/2025 AR-4151DS / / [id number] Procedures Procedure Name Priority Date/Time Associated Diagnosis [...] 1:14 PM EDT Incomplete-need additional imaging evaluation (XND-Keyhfmeo-5) ~ RECOMMENDATION: Ultrasound of both breasts. Bilateral [...] the next mammogram, in accordance with the [employer] and the Society of Breast Imaging recommendations. Narrative 05/29/2024 1:14 PM EDT Procedure:MM MAMMO DIGITAL SHAWNA DIAGN BILAT ~ Reason for exam: clinical finding. Indicated problem(s): right breast pain for 1 months. N64.8-Dxifhitmta-EDD-10-CM; 69-year-old with intermittent focal RIGHT lateral breast pain for about one month. Family history of breast cancer (sister at age 52 and sister at age 66). Evaluate. N64.4-Ysdfeqrrcr-WBK-10-CM; 69-year-old with intermittent focal bilateral breast pain [...] problem(s): right breast pain for 1 months. N64.6-Natdiijlvl-JOR-10-CM; 69-year-old with intermittent focal RIGHT lateral breast pain for about one month. Family history of breast cancer (sister at age 52 and sister at age 66). Evaluate. N64.6-Exuctgjrnx-ACT-10-CM; 69-year-old with intermittent focalbilateral breast pain for [...] change. ~ IMPRESSION: Incomplete-need additional imaging evaluation (PUQ-Pmgmcwui-1) ~ RECOMMENDATION: Ultrasound of both breasts. Bilateral [...] the next mammogram, in accordance with the [place] and the Society of Breast Imaging recommendations. Farzad Connelly NP IM MAMMOGRAPHY ORDERABLES Stella l Result from Last 3 Months or Most Recently Relevant to Health Maintenance Insurance MEDICARE PPO MR MEDICARE PPO MR MEDICARE PPO MR Advance Directives For more information, please contact: [phone] Documents on File Type Date Recorded Patient Steam Press Tender Expl anation Advance Directives/DNR 03/04/2017 5:00 AM 02/24/2017 * Full Code (Latest Code Status on File) Date Activated Date Inactivated Comments 02/24/2017 2:32 PM 02/27/2017 9:12 PM Care Teams Ledge Man Relationship Specialty Start Date End Date Vernon Cash [address] [place] [address] [place] [id number] PCP - General Family Medicine 03/11/14
--- OUTSIDE RECORDS SUMMARY | 2025-06-17 09:49 | XMS_ITS | Patient Health Record ---
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 Role Phone Vernon Cash Primary Care Provider Jennifer Marsh Unavailable [phone] Allergies Allergen (clinical drug ingredient) Drug/Non Drug [...] - 38 plat 160 100 - 400 P-Magnesium Reviewed date:05/05/2025 10:33:07 PM Interpretation:1.6 Performing Lab: Notes/Report: Test performed by [facility] [address] , [place] [address] Jefry Patel MD, General Internal Medicine Physician CLIA: [id number] Magnesium 1.6 1.6-2.4 mg/dL P-Lipid Panel Reviewed date:05/05/2025 10:33:07 PM Interpretation:LDL 101 Performing Lab: Notes/Report: Test performed by [facility] [address] , [place] [address] Jefry Patel MD, General Internal Medicine Physician CLIA: [id number] Cholesterol 189 <200 mg/dL Triglycerides 174 <150 [...] Results: 101 Units: mg/dL % Change: +197% P-Comprehensive Metabolic Pa jung (CMP) Reviewed date:05/05/2025 10:33:07 PM Interpretation:GFR 51 Performing Lab: Notes/Report: Test performed by [facility] [place] [address] [place] [address] , [address], [place] [address] Jefry Patel MD, General Internal Medicine Physician CLIA: [id number] Sodium 141 135-145 mmol/L Potassium 4.0 3.5-5.3 [...] 0.3 <0.2-1.2 mg/dL A/G Ratio 1.8 1.1-2.5 Glycohemoglobin A1c (in hous e) Reviewed date:05/05/2025 10:33:08 PM Interpretation:6.1% Performing Lab: Notes/Report: 6.1% glycohemoglobin 6.1% 5 - 6.5 % CBC Fingerstick (in house) Reviewed date:03/04/2025 01:54:18 [...] 38 plat 171 100 - 400 CBC Venipuncture (in house) Reviewed date:12/13/2024 08:39:43 [...] 137 Performing Lab: Notes/Report: Test performed by [facility] [address] [place], [place] [address] [address] , [address], [place] [address] Jefry Patel MD, General Internal Medicine Physician CLIA: [id number] Sodium 145 135-145 mmol/L Potassium 5.2 3.5-5.3 [...] Interpretation:Normal Performing Lab: Notes/Report: Test performed by [facility] [address] [place], [place] [address] [address] , [address], [place] [address] Jefry Patel MD, General Internal Medicine Physician CLIA: [id number] Cholesterol 113 <200 mg/dL Triglycerides 135 <150 [...] Interpretation:1.5 Performing Lab: Notes/Report: Test performed by [facility] [address] [place], [place] [address] , [place] [address] Jefry Patel MD, General Internal Medicine Physician CLIA: [id number] Magnesium 1.5 1.6-2.4 mg/dL P-Microalbumin/Creatinine, R andom Urine Sample Reviewed date:12/13/2024 08:39:43 AM Interpretation:a/c 76 Performing Lab: Notes/Report: Test performed by [facility] [address] [place], [place] [address] , [address], [place] [address] Jefry Patel MD, General Internal Medicine Physician CLIA: [id number] Albumin/Creatinine Ratio, Urine 76 0-30 ug/m g Microalbumin, Urine, Random 24.3 Creatinine, Urine 321.2 P-Uric Acid Reviewed date:12/13/2024 08:39:43 AM Interpretation:Normal Performing Lab: Notes/Report: Test performed by [facility] [address], [place] [address] Jefry Patel MD, General Internal Medicine Physician CLIA: [id number] Uric Acid 6.6 2.4-7.0 mg/dL P-Basic Metabolic Panel (BMP ) Reviewed date:07/31/2024 08:17:54 AM Interpretation: Performing Lab: Notes/Report: [facility] [place] , [place] [address] Jefry Patel MD, General Internal Medicine Physician CLIA: [id number] Sodium 143 135-145 mmol/L Potassium 4.5 3.5-5.3 mmol/L Chloride 107 97-108 mmol/L CO2 27 22-32 mmol/L Glucose 120 65-99 mg/dL BUN 16 8-23 mg/dL Creatinine 1.06 0.50-1.00 mg/dL Calcium 9.2 8.6-10.4 mg/dL eGFR by Creatinine 56 >59 mL/min/1.73m2 P-Magnesium Reviewed date:07/31/2024 08:17:54 AM Interpretation: Performing Lab: Notes/Report: Test performed by [facility] [address] , [place] [address] Jefry Patel MD, General Internal Medicine Physician CLIA: [id number] Magnesium 1.9 1.6-2.4 mg/dL P-Uric Acid Reviewed date:07/31/2024 08:17:54 AM Interpretation: Performing Lab: Notes/Report: Test performed by [facility] [address] , [place] [address] Jefry Patel MD, General Internal Medicine Physician CLIA: [id number] Uric Acid 4.1 2.4-7.0 mg/dL Medications Medication SIG (Take, Route, [...] BY CHRISTEL TH DAILY; Duration: 90 Active Accu-Chek Guide - USE TO TEST BLOOD DEMPSEY GAR ONCE DAILY. Active Ozempic (2 MG/DOSE) 8 MG/3ML 2 mg Subcutaneous once a week 03/26/2025 Active Cefuroxime Axetil 500 MG 1 tablet Orally every 12 hrs; Duration: 7 day(s) 03/04/2025 Not-Taking Magnesium Oxide 500 MG 1 tab(s) orally o nce a day Not-Taking Zithromax Z-Otis 250 MG 2 today and then 1 qd x 4 d Orally qd; Duration: 5 days 03/04/2025 Not-Taking Baclofen 10 MG/20ML [...] a day; Duration: 90 days Not-Takin g oxyBUTYnin Chloride ER 10 MG 1 tablet Orally Once a day; Duration: 90 days Active Magnesium Oxide 400 MG 1 tab(s) Orally O nce a day 12/13/2024 Not-Taking Pregabalin 150 MG 1 capsule Orally Onc e a day Active Immunizations Vaccine Route Administration Date Status Comme nts Tetanus Tdap-Adacel (over 7yrs) Unknown 06/24/2023 Administered Prevnar (PCV20) IM Intramuscular 02/23/2024 Administered Prevnar (PCV13) Unknown 08/24/2019 Administered PNEUMOVAX 23 VACCINE Unknown 09/15/2022 Administered Hepatitis B (20 and more) Unknown 10/07/2000 Administer ed Hepatitis B (20 and more) Unknown 11/10/2000 Administer ed Hepatitis B (20 and more) Unknown 04/12/2001 Administer ed Fluzone Quad-Medicare (6months&older) Unknown 09/15/2022 Administered Fluzone Quad (6months&older) Unknown 08/11/2018 Administered Fluzone PF Quad (6-35 months) Unknown 09/24/2016 Administered Fluzone PF Quad (6-35 months) Unknown 08/19/2017 Administered Fluzone High Dose (65yr and older) Unknown 08/11/2020 Administered Fluzone High Dose (65yr and older) IM Intramuscular 07/31/2021 Administered Fluzone High Dose (65yr and older) Unknown 09/11/2023 Administered Fluzone High Dose (65yr and older) IM Intramuscular 08/23/2024 Administered DT, 7 YEARS OR OLDER Unknown 01/26/1997 Administered COVID 19 Moderna Unknown 02/10/2021 Administered COVID 19 Moderna Unknown 03/10/2021 Administered PNEUMOVAX 23 VACCINE Unknown 09/24/2016 Administered Shingrix IM Intramuscular 05/16/2019 Administered Tetanus Tdap-Adacel (over 7yrs) Unknown 09/10/2013 Administered Tetanus Tdap-Adacel (over 7yrs) IM Intramuscular 03/03/2009 Administered xFlu shot-36 months and older Unknown 08/19/2017 Administered xFluzone (6mos and older)-trivalent IM Intramuscular 11/29/2011 Administered Morphine 10mg/ml IM Intramuscular 11/24/2007 Administered Problems Problem Type SNOMED Code ICD Code Onset Dates Problem Status W/U Status Risk Notes Problem Gastroesophageal reflux disease (820635908) GERD (gastroesophageal reflux disease) (K21.9) Active confirmed Problem Essential hypertension (86168690) Essential (primary) hypertension (I10) Active confirmed Problem Insomnia (176692087) Insomnia (G47.00) Active confirmed Problem Essential hypertension (08030871) Essential hypertension (I10) Active confirmed Problem Osteopenia (499959600) Osteopenia (M85.80) Active confirmed Problem Degeneration of lumbar intervertebral disc (49023370) Degenerative disc disease, lumbar (M51.36) Active confirmed Problem Mixed anxiety and depressive disorder (004355043) Depression with anxiety (F41.8) Active confirmed Problem BMI 30+ - obesity (651906513) BMI 32.0-32.9,adult (Z68.32) Active confirmed Problem Obese class I (449649520597066) BMI 33.0-33.9,adult (Z68.33) Active confirmed Problem Overactive urinary bladder (disorder) (617476561) OAB (overactive bladder) (N32.81) Active confirmed Problem Hypomagnesemia (636424993) Hypomagnesemia (E83.42) Active confirmed Problem Diverticulitis of colon (803740853) Diverticulitis of large intestine without perforation or abscess without bleeding (K57.32) Active confirmed Problem Generalized osteoarthritis (127244344) Generalized osteoarthritis (M15.9) Active confirmed Problem Obese class II (926813603328577) BMI 35.0-35.9,adult (Z68.35) Active confirmed Problem Hyperlipidaemia (96859606) Hyperlipidemia, unspecified hyperlipidemia type (E78.5) Active confirmed Problem Migraine variant with headache (disorder) (550791629) Migraine headache (G43.909) Active confirmed Problem Body mass index 30.00 to 34.99 (943535289636483) BMI 31.0-31.9,adult (Z68.31) Active confirmed Problem Renal stone (94035260) Renal stone (N20.0) Active confirmed Problem Dyslipidemia (533648128) Dyslipidemia (E78.5) Active confirmed Problem Chronic kidney disease (964469837) CKD (chronic kidney disease) (N18.9) Active confirmed Problem Glaucoma (79272772) Glaucoma (H40.9) Active con firmed Problem Type II diabetes mellitus without complication (143472893) Type 2 diabetes mellitus without complication, without long-term current use of insulin (E11.9) Active confirmed Problem Chronic pain syndrome (385658221) Chronic pain disorder (G89.4) Active confirmed Problem Irritable bowel syndrome (17446801) Irritable bowel syndrome with both constipation and diarrhea (K58.2) Active confirmed Problem Type II diabetes mellitus without complication (622623660) Type 2 diabetes mellitus without complication, unspecified whether termination clerk insulin use (E11.9) Active confirmed Problem Abnormal carotid ultrasound (R93.89) Active confirmed Vital Signs Heart Rate 63 /min 04/30/2025 Blood pressure diastolic 60 mm Hg 04/30/2025 Height 63.50 in 04/30/2025 Blood pressure systolic 124 mm Hg 04/30/2025 Weight 190.4 lbs 04/30/2025 BMI 33.2 kg/m2 04/30/2025 Encounters Encounter Location Date Provider Diagnosis [place] [address] RAFA[place] Reynolds [id number] 06/28/2024 [facility] Essential hypertensi on I10 ; Hypomagnesemia E83.42 ; Migraine headache G43.909 and Hyperuricemia E79.0 Drew [address] [place]FA[place] [id number] 07/26/2024 [facility] Ess[facility] hypertensi on I10 ; Hypomagnesemia E83.42 and Hyperuricemia E79.0 Drew [address] RAFA[place] [id number] 08/23/2024 [facility] Essential hypertensi on I10 and Type 2 diabetes mellitus without complication, without long-term current use of insulin E11.9 Drew [address] RAFA[place] [id number] 12/11/2024 [facility] Adult general medica l examination Z00.00 ; Essential hypertension I10 ; Hypomagnesemia E83.42 ; Hyperuricemia E79.0 ; Type 2 diabetes mellitus without complication, without long-term current use of insulin E11.9 ; Dyslipidemia E78.5 ; OAB (overactive bladder) N32.81 ; GERD (gastroesophageal reflux disease) K21.9 and BMI 33.0-33.9,adult Z68.33 [facility] [address] [place] [id number] [facility] Acute bronchitis J20 .9 and Type 2 diabetes mellitus without complication, without long-term current use of insulin E11.9 [facility] [address] RAFA[place] [id number] 03/04/2025 Jennifer Marsh Bronchitis J40 and B [place] 33.0-33.9,adult Z68.33 [facility] [address] [place], [place] [id number] 04/30/2025 R Keven Shailesh Essential hypertensi on I10 ; Dyslipidemia E78.5 ; Type 2 diabetes mellitus without complication, without long-term current use of insulin E11.9 ; Hypomagnesemia E83.42 and GERD (gastroesophageal reflux disease) K21.9 [facility] [address] [place], [place] [id number] 07/10/2024 R Keven Shailesh [facility] [address] [place], [place] [id number] 07/11/2024 R Keven Shailesh [facility] [address] [place], [place] [id number] 07/31/2024 R Keven Shailesh [facility] [address] [place], [place] [id number] 10/22/2024 R Keven Shailesh [facility] [address] [place], [place] [id number] 12/12/2024 R Keven Shailesh [facility] [address] [place], [place] [id number] 12/13/2024 R Keven Shailesh [facility] [address] [place], [place] [id number] 12/14/2024 R Keven Shailesh [facility] [address] [place], [place] [id number] 01/01/2025 R Keven Shailesh [facility] [address] [place], [place] [id number] 03/26/2025 R Keven Shailesh Type 2 diabetes mellitus without complication, without long-term current use of insulin E11.9 [facility] [address] [place], [place] [id number] 05/05/2025 R Keven Shailesh Assessments Encounter Date Diagnosis (ICD Code) Assessment Notes Treatment Notes Treatment Clinical Notes Section Notes 06/28/2024 Essential hypertension (ICD-10 - I10) Continue to monitor and record blood pressure readings at home and bring diary to next office visit. 06/28/2024 Hypomagnesemia (ICD-10 - E83.42) 07/26/2024 Essential hypertension (ICD-10 - I10) Continue to monitor and record blood pressure readings at home and bring diary to next office visit. 07/26/2024 Hypomagnesemia (ICD-10 - E83.42) 08/23/2024 Essential hypertension (ICD-10 - I10) Continue to monitor and record blood pressure readings at home and bring diary to next office visit. 08/23/2024 Type 2 diabetes mellitus without complication, without long-term current use of insulin (ICD-10 - E11.9) 12/11/2024 Essential hypertension (ICD-10 - I10) Continue to monitor and record blood pressure readings at home and bring diary to next office visit. 02/26/2025 Acute bronchitis (ICD-10 - J20.9) 02/26/2025 Type 2 diabetes mellitus without complication, without long-term current use of insulin (ICD-10 - E11.9) 03/04/2025 BMI 33.0-33.9,adult (ICD-10 - Z68.33) 03/04/2025 [...] use of insulin (ICD-10 - E11.9) 12/11/2024 Hypomagnesemia (ICD-10 - E83.42) 07/26/2024 Hyperuricemia (ICD-10 - E79.0) 06/28/2024 Migraine headache (ICD-10 - G43.909) Samples x 3 provided 06/28/2024 Hyperuricemia (ICD-10 - E79.0) 12/11/2024 Hyperuricemia (ICD-10 - E79.0) 04/30/2025 Hypomagnesemia (ICD-10 - E83.42) 04/30/2025 GERD (gastroesophageal reflux disease) (ICD-10 - K21.9) 12/11/2024 Type 2 diabetes mellitus without complication, without long-term current use of insulin (ICD-10 - E11.9) 12/11/2024 Dyslipidemia (ICD-10 - E78.5) 12/11/2024 OAB (overactive bladder) (ICD-10 - N32.81) 12/11/2024 GERD (gastroesophageal reflux disease) (ICD-10 - K21.9) 12/11/2024 BMI 33.0-33.9,adult (ICD-10 - Z68.33) Plan Of Treatment Pending Test Test Name Order Date Ultrasound : Breasts, bilateral 05/22/20 Mammogram, Bilateral Diagnostic 05/22/20 Insurance Providers Payer Name Payer Address Payer Phone Subscriber Number Group Number Insured Name Patient Relationship to Insured Coverage Start Date Coverage End Date MARYJO MOGRAN [id number] [address] [id number] ROBERT DUMONT Self - patient is the insured Medications Administered Medication Instructions Date of Administration Dosage Notes B-12 11/29/2011 Dexamethasone 04/18/2008 1 mL Dexamethasone 02/26/2025 1 mL phenergan 25 mg/ml 11/24/2007 50 mg Dexamethasone 04/25/2018 1 mL Dexamethasone 05/06/2009 1 mL Depo- Medrol 40 mg/ml 09/16/2017 1.5 mL Depo- Medrol 40 mg/ml 04/12/2017 1.5 mL Depo- Medrol 40 mg/ml 08/22/2007 1.5 mL Dexamethasone 12/24/2010 1 mL Dexamethasone 12/29/2010 1 mL Dexamethasone 03/18/2016 1 mL Dexamethasone 03/29/2016 1 mL Dexamethasone 06/14/2018 1 mL Dexamethasone 03/03/2009 1 mL B-12 03/13/2012 1 mL Medical (General) History Medical History History ICD Code Hypertension allergies glaucoma OA Headaches Kidney stones Type 2 DM Hyperuricemia HLP Chronic renal insufficiency - Dr. Porter Surgical History Surgery Date(Month/Year) carpal tunnel cholecystectomy double hernia repair tonsillectomy torn rotator cuff, left 12/2007 stress test/blood work/chest x-ray [facility]/Dr. Slade Nunez 09/28 kidney stones removed 04/10/09 kidney stones removed 09-11-09 kidney stones removed 07/29/11 cataract surgery on right eye 06/01 heart cath/normal/Dr. Nunez 02/2013 lithotripsy 05/2013 hemmohroid surgery rotator cuff tear repair and tendon repa ir - Dr. Back 03/29/14 laser lithotrypsi- Dr Palma 07/[address] Palma 11.16 C-scope/ Allran/ normal 2017 C- scope/ [place]gil 06/2020 bilateral foot surgery to correct hammer toes/ Dr. Burkett 11/2023 Hospitalization History Reason Date(Month/Year) [facility] ER - Dizziness, Heart Palpitations, Pain in LLQ 06/21/2024 Left Foot Toe Surgery 01/13/2024 Right Foot Toe Surgery 11/18/2023 [facility]-sore throat 10/08 [facility] ER-UTI 07/08 [facility]-kidney stones, diverticulitis 02/24 to 02/27/17 [facility] ER-chest pain 12/26/16 [facility] ER-back pain 07/11/11 [facility] ER, pneumonia 04/28/2008 chestpain
[2025-06-17 09:52] LABS: NT Pro Brain Natriuretic Pep. 643 pg/mL (0-125)
[2025-06-17 09:59] LABS: Troponin I < 0.01 ng/ml (0.00-0.034)
--- NOTE | 2025-06-17 10:02 | CT_ITS ---
FINAL REPORT TECHNIQUE: Axial imaging of the chest is obtained after the administration of contrast. 3-D MIP reformatted images were also obtained and reviewed per PE protocol. CLINICAL HISTORY: chest pain rad to back, elevated dimer COMPARISON: None FINDINGS: The pulmonary arteries are well filled. There is no evidence of pulmonary embolus. There is no aortic dissection. Heart size is enlarged. There is no mediastinal, hilar, or axillary lymphadenopathy. Granulomatous disease is noted. The lungs are otherwise clear. There is no pleural or pericardial effusion. Limited evaluation of the upper abdomen is without acute abnormality. No acute osseous abnormality. IMPRESSION: No evidence of pulmonary embolism or aortic dissection. Reviewed, Interpreted and Dictated by Shonda Rich MD Transcribed by Kelli Parish Authenticated and [facility]
--- NOTE | 2025-06-17 10:10 | CT_ITS ---
FINAL REPORT TECHNIQUE: Thin section axial images were obtained from skull base to vertex without contrast. Coronal reconstruction images were obtained from the axial data. Exam was performed using dose reduction techniques such as automated exposure control, adjustment of the mA and kV according to patient size, and use of iterative reconstruction technique. CLINICAL HISTORY: headache COMPARISON: 06/21/2024 FINDINGS: There is atrophy. No mass effect or midline shift. No intracranial hemorrhage. No hydrocephalus. Periventricular low density is likely related to changes of chronic small vessel ischemia. The basilar cisterns are preserved. The posterior fossa is without acute abnormality. The soft tissues are without acute abnormality. No acute osseous abnormality is identified. IMPRESSION: No acute intracranial abnormality. Atrophy and changes suggesting chronic small vessel ischemia. Reviewed, Interpreted and Dictated by Shonda Rich MD Transcribed by Kelli Parish Authenticated and [facility]
[2025-06-17] MEDS: 0.9 % SODIUM CHLORIDE 50 ML VIAL IV (10:15)
[2025-06-17] MEDS: IOPAMIDOL-370 (76%);100ML BOTTLE 85 ML IV (10:16)
[2025-06-17] MEDS: SODIUM CHLORIDE 0.9% 10ML SYR (RAD ONLY) 10 ML IV (10:16)
--- NOTE | 2025-06-17 10:22 | PC.NURSE ---
PT RETURNED FROM CT
[2025-06-17] MEDS: MAGNESIUM SULFATE IN WATER 2 GM/50 ML PIGGYBACK IV (10:30)
[2025-06-17] MEDS: METOCLOPRAMIDE HCL 10MG/2ML VIAL 5 MG IVP (10:30)
[2025-06-17] MEDS: KETOROLAC 30MG/ML VIAL 15 MG IV (10:30)
[2025-06-17 12:09] LABS: Troponin I < 0.01 ng/ml (0.00-0.034)
[2025-06-17 12:43] LABS: Hepatitis C Ab Qual. W/ RFX NEGATIVE (Negative)
== END 2025-06-17 12:52 | disposition home or self-care (01) ==
PROVIDERS: Emergency Provider Emergency Medicine; PCP Family Medicine
DX: R07.89 Other chest pain (principal); E83.42 Hypomagnesemia; E78.5 Hyperlipidemia, unspecified; I10 Essential (primary) hypertension; E11.9 Type 2 diabetes mellitus without complications
CPT/HCPCS: 70450; 71046; 71275; 80053; 83690; 83735; 83880; 84484; 85025; 85378; 86803; 87389; 93005; 96365; 96375; 99291; J1885; J2765; J3475; Q9967

== ENCOUNTER 2025-06-28 12:45 | Outpatient (CLI) | payer MEDICARE, SELFPAY ==
--- OUTSIDE RECORDS SUMMARY | 2025-03-04 09:15 | XMS_ITS ---
Author Organization [facility] Address [address] [place] [phone] Care Team Providers Care News Department Intern Name Role Phone Vernon Cash Primary Care Provider [phone] Jennifer Marsh Unavailable [phone] Allergies Allergen (clinical drug ingredient) Drug/Non Drug Allergy documented on EMR Reaction Allergy Type Onset Date Status Non-steroidal anti-inflammatory agent (FN) NSAIDs raises blood pressure Drug Allergy Active Results Component Value Reference Range Notes CBC Fingerstick (in house) Reviewed date:03/04/2025 01:54:18 PM Interpretation: Performing Lab: Notes/Report: wbc 12.2 3.5 - 10 lym 9.3 15 - 50 mid 3.3 2 - 15 gran 87.4 35 - 80 rbc 4.18 3.5 - 5.5 hgb 13.4 11.5 - 16.5 hct 38.9 35 - 55 mcv 93.0 75 - 100 mch 32.0 25 - 35 mchc 34.5 31 - 38 plat 171 100 - 400 REASON FOR VISIT cough, short of breath Medications Medication SIG (Take, Route, Frequency, Duration) Notes Start Date End Date Status Losartan Potassium-HCTZ 50-12.5 MG 1 tablet Orally Once a day Active Metoprolol Succinate ER 50 MG 1 tablet At Bed Time Active Magnesium Oxide 500 MG 1 tab(s) orally o nce a day Active Ozempic (1 MG/DOSE) 4 MG/3ML dial and in ject under the skin 1 mg weekly Active Potassium Chloride ER 20 MEQ 1 tab(s) or ally once a day Active Albuterol Sulfate HFA 108 (90 Base) MCG/ACT 2 puff Inhalation qid and q2h prn 03/04/2025 Active Zithromax Z-Otis 250 MG 2 today and then 1 qd x 4 d Orally qd; Duration: 5 days 03/04/2025 Active Cefuroxime Axetil 500 MG 1 tablet Orally every 12 hrs; Duration: 7 day(s) 03/04/2025 Active Glimepiride 2 MG 1 tab(s) orally once a day Active Accu-Chek Guide - USE TO TEST BLOOD DEPMSEY GAR ONCE DAILY. Active Accu-Chek Guide w/Device as directed 07/10/2024 Active Diclofenac Sodium 1 % 1 charles applied topi selena 4 times a day Active Allopurinol 100 MG TAKE 1 TABLET BY CHRISTEL TH DAILY; Duration: 90 Active Magnesium Oxide 400 MG 1 tab(s) Orally O nce a day 12/13/2024 Active Vitamin D3 25 MCG (1000 UT) 1 tab(s) Orally bid Active Accu-Chek FastClix Lancets - ONCE A DAY 11/03/2022 Active Methocarbamol 500 MG 1/ tablet Orally th ree times a day as needed Active Pregabalin 150 MG 1 capsule Orally Onc e a day Active Atorvastatin Calcium 80 MG 1 tab(s) Oral ly At Bed Time Active Potassium Chloride ER 20 MEQ 1 tab(s) or ally once a day; Duration: 90 days Active oxyBUTYnin Chloride ER 10 MG 1 tablet Or ally Once a day; Duration: 90 days Active Omeprazole 20 MG 1 cap(s) Orally once daily Active Vital Signs Blood pressure systolic 126 mm Hg 03/04/20 25 Blood pressure diastolic 68 mm Hg 025 Heart Rate 93 /min 03/04/2025 Height 63.50 in 03/04/2025 Weight 189.9 lbs 03/04/2025 BMI 33.11 kg/m2 03/04/2025 Encounters Encounter Location Date Provider Diagnosis [facility] [address] [place], [place] [phone] 03/04/2025 Jennifer Marsh Bronchitis J40 and BMI 33.0-33.9,adult Z68.33 Assessments Encounter Date Diagnosis (ICD Code) Assessment Notes Treatment Notes Treatment Clinical Notes Section Notes 03/04/2025 Bronchitis (ICD-10 - J40) fluids, rest, supportive measures for fever/symptom relief 03/04/2025 BMI 33.0-33.9,adult (ICD-10 - Z68.33) Plan Of Treatment Medication Medication Name Sig Start Date Stop Date Notes Albuterol Sulfate HFA 108 (9 0 Base) MCG/ACT 2 puff Inhalation qid and q2h prn 03/04/2025 Zithromax Z-Otis 250 MG 2 today and then 1 qd x 4 d Orally qd; Duration: 5 days 03/04/2025 Cefuroxime Axetil 500 MG 1 tablet Orally every 12 hrs; Duration: 7 day(s) 03/04/2025 Treatment Notes Assessment Notes Bronchitis fluids, rest, suppor tive measures for fever/symptom relief Next Appt Details Follow Up: prn, Reason: Progress Notes * ROBERT DUMONT WDOB:1955 ( 70 yo F)Acc No.[id number]:03/04/2025 Progress Notes Patient: ROBERT KIMBALL Provider: BIANCA Bruce :1955 A ge:70 Y S ex:Female Date:03/04/2025 Address:[address] [id number] Pcp:Vernon Cash Subjective: * Chief Complaints: * 1 . Cough, short of breath. * HPI: E NT/respiratory: 70 year old female presents with c/o cough P t sts when she coughs it is very deep and sts she can not get anything up. Pt sts she was here on 02/26 and was given a shot and antibiotics and sts it has not helped. c/o Short of Breath. c/o headache?Pt sts she has a bad headache today as well. Denies : sore throat. D enies : nasal congestion. D enies : ear pain. is able to eat and drink without problems; taking NyQuil which helps with sleeping. * ROS: D ERMATOLOGY: no R karey. n o H vimal. G ASTROENTEROLOGY: no N ausea. n o V omiting. D iarrhea y es.? U ROLOGY: Positive for v oiding QS. [...] cuff, left 12/2007, stress test/blood work/chest x-ray [facility] [facility]/Dr. Slade Nunez 09/28, kidney stones removed 04/10/09, kidney stones removed 09-11-09, kidney stones removed 07/29/11, cataract surgery on right eye 06/01, heart cath/normal/Dr. Nunez 02/2013, lithotripsy 05/2013, hemmohroid surgery , rotator cuff tear repair and tendon repair - Dr. Back 03/29/14, laser lithotrypsi- Dr Palma 07/05, kidney stone removed Dr Palma 10.06, C-scope/ Allran/ normal 2017, C- scope/ Herman 06/2020, bilateral foot surgery to correct hammer toes/ Dr. Burkett 11/2023. * Hospitalization/Major Diagno stic Procedure: c hestpain , [facility] ER, pneumonia 04/28/2008, [facility] ER-back pain 07/11/11, [facility] ER-chest pain 12/26/16, [facility]-kidney stones, diverticulitis 02/24 to 02/27/17, [facility] ER- UTI 07/08, [facility]-sore throat 10/08, Right Foot Toe Surgery 11/18/2023, Left Foot Toe Surgery 01/13/2024, [facility] ER - Dizziness, Heart Palpitations, Pain in LLQ 06/21/2024. * Family History: F ather: , CHF. M other: . 2 sister(s) . 1 daughter(s) . . * Social History: C URRENT TOBACCO USE S moking Status: Patient does NOT smoke. M arital Status: . Past smoking status: no. Alcohol: No. * Medications: T aking Glimepiride 2 MG Tablet 1 tab(s) orally once a day , Taking Ozempic (1 MG/DOSE) 4 MG/3ML Solution Pen-injector dial and inject under the skin 1 mg weekly , Taking Magnesium Oxide 500 MG Tablet 1 tab(s) [...] tab(s) Orally At Bed Time , Taking Omeprazole 20 MG Capsule Delayed [...] TAKE 1 TABLET BY MOUTH DAILY , Discontinued Benzonatate 200 MG Capsule 1 capsule as needed Orally Three times a day , Discontinued Doxycycline Hyclate 100 MG Capsule 1 capsule Orally Two times a day , Medication List reviewed and reconciled with the patient * Allergies: N SAIDs: raises blood pressure. Objective: * Vitals: W t: 189.9, Temp: 97.7, BP: 126/68, HR: 93, O2 Sat: 97% on RA, Nurse: wayne, Ht: 63.50, BMI:33.11. * Examination: E NT/Respiratory: General Appearance: well nourished and hydrated, NAD, alert. E yes: sclera and conjunctiva clear. E ars: auditory canals normal bilaterally, tympanic membranes normal bilaterally. O ral cavity : moist mucosa. H eart : RRR. L ungs: decreased breath sounds posteriorly; rare cough. Assessment: * Assessment: 1. B ronchitis - J40 (Primary) 2 . B MA 33.0-33.9,adult - Z68.33 Plan: * Treatment: * Labs: * L ab: CBC Fingerstick (in house) (Collection Date & Time - 03/04/2025) Value Reference Range w bc 12.2 3.5 - 10 * l ym 9.3 15 - 50 * m id 3.3 2 - 15 * g ran 87.4 35 - 80 * r bc 4.18 3.5 - 5.5 * h gb 13.4 11.5 - 16.5 * h ct 38.9 35 - 55 * m cv 93.0 75 - 100 * m ch 32.0 25 - 35 * m chc 34.5 31 - 38 * p lat 171 100 - 400 * Barbie Hatfield 03/04/2025 01:2 0:35 PM > Provider reviewed results while patient in office.Jennifer Marsh 03/04/2025 1:54:15 PM > * Procedure Codes: G 2211 Complex e/[place], [address] [place] [address] CAPILLARY BLOOD DRAW, 58088 CBC WITH AUTO DIFF, G8752 MOST RECENT SYSTOLIC BP < 140MM HG, G8754 MOST RECENT DIASTOLIC BP < 90MM HG * Follow Up: p rn * Images: Billing Information: * Visit Code: 66560 Office Visit, Est Pt., Level 3. * Procedure Codes: G2211 Complex e/[place] [address] [place] [address] CAPILLARY BLOOD DRAW. 26198 CBC WITH AUTO DIFF. G8752 MOST RECENT SYSTOLIC BP < 140MM HG. G8754 MOST RECENT DIASTOLIC BP < 90MM HG. * Electronic signature of Paulina aMrsh APRN on 06/28/2025 at 12:47 PM EDT Sign off status: Pending * Provider: BIANCA Bruce Date: 0 03/04/2025 Generated for Lei cardenas/Samy/eTkrunalitting on: 0 06/28/2025 12:47 PM EDT History and Physical Notes * HPI (History of Present Illness) Category Sub-Category Detail Notes Category Not es ENT/respiratory sore throat is able to e at and drink without problems; taking NyQuil which helps with sleeping ear pain Short of Breath cough Pt sts when she coug hs it is very deep and sts she can not get anything up. Pt sts she was here on 02/26 and was given a shot and antibiotics and sts it has not helped headache Pt sts she has a bad headache today as well nasal congestion Examination Category Sub-Category Detail Notes Category Not es ENT/Respiratory Oral cavity : moist mucosa Ears: auditory canals norm al bilaterally, tympanic membranes normal bilaterally Heart : RRR Lungs: decreased breath ye nds posteriorly; rare cough General Appearance: well nourished and h ydrated, NAD, alert Eyes: sclera and conjuncti va clear
--- OUTSIDE RECORDS SUMMARY | 2025-03-20 05:15 | XMS_ITS | Continuity of Care Document ---
Author Organization [facility] Address [address] [place] [address] Phone Care Team Providers Care Tick Sewer Name Role Phone Bharat Gutiérrez MD Unavailable [...] visit,est, [facility], [facility] [place], [address], tel:[phone] [employer] [place] right shoulder (chief complaint)b ilateral knee (chief complaint) Bilateral primary osteoarthritis of kneePain in right shoulder Feb-3 0 5 Brock Nicholson. [address] [place] [address], [address], [place]. tel:[phone] Referring Provider: Ermias Baca, [address] [place] [address] [facility] [address], [address] . tel:[phone] Office/outpa tient visit,est, [facility], [address] [place], [address], [place] tel:[phone] [employer] [place] bilateral knee pain (chief complaint) Bilateral primary osteoarthritis of kneePain in right shoulder 4 Brock Nicholson. [address] [place], [address], [place]. tel:[phone] Referring Provider: Ermias Baca, [address] [place] [address] [address], [place], [address] . tel:[phone] Office/outpa tient visit,est, mod [facility], [facility] [place], [address], [place] tel:[phone] [employer] [place] follow up (chief complaint) Bilateral primary osteoarthritis of knee 4 Brock Nicholson. [address] [place], [address], [place]. tel:[phone] Referring Provider: Ermias Baca, [address] [place] [address] [address], [place], [address] . tel:[phone] Office/outpa tient visit,est, mod [facility], [facility] [place], [address], [place] tel:[phone] [employer] [place] General orthopedic (chief complaint) Bilateral primary osteoarthritis of knee 3 Brock Nicholson. [address] [place], [address], [place]. tel:[phone] Referring Provider: Ermias Baca, [address] [place] [address] [address], [place], [address] . tel:[phone] [facility], [place], [address], [place] tel:[phone] [employer] [place] No Information 3 Brock Nicholson. [address] [place] [address], [address], [place]. tel:[phone] Referring Provider: Ermias Baca, [address] [place] [address] [address], [place], [address] . tel:[phone] Office/outpa tient visit,[facility], [facility], [address] [place], [address], tel:[phone] [employer] [place] knee (chief complaint)G eneral orthopedic (chief complaint) Bilateral primary osteoarthritis of knee 3 Brock Nicholson. [address] [facility] [place], [place], [facility], . tel:[phone] Referring Provider: Ermias Baca, [address] [place] [address], [address] . tel:[phone] [facility], [address] [place], [address], tel:[phone] [employer] [place] No Information 3 Brock Nicholson. [address] [place], [address], . 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
--- OUTSIDE RECORDS SUMMARY | 2025-04-30 07:30 | XMS_ITS ---
Author Organization [facility] Address [address] [place], [place] [id number] Care Team Providers Care Microphone Boom Operator Name Role Phone Vernon Cash Primary Care Provider [phone] Allergies Allergen (clinical drug ingredient) Drug/Non Drug [...] 51 Performing Lab: Notes/Report: Test performed by [email or web address], [email or web address]0 [facility] , [address], [place] [address] Jefry Patel MD, Fence Installer Foreman CLIA: [id number] Sodium 141 135-145 mmol/L Potassium 4.0 3.5-5.3 [...] 101 Performing Lab: Notes/Report: Test performed by [facility], [address] , [address], [place] [address] Jefry Patel MD, Fence Installer Foreman CLIA: [id number] Cholesterol 189 <200 mg/dL Triglycerides 174 <150 [...] Interpretation:1.6 Performing Lab: Notes/Report: Test performed by [facility] [address] [facility] , [address], [place] [address] Jefry Patel MD, Fence Installer Foreman CLIA: [id number] Magnesium 1.6 1.6-2.4 mg/dL REASON FOR VISIT [...] 04/30/2025 Encounters Encounter Location Date Provider Diagnosis [facility] [address] [facility] [address] [place] [address], [place] [phone] 04/30/2025 Vernon Cash Essential hypertensi on I10 [...] ROBERT DUMONT WDOB:1955 ( 70 yo F)Acc No.[id number]:04/30/2025 Progress Notes Patient: ROBERT KIMBALL Provider: Vernon Cash M.D. :1955 A ge:70 Y S ex:Female Date:04/30/2025 Address:[address], [id number] Subjective: * Chief Complaints: * 1 . Needs check up before cardiology appt. 2. Needs mammogram. * HPI: C ardiology: She comes in for scheduled checkup and routine blood work. She saw her regional coordinator recently and he discontinued several of her [...] [facility]/Dr. Slade Nunez 09/28, kidney stones removed [...] Hospitalization/Major Diagno stic Procedure: c laith , [facility] ER, pneumonia 04/28/2008, [facility] ER-back pain 07/11/11, [facility] ER-chest pain 12/26/16, [facility]-kidney stones, diverticulitis 02/24 to 02/27/17, [facility] ER- UTI 07/08, [facility]-sore throat 10/08, Right Foot Toe Surgery 11/18/2023, Left Foot Toe Surgery 01/13/2024, [facility] ER - Dizziness, Heart Palpitations, Pain [...] Temp: 97.7, BP: 124/60, HR: 63, Nurse: [facility], Ht: 63.50, BMI:33.2. * Examination: C ardiology: [...] G 2211 Complex e/[place], [address] CAPILLARY BLOOD DRAW, 62495 GLYCATED HEMOGLOBIN TEST, Modifiers: QW , 3044F HG A1C LEVEL LT 7.0%, G8950 PREHTN/HTN BP DOC INDCD F/U DOC, G8752 MOST RECENT SYSTOLIC BP < 140MM HG, G8754 MOST RECENT DIASTOLIC BP < 90MM HG, 1036F TOBACCO NON-USER * Follow Up: 6 Months * Images: Billing Information: * Visit Code: 02105 Office Visit, Est Pt., Level 4. * Procedure Codes: G2211 Complex e/[place]. [address] CAPILLARY BLOOD DRAW. 14454 GLYCATED HEMOGLOBIN TEST. Modifiers: QW 3044F HG A1C LEVEL LT 7.0%. G8950 PREHTN/HTN BP DOC INDCD F/U DOC. G8752 MOST RECENT SYSTOLIC BP < 140MM HG. G8754 MOST RECENT DIASTOLIC BP < 90MM HG. 1036F TOBACCO NON-USER. * Electronic signature of Vernon Cash MD on 06/28/2025 at 12:47 PM EDT Sign off status: Pending * Provider: Vernon Cash M.D. Date: 0 04/30/2025 Generated for Lei cardenas/Samy/Kendraitting on: 0 06/28/2025 12:47 PM EDT History and Physical Notes * HPI (History of Present Illness) Category Sub-Category Detail Notes Category Not es Cardiology She comes in fo r scheduled checkup and routine blood work. She saw her regional coordinator recently and he discontinued several of her [...]
--- OUTSIDE RECORDS SUMMARY | 2025-06-20 10:45 | XMS_ITS ---
Author Organization [facility] Address [address], [place] [id number] Care Team Providers Care Impersonator Character Name Role Phone Vernon Cash Primary Care Provider Allergies Allergen (clinical drug ingredient) Drug/Non Drug Allergy documented on EMR Reaction Allergy Type Onset Date Status Non-steroidal anti-inflammatory agent (FN) NSAIDs raises blood pressure Drug Allergy Active REASON FOR VISIT [facility] ER f/u Medications Medication SIG (Take, Route, Frequency, Duration) Notes Start Date End Date Status Pregabalin 150 MG 1 capsule Orally Onc e a day Not-Taking Vitamin D3 25 MCG (1000 UT) 1 tab(s) Orally bid Not-Taki ng Baclofen 10 MG/20ML as directed Intrathecal Not-Taking Losartan Potassium-HCTZ 50-12.5 MG 1 tablet Orally Once a day Not-Taking Magnesium Oxide 400 MG 1 tab(s) Orally O nce a day 12/13/2024 Active Allopurinol 100 MG TAKE 1 TABLET BY CHRISTEL TH DAILY; Duration: 90 Active Accu-Chek Guide w/Device as directed 07/10/2024 Active Accu-Chek Guide - USE TO TEST BLOOD SUGAR ONCE DAILY. Active Ozempic (2 MG/DOSE) 8 MG/3ML 2 mg Subcutaneous once a week 03/26/2025 Active Accu-Chek FastClix Lancets - ONCE A DAY 11/03/2022 Active oxyBUTYnin Chloride ER 10 MG 1 tablet Orally Once a day; Duration: 90 days Active Diclofenac Sodium 1 % 1 charles applied topically 4 times a day Active Glimepiride 2 MG 1 tab(s) orally once a day Active Metoprolol Succinate ER 50 MG 1 tablet At Bed Time Active Cyanocobalamin 1000 MCG 1 tablet Orally Once a day Active Ascorbic Acid 1000 MG 1 tablet Orally On ce a day Active Omeprazole 20 MG 1 capsule 1/2 to 1 hour before morning meal Orally Once a day Active Cholecalciferol 50 MCG (1999) 1 tablet Orally Once a day Active Triamcinolone Acetonide 0.1 % 1 application Externally twice a day 06/20/2025 Active Vital Signs Blood pressure systolic 130 mm Hg 06/20/20 25 Blood pressure diastolic 70 mm Hg 025 Heart Rate 63 /min 06/20/2025 Height 63.50 in 06/20/2025 Weight 190.2 lbs 06/20/2025 BMI 33.16 kg/m2 06/20/2025 Encounters Encounter Location Date Provider Diagnosis [facility] [address] [phone] 06/20/2025 Vernon Cash Chest wall pain R07. 89 ; Hypomagnesemia E83.42 and Dyshidrosis L30.1 Assessments Encounter Date Diagnosis (ICD Code) Assessment Notes Treatment Notes Treatment Clinical Notes Section Notes 06/20/2025 Chest wall pain (ICD-10 - R07.89) 06/20/2025 Hypomagnesemia (ICD-10 - E83.42) 06/20/2025 Dyshidrosis (ICD-10 - L30.1) Plan Of Treatment Medication Medication Name Sig Start Date Stop Date Notes Magnesium Oxide 400 MG 1 tab(s) Orally Once a day 12/13/19 25 Triamcinolone Acetonide 0.1 % 1 applicat ion Externally twice a day 06/20/2025 Next Appt Details Follow Up: 3 Months, Reason: Progress Notes * ROBERT DUMONT WDOB:1955 ( 70 yo F)Acc No.[id number]:06/20/2025 Progress Notes Patient: ROBERT KIMBALL Provider: Vernon Cash M.D. :1955 A ge:70 Y S ex:Female Date:06/20/2025 Address:[id number] Subjective: * Chief Complaints: * 1 . [facility] ER f/u. * HPI: H PI: Robert comes in today for follow-up on recent ER visit for left-sided chest pain. She had an extensive workup including labs, EKG, CT scan that was essentially negative except for low magnesium. She has resumed her previous dose of magnesium. Generally she is feeling better. She still notes occasional soreness of the left upper chest wall. D ermatology: She is having recurrence of dry, peeling, and cracking skin on her left foot And is requesting a refill on triamcinolone. * ROS: D ERMATOLOGY: no R karey. [...] stress test/blood work/chest x-ray [facility]/Dr. Slade Nunez 09/28, kidney stones removed 04/10/09, kidney stones removed 09-11-09, kidney stones removed 07/29/11, cataract surgery on right eye 06/01, heart cath/normal/Dr. Nunez 02/2013, lithotripsy 05/2013, hemmohroid surgery , rotator cuff tear repair and tendon repair - Dr. Back 03/29/14, laser lithotrypsi- Dr Palma 07/05, kidney stone removed Dr Palma 10.06, C-scope/ Alicia/ normal 2017, C- scope/ Virgil 06/2020, bilateral foot surgery to correct hammer toes/ Dr. Burkett 11/2023. * Hospitalization/Major Diagno stic Procedure: c hestpain , [facility] ER, pneumonia 04/28/2008, [facility] ER-back pain 07/11/11, [facility] ER-chest pain 12/26/16, [facility]-kidney stones, diverticulitis 02/24 to 02/27/17, [facility] ER- UTI 07/08, [facility]-sore throat 10/08, Right Foot Toe Surgery 11/18/2023, Left Foot Toe Surgery 01/13/2024, [facility] ER - Dizziness, Heart Palpitations, Pain in LLQ 06/21/2024. * Family History: F ather: , CHF. M other: . 2 sister(s) . 1 daughter(s) . . * Social History: C URRENT TOBACCO USE S moking Status: Patient does NOT smoke. M arital Status: . Past smoking status: no. Alcohol: No. * Medications: T aking Omeprazole 20 MG Capsule Delayed Release 1 capsule 1/2 to 1 hour before morning meal Orally Once a day , Taking Cholecalciferol 50 MCG (2000 UT) Tablet 1 tablet Orally Once a day , Taking Ascorbic Acid 1000 MG Tablet 1 tablet Orally Once a day , Taking Cyanocobalamin 1000 MCG Tablet 1 tablet Orally Once a day , Taking Glimepiride 2 MG Tablet 1 tab(s) orally once a day , Taking Metoprolol Succinate ER 50 MG Tablet Extended Release 24 Hour 1 tablet At Bed Time , Taking oxyBUTYnin Chloride ER 10 MG Tablet Extended Release 24 Hour 1 tablet Orally Once a day , Taking Diclofenac Sodium 1 % Gel 1 charles applied topically 4 times a day , Taking Allopurinol 100 MG Tablet TAKE 1 TABLET BY MOUTH DAILY , Taking Ozempic (2 MG/DOSE) 8 MG/3ML Solution Pen- injector 2 mg Subcutaneous once a week , Taking Accu-Chek FastClix Lancets - ONCE A DAY , Taking Accu-Chek Guide w/Device Kit as directed , Taking Accu-Chek Guide - Strip USE TO TEST BLOOD SUGAR ONCE DAILY. , Not-Taking Baclofen 10 MG/20ML Solution as directed Intrathecal , Not-Taking Losartan Potassium-HCTZ 50-12.5 MG Tablet 1 tablet Orally Once a day , Not-Taking Pregabalin 150 MG Capsule 1 capsule Orally Once a day , Not-Taking Vitamin D3 25 MCG (1000 UT) Capsule 1 tab(s) Orally bid , Medication List reviewed and reconciled with the patient * Allergies: N SAIDs: raises blood pressure. Objective: * Vitals: W t: 190.2, Temp: 97.6, BP: 130/70, HR: 63, O2 Sat: 96% on RA, Nurse: wayne, Ht: 63.50, BMI:33.16. * Examination: G eneral Examination: General Appearance: N AD. H EENT: T here are some mild puffiness of her lower eyelids. Sclera conjunctive are clear.. O ral cavity: n o lesions, mucosa moist and WNL, no erythema. C hest: M ild tenderness along left upper sternal border. H eart: R SR. L ungs: c lear to auscultation. E xtremities: n o leg edema. Assessment: * Assessment: 1. C hest wall pain - R07.89 (Primary) 2 . H ypomagnesemia - E83.42 ? 3 . D yshidrosis - L30.1 Plan: * Treatment: 2. D yshidrosis Start Triamcinolone Acetonide Cream, 0.1 %, 1 application, Externally, twice a day, 60 gm. ? * Procedure Codes: G 2211 Complex e/m visit add on, 1036F TOBACCO NON-USER, G8783 BP SCR PRFRM RCMDD DEFIND SCR INTVL, G8752 MOST RECENT SYSTOLIC BP < 140MM HG, G8754 MOST RECENT DIASTOLIC BP < 90MM HG * Follow Up: 3 Months * Images: Billing Information: * Visit Code: 14468 Office Visit, Est Pt., Level 3. * Procedure Codes: G2211 Complex e/m visit add on. 1036F TOBACCO NON-USER. G8783 BP SCR PRFRM RCMDD DEFIND SCR INTVL. G8752 MOST RECENT SYSTOLIC BP < 140MM HG. G8754 MOST RECENT DIASTOLIC BP < 90MM HG. * Electronic signature of Vernon Cash MD on 06/28/2025 at 12:47 PM EDT Sign off status: Pending * Provider: Vernon Cash M.D. Date: 0 06/20/2025 Generated for Lei cardenas/Samy/Kendraitting on: 0 06/28/2025 12:47 PM EDT History and Physical Notes * Examination Category Sub-Category Detail Notes Category Not es General Examination HEENT: There are so me mild puffiness of her lower eyelids. Sclera conjunctive are clear. Heart: RSR Lungs: clear to auscultatio n Extremities: no leg edema General Appearance: NAD Oral cavity: no lesions, mucosa m oist and WNL, no erythema Chest: Mild tenderness rosmery g left upper sternal border
--- NOTE | 2025-06-28 12:47 | CT_ITS ---
FINAL REPORT TECHNIQUE: Axial images through the abdomen and pelvis were performed without contrast. This study was performed with techniques to keep radiation doses as low as reasonably achievable, (ALARA). Individualized dose reduction techniques using automated exposure control or adjustment of mA and/or kV according to the patient's size were employed. CLINICAL HISTORY: UNSPECIFIED ABD PAIN COMPARISON: 03/17/2022 FINDINGS: Abdomen: There is chronic scarring at the bases. The liver parenchyma is homogeneous. The gallbladder is surgically absent. There are calcified granulomas in the spleen. The pancreas, adrenals and kidneys are unremarkable. There is mild to moderate left hydronephrosis without hydroureter. There may be an element of UPJ obstruction. There are postsurgical changes from ventral hernia repair. Pelvis: The appendix is normal. The urinary bladder is decompressed. Uterus is present and lies eccentric to the left. There are scattered diverticuli of the descending colon. There is no pelvic mass or inflammation. IMPRESSION: Mild left mild to moderate left hydronephrosis with questionable UPJ obstruction. Reviewed, Interpreted and Dictated by Garry Hendrickson MD Transcribed by Nicole Delgadillo Authenticated and . [facility]
--- OUTSIDE RECORDS SUMMARY | 2025-06-28 12:47 | XMS_ITS | Patient Health Record ---
Author Organization [facility] [place] Address [address] [facility] 36 [facility] [address] [place] [id number] Care Team Providers Care Fish Worm Grower Name Role Phone Vernon Cash Primary Care Provider Jennifer Marsh [phone] Allergies Allergen (clinical drug ingredient) Drug/Non Drug Allergy documented on EMR Reaction Allergy Type Onset Date Status Non-steroidal anti-inflammatory agent (FN) NSAIDs raises blood pressure Drug Allergy Active Results Component Value Reference Range Notes P-Lipid Panel Reviewed date:12/13/2024 08:39:43 AM Interpretation:Normal Performing Lab: Notes/Report: Test performed by [facility], [employer] [address] [place] [address] , [address], [place] [address] Jefry Patel MD, Creative Designer CLIA: [id number] Cholesterol 113 <200 mg/dL Triglycerides 135 <150 [...] Results: 34 Units: mg/dL % Change: - P-Comprehensive Metabolic Pa jung (CMP) Reviewed date:12/13/2024 08:39:43 AM Interpretation:gluc 171, bun 24, Cr 1.17, gfr 50, alk phos 137 Performing Lab: Notes/Report: Test performed by [facility], [address] , [address], [place] [address] Jefry Patel MD, Creative Designer CLIA: [id number] Sodium 145 135-145 mmol/L Potassium 5.2 3.5-5.3 [...] 0.6 <0.2-1.2 mg/dL A/G Ratio 1.5 1.1-2.5 Glycohemoglobin A1c (in hous e) Reviewed date:12/13/2024 08:39:43 AM Interpretation:6.4% Performing Lab: Notes/Report: 6.4% glycohemoglobin 6.4% 5 - 6.5 % CBC Venipuncture (in house) Reviewed date:12/13/2024 08:39:43 [...] - 38 platlet 150 100 - 400 P-Magnesium Reviewed date:12/13/2024 08:39:43 AM Interpretation:1.5 Performing Lab: Notes/Report: Test performed by [facility] [address] [place] [address] , [address], [place] [address] Jefry Patel MD, Creative Designer CLIA: [id number] Magnesium 1.5 1.6-2.4 mg/dL P-Microalbumin/Creatinine, R andom Urine Sample Reviewed date:12/13/2024 08:39:43 AM Interpretation:a/c 76 Performing Lab: Notes/Report: Test performed by [facility] [address] [place] [address] , [address], [place] [address] Jefry Patel MD, Creative Designer CLIA: [id number] Albumin/Creatinine Ratio, Urine 76 0-30 ug/m g Microalbumin, Urine, Random 24.3 Creatinine, Urine 321.2 P-Uric Acid Reviewed date:12/13/2024 08:39:43 AM Interpretation:Normal Performing Lab: Notes/Report: Test performed by [facility] [address] [place] [address] , [address], [place] [address] Jefry Patel MD, Creative Designer CLIA: [id number] Uric Acid 6.6 2.4-7.0 mg/dL P-Basic Metabolic Panel (BMP ) Reviewed date:07/31/2024 08:17:54 AM Interpretation: Performing Lab: Notes/Report: Test performed by [facility] [address] [place] [address] , [address], [place] [address] Jefry Patel MD, Creative Designer CLIA: [id number] Sodium 143 135-145 mmol/L Potassium 4.5 3.5-5.3 mmol/L Chloride 107 97-108 mmol/L CO2 27 22-32 mmol/L Glucose 120 65-99 mg/dL BUN 16 8-23 mg/dL Creatinine 1.06 0.50-1.00 mg/dL Calcium 9.2 8.6-10.4 mg/dL eGFR by Creatinine 56 >59 mL/min/1.73m2 P-Magnesium Reviewed date:07/31/2024 08:17:54 AM Interpretation: Performing Lab: Notes/Report: Test performed by [facility] [address] [place] [address] , [place] [address] Jefry Patel MD, Creative Designer CLIA: [id number] Magnesium 1.9 1.6-2.4 mg/dL P-Uric Acid Reviewed date:07/31/2024 08:17:54 AM Interpretation: Performing Lab: Notes/Report: Test performed by [facility] [address] [place] [address] , [address] [place] [id number] Jefry Patel MD, Creative Designer CLIA: [id number] Uric Acid 4.1 2.4-7.0 mg/dL CBC Fingerstick (in house) Reviewed date:02/27/2025 10:36:52 [...] - 38 plat 160 100 - 400 CBC Fingerstick (in house) Reviewed date:03/04/2025 01:54:18 [...] - 38 plat 171 100 - 400 Glycohemoglobin A1c (in hous e) Reviewed date:05/05/2025 10:33:08 PM Interpretation:6.1% Performing Lab: Notes/Report: 6.1% glycohemoglobin 6.1% 5 - 6.5 % P-Comprehensive Metabolic Pa jung (CMP) Reviewed date:05/05/2025 10:33:07 PM Interpretation:GFR 51 Performing Lab: Notes/Report: Test performed by [facility] [address] [place] [address] , [address], [place] [address] Jefry Patel MD, Creative Designer CLIA: [id number] Sodium 141 135-145 mmol/L Potassium 4.0 3.5-5.3 [...] 101 Performing Lab: Notes/Report: Test performed by [facility] [address] [place] [address] , [address], [place] [address] Jefry Patel MD, Creative Designer CLIA: [id number] Cholesterol 189 <200 mg/dL Triglycerides 174 <150 [...] Interpretation:1.6 Performing Lab: Notes/Report: Test performed by [facility] [address] [place] [address] , [facility], [place] [address] Jefry Patel MD, Creative Designer CLIA: [id number] Magnesium 1.6 1.6-2.4 mg/dL Medications Medication SIG (Take, Route, Frequency, Duration) Notes Start Date End Date Status Ascorbic Acid 1000 MG 1 tablet Orally On ce a day Active Baclofen 10 MG/20ML as directed Intrathecal Not-Taking Cyanocobalamin 1000 MCG 1 tablet Orally Once a day Active Losartan Potassium-HCTZ 50-12.5 MG 1 tablet Orally Once a day Not-Taking Omeprazole 20 MG 1 capsule 1/2 to 1 hour before morning meal Orally Once a day Active Accu-Chek Guide w/Device as directed 07/10/2024 Active Cholecalciferol 50 MCG (2000 UT) 1 tablet Orally Once a day Active Accu-Chek Guide - USE TO TEST BLOOD SUGAR ONCE DAILY. Active Ozempic (2 MG/DOSE) 8 MG/3ML 2 mg Subcutaneous once a week 03/26/2025 Active Triamcinolone Acetonide 0.1 % 1 application Externally twice a day 06/20/2025 Active Accu-Chek FastClix Lancets - ONCE A DAY 11/03/2022 Active Magnesium Oxide 400 MG 1 tab(s) Orally O nce a day 12/13/2024 Active Allopurinol 100 MG TAKE 1 TABLET BY CHRISTEL TH DAILY; Duration: 90 Active oxyBUTYnin Chloride ER 10 MG 1 tablet Orally Once a day; Duration: 90 days Active Diclofenac Sodium 1 % 1 charles applied topically 4 times a day Active Glimepiride 2 MG 1 tab(s) orally once a day Active Pregabalin 150 MG 1 capsule Orally Onc e a day Not-Taking Metoprolol Succinate ER 50 MG 1 tablet At Bed Time Active Vitamin D3 25 MCG (1000 UT) 1 tab(s) Orally bid Not-Taki ng Immunizations Vaccine Route Administration Date Status Comme nts xFluzone (6mos and older)-trivalent IM Intramuscular 11/29/2011 Administered PNEUMOVAX 23 VACCINE Unknown 09/15/2022 Administered [...] Administered PNEUMOVAX 23 VACCINE Unknown 09/24/2016 Administered Prevnar (PCV13) Unknown 08/24/2019 Administered Shingrix IM Intramuscular 05/16/2019 Administered Tetanus Tdap-Adacel (over 7yrs) Unknown 06/24/2023 Administered Tetanus Tdap-Adacel (over 7yrs) Unknown 09/10/2013 Administered Tetanus Tdap-Adacel (over 7yrs) IM Intramuscular 03/03/2009 Administered xFlu shot-36 months and older Unknown 08/19/2017 Administered Morphine 10mg/ml IM Intramuscular 11/24/2007 Administered Prevnar (PCV20) IM Intramuscular 02/23/2024 Administered Fluzone High Dose (65yr and older) IM Intramuscular 07/31/2021 Administered Problems Problem Type SNOMED Code ICD Code Onset Dates Problem Status W/U Status Risk Notes Problem Gastroesophageal reflux disease (517826965) GERD (gastroesophageal reflux disease) (K21.9) Active confirmed Problem Essential hypertension (44309607) Essential (primary) hypertension (I10) Active confirmed Problem Insomnia (338158343) Insomnia (G47.00) Active confirmed Problem Essential hypertension (14135248) Essential hypertension (I10) Active confirmed Problem Osteopenia (519042985) Osteopenia (M85.80) Active confirmed Problem Degeneration of lumbar intervertebral disc (21091811) Degenerative disc disease, lumbar (M51.36) Active confirmed Problem Mixed anxiety and depressive disorder (331197304) Depression with anxiety (F41.8) Active confirmed Problem BMI 30+ - obesity (089192788) BMI 32.0-32.9,adult (Z68.32) Active confirmed Problem Obese class I (373275668756171) BMI 33.0-33.9,adult (Z68.33) Active confirmed Problem Overactive urinary bladder (disorder) (945081293) OAB (overactive bladder) (N32.81) Active confirmed Problem Hypomagnesemia (061295484) Hypomagnesemia (E83.42) Active confirmed Problem Diverticulitis of colon (997354799) Diverticulitis of large intestine without perforation or abscess without bleeding (K57.32) Active confirmed Problem Generalized osteoarthritis (541105261) Generalized osteoarthritis (M15.9) Active confirmed Problem Obese class II (128550260065219) BMI 35.0-35.9,adult (Z68.35) Active confirmed Problem Hyperlipidaemia (22423289) Hyperlipidemia, unspecified hyperlipidemia type (E78.5) Active confirmed Problem Migraine variant with headache (disorder) (436093550) Migraine headache (G43.909) Active confirmed Problem Body mass index 30.00 to 34.99 (916564670498988) BMI 31.0-31.9,adult (Z68.31) Active confirmed Problem Renal stone (39881426) Renal stone (N20.0) Active confirmed Problem Dyslipidemia (245299955) Dyslipidemia (E78.5) Active confirmed Problem Chronic kidney disease (183737941) CKD (chronic kidney disease) (N18.9) Active confirmed Problem Glaucoma (69599938) Glaucoma (H40.9) Active con firmed Problem Type II diabetes mellitus without complication (945686130) Type 2 diabetes mellitus without complication, without long-term current use of insulin (E11.9) Active confirmed Problem Chronic pain syndrome (571790232) Chronic pain disorder (G89.4) Active confirmed Problem Irritable bowel syndrome (19311632) Irritable bowel syndrome with both constipation and diarrhea (K58.2) Active confirmed Problem Type II diabetes mellitus without complication (259701220) Type 2 diabetes mellitus without complication, unspecified whether home care administrator insulin use (E11.9) Active confirmed Problem Abnormal carotid ultrasound (R93.89) Active confirmed Vital Signs Heart Rate 63 /min 06/20/2025 Blood pressure diastolic 70 mm Hg 06/20/2025 Height 63.50 in 06/20/2025 Blood pressure systolic 130 mm Hg 06/20/2025 Weight 190.2 lbs 06/20/2025 BMI 33.16 kg/m2 06/20/2025 Encounters Encounter Location Date Provider Diagnosis [facility] [facility] [address] [place]FA[place] [id number] 06/28/2024 R Keven Shailesh Essential hypertensi on I10 ; Hypomagnesemia E83.42 ; Migraine headache G43.909 and Hyperuricemia E79.0 [facility] [address] [facility] [address] [place] [id number] 07/26/2024 R Keven Shailesh Essential hypertensi on I10 ; Hypomagnesemia E83.42 and Hyperuricemia E79.0 [facility] [address] [place] [id number] 08/23/2024 R Keven Shailesh Essential hypertensi on I10 and Type 2 diabetes mellitus without complication, without long-term current use of insulin E11.9 [facility] [address] [place] [id number] 12/11/2024 R Keven Shailesh Adult general medica l examination Z00.00 ; Essential hypertension I10 ; Hypomagnesemia E83.42 ; Hyperuricemia E79.0 ; Type 2 diabetes mellitus without complication, without long-term current use of insulin E11.9 ; Dyslipidemia E78.5 ; OAB (overactive bladder) N32.81 ; GERD (gastroesophageal reflux disease) K21.9 and BMI 33.0-33.9,adult Z68.33 [facility] [address] [place] [id number] 02/26/2025 R Keven Shailesh Acute bronchitis J20 .9 and Type 2 diabetes mellitus without complication, without long-term current use of insulin E11.9 [facility] [address] [place] [id number] 03/04/2025 Jennifer Marsh Bronchitis J40 and B WI 33.0-33.9,adult Z68.33 [facility] [address] [facility] [address] [place]FA[place] [id number] 04/30/2025 R Keven Shailesh Essential hypertensi on I10 ; Dyslipidemia E78.5 ; Type 2 diabetes mellitus without complication, without long-term current use of insulin E11.9 ; Hypomagnesemia E83.42 and GERD (gastroesophageal reflux disease) K21.9 [facility] [place] [address] [place], [place] [id number] 06/20/2025 R Keven Shailesh Chest wall pain R07. 89 ; Hypomagnesemia E83.42 and Dyshidrosis L30.1 [facility] [address] [place], [place] [id number] 07/10/2024 R Keven Shailesh [facility] [address] [place], [place] [id number] 07/11/2024 R Keven Shailesh [facility] [address] [place], [place] [id number] 07/31/2024 R Keven Shailesh [facility] [address] [place], [place] [id number] 10/22/2024 R Keven Shailesh [facility] [address] [place], [place] [id number] 12/12/2024 R Keven Shailesh [facility] [address] [place], [place] [id number] 12/13/2024 R Keven Shailesh [facility] [address] [place] [id number] 12/14/2024 R Keven Shailesh [facility] [address] [place], [place] [id number] 01/01/2025 R Keven Shailesh [facility] [address] [place] [id number] 03/26/2025 R Keven Shailesh Type 2 diabetes mellitus without complication, without long-term current use of insulin E11.9 [facility] [address] [place], [place] [id number] 05/05/2025 R Keven Shailesh Assessments Encounter Date [...] current use of insulin (ICD-10 - E11.9) 03/26/2025 Type 2 diabetes mellitus without complication, without long-term current use of insulin (ICD-10 - E11.9) 04/30/2025 Essential hypertension (ICD-10 - I10) 04/30/2025 Dyslipidemia (ICD-10 - E78.5) 06/20/2025 Chest wall pain (ICD-10 - R07.89) 06/20/2025 Hypomagnesemia (ICD-10 - E83.42) 03/04/2025 BMI 33.0-33.9,adult (ICD-10 - Z68.33) 03/04/2025 Bronchitis (ICD-10 - J40) fluids, rest, supportive measures for fever/symptom relief 02/26/2025 Acute bronchitis (ICD-10 - J20.9) 02/26/2025 Type 2 diabetes mellitus without complication, without long-term current use of insulin (ICD-10 - E11.9) 12/11/2024 Essential hypertension (ICD-10 - I10) Continue to monitor and record blood pressure readings at home and bring diary to next office visit. 12/11/2024 Adult general medical examination (ICD-10 - Z00.00) Patient instructed to return to office Annually for Annual Wellness Visits to include annual screenings of Pain assessment, Functional Ability assessment, Cognitive Ability assessment, Fall Risk assessment, Depression screening and Bladder control screening. 12/11/2024 Hypomagnesemia (ICD-10 - E83.42) 06/20/2025 Dyshidrosis (ICD-10 - L30.1) 04/30/2025 Type 2 diabetes mellitus without complication, without long-term current use of insulin (ICD-10 - E11.9) 07/26/2024 Hyperuricemia (ICD-10 - E79.0) 06/28/2024 Migraine headache (ICD-10 - G43.909) Samples x 3 provided 06/28/2024 Hyperuricemia (ICD-10 - E79.0) 04/30/2025 Hypomagnesemia (ICD-10 - E83.42) 12/11/2024 Hyperuricemia (ICD-10 - E79.0) 12/11/2024 Type 2 diabetes mellitus without complication, [...] Start Date Coverage End Date MARYJO MORGAN [id number] [place]FA[place]LL [phone] [id number] ROBERT DUMONT Self - patient is the insured Medications Administered Medication Instructions Date of Administration Dosage Notes Depo- Medrol 40 mg/ml 09/16/2017 1.5 mL Dexamethasone 12/24/2010 1 mL Dexamethasone 12/29/2010 1 mL Dexamethasone 02/26/2025 1 mL phenergan 25 mg/ml 11/24/2007 50 mg Dexamethasone 03/29/2016 1 mL Dexamethasone 03/18/2016 1 mL Dexamethasone 05/06/2009 1 mL Dexamethasone 04/18/2008 1 mL Depo- Medrol 40 mg/ml 04/12/2017 1.5 mL Depo- Medrol 40 mg/ml 08/22/2007 1.5 mL B-12 03/13/2012 1 mL Dexamethasone 04/25/2018 1 mL Dexamethasone 06/14/2018 1 mL Dexamethasone 03/03/2009 1 mL B-12 11/29/2011 Medical (General) History Medical History History ICD Code Hypertension allergies glaucoma OA Headaches Kidney stones Type 2 DM Hyperuricemia HLP Chronic renal insufficiency - Dr. Porter Surgical History Surgery Date(Month/Year) carpal tunnel cholecystectomy double hernia repair tonsillectomy torn rotator cuff, left 12/2007 stress test/blood work/chest x-ray [facility]/Dr. Slade Nunez 09/28 kidney stones removed 04/10/09 kidney stones removed 09-11-09 kidney stones removed 07/29/11 cataract surgery on right eye 06/01 heart cath/normal/Dr. Nunez 02/2013 lithotripsy 05/2013 hemmohroid surgery rotator cuff tear repair and tendon repa ir - Dr. Back 03/29/14 laser lithotrypsi- Dr Palma 07/[address] Palma 11.16 C-scope/ Allran/ normal 2017 C- scope/ Herman 06/2020 bilateral foot surgery to correct hammer toes/ Dr. Burkett 11/2023 Hospitalization History Reason Date(Month/Year) [facility] ER - Dizziness, Heart Palpitations, Pain in LLQ 06/21/2024 Left Foot Toe Surgery 01/13/2024 Right Foot Toe Surgery 11/18/2023 [facility]-sore throat 10/08 [facility] ER-UTI 07/08 [facility]-kidney stones, diverticulitis 02/24 to 02/27/17 [facility] ER-chest pain 12/26/16 [facility] ER-back pain 07/11/11 [facility] ER, pneumonia 04/28/2008 chestpain
--- OUTSIDE RECORDS SUMMARY | 2025-06-28 12:47 | XMS_ITS | Clinical Summary ---
Author Organization [facility] Address [address] [facility], [address] [place] [address] Care Team Providers Care Home Hospice Rn Name Role Phone Ermias Cash MD Primary Care Provider [phone] Allergies No known active allergies Medications cloNIDine [...] 12.5 MG CR tablet 03/11/2014 Active ZOSTAVAX 43710 UNT/0.65ML injection 02/14/2014 Active LORazepam (ATIVAN) 0.5 [...] on file Insurance [place] BCBS Care Teams Home Hospice Rn Relationship Specialty Start Date End Date Ermias Cash MD [address] [place] [address] PCP - General 03/26/14
--- OUTSIDE RECORDS SUMMARY | 2025-06-28 12:47 | XMS_ITS | Referral Summary ---
Author Organization [facility] Address [address] [place] [id number] Care Team Providers Care Tufter Hand Name Role Phone Other, Physician Talib PETIT [...] on file Medical Devices Implanted Type Area Painting Trades Worker Device Identifier Shelf Expiration Date Model / Serial / Lot Corkscrew Biocomposite 5.5mm - [id number] Implanted:Qty: 1 on 03/29/2014 by Arlene Back MD at [facility] Right: Shoulder ARTHREX ARTHROSCOPY INST 07/22/2015 AR-1927BC F / / [id number] Pushlock Biocomposite 4.5mm - [id number] Implanted:Qty: 2 on 03/29/2014 by Arlene Back MD at [facility] Right: Shoulder ARTHROTEK 05/21/2015 AR-1922BC / / [id number] [place] Bioswivelock 4.75x19.1 - [id number] Implanted:Qty: 1 on 03/29/2014 by Arlene Back MD at [facility] Right: Shoulder ARTHREX ARTHROSCOPY INST 05/21/2015 AR-2324BC C / / [id number] Biocomposite Corkscrew Ft Vented Implanted:Qty: 2 on 03/29/2014 by Arlene Back MD at [facility] Right: Shoulder ARTHREX ARTHROSCOPIC INST. 05/21/2015 AR-1927BC FT / / [id number] Care Teams Tufter Hand Relationship Specialty Start Date End Date Other, Physician MD Talib PCP - General Internal Medicine 03/27/14
--- OUTSIDE RECORDS SUMMARY | 2025-06-28 12:47 | XMS_ITS | Clinical Summary ---
Author Organization Healthcare Address [facility] [place] [address] Care Team Providers Care Machine Group Leader Name Role Phone Unavailable Primary Care Provider [...] [facility]-Bone Density Scan 1954 [facility]-Depression Screening 1954 [facility]-/Child/Adol SDOH Screenings 1954 [facility]- SDOH Screenings 02/10/1972 [facility]-Adult SDOH Screenings 02/10/1972 CT Colonography 1999 Colonoscopy 1999 FIT-DNA 1999 FIT 1999 FOBT 1999 Sigmoidoscopy 1999 [facility]-Colorectal Cancer Screening 1999 [facility]-Zoster Vaccines (1 of 2) 02/10/2004 [facility]-Pneumococcal Vaccine: 50+ Years (2 of 2 - PCV) 09/24/2017 09/24/2016 [facility]-DTaP,Tdap,and Td Vaccines (2 - Td or Tdap) 09/10/2023 09/10/2013, 01/26/1997 LYE-DQTIN-06 Vaccine (3 - season) 2024 03/10/2021, 02/10/2021 [...] based on patient's age to complete this topic"
--- OUTSIDE RECORDS SUMMARY | 2025-06-28 12:47 | XMS_ITS | Clinical Summary ---
Author Organization [facility] Address [address] [place] [id number] Care Team Providers Care Clearing Hand Name Role Phone Other, Physician Talib [...] this topic Medical Devices Implanted Type Area Blowing Engineer Device Identifier Shelf Expiration Date Model / Serial / Lot Corkscrew Biocomposite 5.5mm - [id number] Implanted:Qty: 1 on 03/29/2014 by Arlene Back MD at [facility] Right: Shoulder ARTHREX ARTHROSCOPY INST 07/22/2015 AR-1927BC F / / [id number] Pushlock Biocomposite 4.5mm - [id number] Implanted:Qty: 2 on 03/29/2014 by Arlene Back MD at [facility] Right: Shoulder ARTHROTEK 05/21/2015 AR-1922BC / / [id number] [place] Bioswivelock 4.75x19.1 - [id number] Implanted:Qty: 1 on 03/29/2014 by Arlene Back MD at [facility] Right: Shoulder ARTHREX ARTHROSCOPY INST 05/21/2015 AR-2324BC C / / [id number] Biocomposite Corkscrew Ft Vented Implanted:Qty: 2 on 03/29/2014 by Arlene Back MD at [facility] Right: Shoulder ARTHREX ARTHROSCOPIC INST. 05/21/2015 AR-1927BC FT / / [id number] Advance Directives Documents on File Type Date Recorded Patient Quality Assurance Lab Technician Expl anation Advance Directives([employer] e Power of Assistant Chief Train Dispatcher)/Living Will/MOLST 03/29/2014 10:44 AM Care Teams Clearing Hand Relationship Specialty Start Date End Date Other, Physician MD Talib PCP - General Internal Medicine 03/27/14
--- OUTSIDE RECORDS SUMMARY | 2025-06-28 12:47 | XMS_ITS | Clinical Summary ---
Author Organization [facility] Address [address] [place] [address] Care Team Providers Care Solder Technician Name Role Phone Ermias Cash MD Primary [...] chest pain syndrome/intermittent syncope with labile hypertension, [id number]. b. Acceptable combination Doppler echocardiogram, September 2004. [...] 2 diabetes mellitus without complication, unspecified whether fdc insulin use LIPID PANEL Routine 10/20/2022 1:49 [...] 1:49 PM EST 10/21/2022 Comment:Blood Release to [facility] my Agarwal [facility] (AMBULATORY) - 10/21/2022 6:08 PM EST Performed at: - [address] [id number] Director Of Intercollegiate Athletics: Anatoly Linder PhD, Phone: [phone] us Medina Taylor APRN LAB BLOOD ORDERABLES Final Result [facility] (AMBULATORY) [address] [place] [address], [facility] [address] [place] [address], * (ABNORMAL) Lipid Panel (10/20/2022 1:49 PM [...] 6:08 PM EST Performed at: - [facility] [address] [place], [place] [id number] Director Of Intercollegiate Athletics: Anatoly Linder PhD, Phone: [phone] Medina Taylor APRN LAB BLOOD ORDERABLES Final Result [facility] (AMBULATORY) [address] [place] [address], [facility] [address] [place] [address], from Last 3 Months or Most Recently Relevant to Health Maintenance Insurance Advance Directives Documents on File Type Date Recorded Patient Brood Station Manager Expl anation LIVING WILL - SCAN 11/23/2022 12:32 PM NATHAN NG WILL DIRECTIVE Care Teams Solder Technician Relationship Specialty Start Date End Date Ermias Cash MD [address] [place] [address] PCP - General Family Medicine 12/26/16
--- OUTSIDE RECORDS SUMMARY | 2025-06-28 12:48 | XMS_ITS | Clinical Summary ---
Author Organization [facility] Address [address] [facility] [place] [address] Phone Care Team Providers Care Gang Knife Fish Chopper Name Role Phone Vernon Cash Primary Care Provider [phone] Allergies Active Allergy Reactions Criticality Noted Date [...] hammertoe repair.; Surgeon: Buster Burkett DPM; Location: [facility]; Service: Podiatry Medical devices from this surgery are in the Medical Devices section. HAMMER TOE SURGERY 11/18/2023 Foot/Ankle/Right .; Surgeon: Buster Burkett DPM; Location: [facility]; Service: Podiatry Medical devices from this surgery are in the Medical Devices section. CYSTOSCOPY HAMMER TOE SURGERY 01/13/2024 Foot/Ankle/Left left second hammertoe repair and removal of toenail, left big toe; Surgeon: Buster Burkett DPM; [facility]; Service: Podiatry Medical devices from this surgery are in the Medical Devices section. TOENAIL EXCISION 01/13/2024 Foot/Ankle Surgeon: Buster Burkett DPM; Location: [facility]; Service: Podiatry Medical devices from this surgery [...] 05/29/2024 1:43 PM EDT Plan of Treatment Upcoming Encounters Date Type Department Care Team (Late st Contact Info) Description 07/23/2025 10:30 AM EDT Appointment [place] [facility] Mammography [address] [id number] Vernon Cash K[place] [address] [place] [address] Health Maintenance Due Date Last Done Comments Wellness Exam Medicare 1958 Hepatitis C Screening 02/10/1972 Cologuard 1999 Colon Cancer Screening 1999 Colonoscopy 1999 FIT 1999 Sigmoidoscopy 1999 Virtual Colonography 1999 Zoster (1 of 2) 02/10/2004 Bone Density Screening 2019 COVID-19 Vaccine ( season) 2024 03/10/2021, 02/10/2021 Influenza Vaccine (#1) 2025 , 09/15/2022, 07/31/2021, Additional history exists Breast Cancer [...] this topic Medical Devices Implanted Type Area Newspaper Photo Editor Device Identifier Shelf Expiration Date Model / Serial / Lot Guidewire .045 Double Ended - [id number] Implanted:Qty: 1 on 11/18/2023 by Buster Burkett DPM at [facility] Right: Foot [employer] AR-8737-41K D / / Compr Ft Scrw,3.5 Mini, 40mm - [id number] Implanted:Qty: 1 on 11/18/2023 by Buster Burkett DPM at [facility] Right: Foot AR[employer] AR-8730-40H / / Pin Drill 1.1d315op Tip Trim-It F/Shldr Impl Dlv Sys - [id number] Implanted:Qty: 1 on 11/18/2023 by Buster Burkett DPM at [facility] Right: Foot [employer] 07/21/2025 AR-[id number] / / [id number] Pin Drill 1.5m070af Tip Trim-It F/Shldr Impl Dlv Sys - [id number] Implanted:Qty: 1 on 01/13/2024 by Buster Burkett DPM at [facility] Left: Toe [employer] 09/20/2025 AR-4151DS / / [id number] Procedures Procedure Name Priority Date/Time Associated Diagnosis [...] 1:14 PM EDT Incomplete-need additional imaging evaluation (XGL-Evzrnima-0) ~ RECOMMENDATION: Ultrasound of both breasts. Bilateral [...] the next mammogram, in accordance with the [employer] and the Society of Breast Imaging recommendations. Narrative 05/29/2024 1:14 PM EDT Procedure:MM MAMMO DIGITAL SHAWNA DIAGN BILAT ~ Reason for exam: clinical finding. Indicated problem(s): right breast pain for 1 months. N64.7-Oovcbkhkld-WSA-10-CM; 69-year-old with intermittent focal RIGHT lateral breast pain for about one month. Family history of breast cancer (sister at age 52 and sister at age 66). Evaluate. N64.4-Pvjxuwoiae-CAO-10-CM; 69-year-old with intermittent focal bilateral breast pain [...] problem(s): right breast pain for 1 months. N64.2-Oihlglybsz-ABN-10-CM; 69-year-old with intermittent focal RIGHT lateral breast pain for about one month. Family history of breast cancer (sister at age 52 and sister at age 66). Evaluate. N64.5-Btisuwtmsq-XOH-10-CM; 69-year-old with intermittent focalbilateral breast pain for [...] change. ~ IMPRESSION: Incomplete-need additional imaging evaluation (KWS-Zqgwiuxi-8) ~ RECOMMENDATION: Ultrasound of both breasts. Bilateral [...] the next mammogram, in accordance with the [employer] and the Society of Breast Imaging recommendations. Farzad Connelly NP IMG MAMMOGRAPHY ORDERABLES Stella l Result from Last 3 Months or Most Recently Relevant to Health Maintenance Insurance [employer] MEDICARE PPO MR MEDICARE PPO MR MEDICARE PPO MR Advance Directives For more information, please contact: [phone] Documents on File Type Date Recorded Patient Dry Kiln Loader Expl anation Advance Directives/DNR 03/04/2017 5:00 AM 02/24/2017 * Full Code (Latest Code Status on File) Date Activated Date Inactivated Comments 02/24/2017 2:32 PM 02/27/2017 9:12 PM Care Teams Gang Knife Fish Chopper Relationship Specialty Start Date End Date Vernon Cash [address] [place] [address] [address] [place] [address] PCP - General Family Medicine 03/11/14
== END 2025-06-28 23:59 | disposition home or self-care (01) ==
LOC: RAD 12:45
PROVIDERS: PCP Family Medicine; Visit Provider Urology
DX: N13.30 Unspecified hydronephrosis (principal); R93.49 Abnormal radiologic findings on diagnostic imaging of other urinary organs
CPT/HCPCS: 74176